=== PATIENT | female | born 1960 | race Caucasian/White ===

== ENCOUNTER 2016-06-24 11:19 | Emergency (ER) | payer OTHER ==
[~2016-06-24] VITALS: Ht 147.3 cm; Wt 60.2 kg
[~2016-06-24 11:19] MED LIST: ASPI-535 PO; ATOR10TA65 PO; CARV6.2579 PO; CHOL400T10 PO; CIPR500T4 PO; DOCU-144 PO; FOLI-49 PO; GABA100C14 PO; GLIM1TAB2 PO; HYDR-906 PO; LEVO137T3 PO; LOSA50TA6 PO; NEPH PO; OMEP20CA16 PO; ZOLP5TAB PO; [UNRECOGNIZED DRUG - CODE] PO
[2016-06-24 11:32] VITALS: Ht 147.3 cm; Wt 60.2 kg
[2016-06-24] MEDS ORDERED: ONDANSETRON 4 MG INJ IV STA (13:18)
[2016-06-24] MEDS ORDERED: morphine 2 MG INJ IV STA (13:18)
[2016-06-24] MEDS ORDERED: HYDROCODONE/APAP (5/325) TAB PO ONE ×2 (13:30→16:00)
--- NOTE | 2016-06-24 13:45 | RADRPT ---
PROCEDURE: CT Abdomen and Pelvis without contrast. CLINICAL INDICATION: Abdominal pain. TECHNIQUE: CT scan of the abdomen and pelvis without contrast was performed on a multidetector hig h-resolution CT scanner. The patient was scanned without intravenous contrast. Coronal and sagittal reformatted images were obtained from the axial source images. Images were reviewed on a high-resol Joy[employer] PACS workstation. One or more of the following dose reduction techniques were used: Automated exposure control, adjustment of the mA and/or kV according to patient size, use of iterative recon struction technique. The total exam CTDI equals 7.41 mGy and the total exam DLP equals 387.88 mGy-c m. COMPARISON: CT from FINDINGS: CT abdomen: The lung bases are remarkable for bibasilar atelectasis and minimal bronchial dilatation. There is i nterlobular septal thickening suggesting mild interstitial edema. The heart size is mildly enlarged without pericardial thickening or effusion. The liver is normal in size and density without focal ma ss or intrahepatic biliary dilatation. The spleen is normal in size and homogeneous in density. The stomach is partially collapsed, but is grossly unremarkable. The pancreas as visualized is normal. T he gallbladder is remarkable for a layering sludge. There is no evidence for biliary dilatation. The adrenal glands are symmetric and normal. There is atrophic right kidney with no hydronephrosis. The re is approximately 2 cm cyst in the interpolar region of the right kidney. Left kidney is surgicall y absent. The aorta is of normal caliber. Aortic vascular calcifications are present. There is no retroperiton eal lymphadenopathy. The ousmane hepatis region is clear. The bowel and mesentery, as visualized, are equally unremarkable. There is a fat-containing epigastric hernia. CT pelvis: The small bowel loops situated within the pelvis are unremarkable. There is a normal appendix. The p elvic organs are normal. The pelvic sidewalls and inguinal regions are clear. The sigmoid colon and rectum are unremarkable. No mass, lymphadenopathy, or free fluid is seen. No acute inflammation is s een. The surrounding osseous structures are remarkable for degenerative spondylosis of the spine. Mi dline posterior bridging osteophyte at T10-T11 has mass effect on the thecal sac narrowing the AP di ameter to 8 mm at this level. No osteolytic or osteoblastic lesion is detected. IMPRESSION: 1. No mass, lymphadenopathy, or focal acute inflammatory process is identified. 2. Atrophic right kidney with no hydronephrosis. Left kidney is surgically absent. 3. Extensive aortoiliac atherosclerosis. 4. Cardiomegaly with interstitial pulmonary edema. 5. Gallbladder sludge. RPTAT: JJ .Vicente Heath MD, Date Time Electronically viewed and signed by .Vicente Heath MD, on 06/24/2016 13:44 .A/
[2016-06-24 14:23] LABS: ADD SCAN DIFF NO
[2016-06-24 14:25] LABS: BASOPHILS % 0.4 % (0.0-2.0); EOSINOPHILS # 0.1 10^3/ul (0.0-0.5); EOSINOPHILS % 1.4 % (0.0-7.0); HEMATOCRIT 42.5 % (37.0-47.0); HEMOGLOBIN 13.4 g/dl (12.0-16.0); LYMPHOCYTES # 0.9 10^3/ul (0.8-2.9); LYMPHOCYTES % 17.3 % (15.0-51.0); MEAN CORPUSCULAR HEMOGLOBIN 30.5 pg (29.0-33.0); MEAN CORPUSCULAR HGB CONC 31.5 g/dl (32.0-37.0); MEAN CORPUSCULAR VOLUME 96.8 fl (82.0-101.0); MEAN PLATELET VOLUME 9.9 fl (7.4-10.4); MONOCYTE # 0.5 10^3/ul (0.3-0.9); MONOCYTES % 10.8 % (0.0-11.0); NEUTROPHIL # 3.4 10^3/ul (1.6-7.5); NEUTROPHILS % 69.9 % (39.0-77.0); PLATELET COUNT 194 10^3/UL (140-415); RED BLOOD COUNT 4.39 10^6/ul (4.20-5.40); WHITE BLOOD COUNT 4.9 10^3/ul (4.8-10.8)
[2016-06-24 14:35] LABS: INR 0.94; PARTIAL THROMBOPLASTIN TIME 30.9 Sec (25.0-35.0); PROTIME 12.6 Sec (12.2-14.2)
[2016-06-24 14:41] LABS: ALBUMIN 4.3 g/dl (3.3-4.9)
[2016-06-24 14:44] LABS: ALBUMIN/GLOBULIN RATIO 0.86; CALCIUM 9.6 mg/dl (8.4-10.2); CREATININE 5.52 mg/dl (0.44-1.00); TOTAL PROTEIN 9.3 g/dl (6.1-8.1)
--- NOTE | 2016-06-24 15:24 | RADRPT ---
PROCEDURE: US right upper extremity AV fistula/graft CLINICAL INDICATION: Renal failure TECHNIQUE: Multiple sonographic images of the right upper extremity arteries, veins and hemodialys is access was obtained utilizing grayscale, color-flow, compressive sonography and doppler imaging. The images were reviewed on a PACS workstation. COMPARISON: None. FINDINGS: There is a right upper extremity AV fistula which is widely patent. IMPRESSION: Patent right AV fistula. Velocity measurements were not obtained. RPTAT: AA .Elliot Hernández MD, MD Date Time Electronically viewed and signed by .Elliot Hernández MD, on 06/24/2016 15:23 .S/
--- NOTE | 2016-06-24 15:55 | RADRPT ---
PROCEDURE: Chest x-ray CLINICAL INDICATION: Abdominal pain TECHNIQUE: Chest single view COMPARISON: 12/18/2015 FINDINGS: There is left IJ dialysis catheter with tip at the junction of the SVC and azygos vein. There is sl ight kinking of the tip of the catheter which may suggest that it is entering the azygos vein. Stab le cardiomegaly and an sclerotic aortic calcification is seen. There is mild interstitial CHF which has improved from the previous examinations. Mild bibasilar atelectasis is seen. Trace bilateral pleural effusions are identified IMPRESSION: 1. Left IJ dialysis catheter with tip at the junction of the SVC and azygos vein. There is slight kinking of the tube which may suggest that the catheter is entering the azygos vein . 2. Stable cardiomegaly and an sclerotic aortic calcification. 3. Mild interstitial CHF. 4. Small bilateral pleural effusions with bibasilar atelectasis RPTAT: HH .Hiren Nunez MD, MD Date Time Electronically viewed and signed by .Hiren Nunez MD, on 06/24/2016 15:54 .W/
--- NOTE | 2016-06-24 16:45 | RADRPT ---
PROCEDURE: XR Ribs. CLINICAL INDICATION: Status post trauma to left chest. Status post fall.. TECHNIQUE: Two views of the left ribs were obtained. COMPARISON: The chest x-ray of 06/24/2016 FINDINGS: No rib fracture or other focal lesion is identified. The underlying lungs are unremarkable, without pleural effusion or pneumothorax seen. Sternotomy wires, mediastinal clips and a left-sided Perma-C ath are present slightly limiting the examination RPTAT:HJJR IMPRESSION: 1. Unremarkable left rib series. 2. It should be noted that acute, nondisplaced rib fractures may not be immediately radiographically visible and, should be patient's clinical symptoms persist despite conservative measures, a follow- up exam would be suggested. Physician Roseanne Date Time Electronically viewed and signed by Physician Roseanne on 06/24/2016 16:45 JR/
[2016-06-24] MEDS ORDERED: DOCU-144 PO (17:14)
[2016-06-24] MEDS ORDERED: HYDR-906 PO (17:14)
[2016-06-24 17:20] VITALS: BP 160/89; PULSE 78; RESP 20
--- NOTE | 2016-06-24 19:16 | ERD ---
ER Documentation Chief Complaint Date/Time DATE: 06/24/16 TIME: 19:07 Chief Complaint RT SHOULDER , LT RIB, RT FACE PAIN S/P FALL IN SHOWER THIS MORNING. NO KO. HPI This is a 56-year-old Malaysian-speaking female with a known history of end-stage renal disease on hemodialysis. The patient receives dialysis every Tuesday and Tuesday. The patient received her full run of dialysis today just prior to arrival. The patient states she presents to the emergency department today complaining of multiple areas of pain after she had a mechanical slip and fall and hit her bathtub a days prior to arrival. The patient denied any dizziness, syncope or near syncope prior to or after the fall. She stated she was standing in her bathtub on a wet tiled floor when she fell and hit the bathtub landing on her left rib cage. She stated she did not hit her head or lose consciousness. Since the fall she has been complaining of pain over the left side of her ribs that exacerbated when she laughs or takes in a deep breath. She is also complaining of pain in her left upper quadrant but denies any bruising. She also states to help break her fall she landed on an outstretched right hand. Contrary to the triage note the patient is not complaining of any tenderness of her right upper extremity, right hand or right shoulder. Her concern was that there could be damage to her maturing right AV fistula. The patient had a known left AV fistula that became clotted and therefore temporarily has a left-sided subclavian tunneled catheter. She denies any numbness tingling or pain of her right upper extremity. She did not take any analgesic medication prior to arrival. She denies a headache or neck pain. She has no chest pain pressure that radiates to the neck arm back or jaw. She has no shortness of breath at rest or exertion ROS All systems reviewed and are negative except as per history of present illness. Medications Home Meds Active Scripts Docusate Sodium* (Colace*) 100 Mg Capsule, 100 MG PO TID, #30 CAP Prov:RADHA HOLCOMB 06/24/16 Hydrocodone/Acetaminophen ([place] 5-325 Tablet) 1 Each Tablet, 1 TAB PO Q6H Y for PAIN, #20 TAB Prov:RADHA HOLCOMB 06/24/16 Zolpidem Tartrate* (Ambien*) 5 Mg Tablet, 5 MG PO HS Y for INSOMNIA, #3 TAB Prov:JANA INMAN DO 04/21/16 Hydrocodone/Acetaminophen ([place] 5-325 Tablet) 1 Each Tablet, 1 EACH PO Q4H, # 30 TAB Prov:HILARY LAW 04/01/16 Reported Medications Gabapentin* (Gabapentin*) 100 Mg Capsule, 100 MG PO DAILY, #30 CAP 04/21/16 Atorvastatin Calcium (Atorvastatin Calcium) 10 Mg Tablet, 10 MG PO DAILY, #30 TAB 04/21/16 Folic Acid* (Folic Acid*) 1 Mg Tablet, 1 MG PO DAILY, TAB 04/21/16 Carvedilol* (Carvedilol*) 6.25 Mg Tablet, 6.25 MG PO BID, #60 TAB 04/21/16 Cetirizine HCl (24Hour Allergy) 10 Mg Tablet, 10 MG PO BID, TAB 04/21/16 Omeprazole* (Omeprazole*) 20 Mg Capsule.dr, 20 MG PO DAILY, #30 CAP 03/19/16 Cholecalciferol* (Vitamin D*) 400 Unit Tablet, 400 UNIT PO DAILY, TAB 12/18/15 Levothyroxine Sodium* (Levothyroxine Sodium*) 137 Mcg Tablet, 137 MCG PO BEFORE BREAKFAST, #30 TAB 12/18/15 Glimepiride* (Glimepiride*) 1 Mg Tablet, 1 MG PO WITH BREAKFAST, TAB 12/18/15 Losartan Potassium* (Losartan Potassium*) 50 Mg Tablet, 50 MG PO BID, TAB 12/18/15 Docusate Sodium* (Colace*) 100 Mg Capsule, 100 MG PO BID 04/09/13 Aspirin Ec (Aspir 81) 81 Mg Tablet.dr, 81 MG PO DAILY 04/09/13 Multivit/Ca Carb/B Cmplx/Fa* (Lizette-Kris*) 1 Tab Tab, 1 TAB PO DAILY 04/09/13 Discontinued Scripts Ciprofloxacin Hcl* (Ciprofloxacin Hcl*) 500 Mg Tablet, 500 MG PO BID for 7 Days , TAB Prov:JANA INMAN DO 04/21/16 Allergies Allergies: Coded Allergies: No Known Drug Allergy (Verified Allergy, Unknown, 04/21/16) PMhx/Soc History of Surgery: Yes (OPEN HEART SX, DIALYSIS SHUNT VASCULAR SX) Hx Neurological Disorder: No (THYROID) Hx Respiratory Disorders: No Hx Cardiac Disorders: Yes (HTN, DM) Hx Psychiatric Problems: No Hx Miscellaneous Medical Probl: Yes ( KIDNEY FAILURE, T/TH/SAT, LEFT CHEST ACCESS) Hx Alcohol Use: No Hx Substance Use: No Hx Tobacco Use: No Smoking Status: Never smoker Physical Exam Vitals Vital Signs Date Time Temp Pulse Resp B/P Pulse Ox O2 Delivery O2 Flow Rate FiO2 06/24/16 17:20 78 20 160/89 99 Room Air 06/24/16 11:32 98.7 81 20 147/88 98 Physical Exam Constitutional:Well-developed. Well-nourished. HEENT:Normocephalic. Atraumatic.Pupils were equal round reactive to light. Moist mucous membranes.No tonsillar exudates. No nasoseptal hematoma. No hemotympanum. Neck: No nuchal rigidity. No lymphadenopathy. No posterior cervical spine tenderness or step-offs. Respiratory: Not using accessory muscles of respiration.Lungs were clear to auscultation bilaterally. No rhonchi. No rales. No wheezing. Cardiovascular: Regular rate regular rhythm.No murmurs. No rubs were appreciated.S1, S2 normal. Distal pulses are palpable 2+ bilaterally. GI: Abdomen was soft. Tenderness in the left upper quadrant with no ecchymosis. No flank ecchymosis and no periumbilical ecchymosis. Non Distended. No pulsatile abdominal masses or bruits. No rebound. No guarding. Bowel sounds were present and normal. Muscle skeletal: Full range of motion of both the upper and lower extremities bilaterally.Normal muscle tone.No assymetrical calf tenderness or swelling. Tenderness over the lateral left rib cage with no ecchymosis, no flail chest and no subcutaneous emphysema. Patient able to AB duct the left and right upper extremity past 90. Normal lie to the right humeral head and the left humeral head. No wrist drop bilaterally. No tenderness with flexion extension ulnar or radial deviation of the left of the right wrist. No metacarpal tenderness over the left of the right hand. Handgrip is equal and symmetrical bilaterally. Skin: No petechia, no purpura. No lesions on the palms or the soles of the feet. No maculopapular rash. Positive thrill and bruit of the right antecubital AV fistula. Compartments were soft of the bilateral upper extremities. Left chest tunneled catheter was clean dry and intact with no surrounding erythema warmth tenderness fluctuance or induration NEURO: Patient was alert, awake, orientated x3.No facial droop. Gait observed and normal with no ataxia.Speech had regular rate and rhythm. No focal neurological deficits. Result Diagram: 06/24/16 1405 06/24/16 1405 Results 24 hrs Laboratory Tests Test 06/24/16 14:05 Activated Partial Thromboplast Time 30.9Sec Alanine Aminotransferase (ALT/SGPT) 18IU/L Albumin 4.3g/dl Albumin/Globulin Ratio 0.86 Alkaline Phosphatase 178IU/L Anion Gap 24 Aspartate Amino Transf (AST/SGOT) 26IU/L Basophils # 0.010^3/ul Basophils % 0.4% Blood Urea Nitrogen 40mg/dl Calcium Level 9.6mg/dl Carbon Dioxide Level 22mmol/L Chloride Level 96mmol/L Creatinine 5.52mg/dl Direct Bilirubin 0.00mg/dl Eosinophils # 0.110^3/ul Eosinophils % 1.4% Globulin 5.00g/dl Glucose Level 171mg/dl Hematocrit 42.5% Hemoglobin 13.4g/dl INR International Normalized Ratio 0.94 Indirect Bilirubin 0.0mg/dl Lymphocytes # 0.910^3/ul Lymphocytes % 17.3% Mean Corpuscular Hemoglobin 30.5pg Mean Corpuscular Hemoglobin Concent 31.5g/dl Mean Corpuscular Volume 96.8fl Mean Platelet Volume 9.9fl Monocytes # 0.510^3/ul Monocytes % 10.8% Neutrophils # 3.410^3/ul Neutrophils % 69.9% Nucleated Red Blood Cells # 0.010^3/ul Nucleated Red Blood Cells % 0.0/100WBC Platelet Count 22000^3/UL Potassium Level 5.0mmol/L Prothrombin Time 12.6Sec Prothrombin Time Ratio 1.0 Red Blood Count 4.3910^6/ul Red Cell Distribution Width 16.0% Sodium Level 137mmol/L Total Bilirubin 0.0mg/dl Total Protein 9.3g/dl White Blood Count 4.910^3/ul Current Medications Medications (Trade) Dose Ordered Sig/Connor Route PRN Reason Start Time Stop Time Status Last Admin Dose Admin Acetaminophen/ Hydrocodone Bitart ([place] (5/325)) 1 tab ONCE ONCE PO 06/24/16 13:30 06/24/16 13:31 Cancel Morphine Sulfate (morphine) 2 mg ONCE STAT IV 06/24/16 13:18 06/24/16 13:19 Cancel Ondansetron HCl (Zofran Inj) 4 mg ONCE STAT IV 06/24/16 13:18 06/24/16 13:19 Cancel Acetaminophen/ Hydrocodone Bitart ([place] (5/325)) 1 tab ONCE ONCE PO 06/24/16 16:00 06/24/16 16:01 DC Procedures/MDM This patient presented to the emergency department 8 days after a mechanical slip and fall. Radiographic imaging was obtained of the lateral left rib cage and a chest radiograph was obtained which showed no acute fractures pneumothorax or pleural effusion. I also obtained a CT scan of the abdomen without contrast that showed no evidence of intra-abdominal hemorrhage as the patient did have tenderness over the spleen as a result of the blunt abdominal trauma. Electrolytes showed no abnormalities such as hyperkalemia or anemia. I obtained an ultrasound of the right upper extremity which showed a patent right AV fistula. Observation Note: Time: 4 hours Family Hx: No Hypertension Evaluation: Multiple exams showed improving symptoms and no evidence of intra- abdominal hemorrhage or pneumothorax. The patient felt comfortable being discharged home and her pain had improved after given [place] The patient was discharged home in fair condition. They were instructed to return to the emergency department at any time if there was any worsening of their condition. The patient stated they would follow up with their PCP in the next 24-48 hours to initiate a suitable medication regimen under the care of their PCP as well as to allow their PCP to monitor any drug reactions. The patient was discharged home with prescriptions after they gave informed consent to the new medication. They were also fully informed by myself on the adverse effects and adverse drug interactions in order to provide adequate safeguards to prevent possible adverse reactions to medications. Departure Diagnosis: Primary Impression: Rib injury Additional Impressions: Blunt trauma to abdomen Encounter type: initial encounter Qualified Code: S39.81XA - Blunt trauma to abdomen, initial encounter Muscle strain of right upper extremity Encounter type: initial encounter Qualified Code: S46.911A - Muscle strain of right upper extremity, initial encounter Condition: Fair Patient Instructions: Blunt Abdominal Trauma, Rib Contusion, Fall Prevention RADHA HOLCOMB Jun 24, 2016 19:15
== END 2016-06-24 17:14 | disposition home or self-care (01) ==
LOC: E/R 11:19
DX: S29.9XXA Unspecified injury of thorax, initial encounter (principal); S39.81XA Other specified injuries of abdomen, initial encounter; S46.911A Strain of unspecified muscle, fascia and tendon at shoulder and upper arm level, right arm, initial encounter; I12.0 Hypertensive chronic kidney disease with stage 5 chronic kidney disease or end stage renal disease; N18.6 End stage renal disease; E11.9 Type 2 diabetes mellitus without complications; W18.2XXA Fall in (into) shower or empty bathtub, initial encounter; Y92.9 Unspecified place or not applicable; Z99.2 Dependence on renal dialysis; Z79.84 Long term (current) use of oral hypoglycemic drugs; Z79.82 Long term (current) use of aspirin
CPT/HCPCS: 71010; 71100; 74176; 80053; 85025; 85610; 85730; 93971; Z7502

== ENCOUNTER 2016-08-10 13:04 | Emergency (ER) | payer OTHER ==
[~2016-08-10] VITALS: Ht 160 cm; Wt 70.0 kg
[~2016-08-10 13:04] MED LIST changes: -CIPR500T4 PO
[2016-08-10 13:32] VITALS: Ht 160 cm; Wt 70.0 kg
[2016-08-10] MEDS ORDERED: CEFTRIAXONE 1 GM INJ IM ONE (14:00)
[2016-08-10] MEDS ORDERED: IBUPROFEN 800 MG TAB PO ONE (14:00)
[2016-08-10] MEDS ORDERED: ALBU8.5H3 INH (14:00)
[2016-08-10] MEDS ORDERED: PRED20TA PO (14:00)
[2016-08-10] MEDS ORDERED: AZIT250T94 PO (14:00)
--- NOTE | 2016-08-10 14:03 | ERD ---
ER Documentation Chief Complaint Date/Time DATE: 08/10/16 TIME: 14:02 Chief Complaint PRODUCTIVE COUGH X 1 WEEK HPI This is a 56-year-old female complains of 1 week of cough with green productive sputum with onset of fever this morning. She has no shortness of breath or dyspnea on exertion or orthopnea. No nausea vomiting diarrhea she does have nasal congestion. No sore throat no body aches no abdominal pain no chest pain ROS All systems reviewed and are negative except as per history of present illness. Medications Home Meds Active Scripts Prednisone* (Prednisone*) 20 Mg Tab, 40 MG PO DAILY for 4 Days, TAB Prov:FRANCIS BARONES A. DO 08/10/16 Albuterol Sulfate* (Proair HFA*) 8.5 Gm Hfa.aer.ad, 2 PUFF INH Q4, #1 INHALER Prov:SHARADVIKA CARRASCOSTSHELLYS A. DO 08/10/16 Azithromycin* (Zithromax*) 250 Mg Tablet, 250 MG PO .ZPACK DIRECTED, #6 TAB TAKE 500 MG (2 TABS) THE FIRST DAY THEN 250 MG (1 TAB) DAYS 2-5 Prov:FRANCIS BARONES A. DO 08/10/16 Docusate Sodium* (Colace*) 100 Mg Capsule, 100 MG PO TID, #30 CAP Prov:RADHA HOLCOMB 06/24/16 Hydrocodone/Acetaminophen ([place] 5-325 Tablet) 1 Each Tablet, 1 TAB PO Q6H Y for PAIN, #20 TAB Prov:RADHA HOLCOMB 06/24/16 Zolpidem Tartrate* (Ambien*) 5 Mg Tablet, 5 MG PO HS Y for INSOMNIA, #3 TAB Prov:JANA INMAN DO 04/21/16 Hydrocodone/Acetaminophen ([place] 5-325 Tablet) 1 Each Tablet, 1 EACH PO Q4H, # 30 TAB Prov:HILARY LAW 04/01/16 Reported Medications Gabapentin* (Gabapentin*) 100 Mg Capsule, 100 MG PO DAILY, #30 CAP 04/21/16 Atorvastatin Calcium (Atorvastatin Calcium) 10 Mg Tablet, 10 MG PO DAILY, #30 TAB 04/21/16 Folic Acid* (Folic Acid*) 1 Mg Tablet, 1 MG PO DAILY, TAB 04/21/16 Carvedilol* (Carvedilol*) 6.25 Mg Tablet, 6.25 MG PO BID, #60 TAB 04/21/16 Cetirizine HCl (24Hour Allergy) 10 Mg Tablet, 10 MG PO BID, TAB 04/21/16 Omeprazole* (Omeprazole*) 20 Mg Capsule.dr, 20 MG PO DAILY, #30 CAP 03/19/16 Cholecalciferol* (Vitamin D*) 400 Unit Tablet, 400 UNIT PO DAILY, TAB 12/18/15 Levothyroxine Sodium* (Levothyroxine Sodium*) 137 Mcg Tablet, 137 MCG PO BEFORE BREAKFAST, #30 TAB 12/18/15 Glimepiride* (Glimepiride*) 1 Mg Tablet, 1 MG PO WITH BREAKFAST, TAB 12/18/15 Losartan Potassium* (Losartan Potassium*) 50 Mg Tablet, 50 MG PO BID, TAB 12/18/15 Docusate Sodium* (Colace*) 100 Mg Capsule, 100 MG PO BID 04/09/13 Aspirin Ec (Aspir 81) 81 Mg Tablet.dr, 81 MG PO DAILY 04/09/13 Multivit/Ca Carb/B Cmplx/Fa* (Lizette-Kris*) 1 Tab Tab, 1 TAB PO DAILY 04/09/13 Allergies Allergies: Coded Allergies: No Known Drug Allergy (Verified Allergy, Unknown, 04/21/16) PMhx/Soc History of Surgery: Yes (OPEN HEART SX, DIALYSIS SHUNT VASCULAR SX) Hx Neurological Disorder: No (THYROID) Hx Respiratory Disorders: No Hx Cardiac Disorders: Yes (HTN, DM) Hx Psychiatric Problems: No Hx Miscellaneous Medical Probl: Yes ( KIDNEY FAILURE, T/TH/SAT, LEFT CHEST ACCESS) Hx Alcohol Use: No Hx Substance Use: No Hx Tobacco Use: No FmHx Family History: No coronary disease Physical Exam Vitals Vital Signs Date Time Temp Pulse Resp B/P Pulse Ox O2 Delivery O2 Flow Rate FiO2 08/10/16 13:32 102.0 98 18 135/75 98 Physical Exam Const: Well-developed, well-nourished Head: Atraumatic, normocephalic Eyes: Normal Conjunctiva, PERRLA, EOMI, normal sclera, no nystagmus ENT: Normal External Ears, Nose and Mouth, moist mucus membranes. Neck: Full range of motion. No meningismus, no lymphadenopathy. Resp: No increased work of breathing, there is some mild rhonchi in the bases but good air movement Cardio: Regular rate and rhythm, no murmurs, S1 S2 present Abd: Soft, non tender x 4, non distended. Normal bowel sounds, no guarding or rebound, no pulsitile abdominal masses or bruits Skin: No petechiae or rashes, no ecchymosis , no maculopapular rash Back: No midline or flank tenderness Ext: No cyanosis, or edema, FROM x 4, normal inspection, neurovascularly intact x 4 Neur: Awake and alert, STR 5/5 x 4, sensation intact x 4, no focal findings, cerebellum intact Psych: Normal Mood and Affect Results 24 hrs Current Medications Medications (Trade) Dose Ordered Sig/Connor Route PRN Reason Start Time Stop Time Status Last Admin Dose Admin Ibuprofen (Motrin) 800 mg ONCE ONCE PO 08/10/16 14:00 08/10/16 14:01 DC Ceftriaxone Sodium (Rocephin) 1 gm ONCE ONCE IM 08/10/16 14:00 08/10/16 14:01 DC Procedures/MDM Likely has bronchitis we will treat with Motrin for fever and Rocephin 1 g IM and following and home with Zithromax albuterol and prednisone Departure Diagnosis: Primary Impression: Bronchitis Condition: Stable Patient Instructions: Bronchitis, Antiobiotic Treatment (Adult) VASYL BARONE DO Aug 10, 2016 14:03
== END 2016-08-10 14:35 | disposition home or self-care (01) ==
LOC: FTE 13:04
DX: J20.9 Acute bronchitis, unspecified (principal); I10 Essential (primary) hypertension; E11.9 Type 2 diabetes mellitus without complications; Z79.84 Long term (current) use of oral hypoglycemic drugs
CPT/HCPCS: 96372; J0696; Z7502; Z7610

== ENCOUNTER 2016-08-28 12:47 | Emergency (ER) | payer OTHER ==
[~2016-08-28] VITALS: Ht 154.9 cm; Wt 67.1 kg
[~2016-08-28 12:47] MED LIST changes: +ALBU8.5H3 INH; +AZIT250T94 PO; +PRED20TA PO
[2016-08-28 12:50] VITALS: Ht 154.9 cm; Wt 67.1 kg
[2016-08-28] MEDS ORDERED: HYDROCODONE/APAP (5/325) TAB PO ONE (14:00)
--- NOTE | 2016-08-28 14:19 | ERD ---
ER Documentation Chief Complaint Date/Time DATE: 08/28/16 TIME: 14:19 Chief Complaint RIGHT RECURRENT JAW PAIN HPI This 56-year-old female who presents to the emergency department today for right jaw pain for the past 3 weeks. Patient states she has pain with eating. States that it is causing her to have a headache. States that the right side of her jaw was swollen. Denies any dental pain, fevers or chills. States that she is on dialysis. States that she takes [place] for pain and she has 3 pills left. ROS All systems reviewed and are negative except as per history of present illness. Medications Home Meds Active Scripts Penicillin V Potassium* (Penicillin V K*) 500 Mg Tab, 500 MG PO QID for 10 Days , TAB Prov:YARIEL LANDIN PA-C 08/28/16 Hydrocodone/Acetaminophen ([place] 5-325 Tablet) 1 Each Tablet, 1 TAB PO Q6H Y for PAIN, #7 TAB Prov:YARIEL LANDIN PA-C 08/28/16 Prednisone* (Prednisone*) 20 Mg Tab, 40 MG PO DAILY for 4 Days, TAB Prov:VASYL BARONE DO 08/10/16 Albuterol Sulfate* (Proair HFA*) 8.5 Gm Hfa.aer.ad, 2 PUFF INH Q4, #1 INHALER Prov:VASYL BARONE DO 08/10/16 Azithromycin* (Zithromax*) 250 Mg Tablet, 250 MG PO .ZPACK DIRECTED, #6 TAB TAKE 500 MG (2 TABS) THE FIRST DAY THEN 250 MG (1 TAB) DAYS 2-5 Prov:VASYL BARONE DO 08/10/16 Docusate Sodium* (Colace*) 100 Mg Capsule, 100 MG PO TID, #30 CAP Prov:ARI HOLCOMBTHIA 06/24/16 Hydrocodone/Acetaminophen ([place] 5-325 Tablet) 1 Each Tablet, 1 TAB PO Q6H Y for PAIN, #20 TAB Prov:ZHANG,RADHA 06/24/16 Zolpidem Tartrate* (Ambien*) 5 Mg Tablet, 5 MG PO HS Y for INSOMNIA, #3 TAB Prov:JANA INMAN DO 12/28/16 Hydrocodone/Acetaminophen ([place] 5-325 Tablet) 1 Each Tablet, 1 EACH PO Q4H, # 30 TAB Prov:HILARY LAW 04/01/16 Reported Medications Gabapentin* (Gabapentin*) 100 Mg Capsule, 100 MG PO DAILY, #30 CAP 04/21/16 Atorvastatin Calcium (Atorvastatin Calcium) 10 Mg Tablet, 10 MG PO DAILY, #30 TAB 04/21/16 Folic Acid* (Folic Acid*) 1 Mg Tablet, 1 MG PO DAILY, TAB 04/21/16 Carvedilol* (Carvedilol*) 6.25 Mg Tablet, 6.25 MG PO BID, #60 TAB 04/21/16 Cetirizine HCl (24Hour Allergy) 10 Mg Tablet, 10 MG PO BID, TAB 04/21/16 Omeprazole* (Omeprazole*) 20 Mg Capsule.dr, 20 MG PO DAILY, #30 CAP 03/19/16 Cholecalciferol* (Vitamin D*) 400 Unit Tablet, 400 UNIT PO DAILY, TAB 12/18/15 Levothyroxine Sodium* (Levothyroxine Sodium*) 137 Mcg Tablet, 137 MCG PO BEFORE BREAKFAST, #30 TAB 12/18/15 Glimepiride* (Glimepiride*) 1 Mg Tablet, 1 MG PO WITH BREAKFAST, TAB 12/18/15 Losartan Potassium* (Losartan Potassium*) 50 Mg Tablet, 50 MG PO BID, TAB 12/18/15 Docusate Sodium* (Colace*) 100 Mg Capsule, 100 MG PO BID 04/09/13 Aspirin Ec (Aspir 81) 81 Mg Tablet.dr, 81 MG PO DAILY 04/09/13 Multivit/Ca Carb/B Cmplx/Fa* (Lizette-Kris*) 1 Tab Tab, 1 TAB PO DAILY 04/09/13 Allergies Allergies: Coded Allergies: No Known Drug Allergy (Verified Allergy, Unknown, 04/21/16) PMhx/Soc History of Surgery: Yes (OPEN HEART SX, DIALYSIS SHUNT VASCULAR SX) Hx Neurological Disorder: No (THYROID) Hx Respiratory Disorders: No Hx Cardiac Disorders: Yes (HTN, DM) Hx Psychiatric Problems: No Hx Miscellaneous Medical Probl: Yes ( KIDNEY FAILURE, T/TH/SAT, LEFT CHEST ACCESS) Hx Alcohol Use: No Hx Substance Use: No Hx Tobacco Use: No Physical Exam Vitals Vital Signs Date Time Temp Pulse Resp B/P Pulse Ox O2 Delivery O2 Flow Rate FiO2 08/28/16 12:50 98.1 57 18 127/57 99 Physical Exam Const: No acute distress Head: Atraumatic Eyes: Normal Conjunctiva ENT: Ears TMs normal. Nose no drainage. Throat no erythema no exudate. No evidence of abscess. No evidence of dental fracture. Tenderness to palpation right side of TMJ along mandible Neck: Full range of motion..~ No meningismus. Resp: Clear to auscultation bilaterally Cardio: Regular rate and rhythm, no murmurs Abd: Soft, non tender, non distended. Normal bowel sounds Skin: No petechiae or rashes Neur: Awake and alert Psych: Normal Mood and Affect Results 24 hrs Current Medications Medications (Trade) Dose Ordered Sig/Connor Route PRN Reason Start Time Stop Time Status Last Admin Dose Admin Acetaminophen/ Hydrocodone Bitart ([place] (5/325)) 1 tab ONCE ONCE PO 08/28/16 14:00 08/28/16 14:01 DC 08/28/16 14:20 Procedures/MDM This 56-year-old female who presents to the emergency department today complaining of right-sided jaw pain for the past 3 weeks. Patient was concerned that she had an infection because she had some swelling on the right side of her face. Patient is afebrile and otherwise well-appearing. She is a dialysis patient. On physical exam patient has some tenderness at her right TMJ joint and along the right side of her jaw. There was very small area of localized swelling on her cheek however have low suspicion for sepsis, deep space infection, tracking infection. Other differentials to consider are sialadenitis. I do not see evidence of a dental abscess or dental infection however given patient's multiple comorbidities I will give the patient a prescription for Pen VK. Patient was given one [place] here in the emergency department. I will give her a few tablets for home to get her through the weekend. She was instructed to follow-up with her primary care doctor for a refill of her usual pain medication. Patient does take [place] at home and indicated that she only has 3 pills left but she does typically get it from her primary care doctor Dr. Brunson who by cures report last gave her prescription for 30 pills on August 06, 2016. She does not appear to be abusing pain medication at this time. At this time the patient is stable for discharge and outpatient management. Patient should follow up with their PCP in the next 1-2 days. They may return to the emergency department sooner for any persistent or worsening of symptoms. Patient understood and agreed with the plan. Departure Diagnosis: Primary Impression: Jaw pain Condition: YARIEL Marie PA-C August 28, 2016 14:19
[2016-08-28] MEDS ORDERED: HYDR-906 PO (14:28)
[2016-08-28] MEDS ORDERED: PEN500 PO (14:29)
[2016-08-28 14:35] VITALS: BP 128/56; PULSE 59; RESP 18; TEMP 98.2
== END 2016-08-28 14:35 | disposition home or self-care (01) ==
LOC: FTE 12:47
DX: R68.84 Jaw pain (principal); I10 Essential (primary) hypertension; E11.9 Type 2 diabetes mellitus without complications; Z79.84 Long term (current) use of oral hypoglycemic drugs; Z79.82 Long term (current) use of aspirin
CPT/HCPCS: Z7502; Z7610; 99284

== ENCOUNTER 2016-11-24 12:59 | Emergency (ER) | payer OTHER ==
[~2016-11-24] VITALS: Ht 152.4 cm; Wt 55.5 kg
[~2016-11-24 12:59] MED LIST changes: +ACET-141 PO; -ALBU8.5H3 INH; +ASPI-664 PO; -AZIT250T94 PO; +CALC667C PO; +CARV12.579 PO; +CETI-240 PO; +CHOL400C11 PO; -CHOL400T10 PO; +CLON-379 PO; +DOCU-159 PO; +FLUT16SP17 NASAL; -HYDR-906 PO; +LACT1CAP57 PO; +LANT3I SC; +LEVO150T67 PO; +POLY17PO6 PO; -PRED20TA PO; +SEVE800T10 PO; -ZOLP5TAB PO; -[UNRECOGNIZED DRUG - CODE] PO
[2016-11-24 13:02] VITALS: Ht 152.4 cm; Wt 55.5 kg
[2016-11-24 15:47] LABS: BASOPHILS % 0.3 % (0.0-2.0); EOSINOPHILS # 0.1 10^3/ul (0.0-0.5); EOSINOPHILS % 0.9 % (0.0-7.0); LYMPHOCYTES # 0.9 10^3/ul (0.8-2.9); MONOCYTE # 1.1 10^3/ul (0.3-0.9); NEUTROPHIL # 6.7 10^3/ul (1.6-7.5); NEUTROPHILS % 76.1 % (39.0-77.0); RED CELL DISTRIBUTION WIDTH 14.8 % (11.5-14.5); WHITE BLOOD COUNT 8.8 10^3/ul (4.8-10.8)
[2016-11-24 15:50] LABS: HEMATOCRIT 32.9 % (37.0-47.0); HEMOGLOBIN 10.7 g/dl (12.0-16.0); MEAN CORPUSCULAR VOLUME 100.6 fl (82.0-101.0); RED BLOOD COUNT 3.27 10^6/ul (4.20-5.40)
[2016-11-24 15:51] LABS: MEAN CORPUSCULAR HEMOGLOBIN 32.7 pg (29.0-33.0); MEAN CORPUSCULAR HGB CONC 32.5 g/dl (32.0-37.0); MEAN PLATELET VOLUME 11.5 fl (7.4-10.4); PLATELET COUNT 127 10^3/UL (140-415); POSITIVE DIFF @See below
--- NOTE | 2016-11-24 15:51 | RADRPT ---
PROCEDURE: XR Chest. CLINICAL INDICATION: Chest Pain. TECHNIQUE: Single frontal chest x-ray. COMPARISON: 06/24/2016 FINDINGS: The lungs are clear of acute infiltrates, edema, effusions, or masses. There is elevated left hemidi aphragm with mild left basilar atelectasis.. Cardiomegaly with calcific atherosclerosis of the aort a is seen. Sternotomy wires are present. There is a left-sided tunneled dialysis catheter in place with tip overlying superior vena cava near the level of the azygos vein.. The osseous structures ar e intact. IMPRESSION: No acute cardiopulmonary disease. Cardiomegaly with calcified aorta. Mild left basilar atelectasis. Left sided tunneled dialysis catheter in place with tip near the junction of the azygos vein and sup erior vena cava. RPTAT: RR .Eliezer Jurado MD, MD Date Time Electronically viewed and signed by .Eliezer Jurado MD, MD on 11/24/2016 15:50 .L/
[2016-11-24 16:03] LABS: INR 1.14; PROTIME 14.6 Sec (12.2-14.2); PT RATIO 1.1
[2016-11-24] MEDS ORDERED: morphine 4 MG/ML VIAL IV STA ×2 (16:03→17:32)
[2016-11-24 16:04] LABS: PARTIAL THROMBOPLASTIN TIME 35.3 Sec (25.0-35.0)
[2016-11-24 16:22] LABS: TROPONIN-I < 0.012 ng/ml (0.00-0.12)
[2016-11-24 16:28] LABS: EOSINOPHILS % (M) 5 % (0-7); GIANT THROMBO% (M) 3 % (0-0); MONOCYTES % (M) 12 % (0-11); PLATELET ESTIMATE NORMAL
[2016-11-24 18:00] LABS: ANION GAP 20 (8-16); BLOOD UREA NITROGEN 36 mg/dl (7-20); CALCIUM 8.9 mg/dl (8.4-10.2); CARBON DIOXIDE 20 mmol/L (21-31); CHLORIDE 102 mmol/L (97-110); CREATININE 6.74 mg/dl (0.44-1.00); GLUCOSE 125 mg/dl (70-220); POTASSIUM 4.9 mmol/L (3.5-5.1); SODIUM 137 mmol/L (135-144)
--- NOTE | 2016-11-24 19:59 | RADRPT ---
PROCEDURE: CT Abdomen and Pelvis without contrast. CLINICAL INDICATION: Lower abdominal pain, back pain TECHNIQUE: CT scan of the abdomen and pelvis without contrast was performed on a multidetector hig h-resolution CT scanner. The patient was scanned without intravenous contrast. Coronal and sagittal reformatted images were obtained from the axial source images. Images were reviewed on a high-resol [employer] PACS workstation. The total exam CTDI equals 6.64 mGy and the total exam DLP equals 347.98 mGy -cm. One or more the following dose reduction techniques were utilized: Automated exposure control, adjus tment of the mA and / or kV according to patient's size, or use of iterative reconstruction techniqu e. COMPARISON: 06/24/2016 FINDINGS: Sternal wires and surgical clips. Cardiomegaly. Coronary artery calcification. Calcification in t horacoabdominal aorta. Linear atelectasis/fibrosis at lung bases. Small calcification in region of dome of liver could represent small diaphragmatic calcification again seen. Dependent atelectasis in posterior lower lungs. Small upper anterior abdominal wall hernia containing fat only again seen . Mild subcutaneous edema again seen. No abnormality is seen in the liver. Cholelithiasis again ap parent. No biliary dilatation is seen. Arterial calcification in splenic hilum. No abnormality is s een in the adrenals, pancreas. No abnormality of the bladder is seen. No abdominal aortic aneurysm is seen. Calcification in celiac, splenic, superior mesenteric, inferior mesenteric, bilateral josiane al and bilateral iliac and femoral arteries. The patient is status post left nephrectomy. Right re nal atrophy is again seen. There is appearance of 1.5 cm rounded fluid density structure likely a cyst in the mid right kidney anteriorly. Calcified injection granulomas in the subcutaneous fat regine ateral gluteal regions again seen. Postoperative changes are apparent in the periumbilical region a ppearing since the previous study. Opaque sutures in apparent jejunum in the left upper quadrant of the abdomen appearing since previous study. There is dilatation of loop of jejunum in region of op aque sutures to 4.7 cm diameter which is thought to likely be secondary to the surgery. No definite small bowel obstruction is seen. Vascular calcifications in uterus. No ascites is seen. The blad enrico is largely empty. There is the appearance of an unremarkable appendix partially delineated. No definite abnormality of the colon is seen. There is nonspecific dilated small bowel loop in the ri t anterior mid to lower pelvis with maximal diameter of 3.1 cm. There is appearance of mild wall thickening in loop of small bowel in the left upper pelvis lower abdomen region which could be secondary to inflammation. No enlarged lymph nodes are seen in the abdomen or pelvis. No pneumoperi toneum is seen. Degenerative changes at sacroiliac joints. Mild degenerative changes in thoracolum bar spine. IMPRESSION: Small bowel surgery appearing since the previous study. There is nonspecific wall thickening in sma ll bowel loop in the left upper to mid pelvis and dilatation of small bowel loop in the right anteri or mid to lower pelvis appearing since the previous study which could be secondary to inflammation. Atherosclerosis. Left nephrectomy. Right renal atrophy. Cardiomegaly. Small upper anterior abdom inal wall hernia containing fat only again seen. Cholelithiasis again apparent. Please see above. RPTAT: HJES .Eliezer Pate MD, Date Time Electronically viewed and signed by .Eliezer Pate MD, on 11/24/2016 19:59 .S/
--- NOTE | 2016-11-24 20:06 | ERD ---
ER Documentation Chief Complaint Date/Time DATE: 11/24/16 TIME: 20:02 Chief Complaint back pain radiating to neck, bilateral eye pain near syncope yesterday HPI This is a 56-year-old female with a history of hypertension, diabetes, end- stage renal disease on dialysis Tuesday, Tuesday, Tuesday who presents to the emergency room for evaluation of abdominal cramping in the mild back pain. The patient states that her abdominal cramping and discomfort started 3 days ago. She localizes it to the left upper quadrant and states that she has mild radiation to her back. The patient also states that she has no relieving factors for her symptoms and came to the emergency room today for evaluation. She denies any active chest pain or shortness of breath this time ROS All systems reviewed and are negative except as per history of present illness. Medications Home Meds Reported Medications Clonidine Hcl* (Clonidine Hcl*) 0.1 Mg Tab, 0.1 MG PO BID Y for ELEVATED BLOOD PRESSURE, TAB 11/16/16 Omeprazole* (Omeprazole*) 20 Mg Capsule.dr, 20 MG PO DAILY, #30 CAP 08/31/16 Carvedilol* (Carvedilol*) 6.25 Mg Tablet, 6.25 MG PO BID, #60 TAB 08/31/16 Folic Acid* (Folic Acid*) 1 Mg Tablet, 1 MG PO DAILY, TAB 04/21/16 Levothyroxine Sodium* (Levothyroxine Sodium*) 137 Mcg Tablet, 137 MCG PO BEFORE BREAKFAST, #30 TAB 12/18/15 Losartan Potassium* (Losartan Potassium*) 50 Mg Tablet, 50 MG PO BID, TAB 12/18/15 Docusate Sodium* (Colace*) 100 Mg Capsule, 100 MG PO BID 04/09/13 Discontinued Reported Medications Carvedilol* (Carvedilol*) 12.5 Mg Tablet, 12.5 MG PO BID, #60 TAB 11/16/16 Sevelamer Hcl* (Renagel*) 800 Mg Tablet, 4000 MG PO BID WITH MEALS, TAB 11/16/16 Cholecalciferol (Vitamin D3) 400 Unit Capsule, 400 UNIT PO DAILY, CAP 08/31/16 Docusate Sodium* (Docusate Sodium*) 100 Mg Capsule, 100 MG PO BID, #60 CAP 08/31/16 Folic Acid* (Folic Acid*) 1 Mg Tablet, 1 MG PO DAILY, TAB 08/31/16 Atorvastatin Calcium (Atorvastatin Calcium) 10 Mg Tablet, 10 MG PO QHS, #30 TAB 08/31/16 Gabapentin* (Gabapentin*) 100 Mg Capsule, 100 MG PO TID, #90 CAP 08/31/16 Acetaminophen* (Acetaminophen*) 500 MG Extra Strength Tablet, 1000 MG PO Q6H Y for PAIN AND OR ELEVATED TEMP, TAB 08/31/16 Losartan Potassium* (Losartan Potassium*) 50 Mg Tablet, 50 MG PO BID, TAB 08/31/16 Levothyroxine Sodium* (Levothyroxine Sodium*) 150 Mcg Tablet, 150 MCG PO BEFORE BREAKFAST, #30 TAB 08/31/16 Fluticasone Propionate* (Fluticasone Propionate* Nasal) 50 Mcg/[place] - 16 Gm [place].susp, 2 SPRAYS NASAL DAILY, #1 BOTTLE TO EACH NOSTRIL 08/31/16 Calcium Acetate* (Calcium Acetate*) 667 Mg Capsule, 3335 MG PO WITH MEALS, #90 CAP 08/31/16 Cetirizine Hcl* (Cetirizine Hcl*) 10 Mg Tablet, 10 MG PO DAILY, #30 TAB 08/31/16 Aspirin* (Aspirin* EC) 81 Mg Tablet.dr, 81 MG PO DAILY, TAB 08/31/16 Multivit/Ca Carb/B Cmplx/Fa* (Lizette-Kris*) 1 Tab Tab, 1 TAB PO DAILY, TAB 08/31/16 Gabapentin* (Gabapentin*) 100 Mg Capsule, 100 MG PO DAILY, #30 CAP 04/21/16 Atorvastatin Calcium (Atorvastatin Calcium) 10 Mg Tablet, 10 MG PO DAILY, #30 TAB 04/21/16 Glimepiride* (Glimepiride*) 1 Mg Tablet, 1 MG PO WITH BREAKFAST, TAB 12/18/15 Aspirin Ec (Aspir 81) 81 Mg Tablet.dr, 81 MG PO DAILY 04/09/13 Discontinued Scripts Lactobacillus Rhamnosus* (Culturelle*) 1 Each Cap.sprink, 1 CAP PO BID, #60 CAP Prov:ELSA DELANEY MD 09/23/16 Polyethylene Glycol* (Miralax*) 17 Gm Powd.pack, 8.5 GM PO DAILY Y for CONSTIPATION for 14 Days Prov:VOLODYMYR SANTIAGO 09/09/16 Insulin Glargine* (Lantus*) 100 Unit/Ml Soln, 12 UNIT SC DAILY@09 for 30 Days, 2 Refills Prov:VOLODYMYR SANTIAGO 09/09/16 Allergies Allergies: Coded Allergies: vancomycin (Verified Allergy, Intermediate, 11/24/16) RED RASH WITH ITCHING. PMhx/Soc History of Surgery: Yes (OPEN HEART SX, DIALYSIS SHUNT VASCULAR SX) Hx Neurological Disorder: No (THYROID) Hx Respiratory Disorders: No Hx Cardiac Disorders: Yes (HTN, DM) Hx Psychiatric Problems: No Hx Miscellaneous Medical Probl: Yes ( KIDNEY FAILURE, T/TH/SAT, LEFT CHEST ACCESS) Hx Alcohol Use: No Hx Substance Use: No Hx Tobacco Use: No Smoking Status: Never smoker Physical Exam Vitals Vital Signs Date Time Temp Pulse Resp B/P Pulse Ox O2 Delivery O2 Flow Rate FiO2 11/24/16 18:30 74 20 116/50 100 Room Air 11/24/16 17:11 68 19 110/47 97 Room Air 11/24/16 15:25 Nasal Cannula 2 11/24/16 13:02 99.6 72 18 102/49 99 Physical Exam INITIAL VITAL SIGNS: Reviewed by me GENERAL: The patient is well developed and appropriate for usual state of health in no apparent distress HEENT: Pupils equal, round, and reactive to light. EOMI. There is no scleral icterus. NECK: C-spine is soft and supple, there is no meningismus. There is no cervical lymphadenopathy. LUNGS: Clear to auscultation bilaterally. There are no rales, wheezes or rhonchi. HEART: Regular rate and rhythm, no murmurs, clicks, rubs or gallops. ABDOMEN: Left upper quadrant tenderness to palpation, negative Malave sign there are bowel sounds in all four quadrants. No rebound or guarding. EXTREMITIES: There is no peripheral cyanosis or edema. No focal swelling or erythema. NEUROLOGICAL: The patient moves all four extremities with 5/5 strength. Cranial nerves II - XII are intact. Normal gait. Alert and oriented SKIN: Dialysis catheter in anterior chest wall, there is no apparent rash or petechiae. HEME/LYMPHATIC: There is no evidence of excessive bruising or lymphedema. PSYCHIATRIC: The patient does not appear anxious or depressed. Result Diagram: 11/24/16 1520 11/24/16 1720 Results 24 hrs Laboratory Tests Test 11/24/16 15:20 11/24/16 17:20 White Blood Count 8.810^3/ul Red Blood Count 3.2710^6/ul Hemoglobin 10.7g/dl Hematocrit 32.9% Mean Corpuscular Volume 100.6fl Mean Corpuscular Hemoglobin 32.7pg Mean Corpuscular Hemoglobin Concent 32.5g/dl Red Cell Distribution Width 14.8% Platelet Count 50780^3/UL Mean Platelet Volume 11.5fl Neutrophils % 76.1% Segmented Neutrophils % (Manual) 67% Band Neutrophils % (Manual) 7% Lymphocytes % 10.0% Lymphocytes % (Manual) 9% Monocytes % 12.0% Monocytes % (Manual) 12% Eosinophils % 0.9% Eosinophils % (Manual) 5% Basophils % 0.3% Nucleated Red Blood Cells % 0.0/100WBC Neutrophils # 6.710^3/ul Neutrophils # (Manual) 5.910^3/ul Band Neutrophils # 0.610^3/ul Absolute Lymphocytes (Manual) 0.710^3/ul Lymphocytes # 0.910^3/ul Monocytes # 1.110^3/ul Absolute Monocytes (Manual) 1.010^3/ul Eosinophils # 0.110^3/ul Basophils # 0.010^3/ul Nucleated Red Blood Cells # 0.010^3/ul Smudge Cells % 9% Thrombocytosis 3% Platelet Estimate NORMAL Prothrombin Time 14.6Sec Prothrombin Time Ratio 1.1 INR International Normalized Ratio 1.14 Activated Partial Thromboplast Time 35.3Sec Sodium Level 137mmol/L Potassium Level 4.9mmol/L Chloride Level 102mmol/L Carbon Dioxide Level 20mmol/L Anion Gap 20 Blood Urea Nitrogen 36mg/dl Creatinine 6.74mg/dl Glucose Level 125mg/dl Calcium Level 8.9mg/dl Troponin I < 0.012ng/ml Current Medications Medications (Trade) Dose Ordered Sig/Connor Route PRN Reason Start Time Stop Time Status Last Admin Dose Admin Morphine Sulfate (morphine) 4 mg ONCE STAT IV 11/24/16 16:03 11/24/16 16:09 DC 11/24/16 16:12 Morphine Sulfate (morphine) 4 mg ONCE STAT IV 11/24/16 17:32 11/24/16 17:41 DC 11/24/16 17:41 Procedures/MDM CT abdomen pelvis without: Small bowel surgery appearing since the previous study. There is nonspecific wall thickening in small bowel loop in the left upper to mid pelvis and dilatation of small bowel loop in the right anterior mid to lower pelvis appearing since the previous study which could be secondary to inflammation. Atherosclerosis. Left nephrectomy. Right renal atrophy. Cardiomegaly. Small upper anterior abdominal wall hernia containing fat only again seen. Cholelithiasis again apparent. Chest X-ray 1V Interpreted by me: Soft Tissue: No acute abnormalities Bones: No acute abnormalities Mediastinum/Cardiac Silhouette/Lungs: [No acute abnormalities] EKG: Rate/Rhythm: [Normal Sinus Rhythm] QRS, ST, T-waves: [No changes consistent w/ acute ischemia] Impression: [No evidence of ischemia or arrhythmia] This 56-year-old female presents to the emergency room for evaluation of abdominal pain and discomfort. When I evaluated her she had moderate discomfort in the left upper quadrant. The patient did have cardiac workup in the emergency room which does not reveal an elevated troponin. Chest x-ray is clear. CT of the abdomen pelvis was obtained which does show nonspecific colitis. The patient was given Cipro Flagyl in the emergency room and will be discharged home with a prescription for ciprofloxacin and Flagyl for nonspecific colitis. The patient was instructed to follow-up with her primary care physician. She has no signs of hypoxia, respiratory distress, nausea or vomiting at this time. She is okay with her plan of care. Her pain is been controlled with morphine. Differential diagnoses entertained was broad with potential high acuity. Patient has been evaluated for appendicitis, cholecystitis, and other high risk medical and surgical causes of abdominal pain. Ultimately the patient's evaluation is nondiagnostic. Based on the patient's lack of risk factors, as well as the patient's clinical, laboratory, and imaging data, the patient appears to be low risk for these high risk causes of abdominal pain. Departure Diagnosis: Primary Impression: Colitis Additional Impressions: Normocytic anemia End stage renal disease Condition: Stable JANA INMAN DO Nov 24, 2016 20:06
[2016-11-24] MEDS ORDERED: METR500T PO (20:08)
[2016-11-24] MEDS ORDERED: CIPR500T4 PO (20:08)
[2016-11-24 20:21] VITALS: BP 108/65; PULSE 74; RESP 20; TEMP 99.6
[2016-11-24] MEDS ORDERED: metroNIDAZOLE 500 MG TAB PO ONE (20:30)
[2016-11-24] MEDS ORDERED: CIPROFLOXACIN 500 MG TAB PO ONE (20:30)
== END 2016-11-24 20:15 | disposition home or self-care (01) ==
LOC: E/R 12:59
DX: K52.9 Noninfective gastroenteritis and colitis, unspecified (principal); D64.9 Anemia, unspecified; I12.0 Hypertensive chronic kidney disease with stage 5 chronic kidney disease or end stage renal disease; N18.6 End stage renal disease; E11.9 Type 2 diabetes mellitus without complications; Z99.2 Dependence on renal dialysis; Z79.82 Long term (current) use of aspirin; Z79.84 Long term (current) use of oral hypoglycemic drugs
CPT/HCPCS: 36415; 71010; 74176; 80048; 84484; 85025; 85610; 85730; 93005; 96374; 96376; J2270; Z7502; Z7610

== ENCOUNTER 2016-12-09 22:07 | Inpatient (IN) | payer OTHER ==
[~2016-12-09] VITALS: Ht 157.5 cm; Wt 58.3 kg
[~2016-12-09 22:07] MED LIST changes: -ACET-141 PO; -ASPI-535 PO; -ASPI-664 PO; -ATOR10TA65 PO; -CALC667C PO; -CARV12.579 PO; -CETI-240 PO; -CHOL400C11 PO; +CIPR500T4 PO; -DOCU-159 PO; -FLUT16SP17 NASAL; -GABA100C14 PO; -GLIM1TAB2 PO; -LACT1CAP57 PO; -LANT3I SC; -LEVO150T67 PO; +METR500T PO; -NEPH PO; -POLY17PO6 PO; -SEVE800T10 PO
--- NOTE | 2016-12-09 23:01 | ERA ---
ER Documentation Chief Complaint Date/Time DATE: 12/09/16 TIME: 23:00 Chief Complaint weakness, abdominal pain HPI Patient is a 56-year-old female, presenting to the ER because of generalized weakness today, acute on chronic abdominal pain, diarrhea for 2 days. She had ischemic bowel surgery on September 08, 2016. She was discharged on December 05, 2016 from [facility] for septic shock and abdominal infection. She was discharged with Fidaxomicin; however she was unable to fill the medication. She had dialysis today, feeling weak. She denies fever, chills, neck pain, chest pain, dyspnea, complains of dysuria. She denies hematemesis or hematochezia. She does not smoke nor drink Past medical history: Chronic kidney disease, hypothyroidism, hypertension, CAD , diabetes mellitus, dyslipidemia Past surgical history: Left chest dialysis catheter, left nephrectomy, cholelithiasis ROS All systems reviewed and are negative except as per history of present illness. Medications Home Meds Active Scripts Metronidazole* (Flagyl*) 500 Mg Tablet, 500 MG PO TID for 7 Days, TAB Prov:JANA INMAN DO 11/24/16 Ciprofloxacin Hcl* (Ciprofloxacin Hcl*) 500 Mg Tablet, 500 MG PO BID, #14 TAB Prov:JANA INMAN DO 11/24/16 Reported Medications Cyanocobalamin* (Vitamin B12*) 500 Mcg Tab, 1000 MCG SL DAILY, TAB 12/10/16 Gabapentin* (Gabapentin*) 100 Mg Capsule, 100 MG PO QHS, #90 CAP 12/10/16 Atorvastatin Calcium (Atorvastatin Calcium) 10 Mg Tablet, 10 MG PO QHS, #30 TAB 12/10/16 Hydrocodone/Acetaminophen ([place] 5-325 Tablet) 1 Each Tablet, 1 EACH PO Q6 Y for BOWEL PREP, TAB 12/10/16 Aspirin* (Aspirin* EC) 81 Mg Tablet.dr, 81 MG PO DAILY, TAB 12/10/16 Clonidine Hcl* (Clonidine Hcl*) 0.1 Mg Tab, 0.1 MG PO BID Y for ELEVATED BLOOD PRESSURE, TAB 11/16/16 Omeprazole* (Omeprazole*) 20 Mg Capsule.dr, 20 MG PO DAILY, #30 CAP 08/31/16 Carvedilol* (Carvedilol*) 6.25 Mg Tablet, 6.25 MG PO BID, #60 TAB 5/9/17 Folic Acid* (Folic Acid*) 1 Mg Tablet, 1 MG PO DAILY, TAB 04/21/16 Levothyroxine Sodium* (Levothyroxine Sodium*) 137 Mcg Tablet, 137 MCG PO BEFORE BREAKFAST, #30 TAB 12/18/15 Losartan Potassium* (Losartan Potassium*) 50 Mg Tablet, 50 MG PO BID, TAB 12/18/15 Docusate Sodium* (Colace*) 100 Mg Capsule, 100 MG PO BID 04/09/13 Allergies Allergies: Coded Allergies: vancomycin (Unverified Allergy, Intermediate, 12/10/16) RED RASH WITH ITCHING. PMhx/Soc History of Surgery: Yes (OPEN HEART SX, DIALYSIS SHUNT VASCULAR SX) Hx Neurological Disorder: No (THYROID) Hx Respiratory Disorders: No Hx Cardiac Disorders: Yes (HTN, DM) Hx Psychiatric Problems: No Hx Miscellaneous Medical Probl: Yes ( KIDNEY FAILURE, T/TH/SAT, LEFT CHEST ACCESS) Hx Alcohol Use: No Hx Substance Use: No Hx Tobacco Use: No Physical Exam Vitals Vital Signs Date Time Temp Pulse Resp B/P Pulse Ox O2 Delivery O2 Flow Rate FiO2 12/10/16 02:00 98.3 61 20 128/45 97 Room Air 12/09/16 22:53 98.3 63 20 128/45 96 Room Air 12/09/16 22:12 98.3 65 20 100/48 98 Physical Exam Const: No acute distress. Head: Atraumatic. Eyes: Normal Conjunctiva. ENT: Normal External Ears, Nose and Mouth. Neck: Full range of motion. No meningismus. Resp: Clear to auscultation bilaterally. Cardio: Regular rate and rhythm. Abd: Soft, non distended, normal bowel sounds, moderate and diffuse abdominal tenderness, midline scar, no rigidity, rebound, CVA tenderness Skin: No petechiae or rashes. Back: No midline or flank tenderness. Ext: No cyanosis, or edema. Neur: Awake and alert. No focal deficit Psych: Normal Mood and Affect. Result Diagram: 12/09/166 12/09/166 Results 24 hrs Laboratory Tests Test 12/09/16 00:36 White Blood Count 5.210^3/ul Red Blood Count 2.6110^6/ul Hemoglobin 8.2g/dl Hematocrit 25.9% Mean Corpuscular Volume 99.2fl Mean Corpuscular Hemoglobin 31.4pg Mean Corpuscular Hemoglobin Concent 31.7g/dl Red Cell Distribution Width 18.4% Platelet Count 66401^3/UL Mean Platelet Volume 11.9fl Neutrophils % % Segmented Neutrophils % (Manual) 56% Band Neutrophils % (Manual) 11% Lymphocytes % % Lymphocytes % (Manual) 15% Monocytes % % Monocytes % (Manual) 18% Eosinophils % % Basophils % % Nucleated Red Blood Cells % 0.0/100WBC Neutrophils # 2.910^3/ul Neutrophils # (Manual) 310^3/ul Band Neutrophils # 0.510^3/ul Absolute Lymphocytes (Manual) 0.710^3/ul Lymphocytes # 0.810^3/ul Monocytes # 0.910^3/ul Absolute Monocytes (Manual) 0.910^3/ul Eosinophils # 10^3/ul Basophils # 10^3/ul Nucleated Red Blood Cells # 10^3/ul Platelet Estimate NORMAL Sodium Level 137mmol/L Potassium Level 3.6mmol/L Chloride Level 100mmol/L Carbon Dioxide Level 25mmol/L Anion Gap 16 Blood Urea Nitrogen 16mg/dl Creatinine 4.35mg/dl Glucose Level 106mg/dl Calcium Level 7.3mg/dl Total Bilirubin 0.1mg/dl Direct Bilirubin 0.00mg/dl Indirect Bilirubin 0.1mg/dl Aspartate Amino Transf (AST/SGOT) 43IU/L Alanine Aminotransferase (ALT/SGPT) < 6IU/L Alkaline Phosphatase 125IU/L Total Protein 5.6g/dl Albumin 2.1g/dl Globulin 3.50g/dl Albumin/Globulin Ratio 0.60 Lipase 14U/L Procedures/[place] [id number] Radiology Main Line: [phone] DIAGNOSTIC IMAGING REPORT Patient: JORY CHAIDEZ : 1960 Age: 56 Sex: F MR #: [id number] DOS: 12/09/16 2337 Ordering MD: NATASHA BECKER MD Location: E/R Room/Bed: PROCEDURE: XR Chest. CLINICAL INDICATION: Abdominal pain. TECHNIQUE: AP Portable chest. COMPARISON: 11/24/2016 FINDINGS: There is moderate cardiomegaly. Prior median sternotomy is noted. A left chest tunnel dialysis catheter is seen with tip in the superior vena cava. There is mild cardiomegaly. The osseous structures are unremarkable. No free air seen under the diaphragm, assuming this is an upright view. IMPRESSION: Mild pulmonary vascular congestion. RPTAT: HIKT .Amandeep Alford MD, Date Time Electronically viewed and signed by .Amandeep Alford MD, MD on 12/10/2016 00:26 .T/ CC: NATASHA BECKER MD [place] [id number] Radiology Main Line: [phone] DIAGNOSTIC IMAGING REPORT Patient: JORY CHAIDEZ : 1960 Age: 56 Sex: F MR #: [id number] DOS: 12/09/16 [facility] Ordering MD: NATASHA BECKER MD Location: E/R Room/Bed: PROCEDURE: CT Abdomen and Pelvis without contrast. CLINICAL INDICATION: Abdominal pain TECHNIQUE: CT scan of the abdomen and pelvis without contrast was performed on a multidetector high-resolution CT scanner. The patient was scanned without intravenous contrast. Coronal and sagittal reformatted images were obtained from the axial source images. Images were reviewed on a high-resolution PACS workstation. The total exam CTDI equals 7.15 mGy and the total exam DLP equals 392.14 mGy-cm. One or more the following dose reduction techniques were utilized: Automated exposure control, adjustment of the mA and / or kV according to patient's size, or use of iterative reconstruction technique. COMPARISON: 11/24/2016 FINDINGS: Sternal wires and surgical clips. Cardiomegaly. Coronary artery calcification. Calcification in thoracoabdominal aorta. Linear atelectasis/ fibrosis at lung bases. Small bilateral pleural effusions right larger than left appearing since previous study. Small calcification region of dome of liver could represent small diaphragmatic calcification again seen. Dependent atelectasis in posterior lower lungs. Small upper anterior abdominal wall hernia containing fat only again seen. Mild to moderate subcutaneous edema increased compared to previous study. No abnormality seen in the liver. Cholelithiasis again apparent. There is new diffuse gallbladder wall thickening / edema appearing since previous study. No biliary dilatation is seen. Arterial calcification in splenic hilum. No abnormality seen in the adrenals, pancreas. No abdominal aortic aneurysm is seen. Calcification in celiac, splenic, superior mesenteric, inferior mesenteric, bilateral renal and bilateral iliac and femoral arteries. The patient is status post left nephrectomy. Right renal atrophy is again seen. There is appearance of 1.5 cm rounded fluid density structure likely a cyst in the mid right kidney anteriorly. Calcified injection granulomas in the subcutaneous fat bilateral gluteal regions again seen. Postoperative changes are apparent in the periumbilical region. Opaque sutures in apparent jejunum in the left upper quadrant of the abdomen. Dilatation of loop of jejunum in region of opaque sutures to 4.6 cm diameter again seen which is thought to likely be secondary to the surgery. No definite small bowel obstruction is seen. There is wall thickening of several loops of small bowel in the pelvis which could be secondary to inflammation or possibly ischemia with interval decrease in wall thickening of small bowel in the left upper anterior pelvis since the previous study and interval appearance of wall thickening of loops in the right pelvis since the previous study. Vascular calcifications in uterus. No ascites is seen. The bladder is largely empty. There is appearance of an unremarkable appendix. There is appearance of wall thickening in the proximal transverse and ascending colon with soft tissue stranding in the adjacent fat which could be secondary to colitis appearing since previous study. No enlarged lymph nodes are seen in the abdomen or pelvis. No pneumoperitoneum is seen. Degenerative changes at sacroiliac joints. Mild degenerative changes in thoracolumbar spine. IMPRESSION: Small bilateral pleural effusions right larger than left appearing since previous study. Wall thickening in the proximal transverse and ascending colon with soft tissue stranding in the adjacent fat which could be secondary to colitis including infectious/inflammatory and ischemic colitis appearing since previous study. There is wall thickening of several loops of small bowel in the pelvis which could be secondary to inflammation or possibly ischemia with interval decrease in wall thickening of small bowel in the left upper anterior pelvis since the previous study and interval appearance of wall thickening of loops in the right pelvis since the previous study. Atherosclerosis. Left nephrectomy. Right renal atrophy. Cardiomegaly. Small upper anterior abdominal wall hernia containing fat only again seen. Cholelithiasis again apparent. New diffuse gallbladder wall thickening / edema appearing since previous study which could be secondary to acute cholecystitis. Please see above. RPTAT: HJES .Eliezer Pate MD, MD Date Time Electronically viewed and signed by .Eliezer Pate MD, MD on 12/10/2016 01:16 .S/ CC: NATASHA BECKER MD MEDICAL MAKING DECISION: The patient is a 56-year-old female, presenting with acute on chronic abdominal pain, concerning for acute biliary colic, possible early acute cholecystitis and recurrent ischemic bowel. She went treated with Zosyn IV with good response Consultation: I discussed the patient with her surgeon Dr. Dee at 1:40 AM, who was made aware of the lab, the treatment, the present condition. He accepted the consult The differential diagnoses considered include but are not limited to cholelithiasis, cholecystitis, cystitis, pancreatitis, hepatitis, gastritis, peptic ulcer disease, gastric ulcer, appendicitis, diverticulitis, cholangitis, choledocholithiasis, partial small bowel obstruction, C. difficile colitis, colitis. Departure Diagnosis: Primary Impression: Biliary colic Additional Impressions: Ischemic bowel disease Diarrhea Anemia Condition: Stable Comments I discussed the findings with the patient. I discussed the patient with the on- call hospitalist Dr. Sargent at 3 AM who was made aware of the lab, the treatment, the patient condition. The patient is admitted to medical surgery NATASHA BECKER MD Dec 09, 2016 23:01
--- NOTE | 2016-12-10 00:26 | RADRPT ---
PROCEDURE: XR Chest. CLINICAL INDICATION: Abdominal pain. TECHNIQUE: AP Portable chest. COMPARISON: 11/24/2016 FINDINGS: There is moderate cardiomegaly. Prior median sternotomy is noted. A left chest tunnel dialysis cat heter is seen with tip in the superior vena cava. There is mild cardiomegaly. The osseous structur es are unremarkable. No free air seen under the diaphragm, assuming this is an upright view. IMPRESSION: Mild pulmonary vascular congestion. RPTAT: HIKT .Amandeep Alford MD, MD Date Time Electronically viewed and signed by .Amandeep Alford MD, MD on 12/10/2016 00:26 .T/
[2016-12-10 01:11] LABS: HEMATOCRIT 25.9 % (37.0-47.0); HEMOGLOBIN 8.2 g/dl (12.0-16.0); MEAN CORPUSCULAR HEMOGLOBIN 31.4 pg (29.0-33.0); MEAN CORPUSCULAR HGB CONC 31.7 g/dl (32.0-37.0); MEAN CORPUSCULAR VOLUME 99.2 fl (82.0-101.0); MEAN PLATELET VOLUME 11.9 fl (7.4-10.4); PLATELET COUNT 152 10^3/UL (140-415); RED BLOOD COUNT 2.61 10^6/ul (4.20-5.40); RED CELL DISTRIBUTION WIDTH 18.4 % (11.5-14.5); WHITE BLOOD COUNT 5.2 10^3/ul (4.8-10.8)
--- NOTE | 2016-12-10 01:17 | RADRPT ---
PROCEDURE: CT Abdomen and Pelvis without contrast. CLINICAL INDICATION: Abdominal pain TECHNIQUE: CT scan of the abdomen and pelvis without contrast was performed on a multidetector hig h-resolution CT scanner. The patient was scanned without intravenous contrast. Coronal and sagittal reformatted images were obtained from the axial source images. Images were reviewed on a high-resol Indexing PACS workstation. The total exam CTDI equals 7.15 mGy and the total exam DLP equals 392.14 mGy -cm. One or more the following dose reduction techniques were utilized: Automated exposure control, adjus tment of the mA and / or kV according to patient's size, or use of iterative reconstruction techniqu e. COMPARISON: 11/24/2016 FINDINGS: Sternal wires and surgical clips. Cardiomegaly. Coronary artery calcification. Calcification in t horacoabdominal aorta. Linear atelectasis/fibrosis at lung bases. Small bilateral pleural effusions right larger than left appearing since previous study. Small calcification region of dome of liver could represent small diaphragmatic calcification again seen. Dependent atelectasis in posterior l ower lungs. Small upper anterior abdominal wall hernia containing fat only again seen. Mild to mod erate subcutaneous edema increased compared to previous study. No abnormality seen in the liver. C holelithiasis again apparent. There is new diffuse gallbladder wall thickening / edema appearing sin ce previous study. No biliary dilatation is seen. Arterial calcification in splenic hilum. No abno rmality seen in the adrenals, pancreas. No abdominal aortic aneurysm is seen. Calcification in huang iac, splenic, superior mesenteric, inferior mesenteric, bilateral renal and bilateral iliac and femoral arteries. The patient is status post left nephrectomy. Right renal atrophy is again seen. There is appearance of 1.5 cm rounded fluid density structure likely a cyst in the mid right kidney anteriorly. Calcified injection granulomas in the subcutaneous fat bilateral gluteal regions again seen. Postoperative changes are apparent in the periumbilical region. Opaque sutures in apparent jejunum in the left upper quadrant of the abdomen. Dilatation of loop of jejunum in region of opaqu e sutures to 4.6 cm diameter again seen which is thought to likely be secondary to the surgery. No definite small bowel obstruction is seen. There is wall thickening of several loops of small bowel in the pelvis which could be secondary to inflammation or possibly ischemia with interval decrease i n wall thickening of small bowel in the left upper anterior pelvis since the previous study and inte rval appearance of wall thickening of loops in the right pelvis since the previous study. Vascular calcifications in uterus. No ascites is seen. The bladder is largely empty. There is appearance o f an unremarkable appendix. There is appearance of wall thickening in the proximal transverse and as cending colon with soft tissue stranding in the adjacent fat which could be secondary to colitis elsa earing since previous study. No enlarged lymph nodes are seen in the abdomen or pelvis. No pneumo peritoneum is seen. Degenerative changes at sacroiliac joints. Mild degenerative changes in thorac olumbar spine. IMPRESSION: Small bilateral pleural effusions right larger than left appearing since previous study. Wall thicke elvi in the proximal transverse and ascending colon with soft tissue stranding in the adjacent fat w hich could be secondary to colitis including infectious/inflammatory and ischemic colitis appearing since previous study. There is wall thickening of several loops of small bowel in the pelvis which could be secondary to inflammation or possibly ischemia with interval decrease in wall thickening of small bowel in the left upper anterior pelvis since the previous study and interval appearance of w all thickening of loops in the right pelvis since the previous study. Atherosclerosis. Left nephre ctomy. Right renal atrophy. Cardiomegaly. Small upper anterior abdominal wall hernia containing f at only again seen. Cholelithiasis again apparent. New diffuse gallbladder wall thickening / edema appearing since previous study which could be secondary to acute cholecystitis. Please see above. RPTAT: HJES .Eliezer Pate MD, MD Date Time Electronically viewed and signed by .Eliezer Pate MD, on 12/10/2016 01:16 .S/
[2016-12-10 01:29] LABS: POSITIVE DIFF @See below
[2016-12-10 02:16] LABS: ALANINE AMINOTRANSFERASE < 6 IU/L (13-69); ALBUMIN 2.1 g/dl (3.3-4.9); ALKALINE PHOSPHATASE 125 IU/L (42-121); ANION GAP 16 (8-16); ASPARTATE AMINO TRANSFERASE 43 IU/L (15-46); BILIRUBIN,INDIRECT 0.1 mg/dl (0-1.1); BILIRUBIN,TOTAL 0.1 mg/dl (0.2-1.3); BLOOD UREA NITROGEN 16 mg/dl (7-20); CALCIUM 7.3 mg/dl (8.4-10.2); CARBON DIOXIDE 25 mmol/L (21-31); CHLORIDE 100 mmol/L (97-110); CREATININE 4.35 mg/dl (0.44-1.00); GLUCOSE 106 mg/dl (70-220); POTASSIUM 3.6 mmol/L (3.5-5.1); SODIUM 137 mmol/L (135-144); TOTAL PROTEIN 5.6 g/dl (6.1-8.1)
[2016-12-10] MEDS ORDERED: GABA100C14 PO (02:47)
[2016-12-10] MEDS ORDERED: ATOR10TA65 PO (02:47)
[2016-12-10] MEDS ORDERED: ASPI-664 PO (02:47)
[2016-12-10] MEDS ORDERED: HYDR-906 PO (02:47)
[2016-12-10] MEDS ORDERED: CYAN500T46 SL (02:47)
[2016-12-10 03:02] LABS: LYMPHOCYTES # 0.8 10^3/ul (0.8-2.9); MONOCYTE # 0.9 10^3/ul (0.3-0.9); MONOCYTES % (M) 18 % (0-11); NEUTROPHIL # 2.9 10^3/ul (1.6-7.5)
[2016-12-10] MEDS ORDERED: PIPER-TAZO 2.25 GM (PMX) 50 ML IVPB ONE (03:30)
[2016-12-10 03:55] LABS: PLATELET ESTIMATE NORMAL
[2016-12-10 04:43] VITALS: TEMP 98.3
[2016-12-10 05:23] VITALS: Ht 157.5 cm; Wt 58.3 kg
[2016-12-10] MEDS ORDERED: NACL 0.9% 3 ML SYG IV SCH (06:00)
[2016-12-10] MEDS ORDERED: HEPARIN 1000 UNITS/ML 10 ML INJ IV SCH (06:00)
[2016-12-10] MEDS ORDERED: morphine 4 MG/ML VIAL IV PRN (06:00)
[2016-12-10] MEDS ORDERED: ACETAMINOPHEN 650 MG SUPP PR PRN (06:00)
[2016-12-10 07:25] VITALS: BP 145/63; RESP 16
[2016-12-10] MEDS ORDERED: HEPARIN 25000 UNITS/D5W 250 ML (VPH) IV SCH (08:00)
[2016-12-10] MEDS: DEXTROSE 5%-0.45% NACL 1,000 ML IV SCH ×3 (08:46→18:25)
[2016-12-10] MEDS: FAMOTIDINE 20 MG INJ IV SCH (08:47)
--- NOTE | 2016-12-10 09:19 | HP ---
Date/Time of Note Date/Time of Note DATE: 12/10/16 TIME: 09:00 Assessment/Plan Lines/Catheters Urinary Cath still in place: No Assessment/Plan Assessment/Plan 1. Inflammatory vs ischemic small bowel and infectious versus ischemic colitis -Keep n.p.o. with IV fluid -Antibiotic -Pain management -Send stool studies -Even though was not definitively diagnosed with ischemic bowel, I will start patient on heparin drip until seen by our surgical team 2. Abdominal pain and diarrhea -See above 3. End-stage renal disease on dialysis: Patient with a history of nephrectomy -Nephrology consult 4. Diabetes -Insulin while in-house 5. Anemia, likely secondary to chronic disease -Monitor H&H and transfuse as needed 6. Hypertension -Continue antihypertensives with adjustment as needed HPI/ROS Admit Date/Time Admit Date/Time Dec 10, 2016 at 03:16 Hx of Present Illness This is a 56-year-old female with a past medical history of essential hypertension, diabetes mellitus type 2, end-stage renal disease, on hemodialysis , hypothyroidism, dyslipidemia, mesenteric ischemia, status post exploratory laparotomy with bowel resection. Patient presented to [facility] complaining of abdominal pain, diarrhea and generalized weakness. She does have chronic abdominal pain better for the past day or 2 she noticed worsening of her symptoms. She was admitted at [place] recently for septic shock , abdominal pain/infection and was just discharged about 5 days ago. She was not able to feel the antibiotic that she was discharged with. Patient has a history of mesenteric ischemia and in August of this year she actually underwent exploratory laparotomy with bowel resection. 2 weeks after the surgery, she was taken back to the OR for wound dehiscence. When patient presented to the ER today, vitals were stable. Labs shows a hemoglobin of 8.2, creatinine of 4.35 otherwise the rest of the CBC and CMP are within acceptable range. CT abdomen/pelvis is concerning for inflammatory or ischemic small bowel as well as infectious/inflammatory versus ischemic colitis. CT scan finding also with likely cholecystitis. . PMH/Family/Social Past Medical History Medical History: diabetes, high cholesterol, hypertension, renal disease, other (Mesenteric ischemia) Past Surgical History Past Surgical Hx: other Social History Smoking Status: Never smoker Exam/Review of Systems Vital Signs Vitals Vital Signs Date Time Temp Pulse Resp B/P Pulse Ox O2 Delivery O2 Flow Rate FiO2 12/10/16 07:25 98.1 16 145/63 99 12/10/16 04:43 58 Room Air Exam Constitutional: other (No acute distress) Head: atraumatic, normocephalic Respiratory: clear to auscultation, normal air movement Cardiovascular: nl pulses, regular rate and rhythm Gastrointestinal: soft, tender Extremities: normal pulses Labs Result Diagram: 12/09/16 0036 12/09/16 0036 Medications Medications Current Medications Dextrose/Sodium Chloride (D5-1/2ns) 1,000 ml @ 125 mls/hr Q8H IV Last administered on 12/10/16 08:46; Admin Dose 125 MLS/HR; Start 12/10/16 at 05:44 Ondansetron HCl (Zofran Inj) 4 mg Q6H PRN IV NAUSEA AND/OR VOMITING; Start at 06:00 Acetaminophen (Tylenol Supp) 650 mg Q6H PRN SD PAIN LEVEL 1-3 OR FEVER; Start 12/10/16 at 06:00 Morphine Sulfate 4 mg 4 mg Q4H PRN IV SEVERE PAIN LEVEL 7-10; Start 12/10/16 at 06:00 Piperacillin Sod/ Tazobactam Sod (Zosyn 2.25gm/ 50ml (Pmx)) 50 ml @ 200 mls/hr Q12 IVPB ; Start 12/10/16 at 13:00 Famotidine 10 mg 10 mg Q24H IV Last administered on 12/10/16 08:47; Admin Dose 10 MG; Start 12/10/16 at 09:00 Heparin Sodium (Porcine) (Heparin 19740 Units/250 ml) 250 ml @ 10 mls/hr Q24H IV ; Start 12/10/16 at 08:00 ROSALIA BAGLEY MD Dec 10, 2016 09:11
[2016-12-10 09:55] LABS: HEMATOCRIT 27.7 % (37.0-47.0); HEMOGLOBIN 8.6 g/dl (12.0-16.0); MEAN CORPUSCULAR HEMOGLOBIN 30.4 pg (29.0-33.0); MEAN CORPUSCULAR VOLUME 97.9 fl (82.0-101.0); MEAN PLATELET VOLUME 12.1 fl (7.4-10.4); PLATELET COUNT 149 10^3/UL (140-415); RED BLOOD COUNT 2.83 10^6/ul (4.20-5.40); RED CELL DISTRIBUTION WIDTH 18.8 % (11.5-14.5); WHITE BLOOD COUNT 4.7 10^3/ul (4.8-10.8)
[2016-12-10 10:00] LABS: POSITIVE DIFF @See below
[2016-12-10 10:15] LABS: IRON 34 ug/dl (35-150)
[2016-12-10 10:18] LABS: ALBUMIN 2.1 g/dl (3.3-4.9); ALBUMIN/GLOBULIN RATIO 0.6; BILIRUBIN,INDIRECT 0.1 mg/dl (0-1.1); BILIRUBIN,TOTAL 0.1 mg/dl (0.2-1.3); CALCIUM 7.4 mg/dl (8.4-10.2); CREATININE 4.75 mg/dl (0.44-1.00); TOTAL PROTEIN 5.6 g/dl (6.1-8.1)
[2016-12-10] MEDS ORDERED: MEROPENEM 500MG/50 ML (PMX) 50 ML IVPB SCH (10:30)
[2016-12-10 10:43] LABS: ANISOCYTOSIS 3+ (0-0); BASOPHILS % (M) 1 % (0-2); EOSINOPHILS % (M) 1 % (0-7); ERYTHROBLAST% (NRBC) (M) 1 % (0-0); GIANT THROMBO% (M) 4 % (0-0); HYPOCHROMASIA 1+ (0-0); MONOCYTES % (M) 16 % (0-11); POIKILOCYTOSIS 1+ (0-0); POLYCHROMASIA 2+ (0-0)
[2016-12-10 11:03] LABS: TOTAL IRON BINDING CAPACITY 94 ug/dl (241-421)
[2016-12-10] MEDS ORDERED: PIPER-TAZO 2.25 GM (PMX) 50 ML IVPB SCH (13:00)
[2016-12-10 14:05] VITALS: BP 137/63; RESP 16
--- NOTE | 2016-12-10 14:42 | PN ---
Date/Time of Note Date/Time of Note DATE: 12/10/16 TIME: 14:40 Assessment/Plan VTE Prophylaxis VTE Prophylaxis Intervention: heparin Lines/Catheters IV C[facility] Type ([facility] Saline Lock Urinary Cath still in place: No Assessment/Plan Chief Complaint/Hosp Course Assessment/Plan: 56-year-old female prior history of bowel resection and possible mesenteric ischemia, coming in with abdominal pain rule out infectious versus ischemic colitis. 1. Inflammatory vs ischemic small bowel and infectious versus ischemic colitis -Continue to keep n.p.o. with IV fluid -Continue antibiotic -Pain management -Send stool studies -Continue heparin drip until seen by our surgical team 2. Abdominal pain and diarrhea -See above 3. End-stage renal disease on dialysis: Patient with a history of nephrectomy -Nephrology consult is pending 4. Diabetes -Insulin while in-house 5. Anemia, likely secondary to chronic disease -Monitor H&H and transfuse as needed 6. Hypertension -Continue antihypertensives with adjustment as needed Problems: Subjective 24 Hr Interval Summary Free Text/Dictation Patient denies any present abdominal pain. Asking when she can go home. Still on heparin drip. Exam/Review of Systems Vital Signs Vitals Vital Signs Date Time Temp Pulse Resp B/P Pulse Ox O2 Delivery O2 Flow Rate FiO2 12/10/16 07:25 98.1 16 145/63 99 12/10/16 04:43 58 Room Air Exam Constitutional: other (No acute distress) Head: atraumatic, normocephalic Respiratory: clear to auscultation, normal air movement Cardiovascular: nl pulses, regular rate and rhythm Gastrointestinal: soft, tender Extremities: normal pulses Results Result Diagram: 12/10/16 0855 12/10/16 0855 Results 24 hrs Laboratory Tests Test 12/10/16 08:55 12/10/16 09:51 White Blood Count 4.7 L Red Blood Count 2.83 L Hemoglobin 8.6 L Hematocrit 27.7 L Mean Corpuscular Volume 97.9 Mean Corpuscular Hemoglobin 30.4 Mean Corpuscular Hemoglobin Concent 31.0 L Red Cell Distribution Width 18.8 H Platelet Count 149 Mean Platelet Volume 12.1 H Neutrophils % Segmented Neutrophils % (Manual) 63 Band Neutrophils % (Manual) 9 H Lymphocytes % Lymphocytes % (Manual) 10 L Monocytes % Monocytes % (Manual) 16 H Eosinophils % Eosinophils % (Manual) 1 Basophils % Basophils % (Manual) 1 Nucleated Red Blood Cells % 1 H Neutrophils # (Manual) 3 Band Neutrophils # 0.4 Absolute Lymphocytes (Manual) 0.4 L Lymphocytes # Monocytes # Absolute Monocytes (Manual) 0.7 Eosinophils # Basophils # Basophils # (Manual) 0.0 Nucleated Red Blood Cells # Thrombocytosis 4 H Polychromasia 2+ Hypochromasia 1+ Poikilocytosis 1+ Anisocytosis 3+ Macrocytosis 3+ Sodium Level 137 Potassium Level 4.0 Chloride Level 101 Carbon Dioxide Level 24 Anion Gap 16 Blood Urea Nitrogen 18 Creatinine 4.75 H Glucose Level 73 Calcium Level 7.4 L Iron Level 34 L Total Iron Binding Capacity 94 L Percent Iron Saturation 36 Ferritin 1040.0 H Total Bilirubin 0.1 L Direct Bilirubin 0.00 Indirect Bilirubin 0.1 Aspartate Amino Transf (AST/SGOT) 15 Alanine Aminotransferase (ALT/SGPT) 24 Alkaline Phosphatase 98 Total Protein 5.6 L Albumin 2.1 L Globulin 3.50 H Albumin/Globulin Ratio 0.60 Lactic Acid Level 0.9 Medications Medications Current Medications Dextrose/Sodium Chloride (D5-1/2ns) 1,000 ml @ 125 mls/hr Q8H IV Last administered on 12/10/16 08:46; Admin Dose 125 MLS/HR; Start 12/10/16 at 05:44 Ondansetron HCl (Zofran Inj) 4 mg Q6H PRN IV NAUSEA AND/OR VOMITING; Start at 06:00 Acetaminophen (Tylenol Supp) 650 mg Q6H PRN [place] PAIN LEVEL 1-3 OR FEVER; Start 12/10/16 at 06:00 Morphine Sulfate (morphine) 4 mg Q4H PRN IV SEVERE PAIN LEVEL 7-10; Start 12/10 at 06:00 Famotidine 10 mg 10 mg Q24H IV Last administered on 12/10/16 08:47; Admin Dose 10 MG; Start 12/10/16 at 09:00 Heparin Sodium (Porcine) (Heparin 47365 Units/250 ml) 250 ml @ 10 mls/hr Q24H IV Last administered on 12/10/16 09:34; Admin Dose 10 MLS/HR; Start 12/10/16 at 08:00 BELINDA SORIANO Dec 10, 2016 14:42
--- NOTE | 2016-12-10 16:04 | CONS ---
Date/Time of Note Date/Time of Note DATE: 12/10/16 TIME: 16:01 Assessment/Plan Assessment/Plan Chief Complaint/Hosp Course Colitis, possibly ischemic versus inflammatory versus infectious #1 no acute surgical process at this point #2 recommend GI consultation #3 IV antibiotics #4 advance diet when abdominal pain resolved #5 I am concerned that she gets to hypotensive during dialysis and that is what is occurring these repeated episodes of ischemia Problems: Consultation Date/Type/Reason Admit Date/Time Dec 10, 2016 at 03:16 Date of Consultation: Dec 10, 2016 Hx of Present Illness The patient is a 56-year-old female well-known to me from her prior hospitalization and surgery for mesenteric ischemia. Patient has been recently hospitalized at [facility] for what is believed to be septic shock. She was discharged over the weekend on oral antibiotics but was unable to obtain them. She presented with significant abdominal pain and diarrhea. Her workup in the ER was consistent with ischemic colitis and possibly mesenteric ischemia I was called for consultation. Past Medical History Medical History: diabetes, high cholesterol, hypertension, renal disease, other (Mesenteric ischemia) Past Surgical History Past Surgical Hx: other Social History Smoking Status: Never smoker Exam/Review of Systems Vital Signs Vitals Vital Signs Date Time Temp Pulse Resp B/P Pulse Ox O2 Delivery O2 Flow Rate FiO2 12/10/16 14:05 98.2 68 16 137/63 100 12/10/16 04:43 Room Air Exam Constitutional: alert, oriented Psych: no complaints Head: normocephalic Eyes: EOMI Neck: supple Respiratory: clear to auscultation Cardiovascular: regular rate and rhythm Gastrointestinal: other (Nondistended, right upper quadrant tenderness), soft Skin: nl turgor Results Result Diagram: 12/10/16 0855 12/10/16 0855 Results 24 hrs Laboratory Tests Test 12/10/16 08:55 12/10/16 09:51 White Blood Count 4.7 L Red Blood Count 2.83 L Hemoglobin 8.6 L Hematocrit 27.7 L Mean Corpuscular Volume 97.9 Mean Corpuscular Hemoglobin 30.4 Mean Corpuscular Hemoglobin Concent 31.0 L Red Cell Distribution Width 18.8 H Platelet Count 149 Mean Platelet Volume 12.1 H Neutrophils % Segmented Neutrophils % (Manual) 63 Band Neutrophils % (Manual) 9 H Lymphocytes % Lymphocytes % (Manual) 10 L Monocytes % Monocytes % (Manual) 16 H Eosinophils % Eosinophils % (Manual) 1 Basophils % Basophils % (Manual) 1 Nucleated Red Blood Cells % 1 H Neutrophils # (Manual) 3 Band Neutrophils # 0.4 Absolute Lymphocytes (Manual) 0.4 L Lymphocytes # Monocytes # Absolute Monocytes (Manual) 0.7 Eosinophils # Basophils # Basophils # (Manual) 0.0 Nucleated Red Blood Cells # Thrombocytosis 4 H Polychromasia 2+ Hypochromasia 1+ Poikilocytosis 1+ Anisocytosis 3+ Macrocytosis 3+ Sodium Level 137 Potassium Level 4.0 Chloride Level 101 Carbon Dioxide Level 24 Anion Gap 16 Blood Urea Nitrogen 18 Creatinine 4.75 H Glucose Level 73 Calcium Level 7.4 L Iron Level 34 L Total Iron Binding Capacity 94 L Percent Iron Saturation 36 Ferritin 1040.0 H Total Bilirubin 0.1 L Direct Bilirubin 0.00 Indirect Bilirubin 0.1 Aspartate Amino Transf (AST/SGOT) 15 Alanine Aminotransferase (ALT/SGPT) 24 Alkaline Phosphatase 98 Total Protein 5.6 L Albumin 2.1 L Globulin 3.50 H Albumin/Globulin Ratio 0.60 Lactic Acid Level 0.9 Medications Medications Current Medications Dextrose/Sodium Chloride (D5-1/2ns) 1,000 ml @ 125 mls/hr Q8H IV Last administered on 12/10/16 15:26; Admin Dose 125 MLS/HR; Start 12/10/16 at 05:44 Ondansetron HCl (Zofran Inj) 4 mg Q6H PRN IV NAUSEA AND/OR VOMITING; Start at 06:00 Acetaminophen (Tylenol Supp) 650 mg Q6H PRN [place] PAIN LEVEL 1-3 OR FEVER; Start 12/10/16 at 06:00 Morphine Sulfate (morphine) 4 mg Q4H PRN IV SEVERE PAIN LEVEL 7-10; Start 12/10 at 06:00 Famotidine (Pepcid Iv) 10 mg Q24H IV Last administered on 12/10/16 08:47; Admin Dose 10 MG; Start 12/10/16 at 09:00 Procedures Procedures PROCEDURE: CT Abdomen and Pelvis without contrast. IMPRESSION: Small bilateral pleural effusions right larger than left appearing since previous study. Wall thickening in the proximal transverse and ascending colon with soft tissue stranding in the adjacent fat which could be secondary to colitis including infectious/inflammatory and ischemic colitis appearing since previous study. There is wall thickening of several loops of small bowel in the pelvis which could be secondary to inflammation or possibly ischemia with interval decrease in wall thickening of small bowel in the left upper anterior pelvis since the previous study and interval appearance of wall thickening of loops in the right pelvis since the previous study. Atherosclerosis. Left nephrectomy. Right renal atrophy. Cardiomegaly. Small upper anterior abdominal wall hernia containing fat only again seen. Cholelithiasis again apparent. New diffuse gallbladder wall thickening / edema appearing since previous study which could be secondary to acute cholecystitis. Please see above. MARIO DIETZ MD Dec 10, 2016 16:04
--- NOTE | 2016-12-10 17:12 | CONS ---
Date/Time of Note Date/Time of Note DATE: 12/10/16 TIME: 17:10 Assessment/Plan Assessment/Plan Chief Complaint/Hosp Course ESRD HTN DM ABD PAIN DIARRHEA ESRD A/P ABD SURGERY PLAN HD AM Problems: Consultation Date/Type/Reason Admit Date/Time Dec 10, 2016 at 03:16 Initial Consult Date 12/10/16 Type of Consultation: renal [id number] 24 HR Interval Summary Constitutional: other (abd pain) Exam/Review of Systems Vital Signs Vitals Vital Signs Date Time Temp Pulse Resp B/P Pulse Ox O2 Delivery O2 Flow Rate FiO2 12/10/16 14:05 98.2 68 16 137/63 100 12/10/16 04:43 Room Air Exam Neck: supple Respiratory: clear to auscultation Cardiovascular: regular rate and rhythm Gastrointestinal: soft Genitourinary - Female: nl adnexae Musculoskeletal: nl extremities to inspection Extremities: normal pulses Results Result Diagram: 12/10/16 0855 12/10/16 0855 Results 24 hrs Laboratory Tests Test 12/10/16 08:55 12/10/16 09:51 White Blood Count 4.7 L Red Blood Count 2.83 L Hemoglobin 8.6 L Hematocrit 27.7 L Mean Corpuscular Volume 97.9 Mean Corpuscular Hemoglobin 30.4 Mean Corpuscular Hemoglobin Concent 31.0 L Red Cell Distribution Width 18.8 H Platelet Count 149 Mean Platelet Volume 12.1 H Neutrophils % Segmented Neutrophils % (Manual) 63 Band Neutrophils % (Manual) 9 H Lymphocytes % Lymphocytes % (Manual) 10 L Monocytes % Monocytes % (Manual) 16 H Eosinophils % Eosinophils % (Manual) 1 Basophils % Basophils % (Manual) 1 Nucleated Red Blood Cells % 1 H Neutrophils # (Manual) 3 Band Neutrophils # 0.4 Absolute Lymphocytes (Manual) 0.4 L Lymphocytes # Monocytes # Absolute Monocytes (Manual) 0.7 Eosinophils # Basophils # Basophils # (Manual) 0.0 Nucleated Red Blood Cells # Thrombocytosis 4 H Polychromasia 2+ Hypochromasia 1+ Poikilocytosis 1+ Anisocytosis 3+ Macrocytosis 3+ Sodium Level 137 Potassium Level 4.0 Chloride Level 101 Carbon Dioxide Level 24 Anion Gap 16 Blood Urea Nitrogen 18 Creatinine 4.75 H Glucose Level 73 Calcium Level 7.4 L Iron Level 34 L Total Iron Binding Capacity 94 L Percent Iron Saturation 36 Ferritin 1040.0 H Total Bilirubin 0.1 L Direct Bilirubin 0.00 Indirect Bilirubin 0.1 Aspartate Amino Transf (AST/SGOT) 15 Alanine Aminotransferase (ALT/SGPT) 24 Alkaline Phosphatase 98 Total Protein 5.6 L Albumin 2.1 L Globulin 3.50 H Albumin/Globulin Ratio 0.60 Lactic Acid Level 0.9 Medications Medications Current Medications Dextrose/Sodium Chloride (D5-1/2ns) 1,000 ml @ 40 mls/hr Q24H IV Last administered on 12/10/16 15:26; Admin Dose 125 MLS/HR; Start 12/10/16 at 05:44 Ondansetron HCl (Zofran Inj) 4 mg Q6H PRN IV NAUSEA AND/OR VOMITING; Start at 06:00 Acetaminophen (Tylenol Supp) 650 mg Q6H PRN [place] PAIN LEVEL 1-3 OR FEVER; Start 12/10/16 at 06:00 Morphine Sulfate (morphine) 4 mg Q4H PRN IV SEVERE PAIN LEVEL 7-10; Start 12/10 at 06:00 Famotidine (Pepcid Iv) 10 mg Q24H IV Last administered on 12/10/16 08:47; Admin Dose 10 MG; Start 12/10/16 at 09:00 YOSSI WRIGHT MD Dec 10, 2016 17:12
[2016-12-10 20:00] VITALS: BP 144/64; RESP 18
[2016-12-11] VITALS (13 sets, daily range): BP systolic 130–156; BP diastolic 58–81; PULSE 77–88; RESP 18
[2016-12-11 06:02] LABS: HEMATOCRIT 27.7 % (37.0-47.0); HEMOGLOBIN 8.9 g/dl (12.0-16.0); MEAN CORPUSCULAR HEMOGLOBIN 31.3 pg (29.0-33.0); MEAN CORPUSCULAR HGB CONC 32.1 g/dl (32.0-37.0); MEAN CORPUSCULAR VOLUME 97.5 fl (82.0-101.0); MEAN PLATELET VOLUME 11.7 fl (7.4-10.4); PLATELET COUNT 189 10^3/UL (140-415); RED BLOOD COUNT 2.84 10^6/ul (4.20-5.40); RED CELL DISTRIBUTION WIDTH 18.6 % (11.5-14.5); WHITE BLOOD COUNT 4.6 10^3/ul (4.8-10.8)
[2016-12-11 06:24] LABS: POSITIVE DIFF @See below
[2016-12-11 06:29] LABS: CALCIUM 7.1 mg/dl (8.4-10.2); CREATININE 5.65 mg/dl (0.44-1.00); MAGNESIUM 1.7 mg/dl (1.7-2.5); PHOSPHORUS 4.8 mg/dl (2.5-4.9); POTASSIUM 3.9 mmol/L (3.5-5.1)
--- NOTE | 2016-12-11 08:57 | PN ---
Date/Time of Note Date/Time of Note DATE: 12/11/16 TIME: 08:55 Assessment/Plan Lines/Catheters IV Catheter Type (from [facility]): Saline Lock Loza in Place (from [facility]): No Assessment/Plan Chief Complaint/Hosp Course Colitis, possibly ischemic versus inflammatory versus infectious #1 resolving ischemic colitis #2 advanced to clear #3 likely able for discharge tomorrow on antibiotics p.o. Problems: Subjective 24 Hr Interval Summary Patient feeling better. Exam/Review of Systems Vital Signs Vitals Vital Signs Date Time Temp Pulse Resp B/P Pulse Ox O2 Delivery O2 Flow Rate FiO2 12/11/16 02:00 98.5 60 18 140/60 98 12/10/16 04:43 Room Air Intake and Output 12/10/16 12/10/16 12/11/16 15:00 23:00 07:00 Intake Total 50 ml 1050 ml 440 ml Balance 50 ml 1050 ml 440 ml Exam Constitutional: alert, oriented, well developed Psych: no complaints Neck: supple Respiratory: clear to auscultation Cardiovascular: regular rate and rhythm Gastrointestinal: other (Soft lap, less right upper quadrant tenderness) Results Result Diagram: 12/11/16 0530 12/11/16 0530 MARIO DIETZ MD Dec 11, 2016 08:57
[2016-12-11] MEDS: FAMOTIDINE 20 MG INJ IV SCH (09:49)
[2016-12-11] MEDS: DEXTROSE 5%-0.45% NACL 1,000 ML IV SCH (09:53)
[2016-12-11 11:17] LABS: ANISOCYTOSIS 3+ (0-0); HYPOCHROMASIA 3+ (0-0); METAMYELOCYTES %M 1 % (0-0); MONOCYTES % (M) 22 % (0-11); PLATELET ESTIMATE NORMAL; POIKILOCYTOSIS 1+ (0-0); POLYCHROMASIA 3+ (0-0)
--- NOTE | 2016-12-11 13:03 | CONS ---
Date/Time of Note Date/Time of Note DATE: 12/11/16 TIME: 12:59 Assessment/Plan Assessment/Plan Chief Complaint/Hosp Course 1. ESRD. 2. Colitis 3. Abdominal pain Problems: Additional Assessment/Plan 1. Continue HD, start one today 2. Pt is on schedule T, TH, Sat for HD Consultation Date/Type/Reason Admit Date/Time Dec 10, 2016 at 03:16 Initial Consult Date 12/10/16 Type of Consultation: nephrology Reason for Consultation Dr Nuñez Exam/Review of Systems Vital Signs Vitals Vital Signs Date Time Temp Pulse Resp B/P Pulse Ox O2 Delivery O2 Flow Rate FiO2 12/11/16 11:55 78 12/11/16 10:07 98.3 18 155/70 99 12/10/16 04:43 Room Air Intake and Output 12/10/16 12/10/16 12/11/16 15:00 23:00 07:00 Intake Total 50 ml 1050 ml 440 ml Balance 50 ml 1050 ml 440 ml Exam Constitutional: alert, oriented Neck: supple Respiratory: clear to auscultation Cardiovascular: regular rate and rhythm Gastrointestinal: rebound or guarding (slight), soft Genitourinary - Female: other (Porthocath left chest) Results Result Diagram: 12/11/16 0530 12/11/16 0530 Results 24 hrs Laboratory Tests Test 12/10/16 14:10 12/11/16 05:30 12/11/16 08:17 Stool Occult Blood NEGATIVE White Blood Count 4.6 L Red Blood Count 2.84 L Hemoglobin 8.9 L Hematocrit 27.7 L Mean Corpuscular Volume 97.5 Mean Corpuscular Hemoglobin 31.3 Mean Corpuscular Hemoglobin Concent 32.1 Red Cell Distribution Width 18.6 H Platelet Count 189 # Mean Platelet Volume 11.7 H Neutrophils % Segmented Neutrophils % (Manual) 45 Band Neutrophils % (Manual) 13 H Lymphocytes % Lymphocytes % (Manual) 19 Monocytes % Monocytes % (Manual) 22 H Eosinophils % Basophils % Metamyelocytes % (manual) 1 H Nucleated Red Blood Cells % 0.0 Neutrophils # (Manual) 2 Band Neutrophils # 0.5 Absolute Lymphocytes (Manual) 0.8 Lymphocytes # Monocytes # Absolute Monocytes (Manual) 1.0 H Eosinophils # Basophils # Metamyelocytes # 0.0 Nucleated Red Blood Cells # Platelet Estimate NORMAL Polychromasia 3+ Hypochromasia 3+ Poikilocytosis 1+ Anisocytosis 3+ Macrocytosis 3+ Sodium Level 132 L Potassium Level 3.9 Chloride Level 103 Carbon Dioxide Level 22 Anion Gap 11 Blood Urea Nitrogen 21 H Creatinine 5.65 H Glucose Level 89 Calcium Level 7.1 L Phosphorus Level 4.8 Magnesium Level 1.7 Bedside Glucose 84 Medications Medications Current Medications Ondansetron HCl (Zofran Inj) 4 mg Q6H PRN IV NAUSEA AND/OR VOMITING; Start at 06:00 Acetaminophen (Tylenol Supp) 650 mg Q6H PRN [place] PAIN LEVEL 1-3 OR FEVER; Start 12/10/16 at 06:00 Morphine Sulfate (morphine) 4 mg Q4H PRN IV SEVERE PAIN LEVEL 7-10; Start 12/10 at 06:00 Famotidine 10 mg 10 mg Q24H IV Last administered on 12/11/16 09:49; Admin Dose 10 MG; Start 12/10/16 at 09:00 Dextrose/Sodium Chloride (D5-1/2ns) 1,000 ml @ 40 mls/hr Q24H IV Last administered on 12/11/16 09:53; Admin Dose 40 MLS/HR; Start 12/10/16 at 18:00 ASIM LANGSTON Dec 11, 2016 13:03
--- NOTE | 2016-12-11 13:32 | PN ---
Date/Time of Note Date/Time of Note DATE: 12/11/16 TIME: 13:29 Assessment/Plan VTE Prophylaxis VTE Prophylaxis Intervention: SCD's Lines/Catheters IV Catheter Type (from [facility]): Peripheral IV Urinary Cath still in place: No Assessment/Plan Chief Complaint/Hosp Course Assessment/Plan: 56-year-old female prior history of bowel resection and possible mesenteric ischemia, coming in with abdominal pain rule out infectious versus ischemic colitis. 1. Inflammatory vs ischemic small bowel and infectious versus ischemic colitis- slowly improving -Continue liquid diet per surgery recommended -Continue antibiotic' -Pain management -Follow-up any stool studies 2. Abdominal pain and diarrhea-improved, [place] secondary to #1 Monitor for now 3. End-stage renal disease on dialysis: Patient with a history of nephrectomy -For dialysis today, monitor blood pressure very carefully, and renal recommended 4. Diabetes-last A1c was 4.8 back in August 2016. Monitor sugars for now, will recheck A1c 5. Anemia, likely secondary to chronic disease -Monitor H&H and transfuse as needed 6. Hypertension -Continue antihypertensives with adjustment as needed Problems: Subjective 24 Hr Interval Summary Free Text/Dictation Patient presently getting dialysis. Tolerating clear liquid diet now. Seen by renal and surgery teams. Exam/Review of Systems Vital Signs Vitals Vital Signs Date Time Temp Pulse Resp B/P Pulse Ox O2 Delivery O2 Flow Rate FiO2 12/11/16 13:13 78 12/11/16 11:55 14 12/11/16 10:07 98.3 155/70 99 12/10/16 04:43 Room Air Intake and Output 12/10/16 12/10/16 12/11/16 15:00 23:00 07:00 Intake Total 50 ml 1050 ml 440 ml Balance 50 ml 1050 ml 440 ml Exam Constitutional: other (No acute distress) Head: atraumatic, normocephalic Respiratory: clear to auscultation, normal air movement Cardiovascular: nl pulses, regular rate and rhythm Gastrointestinal: soft, tender Extremities: normal pulses Results Result Diagram: 12/11/16 0530 12/11/16 0530 Results 24 hrs Laboratory Tests Test 12/10/16 14:10 12/11/16 05:30 12/11/16 08:17 Stool Occult Blood NEGATIVE White Blood Count 4.6 L Red Blood Count 2.84 L Hemoglobin 8.9 L Hematocrit 27.7 L Mean Corpuscular Volume 97.5 Mean Corpuscular Hemoglobin 31.3 Mean Corpuscular Hemoglobin Concent 32.1 Red Cell Distribution Width 18.6 H Platelet Count 189 # Mean Platelet Volume 11.7 H Neutrophils % Segmented Neutrophils % (Manual) 45 Band Neutrophils % (Manual) 13 H Lymphocytes % Lymphocytes % (Manual) 19 Monocytes % Monocytes % (Manual) 22 H Eosinophils % Basophils % Metamyelocytes % (manual) 1 H Nucleated Red Blood Cells % 0.0 Neutrophils # (Manual) 2 Band Neutrophils # 0.5 Absolute Lymphocytes (Manual) 0.8 Lymphocytes # Monocytes # Absolute Monocytes (Manual) 1.0 H Eosinophils # Basophils # Metamyelocytes # 0.0 Nucleated Red Blood Cells # Platelet Estimate NORMAL Polychromasia 3+ Hypochromasia 3+ Poikilocytosis 1+ Anisocytosis 3+ Macrocytosis 3+ Sodium Level 132 L Potassium Level 3.9 Chloride Level 103 Carbon Dioxide Level 22 Anion Gap 11 Blood Urea Nitrogen 21 H Creatinine 5.65 H Glucose Level 89 Calcium Level 7.1 L Phosphorus Level 4.8 Magnesium Level 1.7 Bedside Glucose 84 Medications Medications Current Medications Ondansetron HCl (Zofran Inj) 4 mg Q6H PRN IV NAUSEA AND/OR VOMITING; Start at 06:00 Acetaminophen (Tylenol Supp) 650 mg Q6H PRN [place] PAIN LEVEL 1-3 OR FEVER; Start 12/10/16 at 06:00 Morphine Sulfate (morphine) 4 mg Q4H PRN IV SEVERE PAIN LEVEL 7-10; Start 12/10 at 06:00 Famotidine (Pepcid Iv) 10 mg Q24H IV Last administered on 12/11/16 09:49; Admin Dose 10 MG; Start 12/10/16 at 09:00 BELINDA SORIANO Dec 11, 2016 13:32
[2016-12-11] MEDS ORDERED: MEROPENEM 500MG/50 ML (PMX) 50 ML IVPB SCH (17:00)
[2016-12-12 02:03] VITALS: BP 161/71; RESP 16
[2016-12-12 03:00] VITALS: BP 156/65; RESP 18
[2016-12-12] MEDS: hydrALAzine 20 MG INJ IV PRN (03:14)
[2016-12-12 04:00] VITALS: BP 142/72; PULSE 82; RESP 18
[2016-12-12 06:09] LABS: BASOPHILS % 0.6 % (0.0-2.0); EOSINOPHILS % 0.4 % (0.0-7.0); HEMOGLOBIN 9.1 g/dl (12.0-16.0); LYMPHOCYTES # 0.9 10^3/ul (0.8-2.9); LYMPHOCYTES % 17.4 % (15.0-51.0); MEAN CORPUSCULAR HEMOGLOBIN 29.9 pg (29.0-33.0); MEAN CORPUSCULAR HGB CONC 31.4 g/dl (32.0-37.0); MEAN CORPUSCULAR VOLUME 95.4 fl (82.0-101.0); MEAN PLATELET VOLUME 11.6 fl (7.4-10.4); MONOCYTES % 20.2 % (0.0-11.0); NEUTROPHILS % 60.4 % (39.0-77.0); RED BLOOD COUNT 3.04 10^6/ul (4.20-5.40); RED CELL DISTRIBUTION WIDTH 19.2 % (11.5-14.5)
[2016-12-12 06:32] LABS: CALCIUM 7.1 mg/dl (8.4-10.2); CREATININE 4.15 mg/dl (0.44-1.00); POTASSIUM 3.8 mmol/L (3.5-5.1)
[2016-12-12 06:48] LABS: PLATELET COUNT 118 10^3/UL (140-415); POSITIVE DIFF @See below
[2016-12-12 07:58] VITALS: BP 129/59; RESP 16
[2016-12-12] MEDS: FAMOTIDINE 20 MG INJ IV SCH (09:46)
[2016-12-12] MEDS ORDERED: GLUCOSE GEL 15 GRAM TUBE PO SCH ×2 (12:00)
[2016-12-12] MEDS ORDERED: GLUCOSE GEL 24 GRAMS PO ONE (12:00)
[2016-12-12] MEDS ORDERED: GLUCOSE GEL 24 GRAMS PO SCH (12:00)
--- NOTE | 2016-12-12 13:47 | PN ---
Date/Time of Note Date/Time of Note DATE: 12/12/16 TIME: 13:42 Assessment/Plan VTE Prophylaxis VTE Prophylaxis Intervention: SCD's Lines/Catheters IV Catheter Type (from [facility] [place]): Peripheral IV Urinary Cath still in place: No Assessment/Plan Chief Complaint/Hosp Course Assessment/Plan: 56-year-old female prior history of bowel resection and possible mesenteric ischemia, coming in with abdominal pain rule out inflammatory, infectious versus ischemic colitis. 1. Inflammatory vs ischemic small bowel and infectious versus ischemic colitis- slowly improving -Continue liquid diet per surgery recommended -Continue antibiotics -will likely need p.o. antibiotics when discharged for another 7-10 days -Continue current pain management -Follow-up stool studies 2. Abdominal pain and diarrhea-improved, secondary to #1 Monitor for now 3. End-stage renal disease on dialysis: Patient with a history of nephrectomy -For dialysis today, monitor blood pressure very carefully, and renal recommended 4. Diabetes-last A1c was 4.8 back in August 2016. A1c this admission equals 5.1 patient is actually had low blood sugars since this morning Monitor sugars for now consider D5 half-normal saline for 12 hours, monitor 5. Anemia, likely secondary to chronic disease -Monitor H&H and transfuse as needed 6. Hypertension -Continue antihypertensives with adjustment as needed Problems: Subjective 24 Hr Interval Summary Free Text/Dictation Patient had dialysis yesterday. Appears more lethargic this morning, sugars have been in the lower side as well responding to sugar gel administration. Exam/Review of Systems Vital Signs Vitals Vital Signs Date Time Temp Pulse Resp B/P Pulse Ox O2 Delivery O2 Flow Rate FiO2 12/12/16 07:58 98.9 73 16 129/59 97 12/10/16 04:43 Room Air Intake and Output 12/11/16 12/11/16 12/12/16 15:00 23:00 07:00 Intake Total 680 ml 530 ml 220 ml Output Total 1900 ml Balance -1220 ml 530 ml 220 ml Exam Constitutional: In mild distress, answers questions Head: atraumatic, normocephalic Respiratory: clear to auscultation, normal air movement Cardiovascular: nl pulses, regular rate and rhythm Gastrointestinal: soft, tender Extremities: normal pulses Results Result Diagram: 12/12/16 0550 12/12/16 0550 Results 24 hrs Laboratory Tests Test 12/12/16 05:50 12/12/16 10:05 12/12/16 10:23 12/12/16 10:53 White Blood Count 5.0 Red Blood Count 3.04 L Hemoglobin 9.1 L Hematocrit 29.0 L Mean Corpuscular Volume 95.4 Mean Corpuscular Hemoglobin 29.9 Mean Corpuscular Hemoglobin Concent 31.4 L Red Cell Distribution Width 19.2 H Platelet Count 118 #L Mean Platelet Volume 11.6 H Neutrophils % 60.4 Lymphocytes % 17.4 Monocytes % 20.2 H Eosinophils % 0.4 Basophils % 0.6 Nucleated Red Blood Cells % 0.0 Neutrophils # (Manual) 3 Lymphocytes # 0.9 Monocytes # 1.0 H Eosinophils # 0.0 Basophils # 0.0 Nucleated Red Blood Cells # 0.0 Sodium Level 133 L Potassium Level 3.8 Chloride Level 96 L Carbon Dioxide Level 26 Anion Gap 15 Blood Urea Nitrogen 15 Creatinine 4.15 #H Glucose Level 66 #L Calcium Level 7.1 L Bedside Glucose 62 L 66 L 67 L Test 12/12/16 11:26 12/12/16 12:09 12/12/16 12:41 12/12/16 13:00 Bedside Glucose 68 L 70 75 74 Test 12/12/16 13:21 Bedside Glucose 75 Medications Medications Current Medications Ondansetron HCl (Zofran Inj) 4 mg Q6H PRN IV NAUSEA AND/OR VOMITING; Start at 06:00 Acetaminophen (Tylenol Supp) 650 mg Q6H PRN [place] PAIN LEVEL 1-3 OR FEVER; Start 12/10/16 at 06:00 Famotidine (Pepcid Iv) 10 mg Q24H IV Last administered on 12/12/16 09:46; Admin Dose 10 MG; Start 12/10/16 at 09:00 Hydralazine HCl (Apresoline) 10 mg Q4H PRN IV hypertension Last administered on 12/12/16 03:14; Admin Dose 10 MG; Start 12/12/16 at 03:00 Morphine Sulfate (morphine) 1 mg Q4H PRN IV SEVERE PAIN LEVEL 7-10; Start 12/12 at 14:00; Status BELINDA PACHECO Dec 12, 2016 13:47
[2016-12-12 14:45] VITALS: BP 148/78; RESP 16
--- NOTE | 2016-12-12 18:44 | CONS ---
Date/Time of Note Date/Time of Note DATE: 12/12/16 TIME: 18:42 Assessment/Plan Assessment/Plan Chief Complaint/Hosp Course 1. ESRD. 2. Colitis 3. Abdominal pain Problems: Additional Assessment/Plan 1. Continue HD, 2. Pt is on schedule T, TH, Sat for HD Problems: Consultation Date/Type/Reason Admit Date/Time Dec 10, 2016 at 03:16 Initial Consult Date 12/10/16 Type of Consultation: nephrology 24 HR Interval Summary Free Text/Dictation On clears hypoglycemic Exam/Review of Systems Vital Signs Vitals Vital Signs Date Time Temp Pulse Resp B/P Pulse Ox O2 Delivery O2 Flow Rate FiO2 12/12/16 14:45 98.5 75 16 148/78 98 12/10/16 04:43 Room Air Intake and Output 12/11/16 12/11/16 12/12/16 15:00 23:00 07:00 Intake Total 680 ml 530 ml 220 ml Output Total 1900 ml Balance -1220 ml 530 ml 220 ml Exam Constitutional: alert Head: normocephalic Neck: supple Respiratory: clear to auscultation Cardiovascular: regular rate and rhythm Gastrointestinal: soft Results Result Diagram: 12/12/16 0550 12/12/16 0550 Results 24 hrs Laboratory Tests Test 12/12/16 05:50 12/12/16 10:05 12/12/16 10:23 12/12/16 10:53 White Blood Count 5.0 Red Blood Count 3.04 L Hemoglobin 9.1 L Hematocrit 29.0 L Mean Corpuscular Volume 95.4 Mean Corpuscular Hemoglobin 29.9 Mean Corpuscular Hemoglobin Concent 31.4 L Red Cell Distribution Width 19.2 H Platelet Count 118 #L Mean Platelet Volume 11.6 H Neutrophils % 60.4 Lymphocytes % 17.4 Monocytes % 20.2 H Eosinophils % 0.4 Basophils % 0.6 Nucleated Red Blood Cells % 0.0 Neutrophils # (Manual) 3 Lymphocytes # 0.9 Monocytes # 1.0 H Eosinophils # 0.0 Basophils # 0.0 Nucleated Red Blood Cells # 0.0 Sodium Level 133 L Potassium Level 3.8 Chloride Level 96 L Carbon Dioxide Level 26 Anion Gap 15 Blood Urea Nitrogen 15 Creatinine 4.15 #H Glucose Level 66 #L Calcium Level 7.1 L Bedside Glucose 62 L 66 L 67 L Test 12/12/16 11:26 12/12/16 12:09 12/12/16 12:41 12/12/16 13:00 Bedside Glucose 68 L 70 75 74 Test 12/12/16 13:21 12/12/16 13:48 Bedside Glucose 75 Troponin I < 0.012 Medications Medications Current Medications Ondansetron HCl (Zofran Inj) 4 mg Q6H PRN IV NAUSEA AND/OR VOMITING; Start at 06:00 Acetaminophen (Tylenol Supp) 650 mg Q6H PRN [place] PAIN LEVEL 1-3 OR FEVER; Start 12/10/16 at 06:00 Famotidine (Pepcid Iv) 10 mg Q24H IV Last administered on 12/12/16 09:46; Admin Dose 10 MG; Start 12/10/16 at 09:00 Hydralazine HCl (Apresoline) 10 mg Q4H PRN IV hypertension Last administered on 12/12/16 03:14; Admin Dose 10 MG; Start 12/12/16 at 03:00 Morphine Sulfate (morphine) 1 mg Q4H PRN IV SEVERE PAIN LEVEL 7-10; Start 12/12 at 14:00 YI FRIEDMAN MD Dec 12, 2016 18:44
[2016-12-12 19:30] VITALS: BP_SYST 122; BP_SYST 179; BP_DIAS 61; BP_DIAS 74; RESP 16; RESP 20
[2016-12-13 02:00] VITALS: BP 159/68; RESP 18
[2016-12-13] MEDS ORDERED: GLUCOSE GEL 15 GRAM TUBE ONE (03:08)
[2016-12-13] MEDS ORDERED: DEXTROSE 50% 50 ML SYRINGE IV ONE (05:30)
[2016-12-13] MEDS: ACCU-CHEK XX SCH ×3 (06:00→17:34)
--- NOTE | 2016-12-13 06:58 | CONS ---
DATE OF ADMISSION: 12/10/2016 DATE OF CONSULTATION: 11/23/2016 HISTORY OF PRESENT ILLNESS: Patient is an elderly female with history of CAD, history of CABG. Patient has history of hypertension, diabetes mellitus, status post bowel resection, history of exploratory laparotomy, history of hypoxic respiratory failure, history of septic shock, anemia, who now presents with abdominal pain. Has history of C difficile colitis per the patient and noted to have electrolyte imbalance with a potassium 3.8, BUN 25, creatinine 4.24. PAST MEDICAL HISTORY: Diabetes, hypertension, CAD, CABG, status post exploratory laparotomy, C difficile colitis, history of dyslipidemia, history of chronic abdominal wound, history of multiple and thrombectomy in the past. ALLERGIES: VANCOMYCIN. SOCIAL HISTORY: Negative. FAMILY HISTORY: Negative. MEDICATION: Patient is currently on aspirin, Lipitor, Coreg, Cipro, clonidine, cyanocobalamin, docusate sodium, folic acid, gabapentin, hydrocodone, levothyroxine, losartan, Flagyl. REVIEW OF SYSTEMS: HEENT: Unremarkable. RESPIRATORY: Unremarkable. CVS: Unremarkable. GASTROINTESTINAL: As mentioned above, abdominal pain. No diarrhea. Patient has had it earlier. EXTREMITIES: Unremarkable. DYE RANGE OPERATOR CLOTH: Unremarkable. PHYSICAL EXAMINATION: GENERAL: Patient is awake, alert. VITAL SIGNS: Pulsating blood pressure 116/73. HEENT: Head is atraumatic, normocephalic. Pupils equal, reactive to light. Pale conjunctivae. NECK: Supple. LUNGS: Clear. CVS: S1, S2 normal. Systolic murmur noted. ABDOMEN: Soft. Bowel sounds positive. No hepatosplenomegaly noted. EXTREMITIES: No cyanosis, clubbing or edema. DYE RANGE OPERATOR CLOTH: The patient is awake, alert. No focal deficits. LABORATORY: Sodium 145, potassium 3.8, BUN and creatinine 25/4.24. Patient had 4.4. Patient had a chest x-ray: Low lung volume with basilar atelectasis, as well as cardiovascular disease. IMPRESSION: 1. The patient has abdominal pain. 2. Rule out Clostridium difficile colitis. 3. End-stage renal disease. 4. hx bpwl surgery. 5. Diabetes mellitus. 6. Anemia. 7. Atherosclerotic heart disease. 8. History of coronary artery bypass graft. 9. History of respiratory failure. PLAN: Continue renal diet, sliding scale. The patient will have hemodialysis on Tuesday, , Tuesday. Thank you, Dr. Tony, for kindly asking me to assist the patient in nephrological consultation. REQUESTING PHYSICIAN: Dr. Tony. Dictated By: Rm Nuñez MD /alin/aron /Document#: [id number] [email or web address]
[2016-12-13 07:17] LABS: BASOPHILS % 0.5 % (0.0-2.0); EOSINOPHILS % 0.3 % (0.0-7.0); HEMATOCRIT 30.6 % (37.0-47.0); HEMOGLOBIN 9.7 g/dl (12.0-16.0); LYMPHOCYTES # 0.7 10^3/ul (0.8-2.9); LYMPHOCYTES % 11.5 % (15.0-51.0); MEAN CORPUSCULAR HGB CONC 31.7 g/dl (32.0-37.0); MEAN CORPUSCULAR VOLUME 97.8 fl (82.0-101.0); MEAN PLATELET VOLUME 11.3 fl (7.4-10.4); MONOCYTE # 0.9 10^3/ul (0.3-0.9); NEUTROPHILS % 71.9 % (39.0-77.0); PLATELET COUNT 186 10^3/UL (140-415); RED BLOOD COUNT 3.13 10^6/ul (4.20-5.40); RED CELL DISTRIBUTION WIDTH 19.1 % (11.5-14.5); WHITE BLOOD COUNT 6.2 10^3/ul (4.8-10.8)
--- NOTE | 2016-12-13 07:29 | RADRPT ---
Vent Rate: 76 bpm RR Interval: 0 msec [place] Interval: 162 msec QRS Duration: 84 msec QT Interval: 360 msec QTC Interval: 405 msec P-R-T [place]: 58 - 2 - 77 degrees Sinus rhythm Anteroseptal infarct , age undetermined Abnormal ECG Electronically Signed By: Moe Guevara [id number]
[2016-12-13 07:33] LABS: CALCIUM 7.1 mg/dl (8.4-10.2); CREATININE 5.47 mg/dl (0.44-1.00); POTASSIUM 3.8 mmol/L (3.5-5.1)
[2016-12-13 08:00] VITALS: BP 144/65; RESP 16
[2016-12-13] MEDS: FAMOTIDINE 20 MG INJ IV SCH (08:12)
[2016-12-13] MEDS: ONDANSETRON 4 MG INJ IV PRN (09:39)
[2016-12-13] MEDS: metroNIDAZOLE 500 MG TAB PO SCH ×2 (14:00→21:09)
[2016-12-13 14:21] VITALS: BP 151/70; RESP 18
--- NOTE | 2016-12-13 15:37 | CONS ---
Date/Time of Note Date/Time of Note DATE: 12/13/16 TIME: 15:35 Assessment/Plan Assessment/Plan Chief Complaint/Hosp Course PhysicConstitutional: In mild distress, answers questions Head: atraumatic, normocephalic Respiratory: clear to auscultation, normal air movement Cardiovascular: nl pulses, regular rate and rhythm Gastrointestinal: soft, tender Extremities: normal pulses left permacath 56 y/wo 1. ESRD T/T/S with left permacath 2. Colitis 3. Abdominal pain Problems: Additional Assessment/Plan 1. Continue HD tmw 2. Pt is on schedule , , Sat for HD Problems: Consultation Date/Type/Reason Admit Date/Time Dec 10, 2016 at 03:16 Initial Consult Date 12/10/16 Type of Consultation: nephrology 24 HR Interval Summary Free Text/Dictation Abdominal pain still there Exam/Review of Systems Vital Signs Vitals Vital Signs Date Time Temp Pulse Resp B/P Pulse Ox O2 Delivery O2 Flow Rate FiO2 12/13/16 14:21 98.0 79 18 151/70 100 12/10/16 04:43 Room Air Intake and Output 12/12/16 12/12/16 12/13/16 15:00 23:00 07:00 Intake Total 440 ml 450 ml Balance 440 ml 450 ml Results Result Diagram: 12/13/16 0556 12/13/16 0556 Results 24 hrs Laboratory Tests Test 12/13/16 02:10 12/13/16 02:40 12/13/16 03:05 12/13/16 03:41 Bedside Glucose 65 L 67 L 68 L 75 Test 12/13/16 03:55 12/13/16 05:48 12/13/16 05:56 12/13/16 06:08 Bedside Glucose 69 L 182 137 White Blood Count 6.2 # Red Blood Count 3.13 L Hemoglobin 9.7 L Hematocrit 30.6 L Mean Corpuscular Volume 97.8 Mean Corpuscular Hemoglobin 31.0 Mean Corpuscular Hemoglobin Concent 31.7 L Red Cell Distribution Width 19.1 H Platelet Count 186 # Mean Platelet Volume 11.3 H Neutrophils % 71.9 Lymphocytes % 11.5 L Monocytes % 15.0 H Eosinophils % 0.3 Basophils % 0.5 Nucleated Red Blood Cells % 0.0 Neutrophils # (Manual) 4 Lymphocytes # 0.7 L Monocytes # 0.9 Eosinophils # 0.0 Basophils # 0.0 Nucleated Red Blood Cells # 0.0 Sodium Level 136 Potassium Level 3.8 Chloride Level 99 Carbon Dioxide Level 25 Anion Gap 16 Blood Urea Nitrogen 19 Creatinine 5.47 H Glucose Level 146 # Calcium Level 7.1 L Test 12/13/16 11:34 Bedside Glucose 72 Medications Medications Current Medications Ondansetron HCl (Zofran Inj) 4 mg Q6H PRN IV NAUSEA AND/OR VOMITING Last administered on 12/13/16 09:39; Admin Dose 4 MG; Start 12/10/16 at 06:00 Acetaminophen (Tylenol Supp) 650 mg Q6H PRN [place] PAIN LEVEL 1-3 OR FEVER; Start 12/10/16 at 06:00 Hydralazine HCl (Apresoline) 10 mg Q4H PRN IV hypertension Last administered on 12/12/16 03:14; Admin Dose 10 MG; Start 12/12/16 at 03:00 Morphine Sulfate (morphine) 1 mg Q4H PRN IV SEVERE PAIN LEVEL 7-10; Start 12/12 at 14:00 Diagnostic Test (Pha) (Accu-Chek) 1 ea Q6 XX ; Start 12/13/16 at 06:00 Metronidazole (Flagyl) 500 mg Q8 PO Last administered on 12/13/16 14:00; Admin Dose 500 MG; Start 12/13/16 at 14:00 Ciprofloxacin (Cipro) 500 mg Q24H GTB ; Start 12/13/16 at 18:00 YI FRIEDMAN MD Dec 13, 2016 15:37
[2016-12-13] MEDS: hydrALAzine 20 MG INJ IV PRN (17:03)
[2016-12-13 17:06] VITALS: BP 176/74; PULSE 73
[2016-12-13] MEDS: CIPROFLOXACIN 500 MG TAB GTB SCH (17:32)
[2016-12-13 17:37] VITALS: BP 123/58; PULSE 80
[2016-12-13] MEDS ORDERED: CIPROFLOXACIN 250 MG TAB GTB SCH (18:00)
--- NOTE | 2016-12-13 18:28 | PN ---
Date/Time of Note Date/Time of Note DATE: 12/13/16 TIME: 18:28 Assessment/Plan VTE Prophylaxis VTE Prophylaxis Intervention: SCD's Lines/Catheters IV Catheter Type (from Nrsg): Peripheral IV Urinary Cath still in place: No Assessment/Plan Assessment/Plan 56-year-old female prior history of bowel resection and possible mesenteric ischemia admitted for abd pain, likely 2/2 ischemic colitis 1. Inflammatory vs ischemic small bowel and infectious versus ischemic colitis- slowly improving gen surg on cs abx changed to PO, likely dc in AM 2. End-stage renal disease on dialysis: renal on cs Subjective 24 Hr Interval Summary Free Text/Dictation no complaints this AM Exam/Review of Systems Vital Signs Vitals Vital Signs Date Time Temp Pulse Resp B/P Pulse Ox O2 Delivery O2 Flow Rate FiO2 12/13/16 17:37 80 123/58 12/13/16 14:21 98.0 18 100 12/10/16 04:43 Room Air Intake and Output 12/12/16 12/12/16 12/13/16 15:00 23:00 07:00 Intake Total 440 ml 450 ml Balance 440 ml 450 ml Exam nad no mrg lungs clear abd soft no rashes Results Result Diagram: 12/13/16 0556 12/13/16 0556 Results 24 hrs Laboratory Tests Test 12/13/16 02:10 12/13/16 02:40 12/13/16 03:05 12/13/16 03:41 Bedside Glucose 65 L 67 L 68 L 75 Test 12/13/16 03:55 12/13/16 05:48 12/13/16 05:56 12/13/16 06:08 Bedside Glucose 69 L 182 137 White Blood Count 6.2 # Red Blood Count 3.13 L Hemoglobin 9.7 L Hematocrit 30.6 L Mean Corpuscular Volume 97.8 Mean Corpuscular Hemoglobin 31.0 Mean Corpuscular Hemoglobin Concent 31.7 L Red Cell Distribution Width 19.1 H Platelet Count 186 # Mean Platelet Volume 11.3 H Neutrophils % 71.9 Lymphocytes % 11.5 L Monocytes % 15.0 H Eosinophils % 0.3 Basophils % 0.5 Nucleated Red Blood Cells % 0.0 Neutrophils # (Manual) 4 Lymphocytes # 0.7 L Monocytes # 0.9 Eosinophils # 0.0 Basophils # 0.0 Nucleated Red Blood Cells # 0.0 Sodium Level 136 Potassium Level 3.8 Chloride Level 99 Carbon Dioxide Level 25 Anion Gap 16 Blood Urea Nitrogen 19 Creatinine 5.47 H Glucose Level 146 # Calcium Level 7.1 L Test 12/13/16 11:34 12/13/16 17:33 Bedside Glucose 72 85 Medications Medications Current Medications Ondansetron HCl (Zofran Inj) 4 mg Q6H PRN IV NAUSEA AND/OR VOMITING Last administered on 12/13/16 09:39; Admin Dose 4 MG; Start 12/10/16 at 06:00 Acetaminophen (Tylenol Supp) 650 mg Q6H PRN [place] PAIN LEVEL 1-3 OR FEVER; Start 12/10/16 at 06:00 Hydralazine HCl (Apresoline) 10 mg Q4H PRN IV hypertension Last administered on 12/13/16 17:03; Admin Dose 10 MG; Start 12/12/16 at 03:00 Morphine Sulfate (morphine) 1 mg Q4H PRN IV SEVERE PAIN LEVEL 7-10; Start 12/12 at 14:00 Diagnostic Test (Pha) (Accu-Chek) 1 ea Q6 XX Last administered on 12/13/16 17: 34; Admin Dose 1 EA; Start 12/13/16 at 06:00 Metronidazole (Flagyl) 500 mg Q8 PO Last administered on 12/13/16 14:00; Admin Dose 500 MG; Start 12/13/16 at 14:00 Ciprofloxacin (Cipro) 500 mg Q24H GTB Last administered on 12/13/16 17:32; Admin Dose 500 MG; Start 12/13/16 at 18:00 Lactobacillus Acidophilus/ Rhamnosus (Culturelle) 1 cap BID PO ; Start 12/13/16 at 21:00 CRISTINA BEE MD Dec 13, 2016 18:28 12/10/16 at 06:00 Hydralazine HCl (Apresoline) 10 mg Q4H PRN IV hypertension Last administered on 12/13/16 17:03; Admin Dose 10 MG; Start 12/12/16 at 03:00 Morphine Sulfate (morphine) 1 mg Q4H PRN IV SEVERE PAIN LEVEL 7-10; Start 12/12 at 14:00 Diagnostic Test (Pha) (Accu-Chek) 1 ea Q6 XX Last administered on 8/21/17at 17: 34; Admin Dose 1 EA; Start 12/13/16 at 06:00 Metronidazole (Flagyl) 500 mg Q8 PO Last administered on 12/13/16 14:00; Admin Dose 500 MG; Start 12/13/16 at 14:00 Ciprofloxacin (Cipro) 500 mg Q24H GTB Last administered on 12/13/16 17:32; Admin Dose 500 MG; Start 12/13/16 at 18:00 Lactobacillus Acidophilus/ Rhamnosus (Culturelle) 1 cap BID PO ; Start 12/13/16 at 21:00 CRISTINA BEE MD Dec 13, 2016 18:28
[2016-12-13 20:33] VITALS: BP 137/62; RESP 16
[2016-12-13] MEDS: LACTOBACILLUS RHAMNOSUS CAP PO SCH (21:09)
[2016-12-14] VITALS (10 sets, daily range): BP systolic 124–177; BP diastolic 58–77; PULSE 71–84; RESP 18–20
[2016-12-14 05:30] LABS: BASOPHILS % 0.4 % (0.0-2.0); EOSINOPHILS % 0.4 % (0.0-7.0); HEMATOCRIT 29.5 % (37.0-47.0); HEMOGLOBIN 9.2 g/dl (12.0-16.0); LYMPHOCYTES # 0.8 10^3/ul (0.8-2.9); LYMPHOCYTES % 15.2 % (15.0-51.0); MEAN CORPUSCULAR HEMOGLOBIN 30.1 pg (29.0-33.0); MEAN CORPUSCULAR HGB CONC 31.2 g/dl (32.0-37.0); MEAN CORPUSCULAR VOLUME 96.4 fl (82.0-101.0); MONOCYTE # 0.8 10^3/ul (0.3-0.9); PLATELET COUNT 170 10^3/UL (140-415); RED BLOOD COUNT 3.06 10^6/ul (4.20-5.40); RED CELL DISTRIBUTION WIDTH 19.3 % (11.5-14.5); WHITE BLOOD COUNT 5.1 10^3/ul (4.8-10.8)
[2016-12-14] MEDS: metroNIDAZOLE 500 MG TAB PO SCH ×3 (05:40→21:15)
[2016-12-14] MEDS: ACCU-CHEK XX SCH ×4 (05:47→18:00)
[2016-12-14 05:51] LABS: CALCIUM 7.2 mg/dl (8.4-10.2); CREATININE 6.93 mg/dl (0.44-1.00); POTASSIUM 3.3 mmol/L (3.5-5.1)
[2016-12-14] MEDS: LACTOBACILLUS RHAMNOSUS CAP PO SCH ×2 (08:41→21:15)
[2016-12-14] MEDS: ONDANSETRON 4 MG INJ IV PRN ×2 (10:48→18:03)
--- NOTE | 2016-12-14 14:37 | CONS ---
Date/Time of Note Date/Time of Note DATE: 12/14/16 TIME: 14:35 Assessment/Plan Assessment/Plan Chief Complaint/Hosp Course Physical exam Constitutional: In mild distress, answers questions Head: atraumatic, normocephalic Respiratory: clear to auscultation, normal air movement Cardiovascular: nl pulses, regular rate and rhythm Gastrointestinal: soft, tender Extremities: normal pulses left permacath 56 y/wo 1. ESRD T/T/S with left permacath 2. Colitis 3. Abdominal pain with nausea/epigastric pain Problems: Additional Assessment/Plan 1. Continue HD today with minimal fluid removal 2. Pt is on schedule T, TH, Sat for HD 3 Zofran iv/ recommend liquid diet Problems: Consultation Date/Type/Reason Admit Date/Time Dec 10, 2016 at 03:16 Initial Consult Date 12/10/16 Type of Consultation: nephrology 24 HR Interval Summary Free Text/Dictation +nausea, feel like throwing up Pain in epigastrium Exam/Review of Systems Vital Signs Vitals Vital Signs Date Time Temp Pulse Resp B/P Pulse Ox O2 Delivery O2 Flow Rate FiO2 12/14/16 08:00 98.0 78 19 149/68 99 Intake and Output 12/13/16 12/13/16 12/14/16 15:00 23:00 07:00 Intake Total 480 ml 480 ml Balance 480 ml 480 ml Results Result Diagram: 12/14/16 0459 12/14/16 0459 Results 24 hrs Laboratory Tests Test 12/13/16 17:33 12/14/16 00:15 12/14/16 04:59 12/14/16 05:45 Bedside Glucose 85 75 71 White Blood Count 5.1 Red Blood Count 3.06 L Hemoglobin 9.2 L Hematocrit 29.5 L Mean Corpuscular Volume 96.4 Mean Corpuscular Hemoglobin 30.1 Mean Corpuscular Hemoglobin Concent 31.2 L Red Cell Distribution Width 19.3 H Platelet Count 170 Mean Platelet Volume 11.0 H Neutrophils % 67.0 Lymphocytes % 15.2 Monocytes % 16.0 H Eosinophils % 0.4 Basophils % 0.4 Nucleated Red Blood Cells % 0.0 Neutrophils # (Manual) 3 Lymphocytes # 0.8 Monocytes # 0.8 Eosinophils # 0.0 Basophils # 0.0 Nucleated Red Blood Cells # 0.0 Sodium Level 135 Potassium Level 3.3 L Chloride Level 103 Carbon Dioxide Level 23 Anion Gap 12 Blood Urea Nitrogen 23 H Creatinine 6.93 H Glucose Level 74 # Calcium Level 7.2 L Test 12/14/16 11:45 Bedside Glucose 85 Medications Medications Current Medications Ondansetron HCl (Zofran Inj) 4 mg Q6H PRN IV NAUSEA AND/OR VOMITING Last administered on 12/14/16 10:48; Admin Dose 4 MG; Start 12/10/16 at 06:00 Acetaminophen (Tylenol Supp) 650 mg Q6H PRN [place] PAIN LEVEL 1-3 OR FEVER; Start 12/10/16 at 06:00 Morphine Sulfate (morphine) 1 mg Q4H PRN IV SEVERE PAIN LEVEL 7-10; Start 12/12 at 14:00 Diagnostic Test (Pha) (Accu-Chek) 1 ea Q6 XX Last administered on 12/13/16 17: 34; Admin Dose 1 EA; Start 12/13/16 at 06:00 Metronidazole (Flagyl) 500 mg Q8 PO Last administered on 12/14/16 13:31; Admin Dose 500 MG; Start 12/13/16 at 14:00 Ciprofloxacin (Cipro) 500 mg Q24H GTB Last administered on 12/13/16 17:32; Admin Dose 500 MG; Start 12/13/16 at 18:00 Lactobacillus Acidophilus/ Rhamnosus (Culturelle) 1 cap BID PO Last administered on 12/14/16 08:41; Admin Dose 1 CAP; Start 12/13/16 at 21:00 YI FRIEDMAN MD Dec 14, 2016 14:36
--- NOTE | 2016-12-14 16:28 | PN ---
Date/Time of Note Date/Time of Note DATE: 12/14/16 TIME: 16:26 Assessment/Plan VTE Prophylaxis VTE Prophylaxis Intervention: SCD's Lines/Catheters IV Catheter Type (from Nrsg): Peripheral IV Urinary Cath still in place: No Assessment/Plan Assessment/Plan 56-year-old female prior history of bowel resection and possible mesenteric ischemia admitted for abd pain, likely 2/2 ischemic colitis v other colitis 1. Inflammatory vs ischemic small bowel and infectious versus ischemic colitis- slowly improving gen surg on cs-->spoke with gen surg today and per gen surg no need for gen surg f/u cont PO abx GI cs for further eval 2. End-stage renal disease on dialysis: renal on cs PT eval per pt request Subjective 24 Hr Interval Summary Free Text/Dictation Pt does not yet feel ready to go. Still with abd pain. Exam/Review of Systems Vital Signs Vitals Vital Signs Date Time Temp Pulse Resp B/P Pulse Ox O2 Delivery O2 Flow Rate FiO2 12/14/16 15:30 73 12/14/16 14:00 98.1 20 177/77 98 Intake and Output 12/13/16 12/13/16 12/14/16 14:59 22:59 06:59 Intake Total 480 ml 480 ml Balance 480 ml 480 ml Exam laying in bed, nad no mrg lungs clear abd soft no rashes Results Result Diagram: 12/14/16 0459 12/14/16 0459 Results 24 hrs Laboratory Tests Test 12/13/16 17:33 12/14/16 00:15 12/14/16 04:59 12/14/16 05:45 Bedside Glucose 85 75 71 White Blood Count 5.1 Red Blood Count 3.06 L Hemoglobin 9.2 L Hematocrit 29.5 L Mean Corpuscular Volume 96.4 Mean Corpuscular Hemoglobin 30.1 Mean Corpuscular Hemoglobin Concent 31.2 L Red Cell Distribution Width 19.3 H Platelet Count 170 Mean Platelet Volume 11.0 H Neutrophils % 67.0 Lymphocytes % 15.2 Monocytes % 16.0 H Eosinophils % 0.4 Basophils % 0.4 Nucleated Red Blood Cells % 0.0 Neutrophils # (Manual) 3 Lymphocytes # 0.8 Monocytes # 0.8 Eosinophils # 0.0 Basophils # 0.0 Nucleated Red Blood Cells # 0.0 Sodium Level 135 Potassium Level 3.3 L Chloride Level 103 Carbon Dioxide Level 23 Anion Gap 12 Blood Urea Nitrogen 23 H Creatinine 6.93 H Glucose Level 74 # Calcium Level 7.2 L Test 12/14/16 11:45 Bedside Glucose 85 Medications Medications Current Medications Ondansetron HCl (Zofran Inj) 4 mg Q6H PRN IV NAUSEA AND/OR VOMITING Last administered on 12/14/16 10:48; Admin Dose 4 MG; Start 12/10/16 at 06:00 Acetaminophen (Tylenol Supp) 650 mg Q6H PRN [place] PAIN LEVEL 1-3 OR FEVER; Start 12/10/16 at 06:00 Morphine Sulfate (morphine) 1 mg Q4H PRN IV SEVERE PAIN LEVEL 7-10; Start 12/12 at 14:00 Diagnostic Test (Pha) (Accu-Chek) 1 ea Q6 XX Last administered on 12/13/16 17: 34; Admin Dose 1 EA; Start 12/13/16 at 06:00 Metronidazole (Flagyl) 500 mg Q8 PO Last administered on 12/14/16 13:31; Admin Dose 500 MG; Start 12/13/16 at 14:00 Ciprofloxacin (Cipro) 500 mg Q24H GTB Last administered on 12/13/16 17:32; Admin Dose 500 MG; Start 12/13/16 at 18:00 Lactobacillus Acidophilus/ Rhamnosus (Culturelle) 1 cap BID PO Last administered on 12/14/16 08:41; Admin Dose 1 CAP; Start 12/13/16 at 21:00 CRISTINA BEE MD Dec 14, 2016 16:28
[2016-12-14] MEDS ORDERED: HEPARIN 1000 UNITS/ML 10 ML INJ CATHETER SCH (16:30)
[2016-12-14] MEDS: CIPROFLOXACIN 500 MG TAB GTB SCH (18:05)
[2016-12-15 02:50] VITALS: BP 144/67; RESP 18
[2016-12-15] MEDS: metroNIDAZOLE 500 MG TAB PO SCH ×3 (05:44→21:08)
[2016-12-15] MEDS: ACCU-CHEK XX SCH ×4 (06:00→17:45)
[2016-12-15 07:00] LABS: BASOPHILS % 0.4 % (0.0-2.0); EOSINOPHILS % 0.4 % (0.0-7.0); HEMATOCRIT 28.2 % (37.0-47.0); HEMOGLOBIN 9.1 g/dl (12.0-16.0); LYMPHOCYTES # 0.7 10^3/ul (0.8-2.9); LYMPHOCYTES % 16.1 % (15.0-51.0); MEAN CORPUSCULAR HEMOGLOBIN 31.6 pg (29.0-33.0); MEAN CORPUSCULAR HGB CONC 32.3 g/dl (32.0-37.0); MEAN CORPUSCULAR VOLUME 97.9 fl (82.0-101.0); MEAN PLATELET VOLUME 11.1 fl (7.4-10.4); MONOCYTE # 0.8 10^3/ul (0.3-0.9); MONOCYTES % 18.4 % (0.0-11.0); NEUTROPHILS % 63.8 % (39.0-77.0); PLATELET COUNT 151 10^3/UL (140-415); RED BLOOD COUNT 2.88 10^6/ul (4.20-5.40); RED CELL DISTRIBUTION WIDTH 19.2 % (11.5-14.5); WHITE BLOOD COUNT 4.5 10^3/ul (4.8-10.8)
[2016-12-15 07:23] LABS: CALCIUM 7.2 mg/dl (8.4-10.2); CREATININE 4.3 mg/dl (0.44-1.00)
[2016-12-15 08:13] VITALS: BP 155/67; RESP 16
[2016-12-15] MEDS: LACTOBACILLUS RHAMNOSUS CAP PO SCH ×2 (09:14→20:38)
[2016-12-15 14:31] VITALS: BP 169/74; RESP 17
--- NOTE | 2016-12-15 15:25 | CONS ---
Date/Time of Note Date/Time of Note DATE: 12/15/16 TIME: 15:23 Assessment/Plan Assessment/Plan Chief Complaint/Hosp Course Physical exam Constitutional: In mild distress, answers questions Head: atraumatic, normocephalic Respiratory: clear to auscultation, normal air movement Cardiovascular: nl pulses, regular rate and rhythm Gastrointestinal: soft, tender Extremities: normal pulses left permacath 56 y/wo 1. ESRD T/T/S with left permacath 2. Colitis 3. Abdominal pain with nausea/epigastric pain Problems: Additional Assessment/Plan 1. Recommend rechecking CT studies vs GI consult,.Pt unable to tolerate diet 2. Pt is on schedule T, TH, Sat for HD, next HD tmw 3 Zofran iv Problems: Consultation Date/Type/Reason Admit Date/Time Dec 10, 2016 at 03:16 Initial Consult Date 12/10/16 Type of Consultation: nephrology 24 HR Interval Summary Free Text/Dictation episode of vomiting +Nausea Exam/Review of Systems Vital Signs Vitals Vital Signs Date Time Temp Pulse Resp B/P Pulse Ox O2 Delivery O2 Flow Rate FiO2 12/15/16 14:31 98.0 80 17 169/74 98 Intake and Output 12/14/16 12/14/16 12/15/16 15:00 23:00 07:00 Intake Total 0 ml 1460 ml 560 ml Output Total 0 ml 1500 ml Balance 0 ml -40 ml 560 ml Results Result Diagram: 12/15/16 0544 12/15/16 0544 Results 24 hrs Laboratory Tests Test 12/14/16 18:01 12/15/16 00:26 12/15/16 00:56 12/15/16 01:17 Bedside Glucose 99 67 L 71 90 Test 12/15/16 01:31 12/15/16 05:42 12/15/16 05:44 12/15/16 12:31 Bedside Glucose 83 80 96 White Blood Count 4.5 L Red Blood Count 2.88 L Hemoglobin 9.1 L Hematocrit 28.2 L Mean Corpuscular Volume 97.9 Mean Corpuscular Hemoglobin 31.6 Mean Corpuscular Hemoglobin Concent 32.3 Red Cell Distribution Width 19.2 H Platelet Count 151 Mean Platelet Volume 11.1 H Neutrophils % 63.8 Lymphocytes % 16.1 Monocytes % 18.4 H Eosinophils % 0.4 Basophils % 0.4 Nucleated Red Blood Cells % 0.0 Neutrophils # (Manual) 3 Lymphocytes # 0.7 L Monocytes # 0.8 Eosinophils # 0.0 Basophils # 0.0 Nucleated Red Blood Cells # 0.0 Sodium Level 140 Potassium Level 4.0 Chloride Level 100 Carbon Dioxide Level 29 Anion Gap 15 Blood Urea Nitrogen 13 # Creatinine 4.30 #H Glucose Level 77 Calcium Level 7.2 L Medications Medications Current Medications Ondansetron HCl (Zofran Inj) 4 mg Q6H PRN IV NAUSEA AND/OR VOMITING Last administered on 12/14/16 18:03; Admin Dose 4 MG; Start 12/10/16 at 06:00 Acetaminophen (Tylenol Supp) 650 mg Q6H PRN [place] PAIN LEVEL 1-3 OR FEVER; Start 12/10/16 at 06:00 Morphine Sulfate (morphine) 1 mg Q4H PRN IV SEVERE PAIN LEVEL 7-10; Start 12/12 at 14:00 Diagnostic Test (Pha) (Accu-Chek) 1 ea Q6 XX Last administered on 12/15/16 12: 32; Admin Dose 1 EA; Start 12/13/16 at 06:00 Metronidazole (Flagyl) 500 mg Q8 PO Last administered on 12/15/16 14:26; Admin Dose 500 MG; Start 12/13/16 at 14:00 Ciprofloxacin (Cipro) 500 mg Q24H GTB Last administered on 12/14/16 18:05; Admin Dose 500 MG; Start 12/13/16 at 18:00 Lactobacillus Acidophilus/ Rhamnosus (Culturelle) 1 cap BID PO Last administered on 12/15/16 09:14; Admin Dose 1 CAP; Start 12/13/16 at 21:00 YI FRIEDMAN MD Dec 15, 2016 15:24
--- NOTE | 2016-12-15 17:27 | PN ---
Date/Time of Note Date/Time of Note DATE: 12/15/16 TIME: 17:26 Assessment/Plan VTE Prophylaxis VTE Prophylaxis Intervention: SCD's Lines/Catheters IV Catheter Type (from Nrs): Saline Lock Urinary Cath still in place: No Assessment/Plan Assessment/Plan 56-year-old female prior history of bowel resection and possible mesenteric ischemia admitted for abd pain, likely 2/2 ischemic colitis v other colitis 1. Inflammatory vs ischemic small bowel and infectious versus ischemic colitis- slowly improving sp gen surg eval cont PO abx GI cs for further eval CTA abdomen to eval for vascular disease 2. End-stage renal disease on dialysis: renal on cs Subjective 24 Hr Interval Summary Free Text/Dictation abd pain not much better Exam/Review of Systems Vital Signs Vitals Vital Signs Date Time Temp Pulse Resp B/P Pulse Ox O2 Delivery O2 Flow Rate FiO2 12/15/16 14:31 98.0 80 17 169/74 98 Intake and Output 12/14/16 12/14/16 12/15/16 15:00 23:00 07:00 Intake Total 0 ml 1460 ml 560 ml Output Total 0 ml 1500 ml Balance 0 ml -40 ml 560 ml Exam no mrg lungs clear abd soft no rashes no edema Results Result Diagram: 12/15/16 0544 12/15/16 0544 Results 24 hrs Laboratory Tests Test 12/14/16 18:01 12/15/16 00:26 12/15/16 00:56 12/15/16 01:17 Bedside Glucose 99 67 L 71 90 Test 12/15/16 01:31 12/15/16 05:42 12/15/16 05:44 12/15/16 12:31 Bedside Glucose 83 80 96 White Blood Count 4.5 L Red Blood Count 2.88 L Hemoglobin 9.1 L Hematocrit 28.2 L Mean Corpuscular Volume 97.9 Mean Corpuscular Hemoglobin 31.6 Mean Corpuscular Hemoglobin Concent 32.3 Red Cell Distribution Width 19.2 H Platelet Count 151 Mean Platelet Volume 11.1 H Neutrophils % 63.8 Lymphocytes % 16.1 Monocytes % 18.4 H Eosinophils % 0.4 Basophils % 0.4 Nucleated Red Blood Cells % 0.0 Neutrophils # (Manual) 3 Lymphocytes # 0.7 L Monocytes # 0.8 Eosinophils # 0.0 Basophils # 0.0 Nucleated Red Blood Cells # 0.0 Sodium Level 140 Potassium Level 4.0 Chloride Level 100 Carbon Dioxide Level 29 Anion Gap 15 Blood Urea Nitrogen 13 # Creatinine 4.30 #H Glucose Level 77 Calcium Level 7.2 L Medications Medications Current Medications Ondansetron HCl (Zofran Inj) 4 mg Q6H PRN IV NAUSEA AND/OR VOMITING Last administered on 12/14/16 18:03; Admin Dose 4 MG; Start 12/10/16 at 06:00 Acetaminophen (Tylenol Supp) 650 mg Q6H PRN [place] PAIN LEVEL 1-3 OR FEVER; Start 12/10/16 at 06:00 Morphine Sulfate (morphine) 1 mg Q4H PRN IV SEVERE PAIN LEVEL 7-10; Start 12/12 at 14:00 Diagnostic Test (Pha) (Accu-Chek) 1 ea Q6 XX Last administered on 12/15/16 12: 32; Admin Dose 1 EA; Start 12/13/16 at 06:00 Metronidazole (Flagyl) 500 mg Q8 PO Last administered on 12/15/16 14:26; Admin Dose 500 MG; Start 12/13/16 at 14:00 Ciprofloxacin (Cipro) 500 mg Q24H GTB Last administered on 12/14/16 18:05; Admin Dose 500 MG; Start 12/13/16 at 18:00 Lactobacillus Acidophilus/ Rhamnosus (Culturelle) 1 cap BID PO Last administered on 12/15/16 09:14; Admin Dose 1 CAP; Start 12/13/16 at 21:00 Aspirin (Halfprin) 81 mg DAILY PO ; Start 12/16/16 at 09:00 Atorvastatin Calcium (Lipitor) 10 mg QHS PO ; Start 12/15/16 at 21:00 Carvedilol (Coreg) 6.25 mg BID PO ; Start 12/15/16 at 21:00 Cyanocobalamin (Vitamin B12) 1,000 mcg DAILY PO ; Start 12/16/16 at 09:00 Docusate Sodium (Colace) 100 mg BID PO ; Start 12/15/16 at 21:00 Folic Acid (Folic Acid) 1 mg DAILY PO ; Start 12/16/16 at 09:00 Gabapentin (Neurontin) 100 mg QHS PO ; Start 12/15/16 at 21:00 Levothyroxine Sodium (Synthroid) 137 mcg DAILY@06 PO ; Start 12/16/16 at 06:00 Losartan Potassium (Cozaar) 50 mg BID PO ; Start 12/15/16 at 21:00 Pantoprazole (Protonix Tab) 40 mg DAILY@06 PO ; Start 12/16/16 at 06:00 CRISTINA BEE MD Dec 15, 2016 17:27
[2016-12-15] MEDS: CIPROFLOXACIN 500 MG TAB GTB SCH (17:41)
--- NOTE | 2016-12-15 18:52 | CONS ---
Date/Time of Note Date/Time of Note DATE: 12/15/16 TIME: 18:37 Assessment/Plan Assessment/Plan Additional Assessment/Plan Assessment: * Persistent diarrhea post significant small bowel resection. * short-bowel syndrome * Persistent abdominal pain/thickened ascending and transverse colon * Rule out ischemic bowel * Persistent nausea and vomiting * Gastroparesis versus others * Wound dehiscence * End-stage renal disease on chronic hemodialysis * Diabetes mellitus type 2 * Hypertension Plan: * CT angiogram to assess vascular integrity * Pending results of CTA consider EGD and colonoscopy on Tuesday * The patient has been informed of both CTA as well as the need for EGD and colonoscopy Consultation Date/Type/Reason Admit Date/Time Dec 10, 2016 at 03:16 Date of Consultation: Dec 15, 2016 Type of Consultation: GI Reason for Consultation Persistent diarrhea Hx of Present Illness 56-year-old female with history of diabetes mellitus, hypertension, end-stage renal disease. The patient underwent significant rather extensive small bowel resection August 2016 with resection according to operative note from the ligament of Treitz to the distal jejunum therefore leaving mostly ileum as the remaining small bowel. The patient has had persistent diarrhea since her surgery. She has now been hospitalized with abdominal pain and diarrhea. The patient has had significant weight loss as well. There is no overt gastrointestinal bleeding. A CT of the abdomen showed thickening of the right side of the colon ascending colon and proximal transverse colon and the possibility of ischemic bowel has been entertained given her previous history. The patient is scheduled to have CT angiogram tomorrow. The patient has not followed a specific diet although she probably would benefit from a short bowel syndrome diet. She also complains of persistent nausea and vomiting which precludes her from intaking adequate oral nutrition. At the present time the patient is comfortable she will be undergoing CT angiogram tomorrow further recommendation will depend on the findings. The patient probably will benefit from endoscopic evaluation and given her nausea and vomiting which is quite prominent EGD and colonoscopy should be considered. The patient has been informed and once again we will review CT angiogram and make decisions as to the further course of action. Constitutional: other (abd pain), poor po Eyes: no complaints ENT: no complaints Respiratory: no complaints Cardiovascular: no complaints Gastrointestinal: diarrhea, pain Genitourinary: no complaints Musculoskeletal: no complaints Skin: no complaints Neurologic: no complaints Endocrine: no complaints Lymphatic: no complaints Psychological: no complaints Immunologic: no complaints Past Medical History Medical History: diabetes, high cholesterol, hypertension, renal disease, other (Mesenteric ischemia) Past Surgical History Past Surgical Hx: other (small bowel resection) Social History Alcohol Use: none Smoking Status: Never smoker Drug Use: none Exam/Review of Systems Vital Signs Vitals Vital Signs Date Time Temp Pulse Resp B/P Pulse Ox O2 Delivery O2 Flow Rate FiO2 12/15/16 14:31 98.0 80 17 169/74 98 Intake and Output 12/14/16 12/14/16 12/15/16 15:00 23:00 07:00 Intake Total 0 ml 1460 ml 560 ml Output Total 0 ml 1500 ml Balance 0 ml -40 ml 560 ml Exam Constitutional: alert, obese, oriented, well developed Psych: nl mood/affect, no complaints Head: atraumatic, normocephalic Eyes: EOMI, PERRL, nl conjunctiva, nl lids, nl sclera ENMT: nl external ears & nose, nl lips & teeth, nl nasal mucosa & septum Neck: non-tender, supple Respiratory: clear to auscultation, normal air movement Cardiovascular: nl pulses, regular rate and rhythm Gastrointestinal: bowel sounds, distended, nl liver, spleen, non-tender, soft, tender (diffusely tender), No ascites, No mass, No rebound or guarding Musculoskeletal: nl extremities to inspection Extremities: normal pulses Skin: nl turgor, No rash or lesions Lymph: nl lymph nodes Results Result Diagram: 12/15/16 0544 12/15/16 0544 Results 24 hrs Laboratory Tests Test 12/15/16 00:26 12/15/16 00:56 12/15/16 01:17 12/15/16 01:31 Bedside Glucose 67 L 71 90 83 Test 12/15/16 05:42 12/15/16 05:44 12/15/16 12:31 12/15/16 17:45 Bedside Glucose 80 96 86 White Blood Count 4.5 L Red Blood Count 2.88 L Hemoglobin 9.1 L Hematocrit 28.2 L Mean Corpuscular Volume 97.9 Mean Corpuscular Hemoglobin 31.6 Mean Corpuscular Hemoglobin Concent 32.3 Red Cell Distribution Width 19.2 H Platelet Count 151 Mean Platelet Volume 11.1 H Neutrophils % 63.8 Lymphocytes % 16.1 Monocytes % 18.4 H Eosinophils % 0.4 Basophils % 0.4 Nucleated Red Blood Cells % 0.0 Neutrophils # (Manual) 3 Lymphocytes # 0.7 L Monocytes # 0.8 Eosinophils # 0.0 Basophils # 0.0 Nucleated Red Blood Cells # 0.0 Sodium Level 140 Potassium Level 4.0 Chloride Level 100 Carbon Dioxide Level 29 Anion Gap 15 Blood Urea Nitrogen 13 # Creatinine 4.30 #H Glucose Level 77 Calcium Level 7.2 L Medications Medications Current Medications Ondansetron HCl (Zofran Inj) 4 mg Q6H PRN IV NAUSEA AND/OR VOMITING Last administered on 12/14/16 18:03; Admin Dose 4 MG; Start 12/10/16 at 06:00 Acetaminophen (Tylenol Supp) 650 mg Q6H PRN [place] PAIN LEVEL 1-3 OR FEVER; Start 12/10/16 at 06:00 Morphine Sulfate (morphine) 1 mg Q4H PRN IV SEVERE PAIN LEVEL 7-10; Start 12/12 at 14:00 Diagnostic Test (Pha) (Accu-Chek) 1 ea Q6 XX Last administered on 12/15/16 17: 45; Admin Dose 1 EA; Start 12/13/16 at 06:00 Metronidazole (Flagyl) 500 mg Q8 PO Last administered on 12/15/16 14:26; Admin Dose 500 MG; Start 12/13/16 at 14:00 Ciprofloxacin (Cipro) 500 mg Q24H GTB Last administered on 12/15/16 17:41; Admin Dose 500 MG; Start 12/13/16 at 18:00 Lactobacillus Acidophilus/ Rhamnosus (Culturelle) 1 cap BID PO Last administered on 12/15/16 09:14; Admin Dose 1 CAP; Start 12/13/16 at 21:00 Aspirin (Halfprin) 81 mg DAILY PO ; Start 12/16/16 at 09:00 Atorvastatin Calcium (Lipitor) 10 mg QHS PO ; Start 12/15/16 at 21:00 Carvedilol (Coreg) 6.25 mg BID PO ; Start 12/15/16 at 21:00 Cyanocobalamin (Vitamin B12) 1,000 mcg DAILY PO ; Start 12/16/16 at 09:00 Docusate Sodium (Colace) 100 mg BID PO ; Start 12/15/16 at 21:00 Folic Acid (Folic Acid) 1 mg DAILY PO ; Start 12/16/16 at 09:00 Gabapentin (Neurontin) 100 mg QHS PO ; Start 12/15/16 at 21:00 Levothyroxine Sodium (Synthroid) 137 mcg DAILY@06 PO ; Start 12/16/16 at 06:00 Losartan Potassium (Cozaar) 50 mg BID PO ; Start 12/15/16 at 21:00 Pantoprazole (Protonix Tab) 40 mg DAILY@06 PO ; Start 12/16/16 at 06:00 SAMIRA RENDON MD Dec 15, 2016 18:48
[2016-12-15 19:40] VITALS: BP 165/73; RESP 18
[2016-12-15] MEDS: ATORVASTATIN 10 MG TAB PO SCH (20:38)
[2016-12-15] MEDS: GABAPENTIN 100 MG CAP PO SCH (20:38)
[2016-12-15] MEDS: DOCUSATE SODIUM 100 MG CAP PO SCH (20:38)
[2016-12-15] MEDS: LOSARTAN 50 MG TAB PO SCH (20:40)
[2016-12-15 23:00] VITALS: BP 170/73; RESP 18
[2016-12-16] VITALS (14 sets, daily range): BP systolic 122–153; BP diastolic 57–77; PULSE 67–82; RESP 17–20
[2016-12-16] MEDS ORDERED: hydrALAzine 20 MG INJ IV PRN (00:30)
[2016-12-16] MEDS: ACCU-CHEK XX SCH ×4 (06:00→18:03)
[2016-12-16] MEDS: LEVOTHYROXINE 137 MCG TAB PO SCH (06:00)
[2016-12-16] MEDS: PANTOPRAZOLE (EC) 40 MG TAB PO SCH (06:00)
[2016-12-16] MEDS: metroNIDAZOLE 500 MG TAB PO SCH ×3 (06:00→22:01)
[2016-12-16] MEDS: morphine 2 MG INJ IV PRN (06:24)
[2016-12-16 06:51] LABS: BASOPHILS % 0.2 % (0.0-2.0); EOSINOPHILS % 0.6 % (0.0-7.0); HEMOGLOBIN 8.8 g/dl (12.0-16.0); LYMPHOCYTES # 0.9 10^3/ul (0.8-2.9); MEAN CORPUSCULAR HEMOGLOBIN 31.4 pg (29.0-33.0); MEAN CORPUSCULAR HGB CONC 32.6 g/dl (32.0-37.0); MEAN CORPUSCULAR VOLUME 96.4 fl (82.0-101.0); MEAN PLATELET VOLUME 11.3 fl (7.4-10.4); MONOCYTE # 0.7 10^3/ul (0.3-0.9); MONOCYTES % 13.4 % (0.0-11.0); PLATELET COUNT 127 10^3/UL (140-415); WHITE BLOOD COUNT 4.9 10^3/ul (4.8-10.8)
[2016-12-16 07:02] LABS: CALCIUM 7.2 mg/dl (8.4-10.2); CREATININE 5.59 mg/dl (0.44-1.00); POTASSIUM 4.2 mmol/L (3.5-5.1)
[2016-12-16] MEDS: LACTOBACILLUS RHAMNOSUS CAP PO SCH ×2 (09:00→22:01)
[2016-12-16] MEDS: ASPIRIN (EC) 81 MG TAB PO SCH (09:00)
[2016-12-16] MEDS: CYANOCOBALAMIN 500 MCG TAB PO SCH (09:00)
[2016-12-16] MEDS: DOCUSATE SODIUM 100 MG CAP PO SCH ×2 (09:00→22:02)
[2016-12-16] MEDS: LOSARTAN 50 MG TAB PO SCH ×2 (09:00→22:02)
[2016-12-16] MEDS ORDERED: DEXTROSE 50% 50 ML SYRINGE IV ONE (09:00)
[2016-12-16] MEDS: FOLIC ACID 1 MG TAB PO SCH (09:00)
[2016-12-16] MEDS ORDERED: CIPROFLOXACIN 500 MG TAB PO SCH (15:02)
[2016-12-16] MEDS ORDERED: IODIXANOL LOCM 100 ML BTL ONE (16:37)
[2016-12-16] MEDS ORDERED: SOD CHLORIDE 0.9% 100 ML ONE (16:37)
[2016-12-16] MEDS ORDERED: MAGNESIUM CITRATE 300 ML BTL PO ONE (17:30)
[2016-12-16] MEDS: CIPROFLOXACIN 500 MG TAB PO SCH (18:04)
--- NOTE | 2016-12-16 18:14 | CONS ---
Date/Time of Note Date/Time of Note DATE: 12/16/16 TIME: 18:12 Assessment/Plan Assessment/Plan Chief Complaint/Hosp Course Physical exam Constitutional: In mild distress, answers questions Head: atraumatic, normocephalic Respiratory: clear to auscultation, normal air movement Cardiovascular: nl pulses, regular rate and rhythm Gastrointestinal: soft, tender Extremities: normal pulses left permacath 56 y/wo 1. ESRD T/T/S with left permacath 2. Colitis 3. Abdominal pain with nausea/epigastric pain r/o ischemic colitis Problems: Additional Assessment/Plan 1 CT angio today HD after 2. Pt is on schedule T, TH, Sat for HD 3 Zofran iv 4 Gentle iv fluids with D5 due to hypoglycemia Problems: Consultation Date/Type/Reason Admit Date/Time Dec 10, 2016 at 03:16 Initial Consult Date 12/10/16 Type of Consultation: Nephrology 24 HR Interval Summary Free Text/Dictation Hypoglycemic this am Pending CT angio Exam/Review of Systems Vital Signs Vitals Vital Signs Date Time Temp Pulse Resp B/P Pulse Ox O2 Delivery O2 Flow Rate FiO2 12/16/16 17:43 70 12/16/16 16:30 14 12/16/16 14:07 97.7 122/58 97 12/16/16 11:07 Intake and Output 12/15/16 12/15/16 12/16/16 15:00 23:00 07:00 Intake Total 680 ml 390 ml Balance 680 ml 390 ml Results Result Diagram: 12/16/16 0509 12/16/16 0509 Results 24 hrs Laboratory Tests Test 12/16/16 00:36 12/16/16 05:09 12/16/16 07:38 12/16/16 09:34 Bedside Glucose 80 64 L 138 White Blood Count 4.9 Red Blood Count 2.80 L Hemoglobin 8.8 L Hematocrit 27.0 L Mean Corpuscular Volume 96.4 Mean Corpuscular Hemoglobin 31.4 Mean Corpuscular Hemoglobin Concent 32.6 Red Cell Distribution Width 19.0 H Platelet Count 127 L Mean Platelet Volume 11.3 H Neutrophils % 67.0 Lymphocytes % 18.0 Monocytes % 13.4 H Eosinophils % 0.6 Basophils % 0.2 Nucleated Red Blood Cells % 0.0 Neutrophils # (Manual) 3 Lymphocytes # 0.9 Monocytes # 0.7 Eosinophils # 0.0 Basophils # 0.0 Nucleated Red Blood Cells # 0.0 Sodium Level 137 Potassium Level 4.2 Chloride Level 103 Carbon Dioxide Level 26 Anion Gap 12 Blood Urea Nitrogen 18 Creatinine 5.59 H Glucose Level 61 #L Calcium Level 7.2 L Test 12/16/16 09:50 12/16/16 12:13 12/16/16 18:02 Bedside Glucose 120 80 105 Medications Medications Current Medications Ondansetron HCl (Zofran Inj) 4 mg Q6H PRN IV NAUSEA AND/OR VOMITING Last administered on 12/14/16 18:03; Admin Dose 4 MG; Start 12/10/16 at 06:00 Acetaminophen (Tylenol Supp) 650 mg Q6H PRN [place] PAIN LEVEL 1-3 OR FEVER; Start 12/10/16 at 06:00 Morphine Sulfate (morphine) 1 mg Q4H PRN IV SEVERE PAIN LEVEL 7-10 Last administered on 12/16/16 06:24; Admin Dose 1 MG; Start 12/12/16 at 14:00 Diagnostic Test (Pha) (Accu-Chek) 1 ea Q6 XX Last administered on 12/16/16 18: 03; Admin Dose 1 EA; Start 12/13/16 at 06:00 Metronidazole (Flagyl) 500 mg Q8 PO Last administered on 12/16/16 17:14; Admin Dose 500 MG; Start 12/13/16 at 14:00 Lactobacillus Acidophilus/ Rhamnosus (Culturelle) 1 cap BID PO Last administered on 12/15/16 20:38; Admin Dose 1 CAP; Start 12/13/16 at 21:00 Aspirin (Halfprin) 81 mg DAILY PO ; Start 12/16/16 at 09:00 Atorvastatin Calcium (Lipitor) 10 mg QHS PO Last administered on 12/15/16 20: 38; Admin Dose 10 MG; Start 12/15/16 at 21:00 Carvedilol (Coreg) 6.25 mg BID PO Last administered on 12/16/16 09:20; Admin Dose 6.25 MG; Start 12/15/16 at 21:00 Cyanocobalamin (Vitamin B12) 1,000 mcg DAILY PO ; Start 12/16/16 at 09:00 Docusate Sodium (Colace) 100 mg BID PO Last administered on 12/15/16 20:38; Admin Dose 100 MG; Start 12/15/16 at 21:00 Folic Acid (Folic Acid) 1 mg DAILY PO ; Start 12/16/16 at 09:00 Gabapentin (Neurontin) 100 mg QHS PO Last administered on 12/15/16 20:38; Admin Dose 100 MG; Start 12/15/16 at 21:00 Levothyroxine Sodium (Synthroid) 137 mcg DAILY@06 PO ; Start 12/16/16 at 06:00 Losartan Potassium (Cozaar) 50 mg BID PO Last administered on 12/15/16 20:40; Admin Dose 50 MG; Start 12/15/16 at 21:00 Pantoprazole (Protonix Tab) 40 mg DAILY@06 PO ; Start 12/16/16 at 06:00 Hydralazine HCl (Apresoline) 10 mg Q6H PRN IV ELEVATED SYSTOLIC BP; Start 12/16 at 00:30 Ciprofloxacin (Cipro) 500 mg Q24H PO Last administered on 12/16/16 18:04; Admin Dose 500 MG; Start 12/16/16 at 18:00 YI FRIEDMAN MD Dec 16, 2016 18:14
[2016-12-16] MEDS ORDERED: POLYETHYLENE GLYCOL 3350 119 GM POWDER PO ONE (18:30)
[2016-12-16] MEDS ORDERED: DEXTROSE 5%-0.45% NACL 1,000 ML IV SCH (18:30)
--- NOTE | 2016-12-16 18:36 | PN ---
Date/Time of Note Date/Time of Note DATE: 12/16/16 TIME: 18:35 Assessment/Plan VTE Prophylaxis VTE Prophylaxis Intervention: SCD's Lines/Catheters IV Catheter Type (from Nrs): Saline Lock Urinary Cath still in place: No Assessment/Plan Assessment/Plan 56-year-old female prior history of bowel resection and possible mesenteric ischemia admitted for abd pain, likely 2/2 ischemic colitis v other colitis 1. Inflammatory vs ischemic small bowel and infectious versus ischemic colitis- slowly improving sp gen surg eval cont PO abx GI on cs for further eval CTA abdomen to eval for vascular disease 2. End-stage renal disease on dialysis: renal on cs Subjective 24 Hr Interval Summary Free Text/Dictation CTA done earlier today, results pending. still not taking much PO Exam/Review of Systems Vital Signs Vitals Vital Signs Date Time Temp Pulse Resp B/P Pulse Ox O2 Delivery O2 Flow Rate FiO2 12/16/16 18:10 67 12/16/16 16:30 14 12/16/16 14:07 97.7 122/58 97 12/16/16 11:07 Intake and Output 12/15/16 12/15/16 12/16/16 15:00 23:00 07:00 Intake Total 680 ml 390 ml Balance 680 ml 390 ml Exam nad no mrg lungs clear abd soft no rashes Results Result Diagram: 12/16/16 0509 12/16/16 0509 Results 24 hrs Laboratory Tests Test 12/16/16 00:36 12/16/16 05:09 12/16/16 07:38 12/16/16 09:34 Bedside Glucose 80 64 L 138 White Blood Count 4.9 Red Blood Count 2.80 L Hemoglobin 8.8 L Hematocrit 27.0 L Mean Corpuscular Volume 96.4 Mean Corpuscular Hemoglobin 31.4 Mean Corpuscular Hemoglobin Concent 32.6 Red Cell Distribution Width 19.0 H Platelet Count 127 L Mean Platelet Volume 11.3 H Neutrophils % 67.0 Lymphocytes % 18.0 Monocytes % 13.4 H Eosinophils % 0.6 Basophils % 0.2 Nucleated Red Blood Cells % 0.0 Neutrophils # (Manual) 3 Lymphocytes # 0.9 Monocytes # 0.7 Eosinophils # 0.0 Basophils # 0.0 Nucleated Red Blood Cells # 0.0 Sodium Level 137 Potassium Level 4.2 Chloride Level 103 Carbon Dioxide Level 26 Anion Gap 12 Blood Urea Nitrogen 18 Creatinine 5.59 H Glucose Level 61 #L Calcium Level 7.2 L Test 12/16/16 09:50 12/16/16 12:13 12/16/16 18:02 Bedside Glucose 120 80 105 Medications Medications Current Medications Ondansetron HCl (Zofran Inj) 4 mg Q6H PRN IV NAUSEA AND/OR VOMITING Last administered on 12/14/16 18:03; Admin Dose 4 MG; Start 12/10/16 at 06:00 Acetaminophen (Tylenol Supp) 650 mg Q6H PRN [place] PAIN LEVEL 1-3 OR FEVER; Start 12/10/16 at 06:00 Morphine Sulfate (morphine) 1 mg Q4H PRN IV SEVERE PAIN LEVEL 7-10 Last administered on 12/16/16 06:24; Admin Dose 1 MG; Start 12/12/16 at 14:00 Diagnostic Test (Pha) (Accu-Chek) 1 ea Q6 XX Last administered on 12/16/16 18: 03; Admin Dose 1 EA; Start 12/13/16 at 06:00 Metronidazole (Flagyl) 500 mg Q8 PO Last administered on 12/16/16 17:14; Admin Dose 500 MG; Start 12/13/16 at 14:00 Lactobacillus Acidophilus/ Rhamnosus (Culturelle) 1 cap BID PO Last administered on 12/15/16 20:38; Admin Dose 1 CAP; Start 12/13/16 at 21:00 Aspirin (Halfprin) 81 mg DAILY PO ; Start 12/16/16 at 09:00 Atorvastatin Calcium (Lipitor) 10 mg QHS PO Last administered on 12/15/16 20: 38; Admin Dose 10 MG; Start 12/15/16 at 21:00 Carvedilol (Coreg) 6.25 mg BID PO Last administered on 12/16/16 09:20; Admin Dose 6.25 MG; Start 12/15/16 at 21:00 Cyanocobalamin (Vitamin B12) 1,000 mcg DAILY PO ; Start 12/16/16 at 09:00 Docusate Sodium (Colace) 100 mg BID PO Last administered on 12/15/16 20:38; Admin Dose 100 MG; Start 12/15/16 at 21:00 Folic Acid (Folic Acid) 1 mg DAILY PO ; Start 12/16/16 at 09:00 Gabapentin (Neurontin) 100 mg QHS PO Last administered on 12/15/16 20:38; Admin Dose 100 MG; Start 12/15/16 at 21:00 Levothyroxine Sodium (Synthroid) 137 mcg DAILY@06 PO ; Start 12/16/16 at 06:00 Losartan Potassium (Cozaar) 50 mg BID PO Last administered on 12/15/16 20:40; Admin Dose 50 MG; Start 12/15/16 at 21:00 Pantoprazole (Protonix Tab) 40 mg DAILY@06 PO ; Start 12/16/16 at 06:00 Hydralazine HCl (Apresoline) 10 mg Q6H PRN IV ELEVATED SYSTOLIC BP; Start 12/16 at 00:30 Ciprofloxacin 500 mg 500 mg Q24H PO Last administered on 12/16/16 18:04; Admin Dose 500 MG; Start 12/16/16 at 18:00 Dextrose/Sodium Chloride (D5-1/2ns) 1,000 ml @ 40 mls/hr Q24H IV ; Start at 18:30; Stop 12/17/16 at 19:29 CRISTINA BEE MD Dec 16, 2016 18:35
--- NOTE | 2016-12-16 20:21 | PN ---
Date/Time of Note Date/Time of Note DATE: 12/16/16 TIME: 20:17 Assessment/Plan VTE Prophylaxis VTE Prophylaxis Intervention: SCD's Lines/Catheters IV [facility]ter [facility]from [facility] Saline Lock Urinary Cath still in place: No Assessment/Plan Assessment/Plan Assessment: * Persistent diarrhea post significant small bowel resection. * short-bowel syndrome * Persistent abdominal pain/thickened ascending and transverse colon * Rule out ischemic bowel * Persistent nausea and vomiting * Gastroparesis versus others * Wound dehiscence * End-stage renal disease on chronic hemodialysis * Diabetes mellitus type 2 * Hypertension Plan: * CT angiogram completed but not resulted * We will plan colonoscopy and endoscopy tomorrow * The patient has been informed including risks, benefits and alternatives. Agreeable to proceed Subjective: Course reviewed with nursing staff Patient interviewed and examined All labs, imaging and other results reviewed The patient reports no change in her symptomatology CTA of completed but not resulted yet We will initiate preparation for endoscopy and colonoscopy tomorrow Patient informed and agreeable Exam: General: well developed, well nourished, alert and oriented x3 , in no acute distress Skin: No lesions, no stigmata chronic liver disease, no evidence of bleeding diathesis Lymphatic: No palpable lymphadenopathy HEENT: No lesions Cardiovascular: Heart: Regular rate and rhhthm, no murmurs, gallops or rubs. Peripheral pulses present within normal limits, no cyanosis, clubbing or edemas. No pulsatile abdominal mass Respiratory: Lungs clear to auscultation and percussion, no wheezing, no rubs Gastrointestinal and Liver: Abdomen: Soft, mildly diffusely tender, moderately distended, no hernias, no masses, no organomegaly, no ascites, no guarding, no rebound tenderness, normoactive bowel sounds. Extremities: No cyanosis, clubbing, or edema. Diagnostic Studies: Available data and images were reviewed personally. See reports. Significant results and findings are addressed here or in the assessment and plan. Exam/Review of Systems Vital Signs Vitals Vital Signs Date Time Temp Pulse Resp B/P Pulse Ox O2 Delivery O2 Flow Rate FiO2 12/16/16 19:56 76 14 12/16/16 14:07 97.7 122/58 97 12/16/16 11:07 Intake and Output 12/15/16 12/15/16 12/16/16 15:00 23:00 07:00 Intake Total 680 ml 390 ml Balance 680 ml 390 ml Results Result Diagram: 12/16/16 0509 12/16/16 0509 Results 24 hrs Laboratory Tests Test 12/16/16 00:36 12/16/16 05:09 12/16/16 07:38 12/16/16 09:34 Bedside Glucose 80 64 L 138 White Blood Count 4.9 Red Blood Count 2.80 L Hemoglobin 8.8 L Hematocrit 27.0 L Mean Corpuscular Volume 96.4 Mean Corpuscular Hemoglobin 31.4 Mean Corpuscular Hemoglobin Concent 32.6 Red Cell Distribution Width 19.0 H Platelet Count 127 L Mean Platelet Volume 11.3 H Neutrophils % 67.0 Lymphocytes % 18.0 Monocytes % 13.4 H Eosinophils % 0.6 Basophils % 0.2 Nucleated Red Blood Cells % 0.0 Neutrophils # (Manual) 3 Lymphocytes # 0.9 Monocytes # 0.7 Eosinophils # 0.0 Basophils # 0.0 Nucleated Red Blood Cells # 0.0 Sodium Level 137 Potassium Level 4.2 Chloride Level 103 Carbon Dioxide Level 26 Anion Gap 12 Blood Urea Nitrogen 18 Creatinine 5.59 H Glucose Level 61 #L Calcium Level 7.2 L Test 12/16/16 09:50 12/16/16 12:13 12/16/16 18:02 Bedside Glucose 120 80 105 Medications Medications Current Medications Ondansetron HCl (Zofran Inj) 4 mg Q6H PRN IV NAUSEA AND/OR VOMITING Last administered on 12/14/16 18:03; Admin Dose 4 MG; Start 12/10/16 at 06:00 Acetaminophen (Tylenol Supp) 650 mg Q6H PRN [place] PAIN LEVEL 1-3 OR FEVER; Start 12/10/16 at 06:00 Morphine Sulfate (morphine) 1 mg Q4H PRN IV SEVERE PAIN LEVEL 7-10 Last administered on 12/16/16 06:24; Admin Dose 1 MG; Start 12/12/16 at 14:00 Diagnostic Test (Pha) (Accu-Chek) 1 ea Q6 XX Last administered on 12/16/16 18: 03; Admin Dose 1 EA; Start 12/13/16 at 06:00 Metronidazole (Flagyl) 500 mg Q8 PO Last administered on 12/16/16 17:14; Admin Dose 500 MG; Start 12/13/16 at 14:00 Lactobacillus Acidophilus/ Rhamnosus (Culturelle) 1 cap BID PO Last administered on 12/15/16 20:38; Admin Dose 1 CAP; Start 12/13/16 at 21:00 Aspirin (Halfprin) 81 mg DAILY PO ; Start 12/16/16 at 09:00 Atorvastatin Calcium (Lipitor) 10 mg QHS PO Last administered on 12/15/16 20: 38; Admin Dose 10 MG; Start 12/15/16 at 21:00 Carvedilol (Coreg) 6.25 mg BID PO Last administered on 12/16/16 09:20; Admin Dose 6.25 MG; Start 12/15/16 at 21:00 Cyanocobalamin (Vitamin B12) 1,000 mcg DAILY PO ; Start 12/16/16 at 09:00 Docusate Sodium (Colace) 100 mg BID PO Last administered on 12/15/16 20:38; Admin Dose 100 MG; Start 12/15/16 at 21:00 Folic Acid (Folic Acid) 1 mg DAILY PO ; Start 12/16/16 at 09:00 Gabapentin (Neurontin) 100 mg QHS PO Last administered on 12/15/16 20:38; Admin Dose 100 MG; Start 12/15/16 at 21:00 Levothyroxine Sodium (Synthroid) 137 mcg DAILY@06 PO ; Start 12/16/16 at 06:00 Losartan Potassium (Cozaar) 50 mg BID PO Last administered on 12/15/16 20:40; Admin Dose 50 MG; Start 12/15/16 at 21:00 Pantoprazole (Protonix Tab) 40 mg DAILY@06 PO ; Start 12/16/16 at 06:00 Hydralazine HCl (Apresoline) 10 mg Q6H PRN IV ELEVATED SYSTOLIC BP; Start 12/16 at 00:30 Ciprofloxacin 500 mg 500 mg Q24H PO Last administered on 12/16/16 18:04; Admin Dose 500 MG; Start 12/16/16 at 18:00 Dextrose/Sodium Chloride (D5-1/2ns) 1,000 ml @ 40 mls/hr Q24H IV ; Start at 18:30; Stop 12/17/16 at 19:29 SAMIRA RENDON MD Dec 16, 2016 20:21
[2016-12-16] MEDS ORDERED: BISACODYL (EC) 5 MG TAB PO ONE (20:30)
[2016-12-16] MEDS: GABAPENTIN 100 MG CAP PO SCH (22:01)
[2016-12-16] MEDS: ATORVASTATIN 10 MG TAB PO SCH (22:01)
[2016-12-17] VITALS (9 sets, daily range): BP systolic 98–153; BP diastolic 50–76; PULSE 57–66; RESP 12–18
[2016-12-17] MEDS: ACCU-CHEK XX SCH ×4 (00:30→18:48)
[2016-12-17] MEDS: metroNIDAZOLE 500 MG TAB PO SCH ×2 (05:21→13:57)
[2016-12-17] MEDS: PANTOPRAZOLE (EC) 40 MG TAB PO SCH ×2 (05:22→20:33)
[2016-12-17] MEDS: LEVOTHYROXINE 137 MCG TAB PO SCH (05:22)
[2016-12-17] MEDS ORDERED: POLYETHYLENE GLYCOL 3350 119 GM POWDER PO ONE (06:00)
[2016-12-17] MEDS ORDERED: BISACODYL (EC) 5 MG TAB PO ONE (08:00)
--- NOTE | 2016-12-17 08:09 | RADRPT ---
PROCEDURE: CT Angiography of the Abdomen and Pelvis. CLINICAL INDICATION: Mesenteric ischemia. . TECHNIQUE: CT scan of the abdomen and pelvis with contrast was performed on a multi-slice slice CT scanner. The patient was scanned following the uncomplicated intravenous administration of 100 cc of Omnipaque 350. Coronal and sagittal reformatted images were obtained from the axial source image s. One or more of the following does reduction techniques were used: Automated exposure control; ad justment of the mA and/or kV according to patient size; use of the aorta of reconstruction technique . Three-dimensional reformatting was performed as part of interpretation. Images were reviewed on a high-resolution PACS workstation. The total exam CTDI equals 52 mGy and the total exam DLP equals 6 15.9 mGy-cm. COMPARISON: CT abdomen pelvis 12/10/2016 FINDINGS: ANGIOGRAM: Scattered soft and calcified plaque is seen throughout the distal thoracic and abdominal aorta. The re is no definite aneurysm, dissection, or intramural hematoma. No definitive flow-limiting lesions are identified, though there are large areas of calcified plaque projecting into the aorta with some areas of approximately 30% stenosis. The bilateral common and external iliac arteries are widely pa tent. 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 Dense calcification limits evaluation of the origin of the superior mesenter ic artery which also appears severely stenotic, though there is good opacification of the distal bra nches. Incidental note is made of a replaced right hepatic artery arising from the superior mesenter ic artery. The inferior mesenteric artery appears widely patent. The left renal artery is occluded at its origin which as likely related to prior left nephrectomy. There is moderate to severe steno sis of the origin of the right renal artery. CT ABDOMEN AND PELVIS: Bilateral pleural effusions are again seen with adjacent atelectasis, slightly worsened when compare d to prior study. The heart is mildly enlarged. There is severe calcifications of the [place] coron [place] arteries.. No definite pericardial effusion is identified.. The liver, spleen, and pancreas are normal for this phase of contrast. Gallstones are identified wi thin the gallbladder. There is mild gallbladder wall thickening. The adrenal glands are symmetric and normal. The left kidney is surgically absent. The right kidney is atrophic. There is no evide nce of right renal calcification or hydronephrosis. There are no enlarged retroperitoneal lymph node s. There is no evidence of large or small bowel obstruction. Again seen is evidence of prior small bow el surgery in the left mid abdomen. There as well as segments of small bowel which appears similar compared to prior study. In the areas of small bowel wall thickening appear to be hyperemic, partic ular in the anterior pelvis were there are multiple engorged vessels and hyperenhancement of the muc john. No fluid collections are identified. The ventral hernia is unchanged and contains only fat. The uterus is present. There is no evidence of pelvic sidewall lymph node enlargement. No pelvic f ree fluid is seen. The bladder is decompressed and collapsed. There is suggested diffuse bladder w all thickening. The inguinal regions are unremarkable. The bones are unremarkable. IMPRESSION: 1. 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 There is good opacification of the distal branches. Widely patent inferior mesenteric artery. No CT evidence of acute mesenteric ischemia, though chronic mesenteric ischemia could have this appeara nce. 2. Persistent moderate wall thickening of the right colon. 3. Persistent small bowel wall thickening, however the small bowel wall thickening in the anterior pelvis appears to be hyperemic with multiple engorged feeding arteries and hyperenhancement of the m ucosa. This finding is unlikely to be related to ischemia. 4. Severe stenosis of the right renal artery. 5. Bilateral pleural effusions with adjacent atelectasis, grossly stable. 6. Cholelithiasis and mild gallbladder wall thickening. 7. Status post left nephrectomy. Atrophic right kidney. 8. Questionable diffuse bladder wall thickening. The urinary bladder is collapsed which may contri bute to this appearance. RPTAT: KK .Davide Ricci MD, Date Time Electronically viewed and signed by .Davide Ricci MD, MD on 12/17/2016 08:09 .B/
[2016-12-17] MEDS: CYANOCOBALAMIN 500 MCG TAB PO SCH (08:56)
[2016-12-17] MEDS: LACTOBACILLUS RHAMNOSUS CAP PO SCH ×2 (08:56→20:33)
[2016-12-17] MEDS: FOLIC ACID 1 MG TAB PO SCH (08:56)
[2016-12-17] MEDS: DOCUSATE SODIUM 100 MG CAP PO SCH ×2 (08:56→20:35)
[2016-12-17] MEDS: ASPIRIN (EC) 81 MG TAB PO SCH (08:57)
[2016-12-17] MEDS: LOSARTAN 50 MG TAB PO SCH ×2 (08:57→20:46)
--- NOTE | 2016-12-17 10:50 | PN ---
Date/Time of Note Date/Time of Note DATE: 12/17/16 TIME: 10:45 Assessment/Plan VTE Prophylaxis VTE Prophylaxis Intervention: SCD's Lines/Catheters IV Catheter Type (from Nrs): Peripheral IV Urinary Cath still in place: No Assessment/Plan Chief Complaint/Hosp Course 1. ESRD. 2. Colitis 3. Persistent diarrhea 4. S/p small bowel resection. 5. 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 pending Colonoscopy 2. Continue wound care 3. continue IV fluids 4. continue HD Subjective 24 Hr Interval Summary Gastrointestinal: constipation Neurologic: no complaints Exam/Review of Systems Vital Signs Vitals Vital Signs Date Time Temp Pulse Resp B/P Pulse Ox O2 Delivery O2 Flow Rate FiO2 12/17/16 07:05 98.4 70 18 118/56 99 12/16/16 11:07 Intake and Output 12/16/16 12/16/16 12/17/16 15:00 23:00 07:00 Intake Total 500 ml 1260 ml Output Total 1900 ml 1500 ml Balance -1400 ml -240 ml Exam Constitutional: alert, oriented Respiratory: clear to auscultation Cardiovascular: regular rate and rhythm Musculoskeletal: nl extremities to inspection Results Result Diagram: 12/16/16 0509 12/16/16 0509 Results 24 hrs Laboratory Tests Test 12/16/16 12:13 12/16/16 18:02 12/17/16 00:29 12/17/16 05:26 Bedside Glucose 80 105 112 104 Medications Medications Current Medications Ondansetron HCl (Zofran Inj) 4 mg Q6H PRN IV NAUSEA AND/OR VOMITING Last administered on 12/14/16 18:03; Admin Dose 4 MG; Start 12/10/16 at 06:00 Acetaminophen (Tylenol Supp) 650 mg Q6H PRN [place] PAIN LEVEL 1-3 OR FEVER; Start 12/10/16 at 06:00 Morphine Sulfate (morphine) 1 mg Q4H PRN IV SEVERE PAIN LEVEL 7-10 Last administered on 12/16/16 06:24; Admin Dose 1 MG; Start 12/12/16 at 14:00 Diagnostic Test (Pha) (Accu-Chek) 1 ea Q6 XX Last administered on 12/17/16 05: 27; Admin Dose 1 EA; Start 12/13/16 at 06:00 Metronidazole (Flagyl) 500 mg Q8 PO Last administered on 12/17/16 05:21; Admin Dose 500 MG; Start 12/13/16 at 14:00 Lactobacillus Acidophilus/ Rhamnosus (Culturelle) 1 cap BID PO Last administered on 12/17/16 08:56; Admin Dose 1 CAP; Start 12/13/16 at 21:00 Aspirin (Halfprin) 81 mg DAILY PO ; Start 12/16/16 at 09:00 Atorvastatin Calcium (Lipitor) 10 mg QHS PO Last administered on 12/16/16 22: 01; Admin Dose 10 MG; Start 12/15/16 at 21:00 Carvedilol (Coreg) 6.25 mg BID PO Last administered on 12/17/16 08:57; Admin Dose 6.25 MG; Start 12/15/16 at 21:00 Cyanocobalamin (Vitamin B12) 1,000 mcg DAILY PO Last administered on 12/17/16 08:56; Admin Dose 1,000 MCG; Start 12/16/16 at 09:00 Docusate Sodium (Colace) 100 mg BID PO Last administered on 12/17/16 08:56; Admin Dose 100 MG; Start 12/15/16 at 21:00 Folic Acid (Folic Acid) 1 mg DAILY PO Last administered on 12/17/16 08:56; Admin Dose 1 MG; Start 12/16/16 at 09:00 Gabapentin (Neurontin) 100 mg QHS PO Last administered on 12/16/16 22:01; Admin Dose 100 MG; Start 12/15/16 at 21:00 Levothyroxine Sodium (Synthroid) 137 mcg DAILY@06 PO Last administered on 05:22; Admin Dose 137 MCG; Start 12/16/16 at 06:00 Losartan Potassium (Cozaar) 50 mg BID PO Last administered on 12/17/16 08:57; Admin Dose 50 MG; Start 12/15/16 at 21:00 Pantoprazole (Protonix Tab) 40 mg DAILY@06 PO Last administered on 12/17/16 05 :22; Admin Dose 40 MG; Start 12/16/16 at 06:00 Hydralazine HCl (Apresoline) 10 mg Q6H PRN IV ELEVATED SYSTOLIC BP; Start 12/16 at 00:30 Ciprofloxacin 500 mg 500 mg Q24H PO Last administered on 12/16/16 18:04; Admin Dose 500 MG; Start 12/16/16 at 18:00 Dextrose/Sodium Chloride (D5-1/2ns) 1,000 ml @ 40 mls/hr Q24H IV Last administered on 12/16/16 22:00; Admin Dose 40 MLS/HR; Start 12/16/16 at 18:30; Stop 12/17/16 at 19:29 ASIM LANGSTON Dec 17, 2016 10:49
--- NOTE | 2016-12-17 17:17 | PN ---
Date/Time of Note Date/Time of Note DATE: 12/17/16 TIME: 17:15 Assessment/Plan VTE Prophylaxis VTE Prophylaxis Intervention: SCD's Lines/Catheters IV Catheter Type (from Nrs): Peripheral IV Urinary Cath still in place: No Assessment/Plan Assessment/Plan 56-year-old female prior history of bowel resection and possible mesenteric ischemia admitted for abd pain, likely 2/2 ischemic colitis v other colitis 1. Inflammatory vs ischemic small bowel and infectious versus ischemic colitis- slowly improving sp gen surg eval cont PO abx GI on cs for further eval-->endoscopies today? vascular surgery consult for possible mesenteric ischemia given imaging findings. Pt already on asa 2. End-stage renal disease on dialysis: renal on cs Subjective 24 Hr Interval Summary Free Text/Dictation Pt and daughter sleeping this AM Exam/Review of Systems Vital Signs Vitals Vital Signs Date Time Temp Pulse Resp B/P Pulse Ox O2 Delivery O2 Flow Rate FiO2 12/17/16 16:46 97.7 59 12 153/60 99 Room Air 12/17/16 15:52 5 12/16/16 11:07 Intake and Output 12/16/16 12/16/16 12/17/16 14:59 22:59 06:59 Intake Total 500 ml 1260 ml Output Total 1900 ml 1500 ml Balance -1400 ml -240 ml Exam nad resp nonlabored no abd distension no rashes no edema CTA results reviewed Results Result Diagram: 12/16/16 0509 12/17/16 1610 Results 24 hrs Laboratory Tests Test 12/16/16 18:02 12/17/16 00:29 12/17/16 05:26 12/17/16 11:33 Bedside Glucose 105 112 104 96 Test 12/17/16 16:10 Potassium Level 3.6 Medications Medications Current Medications Ondansetron HCl (Zofran Inj) 4 mg Q6H PRN IV NAUSEA AND/OR VOMITING Last administered on 12/14/16 18:03; Admin Dose 4 MG; Start 12/10/16 at 06:00 Acetaminophen (Tylenol Supp) 650 mg Q6H PRN [place] PAIN LEVEL 1-3 OR FEVER; Start 12/10/16 at 06:00 Morphine Sulfate (morphine) 1 mg Q4H PRN IV SEVERE PAIN LEVEL 7-10 Last administered on 12/16/16 06:24; Admin Dose 1 MG; Start 12/12/16 at 14:00 Diagnostic Test (Pha) (Accu-Chek) 1 ea Q6 XX Last administered on 12/17/16 11: 40; Admin Dose 1 EA; Start 12/13/16 at 06:00 Metronidazole (Flagyl) 500 mg Q8 PO Last administered on 12/17/16 05:21; Admin Dose 500 MG; Start 12/13/16 at 14:00 Lactobacillus Acidophilus/ Rhamnosus (Culturelle) 1 cap BID PO Last administered on 12/17/16 08:56; Admin Dose 1 CAP; Start 12/13/16 at 21:00 Aspirin (Halfprin) 81 mg DAILY PO ; Start 12/16/16 at 09:00 Atorvastatin Calcium (Lipitor) 10 mg QHS PO Last administered on 12/16/16 22: 01; Admin Dose 10 MG; Start 12/15/16 at 21:00 Carvedilol (Coreg) 6.25 mg BID PO Last administered on 12/17/16 08:57; Admin Dose 6.25 MG; Start 12/15/16 at 21:00 Cyanocobalamin (Vitamin B12) 1,000 mcg DAILY PO Last administered on 12/17/16 08:56; Admin Dose 1,000 MCG; Start 12/16/16 at 09:00 Docusate Sodium (Colace) 100 mg BID PO Last administered on 12/17/16 08:56; Admin Dose 100 MG; Start 12/15/16 at 21:00 Folic Acid (Folic Acid) 1 mg DAILY PO Last administered on 12/17/16 08:56; Admin Dose 1 MG; Start 12/16/16 at 09:00 Gabapentin (Neurontin) 100 mg QHS PO Last administered on 12/16/16 22:01; Admin Dose 100 MG; Start 12/15/16 at 21:00 Levothyroxine Sodium (Synthroid) 137 mcg DAILY@06 PO Last administered on 05:22; Admin Dose 137 MCG; Start 12/16/16 at 06:00 Losartan Potassium (Cozaar) 50 mg BID PO Last administered on 12/17/16 08:57; Admin Dose 50 MG; Start 12/15/16 at 21:00 Pantoprazole (Protonix Tab) 40 mg DAILY@06 PO Last administered on 12/17/16 05 :22; Admin Dose 40 MG; Start 12/16/16 at 06:00 Hydralazine HCl (Apresoline) 10 mg Q6H PRN IV ELEVATED SYSTOLIC BP; Start 12/16 at 00:30 Ciprofloxacin 500 mg 500 mg Q24H PO Last administered on 12/16/16 18:04; Admin Dose 500 MG; Start 12/16/16 at 18:00 Dextrose/Sodium Chloride (D5-1/2ns) 1,000 ml @ 40 mls/hr Q24H IV Last administered on 12/16/16 22:00; Admin Dose 40 MLS/HR; Start 12/16/16 at 18:30; Stop 12/17/16 at 19:29 CRISTINA BEE MD Dec 17, 2016 17:17
[2016-12-17] MEDS ORDERED: LIDOCAINE 1% (MPF) 5 ML VIAL ONE (17:19)
[2016-12-17] MEDS ORDERED: PROPOFOL 40 ML ONE (17:19)
--- NOTE | 2016-12-17 17:54 | OPPN ---
Date/Time of Note Date/Time of Note DATE: 12/17/16 TIME: 17:50 Proc Note GI Free Text/Dictation Preoperative Diagnosis: Persistent nausea and vomiting Postoperative Diagnosis: * Distal esophagitis, moderate * 2 linear ulcerations in the antrum of the stomach. Biopsies obtained. Rule out H. pylori infection. * Otherwise normal EGD Plan: * Protonix 40 mg daily * Review pathology Procedure Performed: EGD with biopsies Surgeon: Samira Ley MD Senior Analytical Chemist: None Second Cardiovascular Specialist: None Anesthesia/Sedation: Monitored anesthesia care minus etiology Tourniquet Time: NA Estimated Blood Loss: 0 Transfusion Required: No Specimens: Gastric antrum and body Grafts/Implants: None Tubes/Drains: NA Complications: None Pt. Condition Post Procedure: Stable Disposition: PACU After informed consent, with the patient/relatives understanding the procedure, its indications, potential risks and complications, including but not limited to : allergic reaction, bleeding, perforation or infection, and after all pertinent questions were answered to the patients satisfaction, the patient/ relatives signed witnessed informed consent. Following this, premedication was administered slowly IV push under careful cardiovascular and respiratory monitoring with pulse oximetry, automatic blood pressure, and bus driver/monitor. Once the sedative effect was achieved the patient was place in the left lateral decubitus, the panendoscope was introduced and advanced under visual control. Careful examination of the upper gastrointestinal tract, both on insertion as well as withdrawal of the instrument disclosing the following findings: ESOPHAGUS: the mucosa of the entire esophagus was carefully examined and showed the following findings: There is moderate erythema of the mucosa at the esophagogastric junction. Otherwise the mucosa appears within normal limits. There is no evidence of varices, neoplasm, or stricture. No Hiatal Hernia identified. STOMACH: Upon entrance to the stomach air was insufflated, the gastric neely distended normally. The mucosa of the fundus, body and antrum of the stomach was carefully examined both head-on and on retroflexion, and showed the following findings: There is significant erythema and edema of the mucosa of the body and antrum, 2 linear ulcerations are noted in the distal antrum prepyloric area. No stigmata recent bleeding. Benign endoscopic appearance. Biopsies were obtained to rule out H. pylori infection. The mucosa appears within normal limits with no abnormalities. There is no evidence of neoplasm. PYLORUS: The pylorus was carefully examined and showed the following findings: []the pylorus appears patent and within normal limits, with no evidence of gastric outlet obstruction. DUODENUM: The duodenal mucosa was carefully examined in the duodenal bulb as well as the second portion of the duodenum and showed the following findings: []the mucosa appears unremarkable with no evidence of duodenitis, ulcer or neoplasm. Procedure date: Dec 17, 2016 SAMIRA LEY MD Dec 17, 2016 17:54
--- NOTE | 2016-12-17 17:58 | OPPN ---
Date/Time of Note Date/Time of Note DATE: 12/17/16 TIME: 17:54 Proc Note GI Free Text/Dictation Procedure Date: 12/17/2016 Preoperative Diagnosis: * Abnormal imaging, thickened ascending colon * Persistent diarrhea Postoperative Diagnosis: * Probable ischemic colitis right colon. Biopsies obtained * Moderate-sized internal hemorrhoids * Otherwise normal colonoscopy to cecum Plan: * Empiric treatment with Trental plus mesalamine * Review pathology as soon as available * Vascular consultation to address therapeutic options which appeared to be limited Procedure Performed: Colonoscopy with biopsies Surgeon: Samira Ley MD Threader: None Second Flexographic Press Operator: None Anesthesia/Sedation monitored anesthesia care by anesthesiology Tourniquet Time: NA Estimated Blood Loss: 0 Transfusion Required: No Specimens: Right colon Grafts/Implants: None Tubes/Drains: NA Complications: None Pt. Condition Post Procedure: Stable Disposition: PACU After informed consent, with the patient/relatives understanding the procedure, its indications and potential risks and complications, including but not limited to: Allergic reaction, bleeding, perforation, infection, and after all pertinent questions were answered to the patient's satisfaction, the patient/ relatives signed the witnessed informed consent. Following this, premedication was administered slowly IV push under careful cardiovascular and respiratory monitoring with pulse OXIMETRY, automatic blood pressure, and cell lead. Once the sedative effect was achieved, the patient was placed in the left lateral decubitus position, digital rectal examination was performed. The colonoscope was then introduced and advanced under visual control throughout all segments of the colon including: the rectum, sigmoid, descending colon, splenic flexure, transverse colon, hepatic flexure, ascending colon and finally reaching the cecum which was clearly identified by transillumination, finger indentation and the ileocecal valve. Careful examination of the mucosa of the lower gastrointestinal tract both on insertion as well as withdrawal of the instrument disclosed the following findings: PREPARATION QUALITY: [Adequate], RECTAL EXAM: The anorectal area was visualized examined and digital rectal examination performed with the following findings: No evidence of perirectal disease, no masses. COLONIC MUCOSA: The mucosa of all segments of the colon was carefully examined and showed the following findings: There is significant mucosal abnormality in the right side of the colon with areas of atrophy, blanching and superficial ulceration. These findings are highly suspect for ischemic bowel of a subacute nature. Multiple biopsies were obtained. Otherwise the examined mucosa appears within normal limits. There is no evidence of diverticular formation, polyps or other neoplasms, vascular malformation, or any other abnormality. The instrument was then withdrawn, the patient tolerated the procedure well and was transferred out of the Endoscopy Suite awake and in good condition to continue recovery under observation. Procedure date: Dec 17, 2016 SAMIRA LEY MD Dec 17, 2016 17:58
[2016-12-17] MEDS: CIPROFLOXACIN 500 MG TAB PO SCH (18:42)
[2016-12-17] MEDS: LOPERAMIDE 2 MG CAP PO SCH (18:42)
[2016-12-17] MEDS: GABAPENTIN 100 MG CAP PO SCH (20:35)
[2016-12-17] MEDS: ATORVASTATIN 10 MG TAB PO SCH (20:36)
[2016-12-17] MEDS: PENTOXIFYLLINE (SR) 400 MG TAB PO SCH (20:46)
[2016-12-17] MEDS: MESALAMINE (EC) 400 MG CAP PO SCH (20:46)
[2016-12-18] VITALS (12 sets, daily range): BP systolic 95–147; BP diastolic 42–78; PULSE 64–85; RESP 18–20
[2016-12-18] MEDS: LEVOTHYROXINE 137 MCG TAB PO SCH (06:26)
[2016-12-18] MEDS: ACCU-CHEK XX SCH ×4 (06:26→17:50)
[2016-12-18] MEDS: LOSARTAN 50 MG TAB PO SCH ×2 (09:00→21:00)
[2016-12-18] MEDS: ASPIRIN (EC) 81 MG TAB PO SCH (09:00)
[2016-12-18] MEDS: LOPERAMIDE 2 MG CAP PO SCH (09:00)
[2016-12-18] MEDS ORDERED: HEPARIN 1000 UNITS/ML 10 ML INJ CATHETER SCH (09:30)
[2016-12-18] MEDS: ONDANSETRON 4 MG INJ IV PRN ×2 (09:32→19:35)
[2016-12-18] MEDS: DOCUSATE SODIUM 100 MG CAP PO SCH ×2 (09:39→21:25)
[2016-12-18] MEDS: LACTOBACILLUS RHAMNOSUS CAP PO SCH ×2 (09:39→21:29)
[2016-12-18] MEDS: FOLIC ACID 1 MG TAB PO SCH (09:40)
[2016-12-18] MEDS: CYANOCOBALAMIN 500 MCG TAB PO SCH (09:41)
[2016-12-18] MEDS: PENTOXIFYLLINE (SR) 400 MG TAB PO SCH ×3 (09:41→21:26)
[2016-12-18] MEDS: MESALAMINE (EC) 400 MG CAP PO SCH ×3 (09:44→21:26)
--- NOTE | 2016-12-18 11:35 | CONS ---
Date/Time of Note Date/Time of Note DATE: 12/18/16 TIME: 11:34 Assessment/Plan Assessment/Plan Chief Complaint/Hosp Course 1. ESRD. 2. Colitis 3. Persistent diarrhea 4. S/p small bowel resection. 5. Persistent abdominal pain 6.Abdomen wound dehiscence 7. 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 Problems: Additional Assessment/Plan 1.continue HD Consultation Date/Type/Reason Admit Date/Time Dec 10, 2016 at 03:16 Initial Consult Date 12/10/16 Type of Consultation: Nephrology Reason for Consultation dr Nuñez Exam/Review of Systems Vital Signs Vitals Vital Signs Date Time Temp Pulse Resp B/P Pulse Ox O2 Delivery O2 Flow Rate FiO2 12/18/16 08:00 97.7 67 18 147/67 100 12/18/16 02:00 Room Air 12/17/16 15:52 5 12/16/16 11:07 Intake and Output 12/17/16 12/17/16 12/18/16 15:00 23:00 07:00 Intake Total 380 ml 600 ml 340 ml Balance 380 ml 600 ml 340 ml Exam Constitutional: alert Head: normocephalic Respiratory: clear to auscultation Cardiovascular: regular rate and rhythm Results Result Diagram: 12/16/16 0509 12/17/16 1610 Results 24 hrs Laboratory Tests Test 12/17/16 16:10 12/17/16 18:46 Potassium Level 3.6 Bedside Glucose 76 Medications Medications Current Medications Ondansetron HCl (Zofran Inj) 4 mg Q6H PRN IV NAUSEA AND/OR VOMITING Last administered on 12/18/16 09:32; Admin Dose 4 MG; Start 12/10/16 at 06:00 Acetaminophen (Tylenol Supp) 650 mg Q6H PRN [place] PAIN LEVEL 1-3 OR FEVER; Start 12/10/16 at 06:00 Morphine Sulfate (morphine) 1 mg Q4H PRN IV SEVERE PAIN LEVEL 7-10 Last administered on 12/16/16 06:24; Admin Dose 1 MG; Start 12/12/16 at 14:00 Diagnostic Test (Pha) (Accu-Chek) 1 ea Q6 XX Last administered on 12/18/16 06: 26; Admin Dose 1 EA; Start 12/13/16 at 06:00 Lactobacillus Acidophilus/ Rhamnosus (Culturelle) 1 cap BID PO Last administered on 12/18/16 09:39; Admin Dose 1 CAP; Start 12/13/16 at 21:00 Aspirin (Halfprin) 81 mg DAILY PO ; Start 12/16/16 at 09:00 Atorvastatin Calcium (Lipitor) 10 mg QHS PO Last administered on 12/17/16 20: 36; Admin Dose 10 MG; Start 12/15/16 at 21:00 Carvedilol (Coreg) 6.25 mg BID PO Last administered on 12/17/16 20:36; Admin Dose 6.25 MG; Start 12/15/16 at 21:00 Cyanocobalamin (Vitamin B12) 1,000 mcg DAILY PO Last administered on 12/18/16 09:41; Admin Dose 1,000 MCG; Start 12/16/16 at 09:00 Docusate Sodium (Colace) 100 mg BID PO Last administered on 12/18/16 09:39; Admin Dose 100 MG; Start 12/15/16 at 21:00 Folic Acid (Folic Acid) 1 mg DAILY PO Last administered on 12/18/16 09:40; Admin Dose 1 MG; Start 12/16/16 at 09:00 Gabapentin (Neurontin) 100 mg QHS PO Last administered on 12/17/16 20:35; Admin Dose 100 MG; Start 12/15/16 at 21:00 Levothyroxine Sodium (Synthroid) 137 mcg DAILY@06 PO Last administered on 06:26; Admin Dose 137 MCG; Start 12/16/16 at 06:00 Losartan Potassium (Cozaar) 50 mg BID PO Last administered on 12/17/16 20:46; Admin Dose 50 MG; Start 12/15/16 at 21:00 Pantoprazole (Protonix Tab) 40 mg DAILY@06 PO Last administered on 12/17/16 20 :33; Admin Dose 40 MG; Start 12/16/16 at 06:00 Pentoxifylline (Trental) 400 mg TID PO Last administered on 12/18/16 09:41; Admin Dose 400 MG; Start 12/17/16 at 21:00 Mesalamine (Delzicol Dr) 800 mg TID PO Last administered on 12/18/16 09:44; Admin Dose 800 MG; Start 12/17/16 at 21:00 Loperamide HCl (Imodium Cap) 2 mg DAILY PO Last administered on 12/17/16t 18:42 ; Admin Dose 2 MG; Start 12/17/16 at 18:00 ASIM LANGSTON Dec 18, 2016 11:35
--- NOTE | 2016-12-18 16:42 | PN ---
Date/Time of Note Date/Time of Note DATE: 12/18/16 TIME: 16:37 Assessment/Plan VTE Prophylaxis VTE Prophylaxis Intervention: SCD's Lines/Catheters IV [facility] Type (from [facility] Saline Lock Urinary Cath still in place: No Assessment/Plan Assessment/Plan Assessment: * Persistent diarrhea post significant small bowel resection. * short-bowel syndrome * Persistent abdominal pain/thickened ascending and transverse colon * Rule out ischemic bowel * Colonoscopy Probable ischemic colitis right colon. Biopsies obtained Moderate-sized internal hemorrhoids Otherwise normal colonoscopy to cecums Persistent nausea and vomiting * Gastroparesis versus others * Wound dehiscence * End-stage renal disease on chronic hemodialysis * Diabetes mellitus type 2 * Hypertension Plan * continue present management * await biopsy result * case discussed with Dr Ley * Further orders will depend on clinical course Subjective 24 Hr Interval Summary Free Text/Dictation * Course reviewed * Patient seen and examined * No untoward events overnight Exam/Review of Systems Vital Signs Vitals Vital Signs Date Time Temp Pulse Resp B/P Pulse Ox O2 Delivery O2 Flow Rate FiO2 12/18/16 14:00 98.4 62 20 121/53 95 12/18/16 02:00 Room Air 12/17/16 15:52 5 12/16/16 11:07 Intake and Output 12/17/16 12/17/16 12/18/16 15:00 23:00 07:00 Intake Total 380 ml 600 ml 340 ml Balance 380 ml 600 ml 340 ml Exam Constitutional: alert, frail Neck: non-tender, supple Respiratory: clear to auscultation, normal air movement Cardiovascular: nl pulses, regular rate and rhythm Gastrointestinal: non-tender, soft, No rebound or guarding Musculoskeletal: nl extremities to inspection, nl gait and stance Results Result Diagram: 12/16/16 0509 12/17/16 1610 Results 24 hrs Laboratory Tests Test 12/17/16 18:46 12/18/16 01:00 12/18/16 05:14 12/18/16 12:07 Bedside Glucose 76 135 93 90 Medications Medications Current Medications Ondansetron HCl (Zofran Inj) 4 mg Q6H PRN IV NAUSEA AND/OR VOMITING Last administered on 12/18/16t 09:32; Admin Dose 4 MG; Start 12/10/16 at 06:00 Acetaminophen (Tylenol Supp) 650 mg Q6H PRN [place] PAIN LEVEL 1-3 OR FEVER; Start 12/10/16 at 06:00 Morphine Sulfate (morphine) 1 mg Q4H PRN IV SEVERE PAIN LEVEL 7-10 Last administered on 12/16/16 06:24; Admin Dose 1 MG; Start 12/12/16 at 14:00 Diagnostic Test (Pha) (Accu-Chek) 1 ea Q6 XX Last administered on 12/18/16 12: 07; Admin Dose 1 EA; Start 12/13/16 at 06:00 Lactobacillus Acidophilus/ Rhamnosus (Culturelle) 1 cap BID PO Last administered on 12/18/16 09:39; Admin Dose 1 CAP; Start 12/13/16 at 21:00 Aspirin (Halfprin) 81 mg DAILY PO ; Start 12/16/16 at 09:00 Atorvastatin Calcium (Lipitor) 10 mg QHS PO Last administered on 12/17/16 20: 36; Admin Dose 10 MG; Start 12/15/16 at 21:00 Carvedilol (Coreg) 6.25 mg BID PO Last administered on 12/17/16 20:36; Admin Dose 6.25 MG; Start 12/15/16 at 21:00 Cyanocobalamin (Vitamin B12) 1,000 mcg DAILY PO Last administered on 12/18/16 09:41; Admin Dose 1,000 MCG; Start 12/16/16 at 09:00 Docusate Sodium (Colace) 100 mg BID PO Last administered on 12/18/16 09:39; Admin Dose 100 MG; Start 12/15/16 at 21:00 Folic Acid (Folic Acid) 1 mg DAILY PO Last administered on 12/18/16 09:40; Admin Dose 1 MG; Start 12/16/16 at 09:00 Gabapentin (Neurontin) 100 mg QHS PO Last administered on 12/17/16 20:35; Admin Dose 100 MG; Start 12/15/16 at 21:00 Levothyroxine Sodium (Synthroid) 137 mcg DAILY@06 PO Last administered on 06:26; Admin Dose 137 MCG; Start 12/16/16 at 06:00 Losartan Potassium (Cozaar) 50 mg BID PO Last administered on 12/17/16 20:46; Admin Dose 50 MG; Start 12/15/16 at 21:00 Pantoprazole (Protonix Tab) 40 mg DAILY@06 PO Last administered on 12/17/16 20 :33; Admin Dose 40 MG; Start 12/16/16 at 06:00 Pentoxifylline (Trental) 400 mg TID PO Last administered on 12/18/16 09:41; Admin Dose 400 MG; Start 12/17/16 at 21:00 Mesalamine (Delzicol Dr) 800 mg TID PO Last administered on 12/18/16 09:44; Admin Dose 800 MG; Start 12/17/16 at 21:00 Loperamide HCl (Imodium Cap) 2 mg DAILY PO Last administered on 12/17/16 18:42 ; Admin Dose 2 MG; Start 12/17/16 at 18:00 Oxymetazoline HCl (Afrin [place]) 1 spray DAILY NASAL ; Start 12/18/16 at 17:00 SAYRA IRBY NP Dec 18, 2016 16:42
[2016-12-18] MEDS: OXYMETAZOLINE 0.05% 15 ML NAS SPRAY NASAL SCH (17:00)
[2016-12-18] MEDS: ATORVASTATIN 10 MG TAB PO SCH (21:25)
[2016-12-18] MEDS: GABAPENTIN 100 MG CAP PO SCH (21:25)
[2016-12-19 02:00] VITALS: BP 163/68; RESP 18
[2016-12-19] MEDS: PANTOPRAZOLE (EC) 40 MG TAB PO SCH (05:29)
[2016-12-19] MEDS: LEVOTHYROXINE 137 MCG TAB PO SCH (05:29)
[2016-12-19] MEDS: ACCU-CHEK XX SCH ×4 (05:33→17:16)
[2016-12-19 05:53] VITALS: BP 154/62; PULSE 78
[2016-12-19 08:00] VITALS: BP 151/65; RESP 19
[2016-12-19] MEDS: OXYMETAZOLINE 0.05% 15 ML NAS SPRAY NASAL SCH (08:28)
[2016-12-19] MEDS: FOLIC ACID 1 MG TAB PO SCH (08:28)
[2016-12-19] MEDS: PENTOXIFYLLINE (SR) 400 MG TAB PO SCH ×3 (08:28→21:43)
[2016-12-19] MEDS: CYANOCOBALAMIN 500 MCG TAB PO SCH (08:28)
[2016-12-19] MEDS: MESALAMINE (EC) 400 MG CAP PO SCH ×3 (08:29→21:43)
[2016-12-19] MEDS: LACTOBACILLUS RHAMNOSUS CAP PO SCH ×2 (08:29→21:43)
[2016-12-19] MEDS: ASPIRIN (EC) 81 MG TAB PO SCH (08:29)
[2016-12-19] MEDS: LOPERAMIDE 2 MG CAP PO SCH (08:29)
[2016-12-19] MEDS: LOSARTAN 50 MG TAB PO SCH ×2 (08:33→21:44)
[2016-12-19] MEDS: DOCUSATE SODIUM 100 MG CAP PO SCH ×2 (08:34→21:43)
[2016-12-19] MEDS: ONDANSETRON 4 MG INJ IV PRN (09:42)
--- NOTE | 2016-12-19 10:20 | PN ---
Date/Time of Note Date/Time of Note DATE: 12/19/16 TIME: 10:16 Assessment/Plan VTE Prophylaxis VTE Prophylaxis Intervention: SCD's Lines/Catheters [facility] Saline Lock Urinary Cath still in place: No Assessment/Plan Assessment/Plan Assessment: * Persistent diarrhea post significant small bowel resection. * short-bowel syndrome * Persistent abdominal pain/thickened ascending and transverse colon * Colonoscopy Probable ischemic colitis right colon. Biopsies obtained Moderate-sized internal hemorrhoids Otherwise normal colonoscopy to cecums * Persistent nausea and vomiting EGD Distal esophagitis, moderate 2 linear ulcerations in the antrum of the stomach. Biopsies obtained. Rule out H. pylori infection. Otherwise normal EGD * Wound dehiscence * End-stage renal disease on chronic hemodialysis * Diabetes mellitus type 2 * Hypertension Plan * continue present management * await biopsy result * case discussed with Dr Ley * Further orders will depend on clinical course Subjective 24 Hr Interval Summary Free Text/Dictation * Course reviewed with RN * Patient seen and examined * No untoward events overnight Exam/Review of Systems Vital Signs Vitals Vital Signs Date Time Temp Pulse Resp B/P Pulse Ox O2 Delivery O2 Flow Rate FiO2 12/19/16 05:53 78 154/62 12/19/16 02:00 98.0 18 99 12/18/16 02:00 Room Air 12/17/16 15:52 5 12/16/16 11:07 Intake and Output 12/18/16 12/18/16 12/19/16 15:00 23:00 07:00 Intake Total 500 ml 680 ml 300 ml Output Total 1500 ml Balance -1000 ml 680 ml 300 ml Exam Constitutional: alert, well developed Neck: non-tender, supple Respiratory: clear to auscultation, normal air movement Cardiovascular: nl pulses, regular rate and rhythm Gastrointestinal: non-tender, soft Musculoskeletal: nl extremities to inspection Neurological: nl speech Results Result Diagram: 12/16/16 0509 12/17/16 1610 Results 24 hrs Laboratory Tests Test 12/18/16 12:07 12/18/16 17:49 12/19/16 01:06 12/19/16 05:28 Bedside Glucose 90 82 93 79 Medications Medications Current Medications Ondansetron HCl (Zofran Inj) 4 mg Q6H PRN IV NAUSEA AND/OR VOMITING Last administered on 12/19/16t 09:42; Admin Dose 4 MG; Start 8/18/17 at 06:00 Acetaminophen (Tylenol Supp) 650 mg Q6H PRN [place] PAIN LEVEL 1-3 OR FEVER; Start 12/10/16 at 06:00 Morphine Sulfate (morphine) 1 mg Q4H PRN IV SEVERE PAIN LEVEL 7-10 Last administered on 12/16/16 06:24; Admin Dose 1 MG; Start 12/12/16 at 14:00 Diagnostic Test (Pha) (Accu-Chek) 1 ea Q6 XX Last administered on 12/18/16 17: 50; Admin Dose 1 EA; Start 12/13/16 at 06:00 Lactobacillus Acidophilus/ Rhamnosus (Culturelle) 1 cap BID PO Last administered on 12/19/16 08:29; Admin Dose 1 CAP; Start 12/13/16 at 21:00 Aspirin (Halfprin) 81 mg DAILY PO Last administered on 12/19/16 08:29; Admin Dose 81 MG; Start 12/16/16 at 09:00 Atorvastatin Calcium (Lipitor) 10 mg QHS PO Last administered on 12/18/16 21: 25; Admin Dose 10 MG; Start 12/15/16 at 21:00 Carvedilol (Coreg) 6.25 mg BID PO Last administered on 12/19/16 08:33; Admin Dose 6.25 MG; Start 12/15/16 at 21:00 Cyanocobalamin (Vitamin B12) 1,000 mcg DAILY PO Last administered on 12/19/16 08:28; Admin Dose 1,000 MCG; Start 12/16/16 at 09:00 Docusate Sodium (Colace) 100 mg BID PO Last administered on 12/18/16 21:25; Admin Dose 100 MG; Start 12/15/16 at 21:00 Folic Acid (Folic Acid) 1 mg DAILY PO Last administered on 12/19/16 08:28; Admin Dose 1 MG; Start 12/16/16 at 09:00 Gabapentin (Neurontin) 100 mg QHS PO Last administered on 12/18/16 21:25; Admin Dose 100 MG; Start 12/15/16 at 21:00 Levothyroxine Sodium (Synthroid) 137 mcg DAILY@06 PO Last administered on 05:29; Admin Dose 137 MCG; Start 12/16/16 at 06:00 Losartan Potassium (Cozaar) 50 mg BID PO Last administered on 12/19/16 08:33; Admin Dose 50 MG; Start 12/15/16 at 21:00 Pantoprazole (Protonix Tab) 40 mg DAILY@06 PO Last administered on 12/19/16 05 :29; Admin Dose 40 MG; Start 12/16/16 at 06:00 Pentoxifylline (Trental) 400 mg TID PO Last administered on 12/19/16 08:28; Admin Dose 400 MG; Start 12/17/16 at 21:00 Mesalamine (Delzicol Dr) 800 mg TID PO Last administered on 12/19/16 08:29; Admin Dose 800 MG; Start 12/17/16 at 21:00 Loperamide HCl (Imodium Cap) 2 mg DAILY PO Last administered on 12/19/16 08:29 ; Admin Dose 2 MG; Start 12/17/16 at 18:00 Oxymetazoline HCl (Afrin [place]) 1 spray DAILY NASAL Last administered on 08:28; Admin Dose 1 SPRAY; Start 12/18/16 at 17:00 SAYRA IRBY NP Dec 19, 2016 10:20
--- NOTE | 2016-12-19 13:05 | PN ---
Date/Time of Note Date/Time of Note DATE: 12/19/16 TIME: 13:04 Assessment/Plan VTE Prophylaxis VTE Prophylaxis Intervention: SCD's Lines/Catheters IV Catheter Type (from [facility]): Saline Lock Urinary Cath still in place: No Assessment/Plan Assessment/Plan 56-year-old female prior history of bowel resection and possible mesenteric ischemia admitted for abd pain, likely 2/2 ischemic colitis v other colitis 1. Inflammatory vs ischemic small bowel and infectious versus ischemic colitis- slowly improving sp gen surg eval cont PO abx-->talk to GI about length of therapy GI on cs for further eval-->sp CScope, looks like ischemia, path pending vascular surgery consult for possible mesenteric ischemia given imaging and GI findings. Pt already on asa, trental added by GI 2. End-stage renal disease on dialysis: renal on cs 3. PND: trial of flonase and mucinex Subjective 24 Hr Interval Summary Free Text/Dictation eating a little better but now states she's got nasal congestion and the resultant PND is making her nauseated Exam/Review of Systems Vital Signs Vitals Vital Signs Date Time Temp Pulse Resp B/P Pulse Ox O2 Delivery O2 Flow Rate FiO2 12/19/16 08:00 98.1 73 19 151/65 99 12/18/16 02:00 Room Air 12/17/16 15:52 5 12/16/16 11:07 Intake and Output 12/18/16 12/18/16 12/19/16 15:00 23:00 07:00 Intake Total 500 ml 680 ml 300 ml Output Total 1500 ml Balance -1000 ml 680 ml 300 ml Exam nad no mrg lungs clear abd soft no rashes Results Result Diagram: 12/16/16 0509 12/17/16 1610 Results 24 hrs Laboratory Tests Test 12/18/16 17:49 12/19/16 01:06 12/19/16 05:28 12/19/16 11:55 Bedside Glucose 82 93 79 76 Medications Medications Current Medications Ondansetron HCl (Zofran Inj) 4 mg Q6H PRN IV NAUSEA AND/OR VOMITING Last administered on 12/19/16t 09:42; Admin Dose 4 MG; Start 12/10/16 at 06:00 Acetaminophen (Tylenol Supp) 650 mg Q6H PRN [place] PAIN LEVEL 1-3 OR FEVER; Start 12/10/16 at 06:00 Morphine Sulfate (morphine) 1 mg Q4H PRN IV SEVERE PAIN LEVEL 7-10 Last administered on 12/16/16 06:24; Admin Dose 1 MG; Start 12/12/16 at 14:00 Diagnostic Test (Pha) (Accu-Chek) 1 ea Q6 XX Last administered on 12/19/16 12: 03; Admin Dose 1 EA; Start 12/13/16 at 06:00 Lactobacillus Acidophilus/ Rhamnosus (Culturelle) 1 cap BID PO Last administered on 12/19/16 08:29; Admin Dose 1 CAP; Start 12/13/16 at 21:00 Aspirin (Halfprin) 81 mg DAILY PO Last administered on 12/19/16 08:29; Admin Dose 81 MG; Start 12/16/16 at 09:00 Atorvastatin Calcium (Lipitor) 10 mg QHS PO Last administered on 12/18/16 21: 25; Admin Dose 10 MG; Start 12/15/16 at 21:00 Carvedilol (Coreg) 6.25 mg BID PO Last administered on 12/19/16 08:33; Admin Dose 6.25 MG; Start 12/15/16 at 21:00 Cyanocobalamin (Vitamin B12) 1,000 mcg DAILY PO Last administered on 12/19/16 08:28; Admin Dose 1,000 MCG; Start 12/16/16 at 09:00 Docusate Sodium (Colace) 100 mg BID PO Last administered on 12/18/16 21:25; Admin Dose 100 MG; Start 12/15/16 at 21:00 Folic Acid (Folic Acid) 1 mg DAILY PO Last administered on 12/19/16 08:28; Admin Dose 1 MG; Start 12/16/16 at 09:00 Gabapentin (Neurontin) 100 mg QHS PO Last administered on 12/18/16 21:25; Admin Dose 100 MG; Start 12/15/16 at 21:00 Levothyroxine Sodium (Synthroid) 137 mcg DAILY@06 PO Last administered on 05:29; Admin Dose 137 MCG; Start 12/16/16 at 06:00 Losartan Potassium (Cozaar) 50 mg BID PO Last administered on 12/19/16 08:33; Admin Dose 50 MG; Start 12/15/16 at 21:00 Pantoprazole (Protonix Tab) 40 mg DAILY@06 PO Last administered on 12/19/16 05 :29; Admin Dose 40 MG; Start 12/16/16 at 06:00 Pentoxifylline (Trental) 400 mg TID PO Last administered on 12/19/16 12:24; Admin Dose 400 MG; Start 12/17/16 at 21:00 Mesalamine (Delzicol Dr) 800 mg TID PO Last administered on 12/19/16 12:23; Admin Dose 800 MG; Start 12/17/16 at 21:00 Loperamide HCl (Imodium Cap) 2 mg DAILY PO Last administered on 12/19/16 08:29 ; Admin Dose 2 MG; Start 12/17/16 at 18:00 Oxymetazoline HCl (Afrin [place]) 1 spray DAILY NASAL Last administered on 08:28; Admin Dose 1 SPRAY; Start 12/18/16 at 17:00 Guaifenesin (Mucinex) 600 mg BID PO ; Start 12/19/16 at 14:00 Fluticasone Propionate (Flonase 0.05% Nasal) 1 spray BID NASAL ; Start 12/19/16 at 14:00 CRISTINA BEE MD Dec 19, 2016 13:05
[2016-12-19 14:00] VITALS: BP 142/65; RESP 20
[2016-12-19] MEDS: FLUTICASONE 0.05% 16 GM NAS SPRAY NASAL SCH ×2 (15:08→21:42)
[2016-12-19] MEDS: GUAIFENESIN LA 600 MG TABSR PO SCH ×2 (15:08→21:44)
--- NOTE | 2016-12-19 16:01 | CONS ---
Date/Time of Note Date/Time of Note DATE: 12/19/16 TIME: 16:00 Assessment/Plan Assessment/Plan Chief Complaint/Hosp Course 1. ESRD. 2. Colitis 3. Persistent diarrhea 4. S/p small bowel resection. 5. Persistent abdominal pain 6.Abdomen wound dehiscence 7. 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 PLAN HD TTS Problems: Consultation Date/Type/Reason Admit Date/Time Dec 10, 2016 at 03:16 Initial Consult Date 12/10/16 Type of Consultation: Nephrology 24 HR Interval Summary Subjective hx not possible: other (NO ABD PAIN) Constitutional: other Exam/Review of Systems Vital Signs Vitals Vital Signs Date Time Temp Pulse Resp B/P Pulse Ox O2 Delivery O2 Flow Rate FiO2 12/19/16 14:00 98.2 70 20 142/65 100 12/18/16 02:00 Room Air 12/17/16 15:52 5 12/16/16 11:07 Intake and Output 12/18/16 12/18/16 12/19/16 15:00 23:00 07:00 Intake Total 500 ml 680 ml 300 ml Output Total 1500 ml Balance -1000 ml 680 ml 300 ml Exam Neck: supple Respiratory: clear to auscultation Cardiovascular: regular rate and rhythm Gastrointestinal: soft Genitourinary - Female: nl adnexae Musculoskeletal: nl extremities to inspection Results Result Diagram: 12/16/16 0509 12/17/16 1610 Results 24 hrs Laboratory Tests Test 12/18/16 17:49 12/19/16 01:06 12/19/16 05:28 12/19/16 11:55 Bedside Glucose 82 93 79 76 Medications Medications Current Medications Ondansetron HCl (Zofran Inj) 4 mg Q6H PRN IV NAUSEA AND/OR VOMITING Last administered on 12/19/16 09:42; Admin Dose 4 MG; Start 12/10/16 at 06:00 Acetaminophen (Tylenol Supp) 650 mg Q6H PRN [place] PAIN LEVEL 1-3 OR FEVER; Start 12/10/16 at 06:00 Morphine Sulfate (morphine) 1 mg Q4H PRN IV SEVERE PAIN LEVEL 7-10 Last administered on 12/16/16 06:24; Admin Dose 1 MG; Start 12/12/16 at 14:00 Diagnostic Test (Pha) (Accu-Chek) 1 ea Q6 XX Last administered on 12/19/16 12: 03; Admin Dose 1 EA; Start 12/13/16 at 06:00 Lactobacillus Acidophilus/ Rhamnosus (Culturelle) 1 cap BID PO Last administered on 12/19/16 08:29; Admin Dose 1 CAP; Start 12/13/16 at 21:00 Aspirin (Halfprin) 81 mg DAILY PO Last administered on 12/19/16 08:29; Admin Dose 81 MG; Start 12/16/16 at 09:00 Atorvastatin Calcium (Lipitor) 10 mg QHS PO Last administered on 12/18/16 21: 25; Admin Dose 10 MG; Start 12/15/16 at 21:00 Carvedilol (Coreg) 6.25 mg BID PO Last administered on 12/19/16 08:33; Admin Dose 6.25 MG; Start 12/15/16 at 21:00 Cyanocobalamin (Vitamin B12) 1,000 mcg DAILY PO Last administered on 12/19/16 08:28; Admin Dose 1,000 MCG; Start 12/16/16 at 09:00 Docusate Sodium (Colace) 100 mg BID PO Last administered on 12/18/16 21:25; Admin Dose 100 MG; Start 12/15/16 at 21:00 Folic Acid (Folic Acid) 1 mg DAILY PO Last administered on 12/19/16 08:28; Admin Dose 1 MG; Start 12/16/16 at 09:00 Gabapentin (Neurontin) 100 mg QHS PO Last administered on 12/18/16 21:25; Admin Dose 100 MG; Start 12/15/16 at 21:00 Levothyroxine Sodium (Synthroid) 137 mcg DAILY@06 PO Last administered on 05:29; Admin Dose 137 MCG; Start 12/16/16 at 06:00 Losartan Potassium (Cozaar) 50 mg BID PO Last administered on 12/19/16 08:33; Admin Dose 50 MG; Start 12/15/16 at 21:00 Pantoprazole (Protonix Tab) 40 mg DAILY@06 PO Last administered on 12/19/16 05 :29; Admin Dose 40 MG; Start 12/16/16 at 06:00 Pentoxifylline (Trental) 400 mg TID PO Last administered on 12/19/16 12:24; Admin Dose 400 MG; Start 12/17/16 at 21:00 Mesalamine (Delzicol Dr) 800 mg TID PO Last administered on 12/19/16 12:23; Admin Dose 800 MG; Start 12/17/16 at 21:00 Loperamide HCl (Imodium Cap) 2 mg DAILY PO Last administered on 12/19/16 08:29 ; Admin Dose 2 MG; Start 12/17/16 at 18:00 Oxymetazoline HCl (Afrin [place]) 1 spray DAILY NASAL Last administered on 08:28; Admin Dose 1 SPRAY; Start 12/18/16 at 17:00 Guaifenesin (Mucinex) 600 mg BID PO Last administered on 12/19/16 15:08; Admin Dose 600 MG; Start 12/19/16 at 14:00 Fluticasone Propionate (Flonase 0.05% Nasal) 1 spray BID NASAL Last administered on 12/19/16 15:08; Admin Dose 1 SPRAY; Start 12/19/16 at 14:00 YOSSI WRIGHT MD Dec 19, 2016 16:01
[2016-12-19 20:16] VITALS: BP 155/66; RESP 21
[2016-12-19] MEDS: ATORVASTATIN 10 MG TAB PO SCH (21:42)
[2016-12-19] MEDS: GABAPENTIN 100 MG CAP PO SCH (21:43)
[2016-12-20] MEDS: ACCU-CHEK XX SCH ×4 (00:32→18:01)
[2016-12-20 02:29] VITALS: BP 133/59; RESP 20
[2016-12-20] MEDS: LEVOTHYROXINE 137 MCG TAB PO SCH (05:41)
[2016-12-20] MEDS: PANTOPRAZOLE (EC) 40 MG TAB PO SCH (05:42)
[2016-12-20 06:22] LABS: ALBUMIN 1.8 g/dl (3.3-4.9); ALBUMIN/GLOBULIN RATIO 0.48; CALCIUM 7.1 mg/dl (8.4-10.2); CREATININE 5.43 mg/dl (0.44-1.00); POTASSIUM 3.7 mmol/L (3.5-5.1); TOTAL PROTEIN 5.5 g/dl (6.1-8.1)
[2016-12-20 08:04] VITALS: BP 137/63; RESP 16
[2016-12-20] MEDS: DOCUSATE SODIUM 100 MG CAP PO SCH ×2 (09:00→21:00)
[2016-12-20] MEDS: OXYMETAZOLINE 0.05% 15 ML NAS SPRAY NASAL SCH (09:05)
[2016-12-20] MEDS: FLUTICASONE 0.05% 16 GM NAS SPRAY NASAL SCH ×2 (09:05→21:03)
[2016-12-20] MEDS: MESALAMINE (EC) 400 MG CAP PO SCH ×2 (09:05→13:19)
[2016-12-20] MEDS: PENTOXIFYLLINE (SR) 400 MG TAB PO SCH ×3 (09:07→21:04)
[2016-12-20] MEDS: ASPIRIN (EC) 81 MG TAB PO SCH (09:07)
[2016-12-20] MEDS: CYANOCOBALAMIN 500 MCG TAB PO SCH (09:07)
[2016-12-20] MEDS: LOPERAMIDE 2 MG CAP PO SCH (09:07)
[2016-12-20] MEDS: GUAIFENESIN LA 600 MG TABSR PO SCH ×2 (09:07→21:04)
[2016-12-20] MEDS: LACTOBACILLUS RHAMNOSUS CAP PO SCH ×2 (09:07→21:04)
[2016-12-20] MEDS: FOLIC ACID 1 MG TAB PO SCH (09:07)
[2016-12-20] MEDS: LOSARTAN 50 MG TAB PO SCH ×2 (09:08→21:04)
--- NOTE | 2016-12-20 12:31 | CONS ---
Date/Time of Note Date/Time of Note DATE: 12/20/16 TIME: 12:30 Assessment/Plan Assessment/Plan Chief Complaint/Hosp Course Physical exam Constitutional: In mild distress, answers questions Head: atraumatic, normocephalic Respiratory: clear to auscultation, normal air movement Cardiovascular: nl pulses, regular rate and rhythm Gastrointestinal: soft, tender Extremities: normal pulses left permacath 56 y/wo 1. ESRD T/T/S with left permacath 2. Colitis 3.Persistent abdominal pain/thickened ascending and transverse colon s/p colonoscopy with probable ischemic colitis on rt colon 4 Persistent nausea and vommiting s/p EGD with distal esophagitis> biopsies pending 5 dm 6 htn Problems: Additional Assessment/Plan 1. Pt is on schedule , , Sat for HD; next HD tmw 3 Zofran iv 4 GI/Surg/Vascular consult Problems: Consultation Date/Type/Reason Admit Date/Time Dec 10, 2016 at 03:16 Initial Consult Date 12/10/16 Type of Consultation: Nephrology 24 HR Interval Summary Free Text/Dictation Little cough Abdominal pain has improved Exam/Review of Systems Vital Signs Vitals Vital Signs Date Time Temp Pulse Resp B/P Pulse Ox O2 Delivery O2 Flow Rate FiO2 12/20/16 08:04 98.0 62 16 137/63 98 12/18/16 02:00 Room Air 12/17/16 15:52 5 12/16/16 11:07 Intake and Output 12/19/16 12/19/16 12/20/16 15:00 23:00 07:00 Intake Total 770 ml 240 ml Balance 770 ml 240 ml Results Result Diagram: 12/16/16 0509 12/20/16 0500 Results 24 hrs Laboratory Tests Test 12/19/16 16:54 12/20/16 00:30 12/20/16 05:00 12/20/16 06:12 Bedside Glucose 94 84 73 Sodium Level 136 Potassium Level 3.7 Chloride Level 103 Carbon Dioxide Level 26 Anion Gap 11 Blood Urea Nitrogen 21 H Creatinine 5.43 H Glucose Level 62 L Calcium Level 7.1 L Total Bilirubin 0.0 L Direct Bilirubin 0.00 Indirect Bilirubin 0.0 Aspartate Amino Transf (AST/SGOT) 24 Alanine Aminotransferase (ALT/SGPT) 24 Alkaline Phosphatase 202 H Total Protein 5.5 L Albumin 1.8 L Globulin 3.70 H Albumin/Globulin Ratio 0.48 Test 12/20/16 12:18 Bedside Glucose 113 Medications Medications Current Medications Ondansetron HCl (Zofran Inj) 4 mg Q6H PRN IV NAUSEA AND/OR VOMITING Last administered on 12/19/16 09:42; Admin Dose 4 MG; Start 12/10/16 at 06:00 Acetaminophen (Tylenol Supp) 650 mg Q6H PRN [place] PAIN LEVEL 1-3 OR FEVER; Start 12/10/16 at 06:00 Morphine Sulfate (morphine) 1 mg Q4H PRN IV SEVERE PAIN LEVEL 7-10 Last administered on 12/16/16 06:24; Admin Dose 1 MG; Start 12/12/16 at 14:00 Diagnostic Test (Pha) (Accu-Chek) 1 ea Q6 XX Last administered on 12/20/16 06: 23; Admin Dose 1 EA; Start 12/13/16 at 06:00 Lactobacillus Acidophilus/ Rhamnosus (Culturelle) 1 cap BID PO Last administered on 12/20/16 09:07; Admin Dose 1 CAP; Start 12/13/16 at 21:00 Aspirin (Halfprin) 81 mg DAILY PO Last administered on 12/20/16 09:07; Admin Dose 81 MG; Start 12/16/16 at 09:00 Atorvastatin Calcium (Lipitor) 10 mg QHS PO Last administered on 12/19/16 21: 42; Admin Dose 10 MG; Start 12/15/16 at 21:00 Carvedilol (Coreg) 6.25 mg BID PO Last administered on 12/20/16 09:08; Admin Dose 6.25 MG; Start 12/15/16 at 21:00 Cyanocobalamin (Vitamin B12) 1,000 mcg DAILY PO Last administered on 12/20/16 09:07; Admin Dose 1,000 MCG; Start 12/16/16 at 09:00 Docusate Sodium (Colace) 100 mg BID PO Last administered on 12/19/16 21:43; Admin Dose 100 MG; Start 12/15/16 at 21:00 Folic Acid (Folic Acid) 1 mg DAILY PO Last administered on 12/20/16 09:07; Admin Dose 1 MG; Start 12/16/16 at 09:00 Gabapentin (Neurontin) 100 mg QHS PO Last administered on 12/19/16 21:43; Admin Dose 100 MG; Start 12/15/16 at 21:00 Levothyroxine Sodium (Synthroid) 137 mcg DAILY@06 PO Last administered on 05:41; Admin Dose 137 MCG; Start 12/16/16 at 06:00 Losartan Potassium (Cozaar) 50 mg BID PO Last administered on 12/20/16 09:08; Admin Dose 50 MG; Start 12/15/16 at 21:00 Pantoprazole (Protonix Tab) 40 mg DAILY@06 PO Last administered on 12/20/16 05 :42; Admin Dose 40 MG; Start 12/16/16 at 06:00 Pentoxifylline (Trental) 400 mg TID PO Last administered on 12/20/16 09:07; Admin Dose 400 MG; Start 12/17/16 at 21:00 Mesalamine (Delzicol Dr) 800 mg TID PO Last administered on 12/20/16 09:05; Admin Dose 800 MG; Start 12/17/16 at 21:00 Loperamide HCl (Imodium Cap) 2 mg DAILY PO Last administered on 12/20/16 09:07 ; Admin Dose 2 MG; Start 12/17/16 at 18:00 Oxymetazoline HCl (Afrin [place]) 1 spray DAILY NASAL Last administered on 09:05; Admin Dose 1 SPRAY; Start 12/18/16 at 17:00 Guaifenesin (Mucinex) 600 mg BID PO Last administered on 12/20/16 09:07; Admin Dose 600 MG; Start 12/19/16 at 14:00 Fluticasone Propionate (Flonase 0.05% Nasal) 1 spray BID NASAL Last administered on 12/20/16 09:05; Admin Dose 1 SPRAY; Start 12/19/16 at 14:00 YI FRIEDMAN MD Dec 20, 2016 12:30
[2016-12-20 14:28] VITALS: BP 140/56; RESP 18
--- NOTE | 2016-12-20 15:40 | PN ---
Date/Time of Note Date/Time of Note DATE: 12/20/16 TIME: 15:35 Assessment/Plan VTE Prophylaxis VTE Prophylaxis Intervention: heparin Lines/Catheters IV C[facility] Type (from [facility] Saline Lock Urinary Cath still in place: No Assessment/Plan Chief Complaint/Hosp Course Assessment/Plan: 56-year-old female prior history of bowel resection and possible mesenteric ischemia, coming in with abdominal pain rule out inflammatory, infectious versus ischemic colitis. 1. Inflammatory vs ischemic small bowel and infectious versus ischemic colitis- slowly improving. 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 -Continue aspirin, Trental, as well as Culturelle and Multivite -We will consult vascular surgery team, want to discuss with them the findings on the abdominal angiogram -Continue current pain management 2. Abdominal pain and diarrhea-patient with soft stools now Monitor for now, on Imodium 3. End-stage renal disease on dialysis: Patient with a history of nephrectomy -For dialysis Tuesday, , Tuesday monitor blood pressure very carefully , and renal recommendation 4. Diabetes-last A1c was 4.8 back in August 2016. A1c this admission equals 5.1 , fingersticks stable Monitor sugars for now 5. Anemia, likely secondary to chronic disease -Monitor H&H and transfuse as needed 6. Hypertension-stable presently -Continue antihypertensives with adjustment as needed 7. PND: trial of flonase and mucinex Problems: Subjective 24 Hr Interval Summary Free Text/Dictation No acute events overnight. Exam/Review of Systems Vital Signs Vitals Vital Signs Date Time Temp Pulse Resp B/P Pulse Ox O2 Delivery O2 Flow Rate FiO2 12/20/16 08:04 98.0 62 16 137/63 98 12/18/16 02:00 Room Air 12/17/16 15:52 5 12/16/16 11:07 Intake and Output 12/19/16 12/19/16 12/20/16 15:00 23:00 07:00 Intake Total 770 ml 240 ml Balance 770 ml 240 ml Exam nad, lying in bed no mrg lungs clear abd soft no rashes Results Result Diagram: 12/16/16 0509 12/20/16 0500 Results 24 hrs Laboratory Tests Test 12/19/16 16:54 12/20/16 00:30 12/20/16 05:00 12/20/16 06:12 Bedside Glucose 94 84 73 Sodium Level 136 Potassium Level 3.7 Chloride Level 103 Carbon Dioxide Level 26 Anion Gap 11 Blood Urea Nitrogen 21 H Creatinine 5.43 H Glucose Level 62 L Calcium Level 7.1 L Total Bilirubin 0.0 L Direct Bilirubin 0.00 Indirect Bilirubin 0.0 Aspartate Amino Transf (AST/SGOT) 24 Alanine Aminotransferase (ALT/SGPT) 24 Alkaline Phosphatase 202 H Total Protein 5.5 L Albumin 1.8 L Globulin 3.70 H Albumin/Globulin Ratio 0.48 Test 12/20/16 12:18 Bedside Glucose 113 Medications Medications Current Medications Ondansetron HCl (Zofran Inj) 4 mg Q6H PRN IV NAUSEA AND/OR VOMITING Last administered on 12/19/16 09:42; Admin Dose 4 MG; Start 12/10/16 at 06:00 Acetaminophen (Tylenol Supp) 650 mg Q6H PRN [place] PAIN LEVEL 1-3 OR FEVER; Start 12/10/16 at 06:00 Morphine Sulfate (morphine) 1 mg Q4H PRN IV SEVERE PAIN LEVEL 7-10 Last administered on 12/16/16 06:24; Admin Dose 1 MG; Start 12/12/16 at 14:00 Diagnostic Test (Pha) (Accu-Chek) 1 ea Q6 XX Last administered on 12/20/16 06: 23; Admin Dose 1 EA; Start 12/13/16 at 06:00 Lactobacillus Acidophilus/ Rhamnosus (Culturelle) 1 cap BID PO Last administered on 12/20/16 09:07; Admin Dose 1 CAP; Start 12/13/16 at 21:00 Aspirin (Halfprin) 81 mg DAILY PO Last administered on 12/20/16 09:07; Admin Dose 81 MG; Start 12/16/16 at 09:00 Atorvastatin Calcium (Lipitor) 10 mg QHS PO Last administered on 12/19/16 21: 42; Admin Dose 10 MG; Start 12/15/16 at 21:00 Carvedilol (Coreg) 6.25 mg BID PO Last administered on 12/20/16 09:08; Admin Dose 6.25 MG; Start 12/15/16 at 21:00 Cyanocobalamin (Vitamin B12) 1,000 mcg DAILY PO Last administered on 12/20/16 09:07; Admin Dose 1,000 MCG; Start 12/16/16 at 09:00 Docusate Sodium (Colace) 100 mg BID PO Last administered on 12/19/16 21:43; Admin Dose 100 MG; Start 12/15/16 at 21:00 Folic Acid (Folic Acid) 1 mg DAILY PO Last administered on 12/20/16 09:07; Admin Dose 1 MG; Start 12/16/16 at 09:00 Gabapentin (Neurontin) 100 mg QHS PO Last administered on 12/19/16 21:43; Admin Dose 100 MG; Start 12/15/16 at 21:00 Levothyroxine Sodium (Synthroid) 137 mcg DAILY@06 PO Last administered on 05:41; Admin Dose 137 MCG; Start 12/16/16 at 06:00 Losartan Potassium (Cozaar) 50 mg BID PO Last administered on 12/20/16 09:08; Admin Dose 50 MG; Start 12/15/16 at 21:00 Pantoprazole (Protonix Tab) 40 mg DAILY@06 PO Last administered on 12/20/16 05 :42; Admin Dose 40 MG; Start 12/16/16 at 06:00 Pentoxifylline (Trental) 400 mg TID PO Last administered on 12/20/16 13:19; Admin Dose 400 MG; Start 12/17/16 at 21:00 Mesalamine (Delzicol Dr) 800 mg TID PO Last administered on 12/20/16 13:19; Admin Dose 800 MG; Start 12/17/16 at 21:00 Loperamide HCl (Imodium Cap) 2 mg DAILY PO Last administered on 12/20/16 09:07 ; Admin Dose 2 MG; Start 12/17/16 at 18:00 Oxymetazoline HCl (Afrin [place]) 1 spray DAILY NASAL Last administered on 09:05; Admin Dose 1 SPRAY; Start 12/18/16 at 17:00 Guaifenesin (Mucinex) 600 mg BID PO Last administered on 12/20/16 09:07; Admin Dose 600 MG; Start 12/19/16 at 14:00 Fluticasone Propionate (Flonase 0.05% Nasal) 1 spray BID NASAL Last administered on 12/20/16 09:05; Admin Dose 1 SPRAY; Start 12/19/16 at 14:00 Multivitamins Therapeutic (Theragran) 1 tab BID PO ; Start 12/20/16 at 21:00; Status UNV BELINDA SORIANO Dec 20, 2016 15:39
--- NOTE | 2016-12-20 17:47 | CONS ---
DATE OF ADMISSION: 12/10/2016 DATE OF CONSULTATION: 12/19/2016 HISTORY OF PRESENT ILLNESS: Dear Doctors, the patient is a 56- year-old female known to our vascular surgery service group, who presented with abdominal pain, diarrhea, and generalized weakness. It seems the patient had noticed her having abdominal pain that had been getting worse over the past few days and was admitted to [facility] for septic shock, at which time she was discharged with antibiotics without definitive improvement. As of recent, the patient has a previous history of small bowel ischemia, in which she underwent exploratory laparotomy with bowel resection and this course was complicated with wound dehiscence that is being currently managed with some local wound care for a small area that is still open. Otherwise, the patient right now denies shortness of breath, chest pain, nausea, vomiting, fever, or chills. Patient is able to tolerate some diet and her stools have not shown any hematochezia or melena. 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 She denies any history of postprandial pain or any issues of recent weight loss, other than her recent surgeries. REVIEW OF SYSTEMS: Fourteen point review performed and negative except as was mentioned in HPI. PAST MEDICAL HISTORY: Diabetes, coronary artery disease, hypertension, hypercholesterolemia, end-stage renal disease on dialysis on Tuesday, , and Tuesday, anemia of chronic disease. PAST SURGICAL HISTORY: Past Surgical History Small bowel resection, abdominal wound closure secondary to wound dehiscence, left upper extremity AV fistula, status post ligation of fistula and control of bleeding, chest wall catheter placement, nephrectomy. FAMILY HISTORY: Positive for diabetes and hypertension in the family. SOCIAL HISTORY: Denies tobacco, alcohol, or illicit drug use. PHYSICAL EXAMINATION: GENERAL: Alert and oriented times 3, in no apparent distress. HEENT: Normocephalic, atraumatic. EOMI. Mucosa moist. NECK: Supple. No carotid bruit. LUNGS: Clear to auscultation bilaterally. No crackles. HEART: S1, S2 present. No murmurs. ABDOMEN: Soft, nontender, nondistended. Bowel sounds positive. Surgical scar well healed. The umbilical area with a superficial wound with iodoform packing. EXTREMITIES: Lower extremities, palpable femoral pulse, nonpalpable pedal pulse. Motor and sensory intact. Capillary refill 3 to 4 seconds. Left upper extremity, palpable brachial pulse. Motor and sensory intact. Capillary refill 2 to 3 seconds. Surgical scar is well healed. ASSESSMENT AND PLAN: End-stage renal disease: The patient has been tolerating her dialysis sessions via her chest wall catheter at the moment. The patient had been scheduled for a fistula creation, unfortunately has had a complicated course of abdominal surgeries that has prolonged her intervention for eventual fistula creation. Mesenteric ischemia: The patient has findings of bowel ischemia upon her CT angiography. 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 At the moment, she does not seem to express findings of chronic mesenteric ischemia secondary to not having any weight loss as a result of postprandial pain or food fear. The patient has always tolerated her diet without any restrictions with solids and liquids. The patient also has never had a history of weight loss and has been involuntary. My concern is that the patient may have had findings of possible viral gastroenteritis that may have led her to become severely dehydrated versus hypovolemia that may have led to the findings of her CT scan of the abdomen and pelvis. At the moment, I would not recommend for any further intervention from vascular surgery standpoint as the patient is improving. I would recommend for the patient to be adequately hydrated and not to be hypotensive during her dialysis sessions. Currently her MARIO ALBERTO is patent. No findings of artery identified. Will plan to schedule the patient for mesenteric angiogram prior to discharge or as an outpatient, but will wait for her recovery from her current issue. Will plan to perform this study to further investigate the degree of stenosis and if any collateral vessels are identified. Optimize vascular status (nutrition, exercise, sugar control, antiplatelets). Discussed findings and plan of management with a certified iron plastic bullet maker and she understands. Thank you for allowing us to partake in the care of your patient. Please call with any questions. Dictated By: Ishmael Rizzo MD /alin/isabella /Document#: [id number]
--- NOTE | 2016-12-20 18:29 | PN ---
Date/Time of Note Date/Time of Note DATE: 12/20/16 TIME: 18:27 Assessment/Plan VTE Prophylaxis VTE Prophylaxis Intervention: SCD's Lines/Catheters [facility] Saline Lock Urinary Cath still in place: No Assessment/Plan Assessment/Plan Assessment: * Persistent diarrhea post significant small bowel resection. * short-bowel syndrome * Persistent abdominal pain/thickened ascending and transverse colon * Colonoscopy Probable ischemic colitis right colon. Path not specific for ischemia Moderate-sized internal hemorrhoids Otherwise normal colonoscopy to cecum * Persistent nausea and vomiting EGD Distal esophagitis, moderate 2 linear ulcerations in the antrum of the stomach. Biopsies obtained. Rule out H. pylori infection. Otherwise normal EGD * Wound dehiscence * End-stage renal disease on chronic hemodialysis * Diabetes mellitus type 2 * Hypertension Plan * continue present management * Sodium 10 mg as needed for more than 3 bowel movements an 8 hour shift * Further orders will depend on clinical course Subjective Subjective 24 Hr Interval Summary Free Text/Dictation * Course reviewed with RN * Patient seen and examined * Reports improvement in nausea and also less diarrhea Exam Constitutional: alert, well developed Neck: non-tender, supple Respiratory: clear to auscultation, normal air movement Cardiovascular: nl pulses, regular rate and rhythm Gastrointestinal: non-tender, soft Musculoskeletal: nl extremities to inspection Neurological: nl speech Exam/Review of Systems Vital Signs Vitals Vital Signs Date Time Temp Pulse Resp B/P Pulse Ox O2 Delivery O2 Flow Rate FiO2 12/20/16 08:04 98.0 62 16 137/63 98 12/18/16 02:00 Room Air 12/17/16 15:52 5 12/16/16 11:07 Intake and Output 12/19/16 12/19/16 12/20/16 15:00 23:00 07:00 Intake Total 770 ml 240 ml Balance 770 ml 240 ml Results Result Diagram: 12/16/16 0509 12/20/16 0500 Results 24 hrs Laboratory Tests Test 12/20/16 00:30 12/20/16 05:00 12/20/16 06:12 12/20/16 12:18 Bedside Glucose 84 73 113 Sodium Level 136 Potassium Level 3.7 Chloride Level 103 Carbon Dioxide Level 26 Anion Gap 11 Blood Urea Nitrogen 21 H Creatinine 5.43 H Glucose Level 62 L Calcium Level 7.1 L Total Bilirubin 0.0 L Direct Bilirubin 0.00 Indirect Bilirubin 0.0 Aspartate Amino Transf (AST/SGOT) 24 Alanine Aminotransferase (ALT/SGPT) 24 Alkaline Phosphatase 202 H Total Protein 5.5 L Albumin 1.8 L Globulin 3.70 H Albumin/Globulin Ratio 0.48 Test 12/20/16 18:00 Bedside Glucose 101 Medications Medications Current Medications Ondansetron HCl (Zofran Inj) 4 mg Q6H PRN IV NAUSEA AND/OR VOMITING Last administered on 12/19/16 09:42; Admin Dose 4 MG; Start 12/10/16 at 06:00 Acetaminophen (Tylenol Supp) 650 mg Q6H PRN [place] PAIN LEVEL 1-3 OR FEVER; Start 12/10/16 at 06:00 Morphine Sulfate (morphine) 1 mg Q4H PRN IV SEVERE PAIN LEVEL 7-10 Last administered on 12/16/16 06:24; Admin Dose 1 MG; Start 12/12/16 at 14:00 Diagnostic Test (Pha) (Accu-Chek) 1 ea Q6 XX Last administered on 12/20/16 18: 01; Admin Dose 1 EA; Start 12/13/16 at 06:00 Lactobacillus Acidophilus/ Rhamnosus (Culturelle) 1 cap BID PO Last administered on 12/20/16 09:07; Admin Dose 1 CAP; Start 12/13/16 at 21:00 Aspirin (Halfprin) 81 mg DAILY PO Last administered on 12/20/16 09:07; Admin Dose 81 MG; Start 12/16/16 at 09:00 Atorvastatin Calcium (Lipitor) 10 mg QHS PO Last administered on 12/19/16 21: 42; Admin Dose 10 MG; Start 12/15/16 at 21:00 Carvedilol (Coreg) 6.25 mg BID PO Last administered on 12/20/16 09:08; Admin Dose 6.25 MG; Start 12/15/16 at 21:00 Cyanocobalamin (Vitamin B12) 1,000 mcg DAILY PO Last administered on 12/20/16 09:07; Admin Dose 1,000 MCG; Start 12/16/16 at 09:00 Docusate Sodium (Colace) 100 mg BID PO Last administered on 12/19/16 21:43; Admin Dose 100 MG; Start 12/15/16 at 21:00 Folic Acid (Folic Acid) 1 mg DAILY PO Last administered on 12/20/16 09:07; Admin Dose 1 MG; Start 12/16/16 at 09:00 Gabapentin (Neurontin) 100 mg QHS PO Last administered on 12/19/16 21:43; Admin Dose 100 MG; Start 12/15/16 at 21:00 Levothyroxine Sodium (Synthroid) 137 mcg DAILY@06 PO Last administered on 05:41; Admin Dose 137 MCG; Start 12/16/16 at 06:00 Losartan Potassium (Cozaar) 50 mg BID PO Last administered on 12/20/16 09:08; Admin Dose 50 MG; Start 12/15/16 at 21:00 Pantoprazole (Protonix Tab) 40 mg DAILY@06 PO Last administered on 12/20/16 05 :42; Admin Dose 40 MG; Start 12/16/16 at 06:00 Pentoxifylline (Trental) 400 mg TID PO Last administered on 12/20/16 13:19; Admin Dose 400 MG; Start 12/17/16 at 21:00 Mesalamine (Delzicol Dr) 800 mg TID PO Last administered on 12/20/16 13:19; Admin Dose 800 MG; Start 12/17/16 at 21:00 Loperamide HCl (Imodium Cap) 2 mg DAILY PO Last administered on 12/20/16 09:07 ; Admin Dose 2 MG; Start 12/17/16 at 18:00 Oxymetazoline HCl (Afrin [place]) 1 spray DAILY NASAL Last administered on 09:05; Admin Dose 1 SPRAY; Start 12/18/16 at 17:00 Guaifenesin (Mucinex) 600 mg BID PO Last administered on 12/20/16 09:07; Admin Dose 600 MG; Start 12/19/16 at 14:00 Fluticasone Propionate (Flonase 0.05% Nasal) 1 spray BID NASAL Last administered on 12/20/16 09:05; Admin Dose 1 SPRAY; Start 12/19/16 at 14:00 Multivitamins Therapeutic (Theragran) 1 tab BID PO ; Start 12/20/16 at 21:00 SAMIRA RENDON MD Dec 20, 2016 18:29
[2016-12-20 19:35] VITALS: BP 181/77; RESP 20
[2016-12-20] MEDS: GABAPENTIN 100 MG CAP PO SCH (21:04)
[2016-12-20] MEDS: MULTIVITAMINS THERAPEUTIC TAB PO SCH (21:04)
[2016-12-20] MEDS: ATORVASTATIN 10 MG TAB PO SCH (21:05)
[2016-12-20 21:35] VITALS: BP 155/72
[2016-12-21] VITALS (14 sets, daily range): BP systolic 108–165; BP diastolic 62–78; PULSE 75–95; RESP 16–20
[2016-12-21] MEDS: MESALAMINE (EC) 400 MG CAP PO SCH ×4 (00:05→21:01)
[2016-12-21 05:30] LABS: BASOPHILS % 0.3 % (0.0-2.0); EOSINOPHILS # 0.1 10^3/ul (0.0-0.5); EOSINOPHILS % 1.5 % (0.0-7.0); HEMATOCRIT 27.2 % (37.0-47.0); HEMOGLOBIN 8.3 g/dl (12.0-16.0); LYMPHOCYTES # 0.9 10^3/ul (0.8-2.9); LYMPHOCYTES % 15.1 % (15.0-51.0); MEAN CORPUSCULAR HGB CONC 30.5 g/dl (32.0-37.0); MEAN CORPUSCULAR VOLUME 98.2 fl (82.0-101.0); MEAN PLATELET VOLUME 11.2 fl (7.4-10.4); MONOCYTE # 0.8 10^3/ul (0.3-0.9); MONOCYTES % 13.8 % (0.0-11.0); PLATELET COUNT 132 10^3/UL (140-415); RED BLOOD COUNT 2.77 10^6/ul (4.20-5.40); RED CELL DISTRIBUTION WIDTH 19.7 % (11.5-14.5)
[2016-12-21] MEDS: LEVOTHYROXINE 137 MCG TAB PO SCH (05:46)
[2016-12-21] MEDS: PANTOPRAZOLE (EC) 40 MG TAB PO SCH (05:46)
[2016-12-21] MEDS: ACCU-CHEK XX SCH ×4 (05:47→17:41)
[2016-12-21 05:51] LABS: CREATININE 6.76 mg/dl (0.44-1.00); POTASSIUM 3.8 mmol/L (3.5-5.1)
[2016-12-21] MEDS: CYANOCOBALAMIN 500 MCG TAB PO SCH (09:00)
[2016-12-21] MEDS: LACTOBACILLUS RHAMNOSUS CAP PO SCH ×2 (09:00→21:01)
[2016-12-21] MEDS: ASPIRIN (EC) 81 MG TAB PO SCH (09:00)
[2016-12-21] MEDS: FLUTICASONE 0.05% 16 GM NAS SPRAY NASAL SCH ×2 (09:00→21:01)
[2016-12-21] MEDS: FOLIC ACID 1 MG TAB PO SCH (09:00)
[2016-12-21] MEDS: LOSARTAN 50 MG TAB PO SCH ×2 (09:00→21:02)
[2016-12-21] MEDS: PENTOXIFYLLINE (SR) 400 MG TAB PO SCH ×3 (09:00→21:02)
[2016-12-21] MEDS: GUAIFENESIN LA 600 MG TABSR PO SCH ×2 (09:00→21:01)
[2016-12-21] MEDS: MULTIVITAMINS THERAPEUTIC TAB PO SCH ×2 (09:00→21:02)
[2016-12-21] MEDS: OXYMETAZOLINE 0.05% 15 ML NAS SPRAY NASAL SCH (09:00)
[2016-12-21] MEDS: LOPERAMIDE 2 MG CAP PO SCH ×2 (09:00→16:09)
[2016-12-21] MEDS: DOCUSATE SODIUM 100 MG CAP PO SCH ×2 (09:00→21:00)
--- NOTE | 2016-12-21 14:11 | CONS ---
Date/Time of Note Date/Time of Note DATE: 12/21/16 TIME: 14:10 Assessment/Plan Assessment/Plan Chief Complaint/Hosp Course Physical exam Constitutional: In mild distress, answers questions Head: atraumatic, normocephalic Respiratory: clear to auscultation, normal air movement Cardiovascular: nl pulses, regular rate and rhythm Gastrointestinal: soft, tender Extremities: normal pulses left permacath 56 y/wo 1. ESRD T/T/S with left permacath 2. Colitis 3.Persistent abdominal pain/thickened ascending and transverse colon s/p colonoscopy with probable ischemic colitis on rt colon 4 Persistent nausea and vommiting s/p EGD with distal esophagitis> biopsies pending 5 dm 6 htn Problems: Additional Assessment/Plan 1. Pt is on schedule , , Sat for HD; next HD today 3 Zofran iv 4 GI/Surg/Vascular consult following Problems: Consultation Date/Type/Reason Admit Date/Time Dec 10, 2016 at 03:16 Initial Consult Date 12/10/16 Type of Consultation: Nephrology 24 HR Interval Summary Free Text/Dictation Abdominal pain improved Hd today Exam/Review of Systems Vital Signs Vitals Vital Signs Date Time Temp Pulse Resp B/P Pulse Ox O2 Delivery O2 Flow Rate FiO2 12/21/16 11:00 86 12/21/16 08:00 14 12/21/16 07:57 97.5 128/62 99 12/18/16 02:00 Room Air 12/17/16 15:52 5 Intake and Output 12/20/16 12/20/16 12/21/16 15:00 23:00 07:00 Intake Total 1660 ml 580 ml Balance 1660 ml 580 ml Results Result Diagram: 12/21/16 0450 12/21/16 0450 Results 24 hrs Laboratory Tests Test 12/20/16 18:00 12/21/16 00:04 12/21/16 04:50 12/21/16 05:43 Bedside Glucose 101 108 74 White Blood Count 6.0 # Red Blood Count 2.77 L Hemoglobin 8.3 L Hematocrit 27.2 L Mean Corpuscular Volume 98.2 Mean Corpuscular Hemoglobin 30.0 Mean Corpuscular Hemoglobin Concent 30.5 L Red Cell Distribution Width 19.7 H Platelet Count 132 L Mean Platelet Volume 11.2 H Neutrophils % 69.0 Lymphocytes % 15.1 Monocytes % 13.8 H Eosinophils % 1.5 Basophils % 0.3 Nucleated Red Blood Cells % 0.0 Neutrophils # (Manual) 4.2 Lymphocytes # 0.9 Monocytes # 0.8 Eosinophils # 0.1 Basophils # 0.0 Nucleated Red Blood Cells # 0.0 Sodium Level 141 Potassium Level 3.8 Chloride Level 106 Carbon Dioxide Level 24 Anion Gap 15 Blood Urea Nitrogen 28 H Creatinine 6.76 H Glucose Level 65 L Calcium Level 7.0 L Test 12/21/16 12:38 Bedside Glucose 72 Medications Medications Current Medications Ondansetron HCl (Zofran Inj) 4 mg Q6H PRN IV NAUSEA AND/OR VOMITING Last administered on 12/19/16 09:42; Admin Dose 4 MG; Start 12/10/16 at 06:00 Acetaminophen (Tylenol Supp) 650 mg Q6H PRN [place] PAIN LEVEL 1-3 OR FEVER; Start 12/10/16 at 06:00 Morphine Sulfate (morphine) 1 mg Q4H PRN IV SEVERE PAIN LEVEL 7-10 Last administered on 12/16/16 06:24; Admin Dose 1 MG; Start 12/12/16 at 14:00 Diagnostic Test (Pha) (Accu-Chek) 1 ea Q6 XX Last administered on 12/20/16 18: 01; Admin Dose 1 EA; Start 12/13/16 at 06:00 Lactobacillus Acidophilus/ Rhamnosus (Culturelle) 1 cap BID PO Last administered on 12/20/16 21:04; Admin Dose 1 CAP; Start 12/13/16 at 21:00 Aspirin (Halfprin) 81 mg DAILY PO Last administered on 12/20/16 09:07; Admin Dose 81 MG; Start 12/16/16 at 09:00 Atorvastatin Calcium (Lipitor) 10 mg QHS PO Last administered on 12/20/16 21: 05; Admin Dose 10 MG; Start 12/15/16 at 21:00 Carvedilol (Coreg) 6.25 mg BID PO Last administered on 12/20/16 21:05; Admin Dose 6.25 MG; Start 12/15/16 at 21:00 Cyanocobalamin (Vitamin B12) 1,000 mcg DAILY PO Last administered on 12/20/16 09:07; Admin Dose 1,000 MCG; Start 12/16/16 at 09:00 Docusate Sodium (Colace) 100 mg BID PO Last administered on 12/19/16 21:43; Admin Dose 100 MG; Start 12/15/16 at 21:00 Folic Acid (Folic Acid) 1 mg DAILY PO Last administered on 12/20/16 09:07; Admin Dose 1 MG; Start 12/16/16 at 09:00 Gabapentin (Neurontin) 100 mg QHS PO Last administered on 12/20/16 21:04; Admin Dose 100 MG; Start 12/15/16 at 21:00 Levothyroxine Sodium (Synthroid) 137 mcg DAILY@06 PO Last administered on 05:46; Admin Dose 137 MCG; Start 12/16/16 at 06:00 Losartan Potassium (Cozaar) 50 mg BID PO Last administered on 12/20/16 21:04; Admin Dose 50 MG; Start 12/15/16 at 21:00 Pantoprazole (Protonix Tab) 40 mg DAILY@06 PO Last administered on 12/21/16 05 :46; Admin Dose 40 MG; Start 12/16/16 at 06:00 Pentoxifylline (Trental) 400 mg TID PO Last administered on 12/21/16 12:48; Admin Dose 400 MG; Start 12/17/16 at 21:00 Mesalamine (Delzicol Dr) 800 mg TID PO Last administered on 12/21/16 12:48; Admin Dose 800 MG; Start 12/17/16 at 21:00 Loperamide HCl (Imodium Cap) 2 mg DAILY PO Last administered on 12/20/16 09:07 ; Admin Dose 2 MG; Start 12/17/16 at 18:00 Oxymetazoline HCl (Afrin [place]) 1 spray DAILY NASAL Last administered on 09:05; Admin Dose 1 SPRAY; Start 12/18/16 at 17:00 Guaifenesin (Mucinex) 600 mg BID PO Last administered on 12/20/16 21:04; Admin Dose 600 MG; Start 12/19/16 at 14:00 Fluticasone Propionate (Flonase 0.05% Nasal) 1 spray BID NASAL Last administered on 12/20/16 21:03; Admin Dose 1 SPRAY; Start 12/19/16 at 14:00 Multivitamins Therapeutic (Theragran) 1 tab BID PO Last administered on t 21:04; Admin Dose 1 TAB; Start 12/20/16 at 21:00 YI FRIEDMAN MD Dec 21, 2016 14:11
[2016-12-21] MEDS ORDERED: hydrALAzine 20 MG INJ IV PRN (16:00)
[2016-12-21] MEDS: GUAIFENESIN 20 MG/ML 5ML CUP PO PRN (16:09)
--- NOTE | 2016-12-21 16:16 | PN ---
Date/Time of Note Date/Time of Note DATE: 12/21/16 TIME: 16:16 Assessment/Plan VTE Prophylaxis VTE Prophylaxis Intervention: heparin Lines/Catheters IV C[facility]ter Type (from [facility] Urinary Cath still in place: No Assessment/Plan Chief Complaint/Hosp Course Assessment/Plan: 56-year-old female prior history of bowel resection and possible mesenteric ischemia, coming in with abdominal pain rule out inflammatory, infectious versus ischemic colitis. 1. 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 Appreciate vascular surgery consult and recommendation -Continue aspirin, Trental, as well as Culturelle and Multivite Per vascular surgery recommendations, plan for mesenteric angiogram likely as outpatient. -Continue current pain management 2. Abdominal pain and diarrhea-patient with soft stools now Monitor for now, on Imodium 3. End-stage renal disease on dialysis: Patient with a history of nephrectomy -For dialysis Tuesday, , Tuesday monitor blood pressure very carefully , and renal recommendation 4. Diabetes-last A1c was 4.8 back in August 2016. A1c this admission equals 5.1 , fingersticks stable Monitor sugars for now 5. Anemia, likely secondary to chronic disease -Monitor H&H and transfuse as needed 6. Hypertension-stable presently -Continue antihypertensives with adjustment as needed 7. Cough: More productive today. Patient on p.o. guaifenesin -We will add liquid guaifenesin, Cepastat as needed, and check chest x-ray today. -We will do duo nebs every 4 hours around the clock 2 doses as well Problems: Subjective 24 Hr Interval Summary Free Text/Dictation Patient had dialysis earlier today. Having some coughing symptoms as well. Exam/Review of Systems Vital Signs Vitals Vital Signs Date Time Temp Pulse Resp B/P Pulse Ox O2 Delivery O2 Flow Rate FiO2 12/21/16 15:51 21 12/21/16 14:43 97.5 75 20 157/67 97 12/18/16 02:00 Room Air 12/17/16 15:52 5 Intake and Output 12/20/16 12/20/16 12/21/16 15:00 23:00 07:00 Intake Total 1660 ml 580 ml Balance 1660 ml 580 ml Exam nad, lying in bed, slightly ashen looking, but alert no mrg lungs clear abd soft no rashes Results Result Diagram: 12/21/16 0450 12/21/16 0450 Results 24 hrs Laboratory Tests Test 12/20/16 18:00 12/21/16 00:04 12/21/16 04:50 12/21/16 05:43 Bedside Glucose 101 108 74 White Blood Count 6.0 # Red Blood Count 2.77 L Hemoglobin 8.3 L Hematocrit 27.2 L Mean Corpuscular Volume 98.2 Mean Corpuscular Hemoglobin 30.0 Mean Corpuscular Hemoglobin Concent 30.5 L Red Cell Distribution Width 19.7 H Platelet Count 132 L Mean Platelet Volume 11.2 H Neutrophils % 69.0 Lymphocytes % 15.1 Monocytes % 13.8 H Eosinophils % 1.5 Basophils % 0.3 Nucleated Red Blood Cells % 0.0 Neutrophils # (Manual) 4.2 Lymphocytes # 0.9 Monocytes # 0.8 Eosinophils # 0.1 Basophils # 0.0 Nucleated Red Blood Cells # 0.0 Sodium Level 141 Potassium Level 3.8 Chloride Level 106 Carbon Dioxide Level 24 Anion Gap 15 Blood Urea Nitrogen 28 H Creatinine 6.76 H Glucose Level 65 L Calcium Level 7.0 L Test 12/21/16 12:38 Bedside Glucose 72 Medications Medications Current Medications Ondansetron HCl (Zofran Inj) 4 mg Q6H PRN IV NAUSEA AND/OR VOMITING Last administered on 12/19/16 09:42; Admin Dose 4 MG; Start 12/10/16 at 06:00 Acetaminophen (Tylenol Supp) 650 mg Q6H PRN [place] PAIN LEVEL 1-3 OR FEVER; Start 12/10/16 at 06:00 Morphine Sulfate (morphine) 1 mg Q4H PRN IV SEVERE PAIN LEVEL 7-10 Last administered on 12/16/16 06:24; Admin Dose 1 MG; Start 12/12/16 at 14:00 Diagnostic Test (Pha) (Accu-Chek) 1 ea Q6 XX Last administered on 12/20/16 18: 01; Admin Dose 1 EA; Start 12/13/16 at 06:00 Lactobacillus Acidophilus/ Rhamnosus (Culturelle) 1 cap BID PO Last administered on 12/20/16 21:04; Admin Dose 1 CAP; Start 12/13/16 at 21:00 Aspirin (Halfprin) 81 mg DAILY PO Last administered on 12/20/16 09:07; Admin Dose 81 MG; Start 12/16/16 at 09:00 Atorvastatin Calcium (Lipitor) 10 mg QHS PO Last administered on 12/20/16 21: 05; Admin Dose 10 MG; Start 12/15/16 at 21:00 Carvedilol (Coreg) 6.25 mg BID PO Last administered on 12/20/16 21:05; Admin Dose 6.25 MG; Start 12/15/16 at 21:00 Cyanocobalamin (Vitamin B12) 1,000 mcg DAILY PO Last administered on 12/20/16 09:07; Admin Dose 1,000 MCG; Start 12/16/16 at 09:00 Docusate Sodium (Colace) 100 mg BID PO Last administered on 12/19/16 21:43; Admin Dose 100 MG; Start 12/15/16 at 21:00 Folic Acid (Folic Acid) 1 mg DAILY PO Last administered on 12/20/16 09:07; Admin Dose 1 MG; Start 12/16/16 at 09:00 Gabapentin (Neurontin) 100 mg QHS PO Last administered on 12/20/16 21:04; Admin Dose 100 MG; Start 12/15/16 at 21:00 Levothyroxine Sodium (Synthroid) 137 mcg DAILY@06 PO Last administered on 05:46; Admin Dose 137 MCG; Start 12/16/16 at 06:00 Losartan Potassium (Cozaar) 50 mg BID PO Last administered on 12/20/16 21:04; Admin Dose 50 MG; Start 12/15/16 at 21:00 Pantoprazole (Protonix Tab) 40 mg DAILY@06 PO Last administered on 12/21/16 05 :46; Admin Dose 40 MG; Start 12/16/16 at 06:00 Pentoxifylline (Trental) 400 mg TID PO Last administered on 12/21/16 12:48; Admin Dose 400 MG; Start 12/17/16 at 21:00 Mesalamine (Delzicol Dr) 800 mg TID PO Last administered on 12/21/16 12:48; Admin Dose 800 MG; Start 12/17/16 at 21:00 Loperamide HCl (Imodium Cap) 2 mg DAILY PO Last administered on 12/21/16 16:09 ; Admin Dose 2 MG; Start 12/17/16 at 18:00 Oxymetazoline HCl (Afrin [place]) 1 spray DAILY NASAL Last administered on 09:05; Admin Dose 1 SPRAY; Start 12/18/16 at 17:00 Guaifenesin (Mucinex) 600 mg BID PO Last administered on 12/20/16 21:04; Admin Dose 600 MG; Start 12/19/16 at 14:00 Fluticasone Propionate (Flonase 0.05% Nasal) 1 spray BID NASAL Last administered on 12/20/16 21:03; Admin Dose 1 SPRAY; Start 12/19/16 at 14:00 Multivitamins Therapeutic (Theragran) 1 tab BID PO Last administered on 21:04; Admin Dose 1 TAB; Start 12/20/16 at 21:00 Hydralazine HCl (Apresoline) 10 mg Q6H PRN IV ELEVATED BLOOD PRESSURE; Start at 16:00 Guaifenesin (Robitussin Liquid Cup) 200 mg Q4H PRN PO COUGH Last administered on 12/21/16 16:09; Admin Dose 200 MG; Start 12/21/16 at 16:00 BELINDA SORIANO Dec 21, 2016 16:16
[2016-12-21] MEDS ORDERED: CEPASTAT LOZENGE MT PRN (16:30)
[2016-12-21] MEDS: ALBUTEROL/IPRATROPIUM (NEB) 3 ML AMP HHN SCH ×3 (17:00→20:07)
--- NOTE | 2016-12-21 19:16 | RADRPT ---
PROCEDURE: XR Chest. CLINICAL INDICATION: Productive cough. TECHNIQUE: Single frontal view. COMPARISON: 12/09/2016. FINDINGS: A tunneled left internal jugular vein dialysis catheter is present with the tip in the upper superio r vena cava. There is mild atelectasis at the lung bases. Mild pulmonary edema is improved. The l ungs are otherwise clear. The heart is enlarged. There is calcification in the aorta consistent with atherosclerosis. There are sternal wires and mediastinal clips. There is no pleural effusion. There is no pneumothorax. IMPRESSION: 1. Tunneled dialysis catheter tip in the upper superior vena cava. 2. Mild atelectasis at the lung bases. 3. Mild pulmonary edema, improved. 4. Cardiomegaly and atherosclerosis. 5. Previous median sternotomy. RPTAT: QQ .Jerome Martinez MD, MD Date Time Electronically viewed and signed by .Jerome Martinez MD, MD on 12/21/2016 19:16 .R/
[2016-12-21] MEDS: GABAPENTIN 100 MG CAP PO SCH (21:01)
[2016-12-21] MEDS: ATORVASTATIN 10 MG TAB PO SCH (21:02)
[2016-12-22] MEDS: ALBUTEROL/IPRATROPIUM (NEB) 3 ML AMP HHN SCH ×3 (00:20→20:25)
[2016-12-22] MEDS: GUAIFENESIN 20 MG/ML 5ML CUP PO PRN ×2 (00:43→16:59)
[2016-12-22] MEDS: morphine 2 MG INJ IV PRN (01:58)
[2016-12-22 02:37] VITALS: BP 106/53; RESP 18
[2016-12-22] MEDS: ALBUTEROL/IPRATROPIUM (NEB) 3 ML AMP HHN PRN ×3 (05:08→15:33)
[2016-12-22] MEDS: LEVOTHYROXINE 137 MCG TAB PO SCH (05:20)
[2016-12-22] MEDS: PANTOPRAZOLE (EC) 40 MG TAB PO SCH (05:20)
[2016-12-22 05:45] LABS: BASOPHILS % 0.4 % (0.0-2.0); EOSINOPHILS % 0.8 % (0.0-7.0); HEMATOCRIT 25.5 % (37.0-47.0); HEMOGLOBIN 7.8 g/dl (12.0-16.0); LYMPHOCYTES % 20.1 % (15.0-51.0); MEAN CORPUSCULAR HEMOGLOBIN 30.6 pg (29.0-33.0); MEAN CORPUSCULAR HGB CONC 30.6 g/dl (32.0-37.0); MEAN PLATELET VOLUME 10.5 fl (7.4-10.4); MONOCYTE # 0.8 10^3/ul (0.3-0.9); MONOCYTES % 14.8 % (0.0-11.0); NEUTROPHILS % 63.5 % (39.0-77.0); PLATELET COUNT 122 10^3/UL (140-415); RED BLOOD COUNT 2.55 10^6/ul (4.20-5.40); RED CELL DISTRIBUTION WIDTH 19.2 % (11.5-14.5); WHITE BLOOD COUNT 5.1 10^3/ul (4.8-10.8)
[2016-12-22] MEDS: ACCU-CHEK XX SCH ×4 (06:00→18:00)
[2016-12-22 06:32] LABS: CALCIUM 6.9 mg/dl (8.4-10.2); CREATININE 4.19 mg/dl (0.44-1.00)
[2016-12-22 08:00] VITALS: BP 134/62; RESP 19
[2016-12-22] MEDS: LACTOBACILLUS RHAMNOSUS CAP PO SCH ×2 (08:39→20:54)
[2016-12-22] MEDS: MULTIVITAMINS THERAPEUTIC TAB PO SCH ×2 (08:39→20:53)
[2016-12-22] MEDS: PENTOXIFYLLINE (SR) 400 MG TAB PO SCH ×3 (08:39→20:54)
[2016-12-22] MEDS: MESALAMINE (EC) 400 MG CAP PO SCH ×3 (08:39→20:53)
[2016-12-22] MEDS: ASPIRIN (EC) 81 MG TAB PO SCH (08:39)
[2016-12-22] MEDS: LOPERAMIDE 2 MG CAP PO SCH (08:39)
[2016-12-22] MEDS: OXYMETAZOLINE 0.05% 15 ML NAS SPRAY NASAL SCH (08:40)
[2016-12-22] MEDS: FOLIC ACID 1 MG TAB PO SCH (08:40)
[2016-12-22] MEDS: FLUTICASONE 0.05% 16 GM NAS SPRAY NASAL SCH ×2 (08:40→20:51)
[2016-12-22] MEDS: CYANOCOBALAMIN 500 MCG TAB PO SCH (08:40)
[2016-12-22] MEDS: GUAIFENESIN LA 600 MG TABSR PO SCH ×2 (08:40→20:54)
[2016-12-22] MEDS: LOSARTAN 50 MG TAB PO SCH ×2 (08:43→20:54)
[2016-12-22] MEDS: DOCUSATE SODIUM 100 MG CAP PO SCH ×2 (08:44→21:00)
--- NOTE | 2016-12-22 12:08 | CONS ---
Date/Time of Note Date/Time of Note DATE: 12/22/16 TIME: 12:06 Assessment/Plan Assessment/Plan Chief Complaint/Hosp Course Physical exam Constitutional: In mild distress, answers questions Head: atraumatic, normocephalic Respiratory: clear to auscultation, normal air movement Cardiovascular: nl pulses, regular rate and rhythm Gastrointestinal: soft, tender Extremities: normal pulses left permacath 56 y/wo 1. ESRD T/T/S with left permacath 2. Colitis 3.Persistent abdominal pain/thickened ascending and transverse colon s/p colonoscopy with probable ischemic colitis on rt colon, Mesentric angiogram to be be done as outpatient 4 Persistent nausea and vommiting s/p EGD with distal esophagitis> 5 dm 6 htn Problems: Additional Assessment/Plan 1. Pt is on schedule , , Sat for HD; next HD [facility], if pt discharged can f/u HD center [facility] for session at 4 a m 2 GI/Surg/Vascular consult following Problems: Consultation Date/Type/Reason Admit Date/Time Dec 10, 2016 at 03:16 Initial Consult Date 12/10/16 Type of Consultation: Nephrology 24 HR Interval Summary Free Text/Dictation Pt feels a lot better today Denies any abdominal pain s/p HD yesterday Exam/Review of Systems Vital Signs Vitals Vital Signs Date Time Temp Pulse Resp B/P Pulse Ox O2 Delivery O2 Flow Rate FiO2 12/22/16 09:03 80 20 96 2.0 12/22/16 08:00 98.6 134/62 12/22/16 05:08 Nasal Cannula 12/21/16 17:05 21 Intake and Output 12/21/16 12/21/16 12/22/16 15:00 23:00 07:00 Intake Total 400 ml 360 ml 380 ml Output Total 1900 ml Balance -1500 ml 360 ml 380 ml Results Result Diagram: 12/22/16 0518 12/22/16 0518 Results 24 hrs Laboratory Tests Test 12/21/16 12:38 12/21/16 17:41 12/22/16 00:10 12/22/16 05:18 Bedside Glucose 72 89 91 White Blood Count 5.1 Red Blood Count 2.55 L Hemoglobin 7.8 L Hematocrit 25.5 L Mean Corpuscular Volume 100.0 Mean Corpuscular Hemoglobin 30.6 Mean Corpuscular Hemoglobin Concent 30.6 L Red Cell Distribution Width 19.2 H Platelet Count 122 L Mean Platelet Volume 10.5 H Neutrophils % 63.5 Lymphocytes % 20.1 Monocytes % 14.8 H Eosinophils % 0.8 Basophils % 0.4 Nucleated Red Blood Cells % 0.0 Neutrophils # (Manual) 3.2 Lymphocytes # 1.0 Monocytes # 0.8 Eosinophils # 0.0 Basophils # 0.0 Nucleated Red Blood Cells # 0.0 Sodium Level 137 Potassium Level 4.0 Chloride Level 99 Carbon Dioxide Level 30 Anion Gap 12 Blood Urea Nitrogen 16 # Creatinine 4.19 #H Glucose Level 71 Calcium Level 6.9 L Test 12/22/16 06:25 Bedside Glucose 80 Medications Medications Current Medications Ondansetron HCl (Zofran Inj) 4 mg Q6H PRN IV NAUSEA AND/OR VOMITING Last administered on 12/19/16 09:42; Admin Dose 4 MG; Start 12/10/16 at 06:00 Acetaminophen (Tylenol Supp) 650 mg Q6H PRN [place] PAIN LEVEL 1-3 OR FEVER; Start 12/10/16 at 06:00 Morphine Sulfate (morphine) 1 mg Q4H PRN IV SEVERE PAIN LEVEL 7-10 Last administered on 12/22/16 01:58; Admin Dose 1 MG; Start 12/12/16 at 14:00 Diagnostic Test (Pha) (Accu-Chek) 1 ea Q6 XX Last administered on 12/20/16 18: 01; Admin Dose 1 EA; Start 12/13/16 at 06:00 Lactobacillus Acidophilus/ Rhamnosus (Culturelle) 1 cap BID PO Last administered on 12/22/16 08:39; Admin Dose 1 CAP; Start 12/13/16 at 21:00 Aspirin (Halfprin) 81 mg DAILY PO Last administered on 12/22/16 08:39; Admin Dose 81 MG; Start 12/16/16 at 09:00 Atorvastatin Calcium (Lipitor) 10 mg QHS PO Last administered on 12/21/16 21: 02; Admin Dose 10 MG; Start 12/15/16 at 21:00 Carvedilol (Coreg) 6.25 mg BID PO Last administered on 12/22/16 08:43; Admin Dose 6.25 MG; Start 12/15/16 at 21:00 Cyanocobalamin (Vitamin B12) 1,000 mcg DAILY PO Last administered on 12/22/16 08:40; Admin Dose 1,000 MCG; Start 12/16/16 at 09:00 Docusate Sodium (Colace) 100 mg BID PO Last administered on 12/19/16 21:43; Admin Dose 100 MG; Start 12/15/16 at 21:00 Folic Acid (Folic Acid) 1 mg DAILY PO Last administered on 12/22/16 08:40; Admin Dose 1 MG; Start 12/16/16 at 09:00 Gabapentin (Neurontin) 100 mg QHS PO Last administered on 12/21/16 21:01; Admin Dose 100 MG; Start 12/15/16 at 21:00 Levothyroxine Sodium (Synthroid) 137 mcg DAILY@06 PO Last administered on 05:20; Admin Dose 137 MCG; Start 12/16/16 at 06:00 Losartan Potassium (Cozaar) 50 mg BID PO Last administered on 12/22/16 08:43; Admin Dose 50 MG; Start 12/15/16 at 21:00 Pantoprazole (Protonix Tab) 40 mg DAILY@06 PO Last administered on 12/22/16 05 :20; Admin Dose 40 MG; Start 12/16/16 at 06:00 Pentoxifylline (Trental) 400 mg TID PO Last administered on 12/22/16 08:39; Admin Dose 400 MG; Start 12/17/16 at 21:00 Mesalamine (Delzicol Dr) 800 mg TID PO Last administered on 12/22/16 08:39; Admin Dose 800 MG; Start 12/17/16 at 21:00 Loperamide HCl (Imodium Cap) 2 mg DAILY PO Last administered on 12/22/16 08:39 ; Admin Dose 2 MG; Start 12/17/16 at 18:00 Oxymetazoline HCl (Afrin [place]) 1 spray DAILY NASAL Last administered on 08:40; Admin Dose 1 SPRAY; Start 12/18/16 at 17:00 Guaifenesin (Mucinex) 600 mg BID PO Last administered on 12/22/16 08:40; Admin Dose 600 MG; Start 12/19/16 at 14:00 Fluticasone Propionate (Flonase 0.05% Nasal) 1 spray BID NASAL Last administered on 12/22/16 08:40; Admin Dose 1 SPRAY; Start 12/19/16 at 14:00 Multivitamins Therapeutic (Theragran) 1 tab BID PO Last administered on 08:39; Admin Dose 1 TAB; Start 12/20/16 at 21:00 Hydralazine HCl (Apresoline) 10 mg Q6H PRN IV ELEVATED BLOOD PRESSURE; Start at 16:00 Guaifenesin (Robitussin Liquid Cup) 200 mg Q4H PRN PO COUGH Last administered on 12/22/16 00:43; Admin Dose 200 MG; Start 12/21/16 at 16:00 Phenol (Cepastat Lozenge) 1 lozenge Q1H PRN [place] COUGH; Start 12/21/16 at 16:30 YI FRIEDMAN MD Dec 22, 2016 12:08
[2016-12-22 14:00] VITALS: BP 139/61; RESP 18
--- NOTE | 2016-12-22 17:14 | PN ---
Date/Time of Note Date/Time of Note DATE: 12/22/16 TIME: 17:10 Assessment/Plan VTE Prophylaxis VTE Prophylaxis Intervention: heparin Lines/Catheters IV [facility]ter Type (from [facility]): Saline Lock Urinary Cath still in place: No Assessment/Plan Chief Complaint/Hosp Course Assessment/Plan: 56-year-old female prior history of bowel resection and possible mesenteric ischemia, coming in with abdominal pain rule out inflammatory, infectious versus ischemic colitis. 1. 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 Appreciate vascular surgery consult and recommendation -Continue aspirin, Trental, as well as Culturelle and Multivite Per vascular surgery recommendations, plan for mesenteric angiogram likely as outpatient. -Continue current pain management 2. Abdominal pain and diarrhea-patient with soft stools now Monitor for now, on Imodium 3. End-stage renal disease on dialysis: Patient with a history of nephrectomy -For dialysis Tuesday, , Tuesday monitor blood pressure very carefully , and renal recommendation 4. Diabetes-last A1c was 4.8 back in August 2016. A1c this admission equals 5.1 , fingersticks stable Monitor sugars for now 5. Anemia, likely secondary to chronic disease -Monitor H&H and transfuse as needed 6. Hypertension-stable presently -Continue antihypertensives with adjustment as needed 7. Cough: still somewhat present. Patient on p.o. guaifenesin -continue guaifenesin, Cepastat as needed -continue duo nebs every 4 hours around the clock x 24 hrs Problems: Subjective 24 Hr Interval Summary Free Text/Dictation Pt worked with PT today. Had HD yesterday. Still with some cough, but CXR yesterday nondiagnostic. Exam/Review of Systems Vital Signs Vitals Vital Signs Date Time Temp Pulse Resp B/P Pulse Ox O2 Delivery O2 Flow Rate FiO2 12/22/16 15:34 88 20 100 21 12/22/16 09:03 2.0 12/22/16 08:00 98.6 134/62 12/22/16 05:08 Nasal Cannula Intake and Output 12/21/16 12/21/16 12/22/16 14:59 22:59 06:59 Intake Total 400 ml 360 ml 380 ml Output Total 1900 ml Balance -1500 ml 360 ml 380 ml Exam nad, lying in bed, slightly ashen looking, but alert no mrg lungs clear abd soft no rashes Results Result Diagram: 12/22/1651712/22/1618 Results 24 hrs Laboratory Tests Test 12/21/16 17:41 12/22/16 00:10 12/22/16 05:18 12/22/16 06:25 Bedside Glucose 89 91 80 White Blood Count 5.1 Red Blood Count 2.55 L Hemoglobin 7.8 L Hematocrit 25.5 L Mean Corpuscular Volume 100.0 Mean Corpuscular Hemoglobin 30.6 Mean Corpuscular Hemoglobin Concent 30.6 L Red Cell Distribution Width 19.2 H Platelet Count 122 L Mean Platelet Volume 10.5 H Neutrophils % 63.5 Lymphocytes % 20.1 Monocytes % 14.8 H Eosinophils % 0.8 Basophils % 0.4 Nucleated Red Blood Cells % 0.0 Neutrophils # (Manual) 3.2 Lymphocytes # 1.0 Monocytes # 0.8 Eosinophils # 0.0 Basophils # 0.0 Nucleated Red Blood Cells # 0.0 Sodium Level 137 Potassium Level 4.0 Chloride Level 99 Carbon Dioxide Level 30 Anion Gap 12 Blood Urea Nitrogen 16 # Creatinine 4.19 #H Glucose Level 71 Calcium Level 6.9 L Test 12/22/16 11:53 Bedside Glucose 90 Medications Medications Current Medications Ondansetron HCl (Zofran Inj) 4 mg Q6H PRN IV NAUSEA AND/OR VOMITING Last administered on 12/19/16 09:42; Admin Dose 4 MG; Start 12/10/16 at 06:00 Acetaminophen (Tylenol Supp) 650 mg Q6H PRN [place] PAIN LEVEL 1-3 OR FEVER; Start 12/10/16 at 06:00 Morphine Sulfate (morphine) 1 mg Q4H PRN IV SEVERE PAIN LEVEL 7-10 Last administered on 12/22/16 01:58; Admin Dose 1 MG; Start 12/12/16 at 14:00 Diagnostic Test (Pha) (Accu-Chek) 1 ea Q6 XX Last administered on 12/22/16 12: 00; Admin Dose 1 EA; Start 12/13/16 at 06:00 Lactobacillus Acidophilus/ Rhamnosus (Culturelle) 1 cap BID PO Last administered on 12/22/16 08:39; Admin Dose 1 CAP; Start 12/13/16 at 21:00 Aspirin (Halfprin) 81 mg DAILY PO Last administered on 12/22/16 08:39; Admin Dose 81 MG; Start 12/16/16 at 09:00 Atorvastatin Calcium (Lipitor) 10 mg QHS PO Last administered on 12/21/16 21: 02; Admin Dose 10 MG; Start 12/15/16 at 21:00 Carvedilol (Coreg) 6.25 mg BID PO Last administered on 12/22/16 08:43; Admin Dose 6.25 MG; Start 12/15/16 at 21:00 Cyanocobalamin (Vitamin B12) 1,000 mcg DAILY PO Last administered on 12/22/16 08:40; Admin Dose 1,000 MCG; Start 12/16/16 at 09:00 Docusate Sodium (Colace) 100 mg BID PO Last administered on 12/19/16 21:43; Admin Dose 100 MG; Start 12/15/16 at 21:00 Folic Acid (Folic Acid) 1 mg DAILY PO Last administered on 12/22/16 08:40; Admin Dose 1 MG; Start 12/16/16 at 09:00 Gabapentin (Neurontin) 100 mg QHS PO Last administered on 12/21/16 21:01; Admin Dose 100 MG; Start 12/15/16 at 21:00 Levothyroxine Sodium (Synthroid) 137 mcg DAILY@06 PO Last administered on 05:20; Admin Dose 137 MCG; Start 12/16/16 at 06:00 Losartan Potassium (Cozaar) 50 mg BID PO Last administered on 12/22/16 08:43; Admin Dose 50 MG; Start 12/15/16 at 21:00 Pantoprazole (Protonix Tab) 40 mg DAILY@06 PO Last administered on 12/22/16 05 :20; Admin Dose 40 MG; Start 12/16/16 at 06:00 Pentoxifylline (Trental) 400 mg TID PO Last administered on 12/22/16 15:11; Admin Dose 400 MG; Start 12/17/16 at 21:00 Mesalamine (Delzicol Dr) 800 mg TID PO Last administered on 12/22/16 15:11; Admin Dose 800 MG; Start 12/17/16 at 21:00 Loperamide HCl (Imodium Cap) 2 mg DAILY PO Last administered on 12/22/16 08:39 ; Admin Dose 2 MG; Start 12/17/16 at 18:00 Oxymetazoline HCl (Afrin [place]) 1 spray DAILY NASAL Last administered on 08:40; Admin Dose 1 SPRAY; Start 12/18/16 at 17:00 Guaifenesin (Mucinex) 600 mg BID PO Last administered on 12/22/16 08:40; Admin Dose 600 MG; Start 12/19/16 at 14:00 Fluticasone Propionate (Flonase 0.05% Nasal) 1 spray BID NASAL Last administered on 12/22/16 08:40; Admin Dose 1 SPRAY; Start 12/19/16 at 14:00 Multivitamins Therapeutic (Theragran) 1 tab BID PO Last administered on 08:39; Admin Dose 1 TAB; Start 12/20/16 at 21:00 Hydralazine HCl (Apresoline) 10 mg Q6H PRN IV ELEVATED BLOOD PRESSURE; Start at 16:00 Guaifenesin (Robitussin Liquid Cup) 200 mg Q4H PRN PO COUGH Last administered on 12/22/16 16:59; Admin Dose 200 MG; Start 12/21/16 at 16:00 Phenol (Cepastat Lozenge) 1 lozenge Q1H PRN [place] COUGH; Start 12/21/16 at 16:30 BELINDA SORIANO Dec 22, 2016 17:13
[2016-12-22 20:49] VITALS: BP 137/85; RESP 22
[2016-12-22] MEDS: GABAPENTIN 100 MG CAP PO SCH (20:53)
[2016-12-22] MEDS: ATORVASTATIN 10 MG TAB PO SCH (20:53)
[2016-12-23] VITALS (12 sets, daily range): BP systolic 74–139; BP diastolic 37–67; PULSE 68–76; RESP 18–20
[2016-12-23] MEDS: ACCU-CHEK XX SCH ×5 (00:17→23:51)
[2016-12-23] MEDS: ALBUTEROL/IPRATROPIUM (NEB) 3 ML AMP HHN SCH ×5 (00:52→19:54)
[2016-12-23] MEDS: PANTOPRAZOLE (EC) 40 MG TAB PO SCH (05:57)
[2016-12-23] MEDS: LEVOTHYROXINE 137 MCG TAB PO SCH (05:57)
[2016-12-23 06:39] LABS: BASOPHILS % 0.3 % (0.0-2.0); EOSINOPHILS % 0.3 % (0.0-7.0); HEMATOCRIT 27.3 % (37.0-47.0); HEMOGLOBIN 8.2 g/dl (12.0-16.0); LYMPHOCYTES # 0.8 10^3/ul (0.8-2.9); LYMPHOCYTES % 13.4 % (15.0-51.0); MEAN CORPUSCULAR HEMOGLOBIN 29.7 pg (29.0-33.0); MEAN CORPUSCULAR VOLUME 98.9 fl (82.0-101.0); MEAN PLATELET VOLUME 11.1 fl (7.4-10.4); MONOCYTE # 0.9 10^3/ul (0.3-0.9); MONOCYTES % 14.6 % (0.0-11.0); NEUTROPHILS % 71.1 % (39.0-77.0); PLATELET COUNT 108 10^3/UL (140-415); RED BLOOD COUNT 2.76 10^6/ul (4.20-5.40); RED CELL DISTRIBUTION WIDTH 19.4 % (11.5-14.5); WHITE BLOOD COUNT 5.9 10^3/ul (4.8-10.8)
[2016-12-23 06:49] LABS: CREATININE 5.42 mg/dl (0.44-1.00); POTASSIUM 4.7 mmol/L (3.5-5.1)
[2016-12-23] MEDS: ASPIRIN (EC) 81 MG TAB PO SCH (09:00)
[2016-12-23] MEDS: CYANOCOBALAMIN 500 MCG TAB PO SCH (09:00)
[2016-12-23] MEDS: LACTOBACILLUS RHAMNOSUS CAP PO SCH ×2 (09:00→20:59)
[2016-12-23] MEDS: MESALAMINE (EC) 400 MG CAP PO SCH ×3 (09:00→20:59)
[2016-12-23] MEDS: LOPERAMIDE 2 MG CAP PO SCH (09:00)
[2016-12-23] MEDS: MULTIVITAMINS THERAPEUTIC TAB PO SCH ×2 (09:00→21:00)
[2016-12-23] MEDS: LOSARTAN 50 MG TAB PO SCH ×2 (09:00→21:00)
[2016-12-23] MEDS: PENTOXIFYLLINE (SR) 400 MG TAB PO SCH ×3 (09:00→21:00)
[2016-12-23] MEDS: FOLIC ACID 1 MG TAB PO SCH (09:00)
[2016-12-23] MEDS: GUAIFENESIN LA 600 MG TABSR PO SCH ×2 (09:00→20:59)
[2016-12-23] MEDS: DOCUSATE SODIUM 100 MG CAP PO SCH ×2 (09:00→21:03)
--- NOTE | 2016-12-23 10:28 | CONS ---
Date/Time of Note Date/Time of Note DATE: 12/23/16 TIME: 10:28 Assessment/Plan Assessment/Plan Chief Complaint/Hosp Course Physical exam Constitutional: In mild distress, answers questions Head: atraumatic, normocephalic Respiratory: crackles at bases b/l Cardiovascular: nl pulses, regular rate and rhythm Gastrointestinal: soft, tender Extremities: normal pulses left permacath 56 y/wo 1. ESRD T/T/S with left permacath 2. Colitis 3.Persistent abdominal pain/thickened ascending and transverse colon s/p colonoscopy with probable ischemic colitis on rt colon, Mesentric angiogram to be be done as outpatient 4 Persistent nausea and vommiting s/p EGD with distal esophagitis> 5 dm 6 htn Problems: Additional Assessment/Plan 1. Pt is on schedule , , Sat for HD; next HD today if pt discharged can f/u HD center at 4 am for session 2 GI/Surg/Vascular consult following Problems: Consultation Date/Type/Reason Admit Date/Time Dec 10, 2016 at 03:16 Initial Consult Date 12/10/16 Type of Consultation: Nephrology 24 HR Interval Summary Free Text/Dictation Denies any complains currently Exam/Review of Systems Vital Signs Vitals Vital Signs Date Time Temp Pulse Resp B/P Pulse Ox O2 Delivery O2 Flow Rate FiO2 12/23/16 09:31 98.6 80 20 113/56 98 12/23/16 09:10 Nasal Cannula 2.0 12/22/16 20:25 21 Intake and Output 12/22/16 12/22/16 12/23/16 15:00 23:00 07:00 Intake Total 500 ml 340 ml Balance 500 ml 340 ml Results Result Diagram: 12/23/16 0525 12/23/16 0525 Results 24 hrs Laboratory Tests Test 12/22/16 11:53 12/22/16 17:26 12/23/16 00:17 12/23/16 05:25 Bedside Glucose 90 96 90 White Blood Count 5.9 Red Blood Count 2.76 L Hemoglobin 8.2 L Hematocrit 27.3 L Mean Corpuscular Volume 98.9 Mean Corpuscular Hemoglobin 29.7 Mean Corpuscular Hemoglobin Concent 30.0 L Red Cell Distribution Width 19.4 H Platelet Count 108 L Mean Platelet Volume 11.1 H Neutrophils % 71.1 Lymphocytes % 13.4 L Monocytes % 14.6 H Eosinophils % 0.3 Basophils % 0.3 Nucleated Red Blood Cells % 0.0 Neutrophils # (Manual) 4.2 Lymphocytes # 0.8 Monocytes # 0.9 Eosinophils # 0.0 Basophils # 0.0 Nucleated Red Blood Cells # 0.0 Sodium Level 135 Potassium Level 4.7 Chloride Level 99 Carbon Dioxide Level 26 Anion Gap 15 Blood Urea Nitrogen 26 H Creatinine 5.42 H Glucose Level 69 L Calcium Level 7.0 L Test 12/23/16 06:01 Bedside Glucose 71 Medications Medications Current Medications Ondansetron HCl (Zofran Inj) 4 mg Q6H PRN IV NAUSEA AND/OR VOMITING Last administered on 12/19/16 09:42; Admin Dose 4 MG; Start 12/10/16 at 06:00 Acetaminophen (Tylenol Supp) 650 mg Q6H PRN [place] PAIN LEVEL 1-3 OR FEVER; Start 12/10/16 at 06:00 Morphine Sulfate (morphine) 1 mg Q4H PRN IV SEVERE PAIN LEVEL 7-10 Last administered on 12/22/16 01:58; Admin Dose 1 MG; Start 12/12/16 at 14:00 Diagnostic Test (Pha) (Accu-Chek) 1 ea Q6 XX Last administered on 12/23/16 06: 05; Admin Dose 1 EA; Start 12/13/16 at 06:00 Lactobacillus Acidophilus/ Rhamnosus (Culturelle) 1 cap BID PO Last administered on 12/22/16 20:54; Admin Dose 1 CAP; Start 12/13/16 at 21:00 Aspirin (Halfprin) 81 mg DAILY PO Last administered on 12/22/16 08:39; Admin Dose 81 MG; Start 12/16/16 at 09:00 Atorvastatin Calcium (Lipitor) 10 mg QHS PO Last administered on 12/22/16 20: 53; Admin Dose 10 MG; Start 12/15/16 at 21:00 Carvedilol (Coreg) 6.25 mg BID PO Last administered on 12/22/16 20:55; Admin Dose 6.25 MG; Start 12/15/16 at 21:00 Cyanocobalamin (Vitamin B12) 1,000 mcg DAILY PO Last administered on 12/22/16 08:40; Admin Dose 1,000 MCG; Start 12/16/16 at 09:00 Docusate Sodium (Colace) 100 mg BID PO Last administered on 12/19/16 21:43; Admin Dose 100 MG; Start 12/15/16 at 21:00 Folic Acid (Folic Acid) 1 mg DAILY PO Last administered on 12/22/16 08:40; Admin Dose 1 MG; Start 12/16/16 at 09:00 Gabapentin (Neurontin) 100 mg QHS PO Last administered on 12/22/16 20:53; Admin Dose 100 MG; Start 12/15/16 at 21:00 Levothyroxine Sodium (Synthroid) 137 mcg DAILY@06 PO Last administered on 05:57; Admin Dose 137 MCG; Start 12/16/16 at 06:00 Losartan Potassium (Cozaar) 50 mg BID PO Last administered on 12/22/16 20:54; Admin Dose 50 MG; Start 12/15/16 at 21:00 Pantoprazole (Protonix Tab) 40 mg DAILY@06 PO Last administered on 12/23/16 05 :57; Admin Dose 40 MG; Start 12/16/16 at 06:00 Pentoxifylline (Trental) 400 mg TID PO Last administered on 12/22/16 20:54; Admin Dose 400 MG; Start 12/17/16 at 21:00 Mesalamine (Delzicol Dr) 800 mg TID PO Last administered on 12/22/16 20:53; Admin Dose 800 MG; Start 12/17/16 at 21:00 Loperamide HCl (Imodium Cap) 2 mg DAILY PO Last administered on 12/22/16 08:39 ; Admin Dose 2 MG; Start 12/17/16 at 18:00 Oxymetazoline HCl (Afrin [place]) 1 spray DAILY NASAL Last administered on 08:40; Admin Dose 1 SPRAY; Start 12/18/16 at 17:00 Guaifenesin (Mucinex) 600 mg BID PO Last administered on 12/22/16 20:54; Admin Dose 600 MG; Start 12/19/16 at 14:00 Fluticasone Propionate (Flonase 0.05% Nasal) 1 spray BID NASAL Last administered on 12/22/16 20:51; Admin Dose 1 SPRAY; Start 12/19/16 at 14:00 Multivitamins Therapeutic (Theragran) 1 tab BID PO Last administered on 20:53; Admin Dose 1 TAB; Start 12/20/16 at 21:00 Hydralazine HCl (Apresoline) 10 mg Q6H PRN IV ELEVATED BLOOD PRESSURE; Start at 16:00 Guaifenesin (Robitussin Liquid Cup) 200 mg Q4H PRN PO COUGH Last administered on 12/22/16 16:59; Admin Dose 200 MG; Start 12/21/16 at 16:00 Phenol (Cepastat Lozenge) 1 lozenge Q1H PRN MT COUGH; Start 12/21/16 at 16:30 YI FRIEDMAN MD Dec 23, 2016 10:28
[2016-12-23] MEDS ORDERED: HEPARIN 1000 UNITS/ML 10 ML INJ CATHETER ONE (11:00)
[2016-12-23] MEDS: FLUTICASONE 0.05% 16 GM NAS SPRAY NASAL SCH ×2 (11:58→21:07)
[2016-12-23] MEDS: OXYMETAZOLINE 0.05% 15 ML NAS SPRAY NASAL SCH (11:58)
[2016-12-23] MEDS ORDERED: ALBUMIN HUMAN 25% 100 ML IV SCH (12:30)
[2016-12-23] MEDS: morphine 2 MG INJ IV PRN (13:58)
[2016-12-23] MEDS ORDERED: HYDROmorphONE 1 MG/ML SYG IM STA ×2 (14:31→15:28)
[2016-12-23] MEDS ORDERED: HYDROmorphONE 1 MG/ML SYG IV PRN (15:00)
--- NOTE | 2016-12-23 15:02 | PN ---
Date/Time of Note Date/Time of Note DATE: 12/23/16 TIME: 14:58 Assessment/Plan VTE Prophylaxis VTE Prophylaxis Intervention: heparin Lines/Catheters IV Catheter Type (from [facility]): Saline Lock Urinary Cath still in place: No Assessment/Plan Chief Complaint/Hosp Course Assessment/Plan: 56-year-old female prior history of bowel resection and possible mesenteric ischemia, coming in with abdominal pain rule out inflammatory, infectious versus ischemic colitis. 1. Inflammatory vs ischemic small bowel and infectious versus ischemic colitis- slowly improving, but patient with occasional nausea symptoms. Increase abdominal pain today dialysis. 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 Appreciate vascular surgery consult and recommendation -Continue aspirin, Trental, as well as Culturelle and Multivite Per vascular surgery recommendations, plan for mesenteric angiogram likely as outpatient. -Continue current pain management, will add increased pain control medications today as well 2. Diarrhea-patient with soft stools now Monitor for now, on Imodium 3. End-stage renal disease on dialysis: Patient with a history of nephrectomy -For dialysis Tuesday, , Tuesday monitor blood pressure very carefully , and renal recommendation 4. Diabetes-last A1c was 4.8 back in August 2016. A1c this admission equals 5.1 , fingersticks stable Monitor sugars for now 5. Anemia, likely secondary to chronic disease -Monitor H&H and transfuse as needed 6. Hypertension-stable presently -Continue antihypertensives with adjustment as needed 7. Cough: Lightly improved patient on p.o. guaifenesin -continue guaifenesin, Cepastat as needed -continue duo nebs every 4 hours as needed Problems: Subjective 24 Hr Interval Summary Free Text/Dictation Patient had dialysis earlier today, and subsequent increased abdominal pain symptoms. Exam/Review of Systems Vital Signs Vitals Vital Signs Date Time Temp Pulse Resp B/P Pulse Ox O2 Delivery O2 Flow Rate FiO2 12/23/16 11:30 72 18 12/23/16 09:31 98.6 113/56 98 12/23/16 09:10 Nasal Cannula 2.0 12/22/16 20:25 21 Intake and Output 12/22/16 12/22/16 12/23/16 15:00 23:00 07:00 Intake Total 500 ml 340 ml Balance 500 ml 340 ml Exam nad, lying in bed, answering questions, but in moderate distress secondary to pain no mrg lungs clear abd soft no rashes Results Result Diagram: 12/23/1625 12/23/16 05 Results 24 hrs Laboratory Tests Test 12/22/16 17:26 12/23/16 00:17 12/23/16 05:25 12/23/16 06:01 Bedside Glucose 96 90 71 White Blood Count 5.9 Red Blood Count 2.76 L Hemoglobin 8.2 L Hematocrit 27.3 L Mean Corpuscular Volume 98.9 Mean Corpuscular Hemoglobin 29.7 Mean Corpuscular Hemoglobin Concent 30.0 L Red Cell Distribution Width 19.4 H Platelet Count 108 L Mean Platelet Volume 11.1 H Neutrophils % 71.1 Lymphocytes % 13.4 L Monocytes % 14.6 H Eosinophils % 0.3 Basophils % 0.3 Nucleated Red Blood Cells % 0.0 Neutrophils # (Manual) 4.2 Lymphocytes # 0.8 Monocytes # 0.9 Eosinophils # 0.0 Basophils # 0.0 Nucleated Red Blood Cells # 0.0 Sodium Level 135 Potassium Level 4.7 Chloride Level 99 Carbon Dioxide Level 26 Anion Gap 15 Blood Urea Nitrogen 26 H Creatinine 5.42 H Glucose Level 69 L Calcium Level 7.0 L Test 12/23/16 13:03 Bedside Glucose 127 Medications Medications Current Medications Ondansetron HCl (Zofran Inj) 4 mg Q6H PRN IV NAUSEA AND/OR VOMITING Last administered on 12/19/16 09:42; Admin Dose 4 MG; Start 12/10/16 at 06:00 Acetaminophen (Tylenol Supp) 650 mg Q6H PRN [place] PAIN LEVEL 1-3 OR FEVER; Start 12/10/16 at 06:00 Morphine Sulfate (morphine) 1 mg Q4H PRN IV SEVERE PAIN LEVEL 7-10 Last administered on 12/23/16 13:58; Admin Dose 1 MG; Start 12/12/16 at 14:00 Diagnostic Test (Pha) (Accu-Chek) 1 ea Q6 XX Last administered on 12/23/16 06: 05; Admin Dose 1 EA; Start 12/13/16 at 06:00 Lactobacillus Acidophilus/ Rhamnosus (Culturelle) 1 cap BID PO Last administered on 12/22/16 20:54; Admin Dose 1 CAP; Start 12/13/16 at 21:00 Aspirin (Halfprin) 81 mg DAILY PO Last administered on 12/22/16 08:39; Admin Dose 81 MG; Start 12/16/16 at 09:00 Atorvastatin Calcium (Lipitor) 10 mg QHS PO Last administered on 12/22/16 20: 53; Admin Dose 10 MG; Start 12/15/16 at 21:00 Carvedilol (Coreg) 6.25 mg BID PO Last administered on 12/22/16 20:55; Admin Dose 6.25 MG; Start 12/15/16 at 21:00 Cyanocobalamin (Vitamin B12) 1,000 mcg DAILY PO Last administered on 12/22/16 08:40; Admin Dose 1,000 MCG; Start 12/16/16 at 09:00 Docusate Sodium (Colace) 100 mg BID PO Last administered on 12/19/16 21:43; Admin Dose 100 MG; Start 12/15/16 at 21:00 Folic Acid (Folic Acid) 1 mg DAILY PO Last administered on 12/22/16 08:40; Admin Dose 1 MG; Start 12/16/16 at 09:00 Gabapentin (Neurontin) 100 mg QHS PO Last administered on 12/22/16 20:53; Admin Dose 100 MG; Start 12/15/16 at 21:00 Levothyroxine Sodium (Synthroid) 137 mcg DAILY@06 PO Last administered on 05:57; Admin Dose 137 MCG; Start 12/16/16 at 06:00 Losartan Potassium (Cozaar) 50 mg BID PO Last administered on 12/22/16 20:54; Admin Dose 50 MG; Start 12/15/16 at 21:00 Pantoprazole (Protonix Tab) 40 mg DAILY@06 PO Last administered on 12/23/16 05 :57; Admin Dose 40 MG; Start 12/16/16 at 06:00 Pentoxifylline (Trental) 400 mg TID PO Last administered on 12/22/16 20:54; Admin Dose 400 MG; Start 12/17/16 at 21:00 Mesalamine (Delzicol Dr) 800 mg TID PO Last administered on 12/22/16 20:53; Admin Dose 800 MG; Start 12/17/16 at 21:00 Loperamide HCl (Imodium Cap) 2 mg DAILY PO Last administered on 12/22/16 08:39 ; Admin Dose 2 MG; Start 12/17/16 at 18:00 Oxymetazoline HCl (Afrin [place]) 1 spray DAILY NASAL Last administered on 11:58; Admin Dose 1 SPRAY; Start 12/18/16 at 17:00 Guaifenesin (Mucinex) 600 mg BID PO Last administered on 12/22/16 20:54; Admin Dose 600 MG; Start 12/19/16 at 14:00 Fluticasone Propionate (Flonase 0.05% Nasal) 1 spray BID NASAL Last administered on 12/23/16 11:58; Admin Dose 1 SPRAY; Start 12/19/16 at 14:00 Multivitamins Therapeutic (Theragran) 1 tab BID PO Last administered on 20:53; Admin Dose 1 TAB; Start 12/20/16 at 21:00 Hydralazine HCl (Apresoline) 10 mg Q6H PRN IV ELEVATED BLOOD PRESSURE; Start at 16:00 Guaifenesin (Robitussin Liquid Cup) 200 mg Q4H PRN PO COUGH Last administered on 12/22/16 16:59; Admin Dose 200 MG; Start 12/21/16 at 16:00 Phenol (Cepastat Lozenge) 1 lozenge Q1H PRN [place] COUGH; Start 12/21/16 at 16:30 Hydromorphone HCl (Dilaudid) 1 mg Q3H PRN IV PAIN; Start 12/23/16 at 15:00 BELINDA SORIANO Dec 23, 2016 15:02
--- NOTE | 2016-12-23 15:57 | PN ---
Date/Time of Note Date/Time of Note DATE: 12/23/16 TIME: 15:48 Assessment/Plan Lines/Catheters IV Catheter Type (from [facility]): Saline Lock Loza in Place (from [facility]): No Assessment/Plan Chief Complaint/Hosp Course -End-stage renal disease: The patient has been tolerating her dialysis sessions via her chest wall catheter well at the moment. The patient has been scheduled for a fistula creation, unfortunately has had a complicated course of abdominal surgeries that has prolonged her intervention for eventual fistula creation. -Chronic Mesenteric ischemia: The patient has findings of bowel ischemia upon her CT angiography. 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 However, At the moment, she does not seem to express findings of acute/chronic mesenteric ischemia. Denies any weight loss as a result of postprandial pain or food fear. The patient has always tolerated her diet without any restrictions of solids and liquids. Denies involuntary weight loss. All three mesenteric vessels have flow on CTA -My concern is that the patient may have had findings of possible gastroenteritis that may have led her to become severely dehydrated versus hypovolemia. Another possibility is hypotension during dialysis -At the moment, do not recommend for any further vascular intervention as the patient is improving. Recommend adequate hydration and avoid hypotension during her dialysis sessions. -Will plan to schedule the patient for mesenteric angiogram prior to discharge or as an outpatient, but will wait for her recovery from her current issue. -Optimize vascular status (nutrition, exercise, sugar control, antiplatelets). -Discussed findings and plan of management with a certified server systems administrator and she understands. -Thank you for allowing us to partake in the care of your patient. Please call with any questions. Problems: Subjective 24 Hr Interval Summary no new vascular events overnight, BM normal quality, no melena , no hematochezia , pt feels better Exam/Review of Systems Vital Signs Vitals Vital Signs Date Time Temp Pulse Resp B/P Pulse Ox O2 Delivery O2 Flow Rate FiO2 12/23/16 15:40 98.6 62 18 132/60 94 12/23/16 09:10 Nasal Cannula 2.0 12/22/16 20:25 21 Intake and Output 12/22/16 12/22/16 12/23/16 15:00 23:00 07:00 Intake Total 500 ml 340 ml Balance 500 ml 340 ml Exam Free Text/Dictation GENERAL: Alert and oriented times 3, LUNGS: Clear to auscultation bilaterally HEART: S1, S2 present ABDOMEN: Soft, nontender, nondistended. Bowel sounds positive. Surgical scar well healed. The umbilical area with a superficial wound with iodoform packing. EXTREMITIES: -Lower extremities, palpable femoral pulse, nonpalpable pedal pulse. Motor and sensory intact. Capillary refill 3 to 4 seconds. -Left upper extremity, palpable brachial pulse. Motor and sensory intact. Capillary refill 2 to 3 seconds. Surgical scar is well healed. Results Result Diagram: 12/23/16 0525 12/23/16 0525 TALISHA TITUS MD Dec 23, 2016 15:57
[2016-12-23] MEDS: ATORVASTATIN 10 MG TAB PO SCH (20:59)
[2016-12-23] MEDS: GABAPENTIN 100 MG CAP PO SCH (21:00)
[2016-12-24] VITALS (57 sets, daily range): BP systolic 60–111; BP diastolic 24–77; PULSE 63–85; RESP 10–32
[2016-12-24] MEDS: ALBUTEROL/IPRATROPIUM (NEB) 3 ML AMP HHN SCH ×4 (01:29→19:57)
[2016-12-24] MEDS ORDERED: SOD CHLORIDE 0.9% 250 ML IV ONE ×3 (03:00→05:30)
[2016-12-24] MEDS: ONDANSETRON 4 MG INJ IV PRN (04:54)
[2016-12-24] MEDS ORDERED: ALBUMIN HUMAN 25% 100 ML IV ONE ×2 (05:30→08:30)
[2016-12-24] MEDS ORDERED: ALBUMIN HUMAN 25% 100 ML ONE (05:35)
[2016-12-24] MEDS: PANTOPRAZOLE (EC) 40 MG TAB PO SCH (05:58)
[2016-12-24] MEDS: ACCU-CHEK XX SCH ×5 (05:58→21:00)
[2016-12-24] MEDS: LEVOTHYROXINE 137 MCG TAB PO SCH (05:58)
[2016-12-24 06:55] LABS: ABNORMAL IP MESSAGE 1; BASOPHILS % 0.3 % (0.0-2.0); HEMATOCRIT 25.8 % (37.0-47.0); HEMOGLOBIN 7.8 g/dl (12.0-16.0); LYMPHOCYTES # 0.9 10^3/ul (0.8-2.9); LYMPHOCYTES % 7.1 % (15.0-51.0); MEAN CORPUSCULAR HEMOGLOBIN 30.5 pg (29.0-33.0); MEAN CORPUSCULAR HGB CONC 30.2 g/dl (32.0-37.0); MEAN CORPUSCULAR VOLUME 100.8 fl (82.0-101.0); MEAN PLATELET VOLUME 11.5 fl (7.4-10.4); MONOCYTE # 1.4 10^3/ul (0.3-0.9); MONOCYTES % 10.7 % (0.0-11.0); NEUTROPHILS % 81.1 % (39.0-77.0); PLATELET COUNT 124 10^3/UL (140-415); RED BLOOD COUNT 2.56 10^6/ul (4.20-5.40); RED CELL DISTRIBUTION WIDTH 18.8 % (11.5-14.5); WHITE BLOOD COUNT 12.8 10^3/ul (4.8-10.8)
[2016-12-24 06:57] LABS: POSITIVE DIFF @See below
[2016-12-24 07:35] LABS: CALCIUM 7.1 mg/dl (8.4-10.2); CREATININE 4.62 mg/dl (0.44-1.00); POTASSIUM 4.3 mmol/L (3.5-5.1)
[2016-12-24] MEDS ORDERED: DEXTROSE 50% 50 ML SYRINGE ONE (07:41)
[2016-12-24] MEDS ORDERED: DEXTROSE 50% 50 ML SYRINGE IV ONE (08:00)
[2016-12-24] MEDS: MIDODRINE 5 MG TAB PO SCH ×3 (08:04→17:00)
[2016-12-24] MEDS: DEXTROSE 5%-0.9% NACL 1,000 ML IV SCH (08:50)
[2016-12-24] MEDS: PENTOXIFYLLINE (SR) 400 MG TAB PO SCH ×3 (09:00→21:00)
[2016-12-24] MEDS: FOLIC ACID 1 MG TAB PO SCH (09:00)
[2016-12-24] MEDS: LOPERAMIDE 2 MG CAP PO SCH (09:00)
[2016-12-24] MEDS: FLUTICASONE 0.05% 16 GM NAS SPRAY NASAL SCH ×2 (09:00→21:00)
[2016-12-24] MEDS: CYANOCOBALAMIN 500 MCG TAB PO SCH (09:00)
[2016-12-24] MEDS: DOCUSATE SODIUM 100 MG CAP PO SCH ×2 (09:00→21:00)
[2016-12-24] MEDS: MULTIVITAMINS THERAPEUTIC TAB PO SCH ×2 (09:00→21:00)
[2016-12-24] MEDS: ASPIRIN (EC) 81 MG TAB PO SCH (09:00)
[2016-12-24] MEDS: MESALAMINE (EC) 400 MG CAP PO SCH (09:00)
[2016-12-24] MEDS: LACTOBACILLUS RHAMNOSUS CAP PO SCH ×2 (09:00→21:00)
[2016-12-24] MEDS: GUAIFENESIN LA 600 MG TABSR PO SCH ×2 (09:00→21:00)
[2016-12-24] MEDS: OXYMETAZOLINE 0.05% 15 ML NAS SPRAY NASAL SCH (09:00)
[2016-12-24] MEDS: LOSARTAN 50 MG TAB PO SCH (10:08)
[2016-12-24] MEDS: PANTOPRAZOLE 40 MG INJ IV SCH ×2 (10:15→17:17)
--- NOTE | 2016-12-24 11:17 | CONS ---
Date/Time of Note Date/Time of Note DATE: 12/24/16 TIME: 11:11 Assessment/Plan Assessment/Plan Chief Complaint/Hosp Course Assessment: 1. Persistent diarrhea post significant small bowel resection. 2. Persistent abdominal pain/thickened ascending and transverse colon 3. Colonoscopy 12-17-16: Probable ischemic colitis right colon. 4. Persistent nausea and vomiting 5. EGD 12-17-16: Distal esophagitis, moderate, 2 linear ulcerations in the antrum of the stomach. Biopsies obtained. Rule out H. pylori infection. 6. Wound dehiscence 7. End-stage renal disease on chronic hemodialysis 8. Diabetes mellitus type 2 Plan 1. surgical eval 2. NG suctioning and NPO 3. continue protonix 40 iv bid 4. repeat CT or MR angiogram to evaluate for her pain out of proportion to clinical exam (r/o ischemic colitis) Problems: Consultation Date/Type/Reason Admit Date/Time Dec 10, 2016 at 03:16 Initial Consult Date 12/15/16 Type of Consultation: GI 24 HR Interval Summary Free Text/Dictation abdominal tenderness, nauseous Exam/Review of Systems Vital Signs Vitals Vital Signs Date Time Temp Pulse Resp B/P Pulse Ox O2 Delivery O2 Flow Rate FiO2 12/24/16 09:17 65 14 91/38 98 12/24/16 08:55 Nasal Cannula 2.0 12/24/16 08:04 97.9 12/22/16 20:25 21 Intake and Output 12/23/16 12/23/16 12/24/16 15:00 23:00 07:00 Intake Total 700 ml 460 ml 1520 ml Output Total 2700 ml Balance -2000 ml 460 ml 1520 ml Exam Constitutional: alert, obese Head: atraumatic, normocephalic Eyes: EOMI, nl conjunctiva, nl lids, nl sclera ENMT: mucosa pink and moist, nl external ears & nose, nl lips & teeth, nl nasal mucosa & septum Neck: non-tender, supple Respiratory: clear to auscultation, normal air movement Cardiovascular: regular rate and rhythm Gastrointestinal: bowel sounds (reduced), rebound or guarding, soft, tender ( generalized) Results Result Diagram: 12/24/16 0557 12/24/16 0557 Results 24 hrs Laboratory Tests Test 12/23/16 13:03 12/23/16 17:31 12/23/16 23:50 12/24/16 05:57 Bedside Glucose 127 105 115 White Blood Count 12.8 #H Red Blood Count 2.56 L Hemoglobin 7.8 L Hematocrit 25.8 L Mean Corpuscular Volume 100.8 Mean Corpuscular Hemoglobin 30.5 Mean Corpuscular Hemoglobin Concent 30.2 L Red Cell Distribution Width 18.8 H Platelet Count 124 L Mean Platelet Volume 11.5 H Neutrophils % 81.1 H Lymphocytes % 7.1 L Monocytes % 10.7 Eosinophils % 0.0 Basophils % 0.3 Nucleated Red Blood Cells % 0.0 Neutrophils # (Manual) 10.4 H Lymphocytes # 0.9 Monocytes # 1.4 H Eosinophils # 0.0 Basophils # 0.0 Nucleated Red Blood Cells # 0.0 Sodium Level 138 Potassium Level 4.3 Chloride Level 104 Carbon Dioxide Level 28 Anion Gap 10 # Blood Urea Nitrogen 21 H Creatinine 4.62 H Glucose Level 31 #*L Calcium Level 7.1 L Test 12/24/16 07:45 12/24/16 07:56 12/24/16 08:07 12/24/16 08:52 Bedside Glucose 36 *L 197 168 136 Test 12/24/16 09:56 Bedside Glucose 124 Medications Medications Current Medications Ondansetron HCl (Zofran Inj) 4 mg Q6H PRN IV NAUSEA AND/OR VOMITING Last administered on 12/24/16 04:54; Admin Dose 4 MG; Start 12/10/16 at 06:00 Acetaminophen (Tylenol Supp) 650 mg Q6H PRN [place] PAIN LEVEL 1-3 OR FEVER; Start 12/10/16 at 06:00 Morphine Sulfate (morphine) 1 mg Q4H PRN IV SEVERE PAIN LEVEL 7-10 Last administered on 12/23/16 13:58; Admin Dose 1 MG; Start 12/12/16 at 14:00 Lactobacillus Acidophilus/ Rhamnosus (Culturelle) 1 cap BID PO Last administered on 12/23/16 20:59; Admin Dose 1 CAP; Start 12/13/16 at 21:00 Aspirin (Halfprin) 81 mg DAILY PO Last administered on 12/22/16 08:39; Admin Dose 81 MG; Start 12/16/16 at 09:00 Atorvastatin Calcium (Lipitor) 10 mg QHS PO Last administered on 12/23/16 20: 59; Admin Dose 10 MG; Start 12/15/16 at 21:00 Carvedilol (Coreg) 6.25 mg BID PO Last administered on 12/23/16 21:00; Admin Dose 6.25 MG; Start 12/15/16 at 21:00 Cyanocobalamin (Vitamin B12) 1,000 mcg DAILY PO Last administered on 12/22/16 08:40; Admin Dose 1,000 MCG; Start 12/16/16 at 09:00 Docusate Sodium (Colace) 100 mg BID PO Last administered on 12/23/16 21:03; Admin Dose 100 MG; Start 12/15/16 at 21:00 Folic Acid (Folic Acid) 1 mg DAILY PO Last administered on 12/22/16 08:40; Admin Dose 1 MG; Start 12/16/16 at 09:00 Gabapentin (Neurontin) 100 mg QHS PO Last administered on 12/23/16 21:00; Admin Dose 100 MG; Start 12/15/16 at 21:00 Levothyroxine Sodium (Synthroid) 137 mcg DAILY@06 PO Last administered on 05:57; Admin Dose 137 MCG; Start 12/16/16 at 06:00 Losartan Potassium (Cozaar) 50 mg BID PO Last administered on 12/23/16 21:00; Admin Dose 50 MG; Start 12/15/16 at 21:00; Status Future Hold Pentoxifylline (Trental) 400 mg TID PO Last administered on 12/23/16 21:00; Admin Dose 400 MG; Start 12/17/16 at 21:00 Mesalamine (Delzicol Dr) 800 mg TID PO Last administered on 12/23/16 20:59; Admin Dose 800 MG; Start 12/17/16 at 21:00 Loperamide HCl (Imodium Cap) 2 mg DAILY PO Last administered on 12/22/16 08:39 ; Admin Dose 2 MG; Start 12/17/16 at 18:00 Oxymetazoline HCl (Afrin [place]) 1 spray DAILY NASAL Last administered on 11:58; Admin Dose 1 SPRAY; Start 12/18/16 at 17:00 Guaifenesin (Mucinex) 600 mg BID PO Last administered on 12/23/16 20:59; Admin Dose 600 MG; Start 12/19/16 at 14:00 Fluticasone Propionate (Flonase 0.05% Nasal) 1 spray BID NASAL Last administered on 12/23/16 21:07; Admin Dose 1 SPRAY; Start 12/19/16 at 14:00 Multivitamins Therapeutic (Theragran) 1 tab BID PO Last administered on 21:00; Admin Dose 1 TAB; Start 12/20/16 at 21:00 Hydralazine HCl (Apresoline) 10 mg Q6H PRN IV ELEVATED BLOOD PRESSURE; Start at 16:00 Guaifenesin (Robitussin Liquid Cup) 200 mg Q4H PRN PO COUGH Last administered on 12/22/16 16:59; Admin Dose 200 MG; Start 12/21/16 at 16:00 Phenol (Cepastat Lozenge) 1 lozenge Q1H PRN MT COUGH; Start 12/21/16 at 16:30 Midodrine 10 mg 10 mg TID@,,17 PO Last administered on 12/24/16 08:04; Admin Dose 10 MG; Start 12/24/16 at 09:00 Dextrose/Sodium Chloride (D5-NS) 1,000 ml @ 30 mls/hr Q24H IV Last administered on 12/24/16 08:50; Admin Dose 30 MLS/HR; Start 12/24/16 at 08:30 Pantoprazole (Protonix Iv) 40 mg BID@06,18 IV Last administered on 12/24/16 10: 15; Admin Dose 40 MG; Start 12/24/16 at 09:00 Diagnostic Test (Pha) (Accu-Chek) 1 ea Q4 XX ; Start 12/24/16 at 09:00 Hydromorphone HCl (Dilaudid) 1 mg Q6H PRN IV PAIN; Start 12/24/16 at 11:00 BETZAIDA CHANG MD Dec 24, 2016 11:17
[2016-12-24] MEDS ORDERED: SOD CHLORIDE 0.9% 250 ML IV* ONE (11:19)
--- NOTE | 2016-12-24 11:24 | PN ---
Date/Time of Note Date/Time of Note DATE: 12/24/16 TIME: 11:15 Assessment/Plan VTE Prophylaxis VTE Prophylaxis Intervention: SCD's Lines/Catheters IV [facility]from [facility] Urinary Cath still in place: No Assessment/Plan Chief Complaint/Hosp Course Assessment/Plan: 56-year-old female prior history of bowel resection and possible mesenteric ischemia, coming in with abdominal pain rule out inflammatory, infectious versus ischemic colitis. 1. Inflammatory vs ischemic small bowel and infectious versus ischemic colitis- was slowly improving, but now very tender to more palpation. Has increase abdominal pain today. 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 Appreciate vascular surgery consult and recommendation -Continue aspirin, Trental, as well as Culturelle and Multivite Per discussion with GI and surgery teams today, will get stat CT scan with IV contrast to rule out emboli versus ischemic bowel versus other. -Pressor support if systolic less than 80, low-dose IV fluids for now. -Continue current pain management, also get pain and palliative care consult 2. Diarrhea-patient with soft stools now Monitor for now, on Imodium 3. End-stage renal disease on dialysis: Patient with a history of nephrectomy -For dialysis Tuesday, , Tuesday monitor blood pressure very carefully , and renal recommendation 4. Diabetes-last A1c was 4.8 back in August 2016. A1c this admission equals 5.1 Monitor sugars for now 5. Anemia, likely secondary to chronic disease -Monitor H&H and transfuse as needed 6. Hypertension-stable presently -Continue antihypertensives with adjustment as needed 7. Cough: Lightly improved patient on p.o. guaifenesin -continue guaifenesin, Cepastat as needed -continue duo nebs every 4 hours as needed Critical care time spent on patient care today equals 45 minutes. Problems: Subjective 24 Hr Interval Summary Free Text/Dictation Patient transferred to intensive care unit early this morning because of abdominal pain, hypotension, and low blood sugars. Presently is complaining of abdominal pain. Exam/Review of Systems Vital Signs Vitals Vital Signs Date Time Temp Pulse Resp B/P Pulse Ox O2 Delivery O2 Flow Rate FiO2 12/24/16 10:37 65 20 81/34 100 Nasal Cannula 12/24/16 08:55 2.0 12/24/16 08:04 97.9 12/22/16 20:25 21 Intake and Output 12/23/16 12/23/16 12/24/16 14:59 22:59 06:59 Intake Total 700 ml 460 ml 1520 ml Output Total 2700 ml Balance -2000 ml 460 ml 1520 ml Exam nad, lying in bed, answering questions, but in moderate distress secondary to pain no mrg lungs clear abd quite tender to minimal palpation, decreased bowel sounds no rashes Results Result Diagram: 12/24/16 0557 12/24/16 0557 Results 24 hrs Laboratory Tests Test 12/23/16 13:03 12/23/16 17:31 12/23/16 23:50 12/24/16 05:57 Bedside Glucose 127 105 115 White Blood Count 12.8 #H Red Blood Count 2.56 L Hemoglobin 7.8 L Hematocrit 25.8 L Mean Corpuscular Volume 100.8 Mean Corpuscular Hemoglobin 30.5 Mean Corpuscular Hemoglobin Concent 30.2 L Red Cell Distribution Width 18.8 H Platelet Count 124 L Mean Platelet Volume 11.5 H Neutrophils % 81.1 H Lymphocytes % 7.1 L Monocytes % 10.7 Eosinophils % 0.0 Basophils % 0.3 Nucleated Red Blood Cells % 0.0 Neutrophils # (Manual) 10.4 H Lymphocytes # 0.9 Monocytes # 1.4 H Eosinophils # 0.0 Basophils # 0.0 Nucleated Red Blood Cells # 0.0 Sodium Level 138 Potassium Level 4.3 Chloride Level 104 Carbon Dioxide Level 28 Anion Gap 10 # Blood Urea Nitrogen 21 H Creatinine 4.62 H Glucose Level 31 #*L Calcium Level 7.1 L Test 12/24/16 07:45 12/24/16 07:56 12/24/16 08:07 12/24/16 08:52 Bedside Glucose 36 *L 197 168 136 Test 12/24/16 09:56 Bedside Glucose 124 Medications Medications Current Medications Ondansetron HCl (Zofran Inj) 4 mg Q6H PRN IV NAUSEA AND/OR VOMITING Last administered on 12/24/16t 04:54; Admin Dose 4 MG; Start 12/10/16 at 06:00 Acetaminophen (Tylenol Supp) 650 mg Q6H PRN [place] PAIN LEVEL 1-3 OR FEVER; Start 12/10/16 at 06:00 Morphine Sulfate (morphine) 1 mg Q4H PRN IV SEVERE PAIN LEVEL 7-10 Last administered on 12/23/16 13:58; Admin Dose 1 MG; Start 12/12/16 at 14:00 Lactobacillus Acidophilus/ Rhamnosus (Culturelle) 1 cap BID PO Last administered on 12/23/16 20:59; Admin Dose 1 CAP; Start 12/13/16 at 21:00 Aspirin (Halfprin) 81 mg DAILY PO Last administered on 12/22/16 08:39; Admin Dose 81 MG; Start 12/16/16 at 09:00 Atorvastatin Calcium (Lipitor) 10 mg QHS PO Last administered on 12/23/16 20: 59; Admin Dose 10 MG; Start 12/15/16 at 21:00 Carvedilol (Coreg) 6.25 mg BID PO Last administered on 12/23/16 21:00; Admin Dose 6.25 MG; Start 12/15/16 at 21:00 Cyanocobalamin (Vitamin B12) 1,000 mcg DAILY PO Last administered on 12/22/16 08:40; Admin Dose 1,000 MCG; Start 12/16/16 at 09:00 Docusate Sodium (Colace) 100 mg BID PO Last administered on 12/23/16 21:03; Admin Dose 100 MG; Start 12/15/16 at 21:00 Folic Acid (Folic Acid) 1 mg DAILY PO Last administered on 12/22/16 08:40; Admin Dose 1 MG; Start 12/16/16 at 09:00 Gabapentin (Neurontin) 100 mg QHS PO Last administered on 12/23/16 21:00; Admin Dose 100 MG; Start 12/15/16 at 21:00 Levothyroxine Sodium (Synthroid) 137 mcg DAILY@06 PO Last administered on 05:57; Admin Dose 137 MCG; Start 12/16/16 at 06:00 Losartan Potassium (Cozaar) 50 mg BID PO Last administered on 12/23/16 21:00; Admin Dose 50 MG; Start 12/15/16 at 21:00; Status Future Hold Pentoxifylline (Trental) 400 mg TID PO Last administered on 12/23/16 21:00; Admin Dose 400 MG; Start 12/17/16 at 21:00 Mesalamine (Delzicol Dr) 800 mg TID PO Last administered on 12/23/16 20:59; Admin Dose 800 MG; Start 12/17/16 at 21:00; Status Future Hold Loperamide HCl (Imodium Cap) 2 mg DAILY PO Last administered on 12/22/16 08:39 ; Admin Dose 2 MG; Start 12/17/16 at 18:00 Oxymetazoline HCl (Afrin [place]) 1 spray DAILY NASAL Last administered on 11:58; Admin Dose 1 SPRAY; Start 12/18/16 at 17:00 Guaifenesin (Mucinex) 600 mg BID PO Last administered on 12/23/16 20:59; Admin Dose 600 MG; Start 12/19/16 at 14:00 Fluticasone Propionate (Flonase 0.05% Nasal) 1 spray BID NASAL Last administered on 12/23/16 21:07; Admin Dose 1 SPRAY; Start 12/19/16 at 14:00 Multivitamins Therapeutic (Theragran) 1 tab BID PO Last administered on 21:00; Admin Dose 1 TAB; Start 12/20/16 at 21:00 Hydralazine HCl (Apresoline) 10 mg Q6H PRN IV ELEVATED BLOOD PRESSURE; Start at 16:00 Guaifenesin (Robitussin Liquid Cup) 200 mg Q4H PRN PO COUGH Last administered on 12/22/16 16:59; Admin Dose 200 MG; Start 12/21/16 at 16:00 Phenol (Cepastat Lozenge) 1 lozenge Q1H PRN MT COUGH; Start 12/21/16 at 16:30 Midodrine 10 mg 10 mg TID@, PO Last administered on 12/24/16 08:04; Admin Dose 10 MG; Start 12/24/16 at 09:00 Dextrose/Sodium Chloride (D5-NS) 1,000 ml @ 30 mls/hr Q24H IV Last administered on 12/24/16 08:50; Admin Dose 30 MLS/HR; Start 12/24/16 at 08:30 Pantoprazole (Protonix Iv) 40 mg BID@06,18 IV Last administered on 12/24/16 10: 15; Admin Dose 40 MG; Start 12/24/16 at 09:00 Diagnostic Test (Pha) (Accu-Chek) 1 ea Q4 XX ; Start 12/24/16 at 09:00 Hydromorphone HCl (Dilaudid) 1 mg Q6H PRN IV PAIN; Start 12/24/16 at 11:00 BELINDA SORIANO Dec 24, 2016 11:24
[2016-12-24] MEDS ORDERED: BARIUM SULF 2% 450 ML BTL (BERRY SMOOTHIE) PO ONE ×2 (11:30)
[2016-12-24 11:45] LABS: HEMATOCRIT 22.8 % (37.0-47.0)
[2016-12-24 11:54] LABS: HEMOGLOBIN 6.9 g/dl (12.0-16.0)
[2016-12-24 12:08] LABS: INR 2.59; PROTIME 28.1 Sec (12.2-14.2); PT RATIO 2.2
[2016-12-24 12:10] LABS: PARTIAL THROMBOPLASTIN TIME 56.6 Sec (25.0-35.0)
[2016-12-24] MEDS: HYDROmorphONE 1 MG/ML SYG IV PRN ×2 (12:32→19:49)
--- NOTE | 2016-12-24 13:36 | CONS ---
ASIM LANGSTON 12/24/16 1336: Date/Time of Note Date/Time of Note DATE: 12/24/16 TIME: 13:34 Assessment/Plan Assessment/Plan Chief Complaint/Hosp Course 1. ESRD. 2. Colitis 3. Persistent diarrhea 4. S/p small bowel resection. 5. Persistent abdominal pain 6. Abdomen wound dehiscence 7. Abdominal pain 8. 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 9. Severe anemia 10. Cholelithiasis and mild gallbladder wall thickening. 7. Status post left nephrectomy. Problems: Additional Assessment/Plan 1. continue HD 2. Per GI, keep NG tube Consultation Date/Type/Reason Admit Date/Time Dec 10, 2016 at 03:16 Initial Consult Date 12/10/16 Type of Consultation: nephrology Reason for Consultation Dr Nuñez Exam/Review of Systems Vital Signs Vitals Vital Signs Date Time Temp Pulse Resp B/P Pulse Ox O2 Delivery O2 Flow Rate FiO2 12/24/16 13:23 67 18 100 Nasal Cannula 2.0 12/24/16 10:37 81/34 12/24/16 08:04 97.9 12/22/16 20:25 21 Intake and Output 12/23/16 12/23/16 12/24/16 14:59 22:59 06:59 Intake Total 700 ml 460 ml 1520 ml Output Total 2700 ml Balance -2000 ml 460 ml 1520 ml Exam Constitutional: alert, oriented Neck: supple Respiratory: diminished breath sounds Cardiovascular: regular rate and rhythm Gastrointestinal: rebound or guarding Results Result Diagram: 12/24/16 1119 12/24/16 0557 Results 24 hrs Laboratory Tests Test 12/23/16 17:31 12/23/16 23:50 12/24/16 05:57 12/24/16 07:45 Bedside Glucose 105 115 36 *L White Blood Count 12.8 #H Red Blood Count 2.56 L Hemoglobin 7.8 L Hematocrit 25.8 L Mean Corpuscular Volume 100.8 Mean Corpuscular Hemoglobin 30.5 Mean Corpuscular Hemoglobin Concent 30.2 L Red Cell Distribution Width 18.8 H Platelet Count 124 L Mean Platelet Volume 11.5 H Neutrophils % 81.1 H Lymphocytes % 7.1 L Monocytes % 10.7 Eosinophils % 0.0 Basophils % 0.3 Nucleated Red Blood Cells % 0.0 Neutrophils # (Manual) 10.4 H Lymphocytes # 0.9 Monocytes # 1.4 H Eosinophils # 0.0 Basophils # 0.0 Nucleated Red Blood Cells # 0.0 Sodium Level 138 Potassium Level 4.3 Chloride Level 104 Carbon Dioxide Level 28 Anion Gap 10 # Blood Urea Nitrogen 21 H Creatinine 4.62 H Glucose Level 31 #*L Calcium Level 7.1 L Test 12/24/16 07:56 12/24/16 08:07 12/24/16 08:52 12/24/16 09:56 Bedside Glucose 197 168 136 124 Test 12/24/16 11:19 Hemoglobin 6.9 *L Hematocrit 22.8 L Prothrombin Time 28.1 #H Prothrombin Time Ratio 2.2 INR International Normalized Ratio 2.59 Activated Partial Thromboplast Time 56.6 H Medications Medications Current Medications Ondansetron HCl (Zofran Inj) 4 mg Q6H PRN IV NAUSEA AND/OR VOMITING Last administered on 12/24/16 04:54; Admin Dose 4 MG; Start 12/10/16 at 06:00 Acetaminophen (Tylenol Supp) 650 mg Q6H PRN [place] PAIN LEVEL 1-3 OR FEVER; Start 12/10/16 at 06:00 Morphine Sulfate (morphine) 1 mg Q4H PRN IV SEVERE PAIN LEVEL 7-10 Last administered on 12/23/16 13:58; Admin Dose 1 MG; Start 12/12/16 at 14:00 Lactobacillus Acidophilus/ Rhamnosus (Culturelle) 1 cap BID PO Last administered on 12/23/16 20:59; Admin Dose 1 CAP; Start 12/13/16 at 21:00 Aspirin (Halfprin) 81 mg DAILY PO Last administered on 12/22/16 08:39; Admin Dose 81 MG; Start 12/16/16 at 09:00 Atorvastatin Calcium (Lipitor) 10 mg QHS PO Last administered on 12/23/16 20: 59; Admin Dose 10 MG; Start 12/15/16 at 21:00 Carvedilol (Coreg) 6.25 mg BID PO Last administered on 12/23/16 21:00; Admin Dose 6.25 MG; Start 12/15/16 at 21:00 Cyanocobalamin (Vitamin B12) 1,000 mcg DAILY PO Last administered on 12/22/16 08:40; Admin Dose 1,000 MCG; Start 12/16/16 at 09:00 Docusate Sodium (Colace) 100 mg BID PO Last administered on 12/23/16 21:03; Admin Dose 100 MG; Start 12/15/16 at 21:00 Folic Acid (Folic Acid) 1 mg DAILY PO Last administered on 12/22/16 08:40; Admin Dose 1 MG; Start 12/16/16 at 09:00 Gabapentin (Neurontin) 100 mg QHS PO Last administered on 12/23/16 21:00; Admin Dose 100 MG; Start 12/15/16 at 21:00 Levothyroxine Sodium (Synthroid) 137 mcg DAILY@06 PO Last administered on 05:57; Admin Dose 137 MCG; Start 12/16/16 at 06:00 Losartan Potassium (Cozaar) 50 mg BID PO Last administered on 12/23/16 21:00; Admin Dose 50 MG; Start 12/15/16 at 21:00; Status Future Hold Pentoxifylline (Trental) 400 mg TID PO Last administered on 12/23/16 21:00; Admin Dose 400 MG; Start 12/17/16 at 21:00 Mesalamine (Delzicol Dr) 800 mg TID PO Last administered on 12/23/16 20:59; Admin Dose 800 MG; Start 12/17/16 at 21:00; Status Future Hold Loperamide HCl (Imodium Cap) 2 mg DAILY PO Last administered on 12/22/16 08:39 ; Admin Dose 2 MG; Start 12/17/16 at 18:00 Oxymetazoline HCl (Afrin [place]) 1 spray DAILY NASAL Last administered on 11:58; Admin Dose 1 SPRAY; Start 12/18/16 at 17:00 Guaifenesin (Mucinex) 600 mg BID PO Last administered on 12/23/16 20:59; Admin Dose 600 MG; Start 12/19/16 at 14:00 Fluticasone Propionate (Flonase 0.05% Nasal) 1 spray BID NASAL Last administered on 12/23/16 21:07; Admin Dose 1 SPRAY; Start 12/19/16 at 14:00 Multivitamins Therapeutic (Theragran) 1 tab BID PO Last administered on 21:00; Admin Dose 1 TAB; Start 12/20/16 at 21:00 Hydralazine HCl (Apresoline) 10 mg Q6H PRN IV ELEVATED BLOOD PRESSURE; Start at 16:00 Guaifenesin (Robitussin Liquid Cup) 200 mg Q4H PRN PO COUGH Last administered on 12/22/16 16:59; Admin Dose 200 MG; Start 12/21/16 at 16:00 Phenol (Cepastat Lozenge) 1 lozenge Q1H PRN MT COUGH; Start 12/21/16 at 16:30 Midodrine 10 mg 10 mg TID@,,17 PO Last administered on 12/24/16 08:04; Admin Dose 10 MG; Start 12/24/16 at 09:00 Dextrose/Sodium Chloride (D5-NS) 1,000 ml @ 30 mls/hr Q24H IV Last administered on 12/24/16 08:50; Admin Dose 30 MLS/HR; Start 12/24/16 at 08:30 Pantoprazole (Protonix Iv) 40 mg BID@06,18 IV Last administered on 12/24/16 10: 15; Admin Dose 40 MG; Start 12/24/16 at 09:00 Diagnostic Test (Pha) (Accu-Chek) 1 ea Q4 XX ; Start 12/24/16 at 09:00 Hydromorphone HCl (Dilaudid) 1 mg Q6H PRN IV PAIN Last administered on 12:32; Admin Dose 1 MG; Start 12/24/16 at 11:00 YI FRIEDMAN MD 12/24/16 1415: Assessment/Plan Assessment/Plan Chief Complaint/Hosp Course - Pt condition critical, hypotension> shock secondary to bleeding? , Levophed/ albumin/ blood/surgery and GI consult - Will reassess for HD tmw Problems: Exam/Review of Systems Results Result Diagram: 12/24/16 1119 12/24/16 0557 ASIM LANGSTON Dec 24, 2016 13:36 YI FRIEDMAN MD Dec 24, 2016 14:15
[2016-12-24] MEDS ORDERED: SOD CHLORIDE 0.9% 100 ML ONE (13:55)
[2016-12-24] MEDS ORDERED: IODIXANOL LOCM 100 ML BTL ONE (13:55)
--- NOTE | 2016-12-24 15:19 | RADRPT ---
PROCEDURE: CT Abdomen and Pelvis with contrast. CLINICAL INDICATION: Abdominal pain, evaluate for ischemic bowel TECHNIQUE: CT of the abdomen and pelvis was performed on a multi-detector scanner following the un complicated IV administration of 100 cc of Omnipaque 300. Coronal and sagittal images were reformat jeovany from the axial data set. One or more of the following dose reduction techniques were used: auto mated exposure control, adjustment of the mA and/or kV according to patient size, use of iterative r econstruction technique. CTDI = 6.69 mGy. DLP = 3/77.52 mGy-cm. COMPARISON: None. FINDINGS: Right lung base consolidation is noted, possibly atelectasis or pneumonia. Small amount of right pl eural fluid is present. There is mild cardiomegaly, without significant pericardial fluid. Coronar y arterial and aortic atherosclerotic calcifications are noted. Poorly defined, hypoenhancing, gas containing area is identified in the hepatic dome, measuring approximately 3.7 x 3.2 x 5.4 cm (601-4 0), concerning for hepatic abscess. The portal and hepatic veins remain patent. Cholelithiasis is s een without gross evidence to indicate cholecystitis. Biliary tree, pancreas, spleen and adrenal gl ands are unremarkable. There is moderate chronic right renal atrophy. Benign right renal cyst is n oted. The patient is status post left nephrectomy. Nasogastric tube tip is within the stomach. There is no abdominal aortic aneurysm or dissection. Aortic vascular calcifications are present. T here is no retroperitoneal lymphadenopathy. The ousmane hepatis region is clear. The patient is status post partial small bowel resection. Areas of small bowel wall thickening and mesenteric edema are identified, consistent with enteritis. There is suspicion of small bowel pneum atosis in this area as well, raising concern for ischemic enteritis. No bowel obstruction or free i ntraperitoneal air is identified. Small amount of peritoneal free fluid is present. Urinary bladde r, uterus and adnexa are grossly unremarkable. No pelvic mass or lymphadenopathy is seen. The surrounding osseous structures are remarkable for degenerative enthesopathy of the spine. No os teolytic or osteoblastic lesion is detected. IMPRESSION: 1. Poorly defined, gas containing, hypoenhancing area is seen in the hepatic dome, new when compare d to the prior CT, concerning for developing hepatic abscess. 2. Areas of small bowel wall thickening and mesenteric edema are identified, increased from the adrián or exam, with probable bowel wall pneumatosis in this location - findings are concerning for ischemi c enteritis. No evidence of bowel obstruction or perforation is identified. 3. Right lower lobe pulmonary consolidation is noted, possibly atelectasis or pneumonia. Small kael unt of right pleural fluid is present. 4. There is stable mild cardiomegaly. Coronary arterial and aortoiliac atherosclerotic calcificati ons are present. 5. Nasogastric tube tip is in the stomach. 6. The patient is status post left nephrectomy. Right kidney is moderately atrophic. 7. Cholelithiasis is seen without evidence for cholecystitis. The above findings were discussed with BRENTON Pickens on 12/24/2016 3:17:41 PM. RPTAT: HDWR .Everardo Murry MD, Date Time Electronically viewed and signed by .Everardo Murry MD, on 12/24/2016 15:18 .R/
--- NOTE | 2016-12-24 18:18 | CONS ---
Date/Time of Note Date/Time of Note DATE: 12/24/16 TIME: 18:05 Assessment/Plan Assessment/Plan Additional Assessment/Plan I have spoken to daughter in detail with a certified sign language interpreter. Discussed patient's critical condition and options which are few. Tell her that her mother was her risk for surgical procedure secondary to underlying current serious medical problems as well as comorbid major medical problems. We discussed options however I did not push her to change her mother's CODE STATUS until we arrange a conference call tomorrow morning with her to sisters also. Patient father lives in [place] my impressions are that he is not in a position to make any decisions on his 's behalf. Daughter assures me that she is a decision maker on going level of care. Formal palliative care consultation addressing goals of care, pain and symptom management, patient's understanding of underlying serious medical condition primarily her 2 daughters who are not available at this time. I have asked daughter to speak to mother to decide whether or not she in fact would want to have artificial life support including artificial ventilation, cardiopulmonary resuscitation. Patient adamantly refuses to have any further surgical intervention that is not an option per patient herself Consultation Date/Type/Reason Admit Date/Time Dec 10, 2016 at 03:16 Type of Consultation: Palliative care Hx of Present Illness This is an extremely ill 56-year-old female who looks much older than her stated age who is critically ill in the intensive care unit [facility]. 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 Patient has an extensive history of bowel resection secondary to severe atherosclerotic circulatory vascular disease. Please refer to extensive notes from surgical consultations. Patient became hypotensive and was transferred to the intensive care unit currently in shock. Repeat CT scan shows pneumo intestinalis and evidence of possible abscess of the dome of the liver. Patient is extremely high risk of surgical procedure. I am asked to speak to family members. Patient has history of renal failure on hemodialysis. Other comorbid major medical problems include hypertension type 2 diabetes hyperlipidemia patient is frail presented also with dehydration. HISTORY OF PRESENT ILLNESS: Dear Doctors, the patient is a 56- year-old female known to our vascular surgery service group, who presented with abdominal pain, diarrhea, and generalized weakness. It seems the patient had noticed her having abdominal pain that had been getting worse over the past few days and was admitted to [place] for septic shock, at which time she was discharged with antibiotics without definitive improvement. As of recent, the patient has a previous history of small bowel ischemia, in which she underwent exploratory laparotomy with bowel resection and this course was complicated with wound dehiscence that is being currently managed with some local wound care for a small area that is still open. Otherwise, the patient right now denies shortness of breath, chest pain, nausea, vomiting, fever, or chills. Patient is able to tolerate some diet and her stools have not shown any hematochezia or melena. 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 She denies any history of postprandial pain or any issues of recent weight loss, other than her recent surgeries. Constitutional: other Eyes: no complaints ENT: no complaints Respiratory: no complaints Cardiovascular: no complaints Gastrointestinal: constipation Genitourinary: no complaints Musculoskeletal: no complaints Skin: no complaints Neurologic: no complaints Endocrine: no complaints Lymphatic: no complaints Psychological: nl mood/affect, no complaints Immunologic: no complaints Past Medical History Medical History: diabetes, high cholesterol, hypertension, renal disease, other (Mesenteric ischemia) Past Surgical History Past Surgical Hx: other (small bowel resection) Social History Alcohol Use: none Smoking Status: Never smoker Drug Use: none Exam/Review of Systems Vital Signs Vitals Vital Signs Date Time Temp Pulse Resp B/P Pulse Ox O2 Delivery O2 Flow Rate FiO2 12/24/16 17:00 68 32 83/44 96 Nasal Cannula 12/24/16 16:00 97.5 12/24/16 13:23 2.0 12/22/16 20:25 21 Intake and Output 12/23/16 12/23/16 12/24/16 15:00 23:00 07:00 Intake Total 700 ml 460 ml 1520 ml Output Total 2700 ml Balance -2000 ml 460 ml 1520 ml Exam Constitutional: distress, frail Eyes: EOMI, PERRL, nl conjunctiva, nl lids, nl sclera Neck: non-tender, supple Respiratory: congested cough, crackles/rales, diminished breath sounds Cardiovascular: nl pulses, regular rate and rhythm, No S3, No S4, No bruits, No diastolic murmur, No edema, No gallop, No irregular rhythm, No jugular venous distention (JVD), No murmurs/extra sounds, No other, No rub, No systolic murmur Gastrointestinal: distended, tender Extremities: normal pulses, No calf tenderness, No clubbing, No cyanosis, No edema, No other, No palpable cord, No pitting pedal edema, No tenderness Results Result Diagram: 12/24/16 1119 12/24/16 0557 Results 24 hrs Laboratory Tests Test 12/23/16 23:50 12/24/16 05:57 12/24/16 07:45 12/24/16 07:56 Bedside Glucose 115 36 *L 197 White Blood Count 12.8 #H Red Blood Count 2.56 L Hemoglobin 7.8 L Hematocrit 25.8 L Mean Corpuscular Volume 100.8 Mean Corpuscular Hemoglobin 30.5 Mean Corpuscular Hemoglobin Concent 30.2 L Red Cell Distribution Width 18.8 H Platelet Count 124 L Mean Platelet Volume 11.5 H Neutrophils % 81.1 H Lymphocytes % 7.1 L Monocytes % 10.7 Eosinophils % 0.0 Basophils % 0.3 Nucleated Red Blood Cells % 0.0 Neutrophils # (Manual) 10.4 H Lymphocytes # 0.9 Monocytes # 1.4 H Eosinophils # 0.0 Basophils # 0.0 Nucleated Red Blood Cells # 0.0 Sodium Level 138 Potassium Level 4.3 Chloride Level 104 Carbon Dioxide Level 28 Anion Gap 10 # Blood Urea Nitrogen 21 H Creatinine 4.62 H Glucose Level 31 #*L Calcium Level 7.1 L Test 12/24/16 08:07 12/24/16 08:52 12/24/16 09:56 12/24/16 11:19 Bedside Glucose 168 136 124 Hemoglobin 6.9 *L Hematocrit 22.8 L Prothrombin Time 28.1 #H Prothrombin Time Ratio 2.2 INR International Normalized Ratio 2.59 Activated Partial Thromboplast Time 56.6 H Test 12/24/16 14:18 12/24/16 17:19 Bedside Glucose 126 121 Medications Medications Current Medications Ondansetron HCl (Zofran Inj) 4 mg Q6H PRN IV NAUSEA AND/OR VOMITING Last administered on 12/24/16t 04:54; Admin Dose 4 MG; Start 12/10/16 at 06:00 Acetaminophen (Tylenol Supp) 650 mg Q6H PRN [place] PAIN LEVEL 1-3 OR FEVER; Start 12/10/16 at 06:00 Morphine Sulfate (morphine) 1 mg Q4H PRN IV SEVERE PAIN LEVEL 7-10 Last administered on 12/23/16 13:58; Admin Dose 1 MG; Start 12/12/16 at 14:00 Lactobacillus Acidophilus/ Rhamnosus (Culturelle) 1 cap BID PO Last administered on 12/23/16 20:59; Admin Dose 1 CAP; Start 12/13/16 at 21:00 Aspirin (Halfprin) 81 mg DAILY PO Last administered on 12/22/16 08:39; Admin Dose 81 MG; Start 12/16/16 at 09:00 Atorvastatin Calcium (Lipitor) 10 mg QHS PO Last administered on 12/23/16 20: 59; Admin Dose 10 MG; Start 12/15/16 at 21:00 Carvedilol (Coreg) 6.25 mg BID PO Last administered on 12/23/16 21:00; Admin Dose 6.25 MG; Start 12/15/16 at 21:00 Cyanocobalamin (Vitamin B12) 1,000 mcg DAILY PO Last administered on 12/22/16 08:40; Admin Dose 1,000 MCG; Start 12/16/16 at 09:00 Docusate Sodium (Colace) 100 mg BID PO Last administered on 12/23/16 21:03; Admin Dose 100 MG; Start 12/15/16 at 21:00 Folic Acid (Folic Acid) 1 mg DAILY PO Last administered on 12/22/16 08:40; Admin Dose 1 MG; Start 12/16/16 at 09:00 Gabapentin (Neurontin) 100 mg QHS PO Last administered on 12/23/16 21:00; Admin Dose 100 MG; Start 12/15/16 at 21:00 Levothyroxine Sodium (Synthroid) 137 mcg DAILY@06 PO Last administered on 05:57; Admin Dose 137 MCG; Start 12/16/16 at 06:00 Losartan Potassium (Cozaar) 50 mg BID PO Last administered on 12/23/16 21:00; Admin Dose 50 MG; Start 12/15/16 at 21:00; Status Future Hold Pentoxifylline (Trental) 400 mg TID PO Last administered on 12/23/16 21:00; Admin Dose 400 MG; Start 12/17/16 at 21:00 Mesalamine (Delzicol Dr) 800 mg TID PO Last administered on 12/23/16 20:59; Admin Dose 800 MG; Start 12/17/16 at 21:00; Status Future Hold Loperamide HCl (Imodium Cap) 2 mg DAILY PO Last administered on 12/22/16 08:39 ; Admin Dose 2 MG; Start 12/17/16 at 18:00 Oxymetazoline HCl (Afrin [place]) 1 spray DAILY NASAL Last administered on 11:58; Admin Dose 1 SPRAY; Start 12/18/16 at 17:00 Guaifenesin (Mucinex) 600 mg BID PO Last administered on 12/23/16 20:59; Admin Dose 600 MG; Start 12/19/16 at 14:00 Fluticasone Propionate (Flonase 0.05% Nasal) 1 spray BID NASAL Last administered on 12/23/16 21:07; Admin Dose 1 SPRAY; Start 12/19/16 at 14:00 Multivitamins Therapeutic (Theragran) 1 tab BID PO Last administered on 21:00; Admin Dose 1 TAB; Start 12/20/16 at 21:00 Hydralazine HCl (Apresoline) 10 mg Q6H PRN IV ELEVATED BLOOD PRESSURE; Start at 16:00 Guaifenesin (Robitussin Liquid Cup) 200 mg Q4H PRN PO COUGH Last administered on 12/22/16 16:59; Admin Dose 200 MG; Start 12/21/16 at 16:00 Phenol (Cepastat Lozenge) 1 lozenge Q1H PRN [place] COUGH; Start 12/21/16 at 16:30 Midodrine 10 mg 10 mg TID@,,17 PO Last administered on 12/24/16 08:04; Admin Dose 10 MG; Start 12/24/16 at 09:00 Dextrose/Sodium Chloride (D5-NS) 1,000 ml @ 30 mls/hr Q24H IV Last administered on 12/24/16 08:50; Admin Dose 30 MLS/HR; Start 12/24/16 at 08:30 Pantoprazole (Protonix Iv) 40 mg BID@06,18 IV Last administered on 12/24/16 17: 17; Admin Dose 40 MG; Start 12/24/16 at 09:00 Diagnostic Test (Pha) (Accu-Chek) 1 ea Q4 XX Last administered on 12/24/16 17: 26; Admin Dose 1 EA; Start 12/24/16 at 09:00 Hydromorphone HCl 1 mg 1 mg Q6H PRN IV PAIN Last administered on 12/24/16 12:32 ; Admin Dose 1 MG; Start 12/24/16 at 11:00 Phenylephrine HCl/ Dextrose (Levon-Syneph/D5W) 500 ml @ 75 mls/hr TITRATE IV ; Start 12/24/16 at 15:30 LULU VELAZQUEZ Dec 24, 2016 18:17
[2016-12-24] MEDS: PHENYLephrine 40 MG in DEXTROSE 5% 496 ML IV SCH (18:40)
--- NOTE | 2016-12-24 20:48 | CONS ---
Date/Time of Note Date/Time of Note DATE: 12/24/16 TIME: 20:48 Consultation Date/Type/Reason Admit Date/Time Dec 10, 2016 at 03:16 Constitutional: other Eyes: no complaints ENT: no complaints Respiratory: no complaints Cardiovascular: no complaints Gastrointestinal: constipation Genitourinary: no complaints Musculoskeletal: no complaints Skin: no complaints Neurologic: no complaints Endocrine: no complaints Lymphatic: no complaints Psychological: nl mood/affect, no complaints Immunologic: no complaints Past Medical History Medical History: diabetes, high cholesterol, hypertension, renal disease, other (Mesenteric ischemia) Past Surgical History Past Surgical Hx: other (small bowel resection) Social History Alcohol Use: none Smoking Status: Never smoker Drug Use: none Exam/Review of Systems Vital Signs Vitals Vital Signs Date Time Temp Pulse Resp B/P Pulse Ox O2 Delivery O2 Flow Rate FiO2 12/24/16 19:58 65 18 95 Nasal Cannula 2.0 12/24/16 19:15 96/51 12/24/16 16:00 97.5 12/22/16 20:25 21 Intake and Output 12/23/16 12/23/16 12/24/16 15:00 23:00 07:00 Intake Total 700 ml 460 ml 1520 ml Output Total 2700 ml Balance -2000 ml 460 ml 1520 ml Results Result Diagram: 12/24/16 1119 12/24/16 0557 Results 24 hrs Laboratory Tests Test 12/23/16 23:50 12/24/16 05:57 12/24/16 07:45 12/24/16 07:56 Bedside Glucose 115 36 *L 197 White Blood Count 12.8 #H Red Blood Count 2.56 L Hemoglobin 7.8 L Hematocrit 25.8 L Mean Corpuscular Volume 100.8 Mean Corpuscular Hemoglobin 30.5 Mean Corpuscular Hemoglobin Concent 30.2 L Red Cell Distribution Width 18.8 H Platelet Count 124 L Mean Platelet Volume 11.5 H Neutrophils % 81.1 H Lymphocytes % 7.1 L Monocytes % 10.7 Eosinophils % 0.0 Basophils % 0.3 Nucleated Red Blood Cells % 0.0 Neutrophils # (Manual) 10.4 H Lymphocytes # 0.9 Monocytes # 1.4 H Eosinophils # 0.0 Basophils # 0.0 Nucleated Red Blood Cells # 0.0 Sodium Level 138 Potassium Level 4.3 Chloride Level 104 Carbon Dioxide Level 28 Anion Gap 10 # Blood Urea Nitrogen 21 H Creatinine 4.62 H Glucose Level 31 #*L Calcium Level 7.1 L Test 12/24/16 08:07 12/24/16 08:52 12/24/16 09:56 12/24/16 11:19 Bedside Glucose 168 136 124 Hemoglobin 6.9 *L Hematocrit 22.8 L Prothrombin Time 28.1 #H Prothrombin Time Ratio 2.2 INR International Normalized Ratio 2.59 Activated Partial Thromboplast Time 56.6 H Test 12/24/16 14:18 12/24/16 17:19 12/24/16 18:30 Bedside Glucose 126 121 Lactic Acid Level 2.6 *H Medications Medications Current Medications Ondansetron HCl (Zofran Inj) 4 mg Q6H PRN IV NAUSEA AND/OR VOMITING Last administered on 12/24/16 04:54; Admin Dose 4 MG; Start 12/10/16 at 06:00 Acetaminophen (Tylenol Supp) 650 mg Q6H PRN [place] PAIN LEVEL 1-3 OR FEVER; Start 12/10/16 at 06:00 Morphine Sulfate (morphine) 1 mg Q4H PRN IV SEVERE PAIN LEVEL 7-10 Last administered on 12/23/16 13:58; Admin Dose 1 MG; Start 12/12/16 at 14:00 Lactobacillus Acidophilus/ Rhamnosus (Culturelle) 1 cap BID PO Last administered on 12/23/16 20:59; Admin Dose 1 CAP; Start 12/13/16 at 21:00 Aspirin (Halfprin) 81 mg DAILY PO Last administered on 12/22/16 08:39; Admin Dose 81 MG; Start 12/16/16 at 09:00 Atorvastatin Calcium (Lipitor) 10 mg QHS PO Last administered on 12/23/16 20: 59; Admin Dose 10 MG; Start 12/15/16 at 21:00 Carvedilol (Coreg) 6.25 mg BID PO Last administered on 12/23/16 21:00; Admin Dose 6.25 MG; Start 12/15/16 at 21:00 Cyanocobalamin (Vitamin B12) 1,000 mcg DAILY PO Last administered on 12/22/16 08:40; Admin Dose 1,000 MCG; Start 12/16/16 at 09:00 Docusate Sodium (Colace) 100 mg BID PO Last administered on 12/23/16 21:03; Admin Dose 100 MG; Start 12/15/16 at 21:00 Folic Acid (Folic Acid) 1 mg DAILY PO Last administered on 12/22/16 08:40; Admin Dose 1 MG; Start 12/16/16 at 09:00 Gabapentin (Neurontin) 100 mg QHS PO Last administered on 12/23/16 21:00; Admin Dose 100 MG; Start 12/15/16 at 21:00 Levothyroxine Sodium (Synthroid) 137 mcg DAILY@06 PO Last administered on 05:57; Admin Dose 137 MCG; Start 12/16/16 at 06:00 Losartan Potassium (Cozaar) 50 mg BID PO Last administered on 12/23/16 21:00; Admin Dose 50 MG; Start 12/15/16 at 21:00; Status Future Hold Pentoxifylline (Trental) 400 mg TID PO Last administered on 12/23/16 21:00; Admin Dose 400 MG; Start 12/17/16 at 21:00 Mesalamine (Delzicol Dr) 800 mg TID PO Last administered on 12/23/16 20:59; Admin Dose 800 MG; Start 12/17/16 at 21:00; Status Future Hold Loperamide HCl (Imodium Cap) 2 mg DAILY PO Last administered on 12/22/16 08:39 ; Admin Dose 2 MG; Start 12/17/16 at 18:00 Oxymetazoline HCl (Afrin [place]) 1 spray DAILY NASAL Last administered on 11:58; Admin Dose 1 SPRAY; Start 12/18/16 at 17:00 Guaifenesin (Mucinex) 600 mg BID PO Last administered on 12/23/16 20:59; Admin Dose 600 MG; Start 12/19/16 at 14:00 Fluticasone Propionate (Flonase 0.05% Nasal) 1 spray BID NASAL Last administered on 12/23/16 21:07; Admin Dose 1 SPRAY; Start 12/19/16 at 14:00 Multivitamins Therapeutic (Theragran) 1 tab BID PO Last administered on 21:00; Admin Dose 1 TAB; Start 12/20/16 at 21:00 Hydralazine HCl (Apresoline) 10 mg Q6H PRN IV ELEVATED BLOOD PRESSURE; Start at 16:00 Guaifenesin (Robitussin Liquid Cup) 200 mg Q4H PRN PO COUGH Last administered on 12/22/16 16:59; Admin Dose 200 MG; Start 12/21/16 at 16:00 Phenol (Cepastat Lozenge) 1 lozenge Q1H PRN MT COUGH; Start 12/21/16 at 16:30 Midodrine 10 mg 10 mg TID@,,17 PO Last administered on 12/24/16 08:04; Admin Dose 10 MG; Start 12/24/16 at 09:00 Dextrose/Sodium Chloride (D5-NS) 1,000 ml @ 30 mls/hr Q24H IV Last administered on 12/24/16 08:50; Admin Dose 30 MLS/HR; Start 12/24/16 at 08:30 Pantoprazole (Protonix Iv) 40 mg BID@06,18 IV Last administered on 12/24/16 17: 17; Admin Dose 40 MG; Start 12/24/16 at 09:00 Diagnostic Test (Pha) (Accu-Chek) 1 ea Q4 XX Last administered on 12/24/16 17: 26; Admin Dose 1 EA; Start 12/24/16 at 09:00 Hydromorphone HCl 1 mg 1 mg Q6H PRN IV PAIN Last administered on 12/24/16 19:49 ; Admin Dose 1 MG; Start 12/24/16 at 11:00 Phenylephrine HCl/ Dextrose (Levon-Syneph/D5W) 500 ml @ 75 mls/hr TITRATE IV Last administered on 12/24/16 18:40; Admin Dose 15 MLS/HR; Start 12/24/16 at 15: 30 KLEVER GOODRICH DPM Dec 24, 2016 20:48
[2016-12-24] MEDS: ATORVASTATIN 10 MG TAB PO SCH (21:00)
[2016-12-24] MEDS: GABAPENTIN 100 MG CAP PO SCH (21:00)
[2016-12-25] VITALS (97 sets, daily range): BP systolic 66–123; BP diastolic 35–74; PULSE 54–92; RESP 0–30
[2016-12-25] MEDS: PHENYLephrine 40 MG in DEXTROSE 5% 496 ML IV SCH ×5 (00:32→18:43)
[2016-12-25] MEDS: ACCU-CHEK XX SCH ×6 (01:21→21:00)
--- NOTE | 2016-12-25 01:28 | PN ---
Date/Time of Note Date/Time of Note DATE: 12/24/16 TIME: 20:27 Assessment/Plan Lines/Catheters IV Catheter Type (from [facility]): Peripheral IV Loza in Place (from [facility]): No Assessment/Plan Chief Complaint/Hosp Course - Bowel ischemia: The patient has findings of bowel ischemia upon her CT angiography. 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 However, she did not seem to express findings of acute/chronic mesenteric ischemia. Denied any weight loss as a result of postprandial pain or food fear prior to admission. The patient has always tolerated her diet without any restrictions of solids and liquids. Denied involuntary weight loss. All three mesenteric vessels have flow on CTA -My concern is that the patient may have had findings of possible infectious process that may have led her to become severely dehydrated versus hypovolemia/ low flow state. Another possibility is hypotension during dialysis. Even from her previous admission -At the moment, do not recommend for any further vascular intervention as the patient is high risk for an open mesenteric surgery if that is even a consideration (mortality >60%). Recommend adequate hydration and avoid hypotension during her dialysis sessions. Will need to rule out infectious process. -Optimize vascular status (nutrition, exercise, sugar control, antiplatelets). -Discussed findings and plan of management with a certified trim setter and daughter understands prognosis poor -Thank you for allowing us to partake in the care of your patient. Please call with any questions. Problems: Subjective 24 Hr Interval Summary pt started to have increased abdominal pain Exam/Review of Systems Vital Signs Vitals Vital Signs Date Time Temp Pulse Resp B/P Pulse Ox O2 Delivery O2 Flow Rate FiO2 12/25/16 17:30 60 26 95/54 98 Mechanical Ventilator 12/25/16 17:15 100 12/25/16 16:00 98.3 12/25/16 02:30 4.0 Intake and Output 12/24/16 12/24/16 12/25/16 15:00 23:00 07:00 Intake Total 340 ml 830 ml 2637 ml Output Total 600 ml Balance 340 ml 230 ml 2637 ml Exam Free Text/Dictation GENERAL: Awake LUNGS: Clear to auscultation bilaterally HEART: S1, S2 present ABDOMEN: Soft, diffuse tenderness Bowel sounds positive. Surgical scar well healed. The umbilical area with a superficial wound with iodoform packing. EXTREMITIES: -Lower extremities, palpable femoral pulse, nonpalpable pedal pulse. Motor and sensory intact. Capillary refill 3 to 4 seconds. -Left upper extremity, palpable brachial pulse. Motor and sensory intact. Capillary refill 2 to 3 seconds. Surgical scar is well healed. Results Result Diagram: 12/25/16 0423 12/25/16 0423 TALISHA TITUS MD Dec 25, 2016 01:28 Result Diagram: 12/24/16 1119 12/24/16 0557 TALISHA TITUS MD Dec 25, 2016 01:28
[2016-12-25] MEDS: HYDROmorphONE 1 MG/ML SYG IV PRN ×2 (01:41→11:17)
[2016-12-25] MEDS: ALBUTEROL/IPRATROPIUM (NEB) 3 ML AMP HHN SCH (02:16)
[2016-12-25] MEDS ORDERED: PHENYLephrine 20MG IN 250 ML 250 ML ONE ×3 (03:54→22:03)
[2016-12-25 05:24] LABS: ABNORMAL IP MESSAGE 1; BASOPHIL # 0.1 10^3/ul (0.0-0.1); BASOPHILS % 0.7 % (0.0-2.0); EOSINOPHILS % 0.1 % (0.0-7.0); HEMATOCRIT 31.6 % (37.0-47.0); LYMPHOCYTES # 0.7 10^3/ul (0.8-2.9); MEAN CORPUSCULAR HEMOGLOBIN 30.7 pg (29.0-33.0); MEAN CORPUSCULAR HGB CONC 31.6 g/dl (32.0-37.0); MEAN CORPUSCULAR VOLUME 96.9 fl (82.0-101.0); MEAN PLATELET VOLUME 12.7 fl (7.4-10.4); MONOCYTE # 1.1 10^3/ul (0.3-0.9); MONOCYTES % 7.2 % (0.0-11.0); PLATELET COUNT 124 10^3/UL (140-415); RED BLOOD COUNT 3.26 10^6/ul (4.20-5.40); WHITE BLOOD COUNT 14.9 10^3/ul (4.8-10.8)
[2016-12-25 05:43] LABS: POSITIVE DIFF @See below
[2016-12-25 05:46] LABS: INR 2.36; PROTIME 26.1 Sec (12.2-14.2)
[2016-12-25 05:47] LABS: PARTIAL THROMBOPLASTIN TIME 52.3 Sec (25.0-35.0)
[2016-12-25 05:57] LABS: ALBUMIN 2.5 g/dl (3.3-4.9); ALBUMIN/GLOBULIN RATIO 0.8; BILIRUBIN,DIRECT 0.9 mg/dl (0.00-0.20); BILIRUBIN,INDIRECT 0.1 mg/dl (0-1.1); CALCIUM 7.5 mg/dl (8.4-10.2); MAGNESIUM 1.5 mg/dl (1.7-2.5); PHOSPHORUS 6.7 mg/dl (2.5-4.9); TOTAL PROTEIN 5.6 g/dl (6.1-8.1)
[2016-12-25] MEDS: LEVOTHYROXINE 137 MCG TAB PO SCH (06:00)
[2016-12-25] MEDS ORDERED: SOD CHLORIDE 0.9% 500 ML IV ONE ×2 (06:00→21:30)
[2016-12-25] MEDS: PANTOPRAZOLE 40 MG INJ IV SCH ×2 (06:11→17:15)
--- NOTE | 2016-12-25 06:44 | RADRPT ---
PROCEDURE: XR Chest. CLINICAL INDICATION: Post intubation TECHNIQUE: AP supine Portable chest. COMPARISON: 12/21/2016 FINDINGS: The left dialysis catheter is unchanged. Nasogastric tube is in the stomach. The endotracheal tube is in satisfactory position. Tubing artifact over the right apex. Cardiomediastinal silhouette is enlarged. Sternotomy wires mediastinal clips are visualized. The a ortic arch is calcified. Bilateral reticular densities, small pleural effusions and right basilar at electasis are similar in appearance. No pneumothorax is seen. The osseous structures are intact. IMPRESSION: ET and NG tubes in satisfactory position. Unchanged mild edema and small pleural effusions. Prior CABG. Physician Felicia Date Time Electronically viewed and signed by Physician Felicia on 12/25/2016 06:44 CS/
[2016-12-25 07:02] LABS: BILIRUBIN,TOTAL 0.1 mg/dl (0.2-1.3); CREATININE 4.98 mg/dl (0.44-1.00)
[2016-12-25] MEDS: IPRATROPIUM (HFA) 12.9 GM INHALER INH SCH ×3 (08:00→19:38)
[2016-12-25] MEDS: ALBUTEROL 18 GM INHALER INH SCH ×3 (08:00→19:38)
[2016-12-25] MEDS: DEXTROSE 5%-0.9% NACL 1,000 ML IV SCH (08:30)
[2016-12-25 08:37] LABS: AADO2 Arterial 624.8 mmHg (7.0-24.0); Arterial Base Excess -7.3 mmol/L (-3.0-3); Arterial COHb 0.3 % (0.0-3.0); Arterial Fraction of Oxyhgb 89.3 % (93.0-99.0); Arterial HCO3 16.9 mmol/L (22.0-26.0); Arterial MetHb 0.6 % (0.0-1.5); Arterial Total Hemglobin 9.3 g/dl (12.0-18.0); Blood Gas Low PEEP Setting 0 cmH2O; MODE VENT - AC
[2016-12-25 08:37] LABS: AADO2 Arterial 74.7 mmHg (7.0-24.0); Arterial COHb 0.2 % (0.0-3.0); Arterial Fraction of Oxyhgb 87.5 % (93.0-99.0); Arterial HCO3 22.8 mmol/L (22.0-26.0); Arterial MetHb 0.4 % (0.0-1.5); Arterial Total Hemglobin 11.3 g/dl (12.0-18.0); MODE NASAL CANNULA
[2016-12-25] MEDS: DOCUSATE SODIUM 100 MG CAP PO SCH ×2 (08:38→21:00)
[2016-12-25] MEDS: ASPIRIN (EC) 81 MG TAB PO SCH (08:41)
[2016-12-25] MEDS: LACTOBACILLUS RHAMNOSUS CAP PO SCH ×2 (08:41→21:00)
[2016-12-25] MEDS: FOLIC ACID 1 MG TAB PO SCH (08:41)
[2016-12-25] MEDS: LOPERAMIDE 2 MG CAP PO SCH (08:41)
[2016-12-25] MEDS: GUAIFENESIN LA 600 MG TABSR PO SCH ×2 (08:41→21:00)
[2016-12-25] MEDS: MIDODRINE 5 MG TAB PO SCH ×3 (08:41→16:19)
[2016-12-25] MEDS: MULTIVITAMINS THERAPEUTIC TAB PO SCH ×2 (08:42→21:00)
[2016-12-25] MEDS: PENTOXIFYLLINE (SR) 400 MG TAB PO SCH ×3 (08:44→21:00)
[2016-12-25] MEDS: CYANOCOBALAMIN 500 MCG TAB PO SCH (08:44)
[2016-12-25] MEDS: CEFEPIME 1GM/50 ML (PMX) 50 ML IVPB SCH ×2 (08:52→21:18)
[2016-12-25] MEDS: FLUTICASONE 0.05% 16 GM NAS SPRAY NASAL SCH ×2 (08:53→21:18)
[2016-12-25] MEDS: OXYMETAZOLINE 0.05% 15 ML NAS SPRAY NASAL SCH (08:53)
--- NOTE | 2016-12-25 10:41 | CONS ---
Date/Time of Note Date/Time of Note DATE: 12/25/16 TIME: 10:40 Assessment/Plan Assessment/Plan Chief Complaint/Hosp Course Assessment: 1. Persistent diarrhea post significant small bowel resection. 2. Persistent abdominal pain/thickened ascending and transverse colon 3. Colonoscopy 12-17-16: ischemic colitis right colon. 4. Persistent nausea and vomiting 5. EGD 12-17-16: Distal esophagitis, moderate, 2 linear ulcerations in the antrum of the stomach. Biopsies obtained. Rule out H. pylori infection. 6. Wound dehiscence 7. End-stage renal disease on chronic hemodialysis 8. Diabetes mellitus type 2 Plan 1. surgical eval 2. NG suctioning and NPO 3. continue protonix 40 iv bid 4. agree with palliative care Problems: Consultation Date/Type/Reason Admit Date/Time Dec 10, 2016 at 03:16 Initial Consult Date 12/15/16 Type of Consultation: GI 24 HR Interval Summary Subjective hx not possible: pt non-verbal Constitutional: disoriented, requiring IVF, requiring O2 Exam/Review of Systems Vital Signs Vitals Vital Signs Date Time Temp Pulse Resp B/P Pulse Ox O2 Delivery O2 Flow Rate FiO2 12/25/16 09:00 100 12/25/16 08:30 73 26 85/42 100 Mechanical Ventilator 12/25/16 08:00 97.6 12/25/16 02:30 4.0 Intake and Output 12/24/16 12/24/16 12/25/16 15:00 23:00 07:00 Intake Total 340 ml 830 ml 2637 ml Output Total 600 ml Balance 340 ml 230 ml 2637 ml Exam Constitutional: non-verbal Psych: confusion Head: atraumatic, normocephalic Eyes: EOMI, nl conjunctiva, nl lids, nl sclera ENMT: mucosa pink and moist, nl external ears & nose, nl lips & teeth, nl nasal mucosa & septum Neck: non-tender, supple Respiratory: clear to auscultation, normal air movement Cardiovascular: nl pulses, regular rate and rhythm Gastrointestinal: bowel sounds, soft, tender (diffusely tender) Results Result Diagram: 12/25/16 0423 12/25/16 0423 Results 24 hrs Laboratory Tests Test 12/24/16 11:19 12/24/16 14:18 12/24/16 17:19 12/24/16 18:30 Hemoglobin 6.9 *L Hematocrit 22.8 L Prothrombin Time 28.1 #H Prothrombin Time Ratio 2.2 INR International Normalized Ratio 2.59 Activated Partial Thromboplast Time 56.6 H Bedside Glucose 126 121 Lactic Acid Level 2.6 *H Test 12/24/16 22:57 12/25/16 02:13 12/25/16 02:39 12/25/16 04:23 Bedside Glucose 153 169 Blood Gas Specimen Source Blood arterial Arterial Blood Date Drawn 12/25/2016 2:50:00 AM Arterial Blood pH (Temp corrected) 7.085 *L Arterial Blood pCO2 (Temp correct) 77.7 H Arterial Blood pO2 (Temp corrected) 69.9 L Arterial Blood HCO3 22.8 Arterial Blood Base Excess -8.0 L Arterial Blood Oxygen Saturation 88.0 L Damian Test N/A Arterial Blood Gas Puncture Site LB Arterial Blood Carboxyhemoglobin 0.2 Arterial Blood Methemoglobin 0.4 Blood Gas A-a O2 Differential 74.7 H Oxyhemoglobin Percent 87.5 L Total Hemoglobin 11.3 L Blood Gas Temperature 37.0 Blood Gas Modality NASAL CANNULA FiO2 33.0 Blood Gas Critical Value Read Back Al DENG RN Blood Gas Notified Whom UP Blood Gas Notified Time 12/25/2016 3:14:00 AM White Blood Count 14.9 H Red Blood Count 3.26 #L Hemoglobin 10.0 #L Hematocrit 31.6 #L Mean Corpuscular Volume 96.9 Mean Corpuscular Hemoglobin 30.7 Mean Corpuscular Hemoglobin Concent 31.6 L Red Cell Distribution Width 19.0 H Platelet Count 124 L Mean Platelet Volume 12.7 H Neutrophils % 83.0 H Lymphocytes % 5.0 L Monocytes % 7.2 Eosinophils % 0.1 Basophils % 0.7 Nucleated Red Blood Cells % 0.0 Neutrophils # (Manual) 12.3 H Lymphocytes # 0.7 L Monocytes # 1.1 H Eosinophils # 0.0 Basophils # 0.1 Nucleated Red Blood Cells # 0.0 Prothrombin Time 26.1 H Prothrombin Time Ratio 2.0 INR International Normalized Ratio 2.36 Activated Partial Thromboplast Time 52.3 H Sodium Level 135 Potassium Level 4.0 Chloride Level 99 Carbon Dioxide Level 20 L Anion Gap 20 #H Blood Urea Nitrogen 23 H Creatinine 4.98 H Glucose Level 180 # Lactic Acid Level 5.3 *H Calcium Level 7.5 L Phosphorus Level 6.7 H Magnesium Level 1.5 L Total Bilirubin 0.1 L Direct Bilirubin 0.90 H Indirect Bilirubin 0.1 Aspartate Amino Transf (AST/SGOT) 682 H Alanine Aminotransferase (ALT/SGPT) 273 H Alkaline Phosphatase 152 H Total Protein 5.6 L Albumin 2.5 L Globulin 3.10 Albumin/Globulin Ratio 0.80 Test 12/25/16 04:30 12/25/16 05:16 12/25/16 08:50 Blood Gas Specimen Source Blood arterial Arterial Blood Date Drawn 12/25/2016 4:50:00 AM Arterial Blood pH (Temp corrected) 7.376 Arterial Blood pCO2 (Temp correct) 29.5 L Arterial Blood pO2 (Temp corrected) 58.7 L Arterial Blood HCO3 16.9 L Arterial Blood Base Excess -7.3 L Arterial Blood Oxygen Saturation 90.1 L Damian Test N/A Arterial Blood Gas Puncture Site LB Arterial Blood Carboxyhemoglobin 0.3 Arterial Blood Methemoglobin 0.6 Blood Gas A-a O2 Differential 624.8 H Oxyhemoglobin Percent 89.3 L Total Hemoglobin 9.3 L Blood Gas Temperature 37.0 Blood Gas Respiration Rate 26.0 Blood Gas Actual Respiration Rate 26 Blood Gas Modality VENT - AC FiO2 100.0 Blood Gas Tidal Volume 500.0 Blood Gas Low PEEP Setting 0 Blood Gas Notified Whom UP Blood Gas Notified Time 12/25/2016 5:12:00 AM Lab Scanned Report BLOOD TRANSFUSION Bedside Glucose 125 Medications Medications Current Medications Ondansetron HCl (Zofran Inj) 4 mg Q6H PRN IV NAUSEA AND/OR VOMITING Last administered on 12/24/16 04:54; Admin Dose 4 MG; Start 12/10/16 at 06:00 Acetaminophen (Tylenol Supp) 650 mg Q6H PRN [place] PAIN LEVEL 1-3 OR FEVER; Start 12/10/16 at 06:00 Morphine Sulfate (morphine) 1 mg Q4H PRN IV SEVERE PAIN LEVEL 7-10 Last administered on 12/23/16 13:58; Admin Dose 1 MG; Start 12/12/16 at 14:00 Lactobacillus Acidophilus/ Rhamnosus (Culturelle) 1 cap BID PO Last administered on 12/23/16 20:59; Admin Dose 1 CAP; Start 12/13/16 at 21:00 Aspirin (Halfprin) 81 mg DAILY PO Last administered on 12/22/16 08:39; Admin Dose 81 MG; Start 12/16/16 at 09:00 Atorvastatin Calcium (Lipitor) 10 mg QHS PO Last administered on 12/23/16 20: 59; Admin Dose 10 MG; Start 12/15/16 at 21:00 Carvedilol (Coreg) 6.25 mg BID PO Last administered on 12/23/16 21:00; Admin Dose 6.25 MG; Start 12/15/16 at 21:00 Cyanocobalamin (Vitamin B12) 1,000 mcg DAILY PO Last administered on 12/22/16 08:40; Admin Dose 1,000 MCG; Start 12/16/16 at 09:00 Docusate Sodium (Colace) 100 mg BID PO Last administered on 12/23/16 21:03; Admin Dose 100 MG; Start 12/15/16 at 21:00 Folic Acid (Folic Acid) 1 mg DAILY PO Last administered on 12/22/16 08:40; Admin Dose 1 MG; Start 12/16/16 at 09:00 Gabapentin (Neurontin) 100 mg QHS PO Last administered on 12/23/16 21:00; Admin Dose 100 MG; Start 12/15/16 at 21:00 Levothyroxine Sodium (Synthroid) 137 mcg DAILY@06 PO Last administered on 05:57; Admin Dose 137 MCG; Start 12/16/16 at 06:00 Losartan Potassium (Cozaar) 50 mg BID PO Last administered on 12/23/16 21:00; Admin Dose 50 MG; Start 12/15/16 at 21:00; Status Future Hold Pentoxifylline (Trental) 400 mg TID PO Last administered on 12/23/16 21:00; Admin Dose 400 MG; Start 12/17/16 at 21:00 Mesalamine (Delzicol Dr) 800 mg TID PO Last administered on 12/23/16 20:59; Admin Dose 800 MG; Start 12/17/16 at 21:00; Status Future Hold Loperamide HCl (Imodium Cap) 2 mg DAILY PO Last administered on 12/22/16 08:39 ; Admin Dose 2 MG; Start 12/17/16 at 18:00 Oxymetazoline HCl (Afrin [place]) 1 spray DAILY NASAL Last administered on 11:58; Admin Dose 1 SPRAY; Start 12/18/16 at 17:00 Guaifenesin (Mucinex) 600 mg BID PO Last administered on 12/23/16 20:59; Admin Dose 600 MG; Start 12/19/16 at 14:00 Fluticasone Propionate (Flonase 0.05% Nasal) 1 spray BID NASAL Last administered on 12/24/16 21:00; Admin Dose 1 SPRAY; Start 12/19/16 at 14:00 Multivitamins Therapeutic (Theragran) 1 tab BID PO Last administered on 21:00; Admin Dose 1 TAB; Start 12/20/16 at 21:00 Hydralazine HCl (Apresoline) 10 mg Q6H PRN IV ELEVATED BLOOD PRESSURE; Start at 16:00 Guaifenesin (Robitussin Liquid Cup) 200 mg Q4H PRN PO COUGH Last administered on 12/22/16 16:59; Admin Dose 200 MG; Start 12/21/16 at 16:00 Phenol (Cepastat Lozenge) 1 lozenge Q1H PRN [place] COUGH; Start 12/21/16 at 16:30 Midodrine 10 mg 10 mg TID@,, PO Last administered on 12/24/16 08:04; Admin Dose 10 MG; Start 12/24/16 at 09:00 Dextrose/Sodium Chloride (D5-NS) 1,000 ml @ 30 mls/hr Q24H IV Last administered on 12/24/16 08:50; Admin Dose 30 MLS/HR; Start 12/24/16 at 08:30 Pantoprazole (Protonix Iv) 40 mg BID@06,18 IV Last administered on 12/25/16 06: 11; Admin Dose 40 MG; Start 12/24/16 at 09:00 Diagnostic Test (Pha) (Accu-Chek) 1 ea Q4 XX Last administered on 12/25/16 08: 53; Admin Dose 1 EA; Start 12/24/16 at 09:00 Hydromorphone HCl 1 mg 1 mg Q6H PRN IV PAIN Last administered on 12/25/16 01:41 ; Admin Dose 1 MG; Start 12/24/16 at 11:00 Phenylephrine HCl 40 mg/Dextrose 500 ml @ 75 mls/hr TITRATE IV Last administered on 12/25/16 06:40; Admin Dose 60 MLS/HR; Start 12/24/16 at 15:30 Cefepime HCl (Maxipime 1gm/50 ml (Pmx)) 50 ml @ 100 mls/hr Q12 IVPB Last administered on 12/25/16 08:52; Admin Dose 100 MLS/HR; Start 12/25/16 at 09:00 BETZAIDA CHANG MD Dec 25, 2016 10:41
--- NOTE | 2016-12-25 11:28 | PN ---
Date/Time of Note Date/Time of Note DATE: 12/25/16 TIME: 11:20 Assessment/Plan VTE Prophylaxis VTE Prophylaxis Intervention: SCD's Lines/Catheters [facility] [place] [facility] Urinary Cath still in place: No Assessment/Plan Chief Complaint/Hosp Course Assessment/Plan: 56-year-old female prior history of bowel resection and possible mesenteric ischemia, coming in with abdominal pain, worsening over hospital stay with the findings on CT scan yesterday of ischemic enteritis/ pneumatosis. 1. Abdominal pain: was slowly improving earlier this hospital stay, but now worsening with more tender to palpation, with findings of ischemic colitis/ pneumatosis on yesterday's CT scan. 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 Appreciate vascular surgery consult, GI, and palliative care recommendations. Now on pressor support with lactic acidosis. -Per discussion with surgery team yesterday, high risk of mortality if surgery attempted for this present condition. Appreciate palliative care consult, they spoke with family member yesterday, and will speak again to them today after they have discussion with family members who live outside of the state regarding present severity of patient's illness and possible change in CODE STATUS. Continue pain control medications, IV fluids, broad-spectrum antibiotics -Continue pressor support if systolic less than 80, low-dose IV fluids for now. -Overall poor prognosis given the findings on CT scan of significant ischemic colitis and lactic acidosis now and hypotension. 2. Diarrhea-still off and on, C. difficile test was negative on December 24. Monitor for now, on Imodium 3. End-stage renal disease on dialysis: Patient with a history of nephrectomy -For dialysis Tuesday, , Tuesday as tolerated, monitor blood pressure very carefully, and renal recommendation 4. Diabetes-last A1c was 4.8 back in August 2016. A1c this admission equals 5.1 Monitor sugars for now 5. Anemia, likely secondary to chronic disease -Monitor H&H and transfuse as needed 6. Hypertension-stable presently -Continue antihypertensives with adjustment as needed 7. Cough: Lightly improved patient on p.o. guaifenesin -continue guaifenesin, Cepastat as needed -continue duo nebs every 4 hours as needed Critical care time spent on patient care today equals 55 minutes. Problems: Subjective 24 Hr Interval Summary Free Text/Dictation Still with abdominal pain, on pressor support now, CT scan showed pneumatosis/ ischemic enteritis. Awaiting surgical input. Seen by vascular surgery team and palliative team yesterday. Received blood transfusion and FFP yesterday as well. Has more elevated lactic acid today 5.3. Exam/Review of Systems Vital Signs Vitals Vital Signs Date Time Temp Pulse Resp B/P Pulse Ox O2 Delivery O2 Flow Rate FiO2 12/25/16 11:10 70 26 100 100 12/25/16 10:00 82/48 Mechanical Ventilator 12/25/16 08:00 97.6 12/25/16 02:30 4.0 Intake and Output 12/24/16 12/24/16 12/25/16 15:00 23:00 07:00 Intake Total 340 ml 830 ml 2637 ml Output Total 600 ml Balance 340 ml 230 ml 2637 ml Exam nad, lying in bed, mild to moderate distress no mrg lungs clear abd tender to minimal palpation, decreased bowel sounds no rashes Results Result Diagram: 12/25/16 0423 12/25/16 0423 Results 24 hrs Laboratory Tests Test 12/24/16 14:18 12/24/16 17:19 12/24/16 18:30 12/24/16 22:57 Bedside Glucose 126 121 153 Lactic Acid Level 2.6 *H Test 12/25/16 02:13 12/25/16 02:39 12/25/16 04:23 12/25/16 04:30 Bedside Glucose 169 Blood Gas Specimen Source Blood arterial Blood arterial Arterial Blood Date Drawn 12/25/2016 2:50:00 AM 12/25/2016 4:50:00 AM Arterial Blood pH (Temp corrected) 7.085 *L 7.376 Arterial Blood pCO2 (Temp correct) 77.7 H 29.5 L Arterial Blood pO2 (Temp corrected) 69.9 L 58.7 L Arterial Blood HCO3 22.8 16.9 L Arterial Blood Base Excess -8.0 L -7.3 L Arterial Blood Oxygen Saturation 88.0 L 90.1 L Damian Test N/A N/A Arterial Blood Gas Puncture Site LB LB Arterial Blood Carboxyhemoglobin 0.2 0.3 Arterial Blood Methemoglobin 0.4 0.6 Blood Gas A-a O2 Differential 74.7 H 624.8 H Oxyhemoglobin Percent 87.5 L 89.3 L Total Hemoglobin 11.3 L 9.3 L Blood Gas Temperature 37.0 37.0 Blood Gas Modality NASAL CANNULA VENT - AC FiO2 33.0 100.0 Blood Gas Critical Value Read Back Al DENG RN Blood Gas Notified Whom UP UP Blood Gas Notified Time 12/25/2016 3:14:00 AM 12/25/2016 5:12:00 AM White Blood Count 14.9 H Red Blood Count 3.26 #L Hemoglobin 10.0 #L Hematocrit 31.6 #L Mean Corpuscular Volume 96.9 Mean Corpuscular Hemoglobin 30.7 Mean Corpuscular Hemoglobin Concent 31.6 L Red Cell Distribution Width 19.0 H Platelet Count 124 L Mean Platelet Volume 12.7 H Neutrophils % 83.0 H Lymphocytes % 5.0 L Monocytes % 7.2 Eosinophils % 0.1 Basophils % 0.7 Nucleated Red Blood Cells % 0.0 Neutrophils # (Manual) 12.3 H Lymphocytes # 0.7 L Monocytes # 1.1 H Eosinophils # 0.0 Basophils # 0.1 Nucleated Red Blood Cells # 0.0 Prothrombin Time 26.1 H Prothrombin Time Ratio 2.0 INR International Normalized Ratio 2.36 Activated Partial Thromboplast Time 52.3 H Sodium Level 135 Potassium Level 4.0 Chloride Level 99 Carbon Dioxide Level 20 L Anion Gap 20 #H Blood Urea Nitrogen 23 H Creatinine 4.98 H Glucose Level 180 # Lactic Acid Level 5.3 *H Calcium Level 7.5 L Phosphorus Level 6.7 H Magnesium Level 1.5 L Total Bilirubin 0.1 L Direct Bilirubin 0.90 H Indirect Bilirubin 0.1 Aspartate Amino Transf (AST/SGOT) 682 H Alanine Aminotransferase (ALT/SGPT) 273 H Alkaline Phosphatase 152 H Total Protein 5.6 L Albumin 2.5 L Globulin 3.10 Albumin/Globulin Ratio 0.80 Blood Gas Respiration Rate 26.0 Blood Gas Actual Respiration Rate 26 Blood Gas Tidal Volume 500.0 Blood Gas Low PEEP Setting 0 Test 12/25/16 05:16 12/25/16 08:50 Lab Scanned Report BLOOD TRANSFUSION Bedside Glucose 125 Medications Medications Current Medications Acetaminophen (Tylenol Supp) 650 mg Q6H PRN [place] PAIN LEVEL 1-3 OR FEVER; Start 12/10/16 at 06:00 Morphine Sulfate (morphine) 1 mg Q4H PRN IV SEVERE PAIN LEVEL 7-10 Last administered on 12/23/16 13:58; Admin Dose 1 MG; Start 12/12/16 at 14:00 Lactobacillus Acidophilus/ Rhamnosus (Culturelle) 1 cap BID PO Last administered on 12/23/16 20:59; Admin Dose 1 CAP; Start 12/13/16 at 21:00 Aspirin (Halfprin) 81 mg DAILY PO Last administered on 12/22/16 08:39; Admin Dose 81 MG; Start 12/16/16 at 09:00 Atorvastatin Calcium (Lipitor) 10 mg QHS PO Last administered on 12/23/16 20: 59; Admin Dose 10 MG; Start 12/15/16 at 21:00 Carvedilol (Coreg) 6.25 mg BID PO Last administered on 12/23/16 21:00; Admin Dose 6.25 MG; Start 12/15/16 at 21:00 Cyanocobalamin (Vitamin B12) 1,000 mcg DAILY PO Last administered on 12/22/16 08:40; Admin Dose 1,000 MCG; Start 12/16/16 at 09:00 Docusate Sodium (Colace) 100 mg BID PO Last administered on 12/23/16 21:03; Admin Dose 100 MG; Start 12/15/16 at 21:00 Folic Acid (Folic Acid) 1 mg DAILY PO Last administered on 12/22/16 08:40; Admin Dose 1 MG; Start 12/16/16 at 09:00 Gabapentin (Neurontin) 100 mg QHS PO Last administered on 12/23/16 21:00; Admin Dose 100 MG; Start 12/15/16 at 21:00 Levothyroxine Sodium (Synthroid) 137 mcg DAILY@06 PO Last administered on 05:57; Admin Dose 137 MCG; Start 12/16/16 at 06:00 Losartan Potassium (Cozaar) 50 mg BID PO Last administered on 12/23/16 21:00; Admin Dose 50 MG; Start 12/15/16 at 21:00; Status Future Hold Pentoxifylline (Trental) 400 mg TID PO Last administered on 12/23/16 21:00; Admin Dose 400 MG; Start 12/17/16 at 21:00 Mesalamine (Delzicol Dr) 800 mg TID PO Last administered on 12/23/16 20:59; Admin Dose 800 MG; Start 12/17/16 at 21:00; Status Future Hold Loperamide HCl (Imodium Cap) 2 mg DAILY PO Last administered on 12/22/16 08:39 ; Admin Dose 2 MG; Start 12/17/16 at 18:00 Oxymetazoline HCl (Afrin [place]) 1 spray DAILY NASAL Last administered on 11:58; Admin Dose 1 SPRAY; Start 12/18/16 at 17:00 Guaifenesin (Mucinex) 600 mg BID PO Last administered on 12/23/16 20:59; Admin Dose 600 MG; Start 12/19/16 at 14:00 Fluticasone Propionate (Flonase 0.05% Nasal) 1 spray BID NASAL Last administered on 12/24/16 21:00; Admin Dose 1 SPRAY; Start 12/19/16 at 14:00 Multivitamins Therapeutic (Theragran) 1 tab BID PO Last administered on 21:00; Admin Dose 1 TAB; Start 12/20/16 at 21:00 Hydralazine HCl (Apresoline) 10 mg Q6H PRN IV ELEVATED BLOOD PRESSURE; Start at 16:00 Guaifenesin (Robitussin Liquid Cup) 200 mg Q4H PRN PO COUGH Last administered on 12/22/16 16:59; Admin Dose 200 MG; Start 12/21/16 at 16:00 Phenol (Cepastat Lozenge) 1 lozenge Q1H PRN [place] COUGH; Start 12/21/16 at 16:30 Midodrine 10 mg 10 mg TID@, PO Last administered on 12/24/16 08:04; Admin Dose 10 MG; Start 12/24/16 at 09:00 Dextrose/Sodium Chloride (D5-NS) 1,000 ml @ 30 mls/hr Q24H IV Last administered on 12/24/16 08:50; Admin Dose 30 MLS/HR; Start 12/24/16 at 08:30 Pantoprazole (Protonix Iv) 40 mg BID@06,18 IV Last administered on 12/25/16 06: 11; Admin Dose 40 MG; Start 12/24/16 at 09:00 Diagnostic Test (Pha) (Accu-Chek) 1 ea Q4 XX Last administered on 12/25/16 08: 53; Admin Dose 1 EA; Start 12/24/16 at 09:00 Hydromorphone HCl 1 mg 1 mg Q6H PRN IV PAIN Last administered on 12/25/16 11:17 ; Admin Dose 1 MG; Start 12/24/16 at 11:00 Phenylephrine HCl 40 mg/Dextrose 500 ml @ 75 mls/hr TITRATE IV Last administered on 12/25/16 06:40; Admin Dose 60 MLS/HR; Start 12/24/16 at 15:30 Cefepime HCl (Maxipime 1gm/50 ml (Pmx)) 50 ml @ 100 mls/hr Q12 IVPB Last administered on 12/25/16 08:52; Admin Dose 100 MLS/HR; Start 12/25/16 at 09:00 Ondansetron HCl (Zofran Inj) 8 mg Q6H PRN IV NAUSEA AND/OR VOMITING; Start 12/25 at 12:00; Status BELINDA PACHECO Dec 25, 2016 11:28
[2016-12-25] MEDS ORDERED: ONDANSETRON INJ 8 MG in SOD CHLORIDE 0.9% 50 ML IV PRN (11:30)
[2016-12-25] MEDS ORDERED: TRIMETHOBENZAMIDE 100 MG/ML VIAL IM PRN (11:30)
--- NOTE | 2016-12-25 11:58 | CONS ---
DATE OF ADMISSION: 12/10/2016 DATE OF CONSULTATION: 12/25/2016 REASON FOR CONSULTATION: Ventilator management. HISTORY OF PRESENT ILLNESS: This is an unfortunate 56-year-old lady with multiple medical problems who was admitted on 12/10/2016 with abdominal pain, diarrhea, concerning for possible ischemic colitis with recent admission to [facility] for septic shock. 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 The patient was found to be in respiratory distress this morning, with motor hypoxemia requiring emergent intubation for hypercapnic respiratory failure. Now she is on mechanical ventilation by Dr. Quintana And on vasopressor support. PAST MEDICAL HISTORY: Essential hypertension, end-stage renal failure on hemodialysis. Ongoing colitis. MEDICATIONS: Medications per chart. ALLERGIES: VANCOMYCIN. SOCIAL HISTORY: She is a nonsmoker. No alcohol. No history of drug use. FAMILY HISTORY: Noncontributory. REVIEW OF SYSTEMS: 12-point review of systems negative other than that mentioned above. PHYSICAL EXAMINATION: On examination, chronically ill-appearing lady, grimaces to painful stimuli. Currently afebrile. Pulse is 68, blood pressure 82/48, on vasopressor. NECK: Supple. No JVD. CARDIAC: S1, S2. No added sounds. Murmurs. CHEST: Diminished air entry bilaterally. ABDOMEN: Soft, nontender. Diminished bowel sounds. EXTREMITIES: No clubbing, cyanosis or edema. Generalized weakness. LABORATORY: White count 14.9, hemoglobin 10.6, platelets of 124, BUN 23, creatinine 4.98, lactic acid 5.3, AST 682, ALT 273. IMAGING: Chest x-ray which was reviewed shows ongoing pulmonary edema. CT abdomen and pelvis performed yesterday shows concern for developing hepatic abscess and possible ischemic enteritis. Right lower lobe pneumonia. IMPRESSION: 1. Septic shock. Likely polymicrobial, but with multiple sources including ischemic bowel versus pneumonia. 2. Hypoxemic respiratory failure. 3. End stage renal failure on hemodialysis. 4. Significant deconditioning. 5. Shock liver. PLAN: The patient will require: 1. Continued mechanical ventilation. 2. Continue vasopressor support. 3. Volume resuscitation for hemodialysis as tolerated. 4. DVT and GI prophylaxis. 5. Palliative care consult to discuss with family regarding goals of care. Dictated By: Janes Rich MD /alin/romulo /Document#: [id number]
[2016-12-25] MEDS ORDERED: ONDANSETRON 4 MG INJ IV PRN (12:00)
[2016-12-25] MEDS ORDERED: MAGNESIUM SULFATE 2 GM/50 ML 50 ML IVPB ONE (12:00)
--- NOTE | 2016-12-25 12:17 | CONS ---
Date/Time of Note Date/Time of Note DATE: 12/25/16 TIME: 12:15 Assessment/Plan Assessment/Plan Chief Complaint/Hosp Course 1. ESRD. 2. Ischemic enteritis/Colitis 3. respiratory failure 4. S/p small bowel resection. 5. Persistent abdominal pain 6. Abdomen wound dehiscence 7. Hypotension, on pressors 8. 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 9. Severe anemia 10. Cholelithiasis and mild gallbladder wall thickening. 7. Status post left nephrectomy. Problems: Additional Assessment/Plan 1.Pt is not suitable for HD today 2. Critical condition 3. Poor prognosis Consultation Date/Type/Reason Admit Date/Time Dec 10, 2016 at 03:16 Initial Consult Date 12/10/16 Type of Consultation: nephrology Reason for Consultation Dr Nuñez Exam/Review of Systems Vital Signs Vitals Vital Signs Date Time Temp Pulse Resp B/P Pulse Ox O2 Delivery O2 Flow Rate FiO2 12/25/16 11:15 69 26 80/58 12/25/16 11:10 100 100 12/25/16 11:00 Mechanical Ventilator 12/25/16 08:00 97.6 12/25/16 02:30 4.0 Intake and Output 12/24/16 12/24/16 12/25/16 15:00 23:00 07:00 Intake Total 340 ml 830 ml 2637 ml Output Total 600 ml Balance 340 ml 230 ml 2637 ml Exam Constitutional: alert Head: atraumatic, normocephalic Neck: supple Respiratory: diminished breath sounds Cardiovascular: regular rate and rhythm Gastrointestinal: soft, surgical scars Results Result Diagram: 12/25/16 0423 12/25/16 0423 Results 24 hrs Laboratory Tests Test 12/24/16 14:18 12/24/16 17:19 12/24/16 18:30 12/24/16 22:57 Bedside Glucose 126 121 153 Lactic Acid Level 2.6 *H Test 12/25/16 02:13 12/25/16 02:39 12/25/16 04:23 12/25/16 04:30 Bedside Glucose 169 Blood Gas Specimen Source Blood arterial Blood arterial Arterial Blood Date Drawn 12/25/2016 2:50:00 AM 12/25/2016 4:50:00 AM Arterial Blood pH (Temp corrected) 7.085 *L 7.376 Arterial Blood pCO2 (Temp correct) 77.7 H 29.5 L Arterial Blood pO2 (Temp corrected) 69.9 L 58.7 L Arterial Blood HCO3 22.8 16.9 L Arterial Blood Base Excess -8.0 L -7.3 L Arterial Blood Oxygen Saturation 88.0 L 90.1 L Damian Test N/A N/A Arterial Blood Gas Puncture Site LB LB Arterial Blood Carboxyhemoglobin 0.2 0.3 Arterial Blood Methemoglobin 0.4 0.6 Blood Gas A-a O2 Differential 74.7 H 624.8 H Oxyhemoglobin Percent 87.5 L 89.3 L Total Hemoglobin 11.3 L 9.3 L Blood Gas Temperature 37.0 37.0 Blood Gas Modality NASAL CANNULA VENT - AC FiO2 33.0 100.0 Blood Gas Critical Value Read Back Al DENG RN Blood Gas Notified Whom UP UP Blood Gas Notified Time 12/25/2016 3:14:00 AM 12/25/2016 5:12:00 AM White Blood Count 14.9 H Red Blood Count 3.26 #L Hemoglobin 10.0 #L Hematocrit 31.6 #L Mean Corpuscular Volume 96.9 Mean Corpuscular Hemoglobin 30.7 Mean Corpuscular Hemoglobin Concent 31.6 L Red Cell Distribution Width 19.0 H Platelet Count 124 L Mean Platelet Volume 12.7 H Neutrophils % 83.0 H Lymphocytes % 5.0 L Monocytes % 7.2 Eosinophils % 0.1 Basophils % 0.7 Nucleated Red Blood Cells % 0.0 Neutrophils # (Manual) 12.3 H Lymphocytes # 0.7 L Monocytes # 1.1 H Eosinophils # 0.0 Basophils # 0.1 Nucleated Red Blood Cells # 0.0 Prothrombin Time 26.1 H Prothrombin Time Ratio 2.0 INR International Normalized Ratio 2.36 Activated Partial Thromboplast Time 52.3 H Sodium Level 135 Potassium Level 4.0 Chloride Level 99 Carbon Dioxide Level 20 L Anion Gap 20 #H Blood Urea Nitrogen 23 H Creatinine 4.98 H Glucose Level 180 # Lactic Acid Level 5.3 *H Calcium Level 7.5 L Phosphorus Level 6.7 H Magnesium Level 1.5 L Total Bilirubin 0.1 L Direct Bilirubin 0.90 H Indirect Bilirubin 0.1 Aspartate Amino Transf (AST/SGOT) 682 H Alanine Aminotransferase (ALT/SGPT) 273 H Alkaline Phosphatase 152 H Total Protein 5.6 L Albumin 2.5 L Globulin 3.10 Albumin/Globulin Ratio 0.80 Blood Gas Respiration Rate 26.0 Blood Gas Actual Respiration Rate 26 Blood Gas Tidal Volume 500.0 Blood Gas Low PEEP Setting 0 Test 12/25/16 05:16 12/25/16 08:50 Lab Scanned Report BLOOD TRANSFUSION Bedside Glucose 125 Medications Medications Current Medications Acetaminophen (Tylenol Supp) 650 mg Q6H PRN [place] PAIN LEVEL 1-3 OR FEVER; Start 12/10/16 at 06:00 Morphine Sulfate (morphine) 1 mg Q4H PRN IV SEVERE PAIN LEVEL 7-10 Last administered on 12/23/16 13:58; Admin Dose 1 MG; Start 12/12/16 at 14:00 Lactobacillus Acidophilus/ Rhamnosus (Culturelle) 1 cap BID PO Last administered on 12/23/16 20:59; Admin Dose 1 CAP; Start 12/13/16 at 21:00 Aspirin (Halfprin) 81 mg DAILY PO Last administered on 12/22/16 08:39; Admin Dose 81 MG; Start 12/16/16 at 09:00 Atorvastatin Calcium (Lipitor) 10 mg QHS PO Last administered on 12/23/16 20: 59; Admin Dose 10 MG; Start 12/15/16 at 21:00 Carvedilol (Coreg) 6.25 mg BID PO Last administered on 12/23/16 21:00; Admin Dose 6.25 MG; Start 12/15/16 at 21:00 Cyanocobalamin (Vitamin B12) 1,000 mcg DAILY PO Last administered on 12/22/16 08:40; Admin Dose 1,000 MCG; Start 12/16/16 at 09:00 Docusate Sodium (Colace) 100 mg BID PO Last administered on 12/23/16 21:03; Admin Dose 100 MG; Start 12/15/16 at 21:00 Folic Acid (Folic Acid) 1 mg DAILY PO Last administered on 12/22/16 08:40; Admin Dose 1 MG; Start 12/16/16 at 09:00 Gabapentin (Neurontin) 100 mg QHS PO Last administered on 12/23/16 21:00; Admin Dose 100 MG; Start 12/15/16 at 21:00 Levothyroxine Sodium (Synthroid) 137 mcg DAILY@06 PO Last administered on 05:57; Admin Dose 137 MCG; Start 12/16/16 at 06:00 Losartan Potassium (Cozaar) 50 mg BID PO Last administered on 12/23/16 21:00; Admin Dose 50 MG; Start 12/15/16 at 21:00; Status Future Hold Pentoxifylline (Trental) 400 mg TID PO Last administered on 12/23/16 21:00; Admin Dose 400 MG; Start 12/17/16 at 21:00 Mesalamine (Delzicol Dr) 800 mg TID PO Last administered on 12/23/16 20:59; Admin Dose 800 MG; Start 12/17/16 at 21:00; Status Future Hold Loperamide HCl (Imodium Cap) 2 mg DAILY PO Last administered on 12/22/16 08:39 ; Admin Dose 2 MG; Start 12/17/16 at 18:00 Oxymetazoline HCl (Afrin [place]) 1 spray DAILY NASAL Last administered on 11:58; Admin Dose 1 SPRAY; Start 12/18/16 at 17:00 Guaifenesin (Mucinex) 600 mg BID PO Last administered on 12/23/16 20:59; Admin Dose 600 MG; Start 12/19/16 at 14:00 Fluticasone Propionate (Flonase 0.05% Nasal) 1 spray BID NASAL Last administered on 12/24/16 21:00; Admin Dose 1 SPRAY; Start 12/19/16 at 14:00 Multivitamins Therapeutic (Theragran) 1 tab BID PO Last administered on 21:00; Admin Dose 1 TAB; Start 12/20/16 at 21:00 Hydralazine HCl (Apresoline) 10 mg Q6H PRN IV ELEVATED BLOOD PRESSURE; Start at 16:00 Guaifenesin (Robitussin Liquid Cup) 200 mg Q4H PRN PO COUGH Last administered on 12/22/16 16:59; Admin Dose 200 MG; Start 12/21/16 at 16:00 Phenol (Cepastat Lozenge) 1 lozenge Q1H PRN MT COUGH; Start 12/21/16 at 16:30 Midodrine 10 mg 10 mg TID@,13,17 PO Last administered on 12/24/16 08:04; Admin Dose 10 MG; Start 12/24/16 at 09:00 Dextrose/Sodium Chloride (D5-NS) 1,000 ml @ 30 mls/hr Q24H IV Last administered on 12/24/16 08:50; Admin Dose 30 MLS/HR; Start 12/24/16 at 08:30 Pantoprazole (Protonix Iv) 40 mg BID@06,18 IV Last administered on 12/25/16 06: 11; Admin Dose 40 MG; Start 12/24/16 at 09:00 Diagnostic Test (Pha) (Accu-Chek) 1 ea Q4 XX Last administered on 12/25/16 08: 53; Admin Dose 1 EA; Start 12/24/16 at 09:00 Hydromorphone HCl 1 mg 1 mg Q6H PRN IV PAIN Last administered on 12/25/16 11:17 ; Admin Dose 1 MG; Start 12/24/16 at 11:00 Phenylephrine HCl 40 mg/Dextrose 500 ml @ 75 mls/hr TITRATE IV Last administered on 12/25/16 12:12; Admin Dose 150 MLS/HR; Start 12/24/16 at 15:30 Cefepime HCl 50 ml @ 100 mls/hr Q12 IVPB Last administered on 12/25/16 08:52; Admin Dose 100 MLS/HR; Start 12/25/16 at 09:00 Ondansetron HCl/ Sodium Chloride (Zofran Inj/NS) 54 ml @ 216 mls/hr Q6H PRN IV NAUSEA AND/OR VOMITING; Start 12/25/16 at 11:30 Trimethobenzamide HCl 200 mg 200 mg Q6H PRN IM NAUSEA AND/OR VOMITING; Start at 11:30 Magnesium Sulfate (Magnesium Sulfate 2 Gm/50 ml) 50 ml @ 25 mls/hr ONCE ONCE IVPB ; Start 12/25/16 at 12:00; Stop 12/25/16 at 13:59 ASIM LANGSTON Dec 25, 2016 12:17
--- NOTE | 2016-12-25 13:10 | EN ---
Date/Time of Note Date/Time of Note DATE: 12/25/16 TIME: 13:07 ER Progress Note I have been consulted to see the patient for central line placement On exam: General: No significant distress, intubated, minimally responsive Head: Normocephalic, atraumatic. Eyes: Minimally reactive ENT: Dry mucous membranes neck: Supple, no lymphadenopathy Respiratory: Mechanical breath sounds Cardiovascular: RRR, no murmurs, rubs, or gallops Abdominal: Soft, non-tender, non-distended, no peritoneal signs : Deferred MSK: Limited movement of all 4 extremities, no bony abnormalities Neurologic: Limited exam, and encephalopathic, limited movement of all 4 extremities Skin: No rash, no significant breakdown Psych: Unable to assess Procedure(s): Central Line Note: Consent: Consent from family obtained over the phone prior to placement of line indication: Critically ill patient requiring specialized vascular access for fluid or pressor management Location: Right femoral vein secondary to difficult neck access secondary to intubation, tunneled Vas-Cath Procedure: Sterile procedure was observed throughout insertion of the central line. The insertion site was prepped with sterile solution. Ultrasound-guided identification of the vein was performed. Insertion of a needle into the vein was obtained with return of dark, nonpulsatile blood. The wire was then threaded through the needle without complication. The wire was then identified within the vein using ultrasound. A small skin incision was made, the needle was removed intact, dilation of the vein was performed and insertion of a triple lumen catheter was completed. The catheter was then sutured to the skin. All 3 ports aranza back and flushed without difficulty. A sterile dressing was applied. The patient tolerated the procedure well there were no complications. Emergency Bedside Ultrasound: The patient was verbally consented prior to procedure and understands the risks , benefits, and alternatives. The patient is agreeable to procedure and has given verbal consent. Indication: Central line Probe Type: Linear Findings: Dynamic ultrasound utilizing compressive technique with both linear and horizontal views, additional images showing wire within the venous system were obtained. Assessment and plan: Central line placed as documented above. Further assessment and management by admitting team. Pressors through central line appropriate Diagnostic impression: Septic shock Respiratory failure PUMA HUERTA MD Dec 25, 2016 13:09
--- NOTE | 2016-12-25 17:16 | CONS ---
Date/Time of Note Date/Time of Note DATE: 12/25/16 TIME: 16:59 Assessment/Plan Assessment/Plan Chief Complaint/Hosp Course ID PROGRESS NOTE CURRENT ABX: => Cefepime ==> Start Tygacil #1 24H INTERVAL SUMMARY * Orally intubated, noncommunicative on the Vent * 12/24/16 BCx in process * 12/24/16 CT ABD/PELVIS MPRESSION: * 1. Poorly defined, gas containing, hypoenhancing area is seen in the hepatic dome, new when compared to the prior CT, concerning for developing hepatic abscess. * 2. Areas of small bowel wall thickening and mesenteric edema are identified , increased from the prior exam, with probable bowel wall pneumatosis in this location - findings are concerning for ischemic enteritis. No evidence of bowel obstruction or perforation is identified. * 3. Right lower lobe pulmonary consolidation is noted, possibly atelectasis or pneumonia. Small amount of right pleural fluid is present. * 4. There is stable mild cardiomegaly. Coronary arterial and aortoiliac atherosclerotic calcifications are present. * 5. Nasogastric tube tip is in the stomach. * 6. The patient is status post left nephrectomy. Right kidney is moderately atrophic. * 7. Cholelithiasis is seen without evidence for cholecystitis. EXAM GEN: 56 yo F noncommunicative in ICU HEENT: Unremarkable ETT-> secure to Vent NECK: supple CVS: RRR, S1 and S2 CHEST: Coarse BS b/l ABD: Soft, NT, + BS EXT: warm ID ASSESSMENT 56 yo F admit with ABD pain + diarrhea: 1. Sepsis w/ fevers 99.7, severe lactic acidosis 7.8, + leukocytosis => #2 2. Hepatic abscess developing per CT 12/24 3. Ischemic colitis w/bowel wall pneumatosis per CT 12/24 4. Acute hypoxic respiratory failure 5. RLL HCAP w/consolidation seen on CT 6. End-stage renal disease on dialysis: * Patient with a history of nephrectomy 7. Diabetes 8. Anemia, likely secondary to chronic disease 9. Hypertension ( ? ) MRSA Nares-> Pending INVASIVES: PermCath, ETT, OGT, FC ABX ALLERGY: VANCOMYCIN CURRENT ABX: => Cefepime ==> Start Tygacil #1 ID RECOMMENDATIONS 1. ==> Cefepime continue for PSAR coverage * ==> Start Tygacil, she has allergy to Vanco, not able to use Zyvox due to drug drug interactions 2. BCx 12/24/ pending 3. Send sputum for C&S . Problems: Consultation Date/Type/Reason Admit Date/Time Dec 10, 2016 at 03:16 Initial Consult Date 12/15/16 Type of Consultation: ID Exam/Review of Systems Vital Signs Vitals Vital Signs Date Time Temp Pulse Resp B/P Pulse Ox O2 Delivery O2 Flow Rate FiO2 12/25/16 16:45 63 18 99/51 99 Mechanical Ventilator 12/25/16 16:00 98.3 12/25/16 11:10 100 12/25/16 02:30 4.0 Intake and Output 12/24/16 12/24/16 12/25/16 15:00 23:00 07:00 Intake Total 340 ml 830 ml 2637 ml Output Total 600 ml Balance 340 ml 230 ml 2637 ml Results Result Diagram: 12/25/16 0423 12/25/16 0423 Results 24 hrs Laboratory Tests Test 12/24/16 17:19 12/24/16 18:30 12/24/16 22:57 12/25/16 02:13 Bedside Glucose 121 153 169 Lactic Acid Level 2.6 *H Test 12/25/16 02:39 12/25/16 04:23 12/25/16 04:30 12/25/16 05:16 Blood Gas Specimen Source Blood arterial Blood arterial Arterial Blood Date Drawn 12/25/2016 2:50:00 AM 12/25/2016 4:50:00 AM Arterial Blood pH (Temp corrected) 7.085 *L 7.376 Arterial Blood pCO2 (Temp correct) 77.7 H 29.5 L Arterial Blood pO2 (Temp corrected) 69.9 L 58.7 L Arterial Blood HCO3 22.8 16.9 L Arterial Blood Base Excess -8.0 L -7.3 L Arterial Blood Oxygen Saturation 88.0 L 90.1 L Damian Test N/A N/A Arterial Blood Gas Puncture Site LB LB Arterial Blood Carboxyhemoglobin 0.2 0.3 Arterial Blood Methemoglobin 0.4 0.6 Blood Gas A-a O2 Differential 74.7 H 624.8 H Oxyhemoglobin Percent 87.5 L 89.3 L Total Hemoglobin 11.3 L 9.3 L Blood Gas Temperature 37.0 37.0 Blood Gas Modality NASAL CANNULA VENT - AC FiO2 33.0 100.0 Blood Gas Critical Value Read Back Al DENG RN Blood Gas Notified Whom UP UP Blood Gas Notified Time 12/25/2016 3:14:00 AM 12/25/2016 5:12:00 AM White Blood Count 14.9 H Red Blood Count 3.26 #L Hemoglobin 10.0 #L Hematocrit 31.6 #L Mean Corpuscular Volume 96.9 Mean Corpuscular Hemoglobin 30.7 Mean Corpuscular Hemoglobin Concent 31.6 L Red Cell Distribution Width 19.0 H Platelet Count 124 L Mean Platelet Volume 12.7 H Neutrophils % 83.0 H Lymphocytes % 5.0 L Monocytes % 7.2 Eosinophils % 0.1 Basophils % 0.7 Nucleated Red Blood Cells % 0.0 Neutrophils # (Manual) 12.3 H Lymphocytes # 0.7 L Monocytes # 1.1 H Eosinophils # 0.0 Basophils # 0.1 Nucleated Red Blood Cells # 0.0 Prothrombin Time 26.1 H Prothrombin Time Ratio 2.0 INR International Normalized Ratio 2.36 Activated Partial Thromboplast Time 52.3 H Sodium Level 135 Potassium Level 4.0 Chloride Level 99 Carbon Dioxide Level 20 L Anion Gap 20 #H Blood Urea Nitrogen 23 H Creatinine 4.98 H Glucose Level 180 # Lactic Acid Level 5.3 *H Calcium Level 7.5 L Phosphorus Level 6.7 H Magnesium Level 1.5 L Total Bilirubin 0.1 L Direct Bilirubin 0.90 H Indirect Bilirubin 0.1 Aspartate Amino Transf (AST/SGOT) 682 H Alanine Aminotransferase (ALT/SGPT) 273 H Alkaline Phosphatase 152 H Total Protein 5.6 L Albumin 2.5 L Globulin 3.10 Albumin/Globulin Ratio 0.80 Blood Gas Respiration Rate 26.0 Blood Gas Actual Respiration Rate 26 Blood Gas Tidal Volume 500.0 Blood Gas Low PEEP Setting 0 Lab Scanned Report BLOOD TRANSFUSION Test 12/25/16 08:50 12/25/16 12:00 12/25/16 12:27 12/25/16 16:47 Bedside Glucose 125 116 120 Lactic Acid Level 7.8 *H Medications Medications Current Medications Acetaminophen (Tylenol Supp) 650 mg Q6H PRN [place] PAIN LEVEL 1-3 OR FEVER; Start 12/10/16 at 06:00 Morphine Sulfate (morphine) 1 mg Q4H PRN IV SEVERE PAIN LEVEL 7-10 Last administered on 12/23/16 13:58; Admin Dose 1 MG; Start 12/12/16 at 14:00 Lactobacillus Acidophilus/ Rhamnosus (Culturelle) 1 cap BID PO Last administered on 12/23/16 20:59; Admin Dose 1 CAP; Start 12/13/16 at 21:00 Aspirin (Halfprin) 81 mg DAILY PO Last administered on 12/22/16 08:39; Admin Dose 81 MG; Start 12/16/16 at 09:00 Atorvastatin Calcium (Lipitor) 10 mg QHS PO Last administered on 12/23/16 20: 59; Admin Dose 10 MG; Start 12/15/16 at 21:00 Carvedilol (Coreg) 6.25 mg BID PO Last administered on 12/23/16 21:00; Admin Dose 6.25 MG; Start 12/15/16 at 21:00 Cyanocobalamin (Vitamin B12) 1,000 mcg DAILY PO Last administered on 12/22/16 08:40; Admin Dose 1,000 MCG; Start 12/16/16 at 09:00 Docusate Sodium (Colace) 100 mg BID PO Last administered on 12/23/16 21:03; Admin Dose 100 MG; Start 12/15/16 at 21:00 Folic Acid (Folic Acid) 1 mg DAILY PO Last administered on 12/22/16 08:40; Admin Dose 1 MG; Start 12/16/16 at 09:00 Gabapentin (Neurontin) 100 mg QHS PO Last administered on 12/23/16 21:00; Admin Dose 100 MG; Start 12/15/16 at 21:00 Levothyroxine Sodium (Synthroid) 137 mcg DAILY@06 PO Last administered on 05:57; Admin Dose 137 MCG; Start 12/16/16 at 06:00 Losartan Potassium (Cozaar) 50 mg BID PO Last administered on 12/23/16 21:00; Admin Dose 50 MG; Start 12/15/16 at 21:00; Status Future Hold Pentoxifylline (Trental) 400 mg TID PO Last administered on 12/23/16 21:00; Admin Dose 400 MG; Start 12/17/16 at 21:00 Mesalamine (Delzicol Dr) 800 mg TID PO Last administered on 12/23/16 20:59; Admin Dose 800 MG; Start 12/17/16 at 21:00; Status Future Hold Loperamide HCl (Imodium Cap) 2 mg DAILY PO Last administered on 12/22/16 08:39 ; Admin Dose 2 MG; Start 12/17/16 at 18:00 Oxymetazoline HCl (Afrin [place]) 1 spray DAILY NASAL Last administered on 11:58; Admin Dose 1 SPRAY; Start 12/18/16 at 17:00 Guaifenesin (Mucinex) 600 mg BID PO Last administered on 12/23/16 20:59; Admin Dose 600 MG; Start 12/19/16 at 14:00 Fluticasone Propionate (Flonase 0.05% Nasal) 1 spray BID NASAL Last administered on 12/24/16 21:00; Admin Dose 1 SPRAY; Start 12/19/16 at 14:00 Multivitamins Therapeutic (Theragran) 1 tab BID PO Last administered on 21:00; Admin Dose 1 TAB; Start 12/20/16 at 21:00 Hydralazine HCl (Apresoline) 10 mg Q6H PRN IV ELEVATED BLOOD PRESSURE; Start at 16:00 Guaifenesin (Robitussin Liquid Cup) 200 mg Q4H PRN PO COUGH Last administered on 12/22/16 16:59; Admin Dose 200 MG; Start 12/21/16 at 16:00 Phenol (Cepastat Lozenge) 1 lozenge Q1H PRN MT COUGH; Start 12/21/16 at 16:30 Midodrine 10 mg 10 mg TID@,,17 PO Last administered on 12/24/16 08:04; Admin Dose 10 MG; Start 12/24/16 at 09:00 Dextrose/Sodium Chloride (D5-NS) 1,000 ml @ 30 mls/hr Q24H IV Last administered on 12/24/16 08:50; Admin Dose 30 MLS/HR; Start 12/24/16 at 08:30 Pantoprazole (Protonix Iv) 40 mg BID@06,18 IV Last administered on 12/25/16 06: 11; Admin Dose 40 MG; Start 12/24/16 at 09:00 Diagnostic Test (Pha) (Accu-Chek) 1 ea Q4 XX Last administered on 12/25/16 16: 49; Admin Dose 1 EA; Start 12/24/16 at 09:00 Hydromorphone HCl 1 mg 1 mg Q6H PRN IV PAIN Last administered on 12/25/16 11:17 ; Admin Dose 1 MG; Start 12/24/16 at 11:00 Phenylephrine HCl 40 mg/Dextrose 500 ml @ 75 mls/hr TITRATE IV Last administered on 12/25/16 15:28; Admin Dose 172.5 MLS/HR; Start 12/24/16 at 15:30 Cefepime HCl 50 ml @ 100 mls/hr Q12 IVPB Last administered on 12/25/16 08:52; Admin Dose 100 MLS/HR; Start 12/25/16 at 09:00 Ondansetron HCl/ Sodium Chloride (Zofran Inj/NS) 54 ml @ 216 mls/hr Q6H PRN IV NAUSEA AND/OR VOMITING; Start 12/25/16 at 11:30 Trimethobenzamide HCl (Tigan) 200 mg Q6H PRN IM NAUSEA AND/OR VOMITING; Start 12/25/16 at 11:30 YONG TRIPP NP Dec 25, 2016 17:10
[2016-12-25] MEDS ORDERED: TIGECYCLINE 100 MG in SOD CHLORIDE 0.9% 100 ML IVPB ONE (18:30)
--- NOTE | 2016-12-25 18:42 | PN ---
Date/Time of Note Date/Time of Note DATE: 12/25/16 TIME: 18:39 Assessment/Plan Lines/Catheters IV Catheter Type (from [facility]): Central Line Loza in Place (from [facility]): No Assessment/Plan Chief Complaint/Hosp Course - Bowel ischemia: The patient has findings of bowel ischemia upon her CT angiography. 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 However, she did not seem to express findings of acute/chronic mesenteric ischemia. Denied any weight loss as a result of postprandial pain or food fear prior to admission. The patient has always tolerated her diet without any restrictions of solids and liquids. Denied involuntary weight loss. All three mesenteric vessels have flow on CTA -My concern is that the patient may have had findings of possible infectious process that may have led her to become severely dehydrated versus hypovolemia/ low flow state. Another possibility is hypotension during dialysis. Even from her previous admission -At the moment, do not recommend for any further vascular intervention as the patient is high risk for an open mesenteric surgery if that is even a consideration (mortality >60%). Recommend adequate hydration and avoid hypotension during her dialysis sessions. Will need to rule out infectious process. -Optimize vascular status (nutrition, exercise, sugar control, antiplatelets). -Discussed findings and plan of management with a certified solid center winder and daughter understands prognosis poor -Thank you for allowing us to partake in the care of your patient. Please call with any questions. Problems: Subjective 24 Hr Interval Summary patient unfortunately has been intubated and decompensating Exam/Review of Systems Vital Signs Vitals Vital Signs Date Time Temp Pulse Resp B/P Pulse Ox O2 Delivery O2 Flow Rate FiO2 12/25/16 17:30 60 26 95/54 98 Mechanical Ventilator 12/25/16 17:15 100 12/25/16 16:00 98.3 12/25/16 02:30 4.0 Intake and Output 12/24/16 12/24/16 12/25/16 15:00 23:00 07:00 Intake Total 340 ml 830 ml 2637 ml Output Total 600 ml Balance 340 ml 230 ml 2637 ml Exam Free Text/Dictation GENERAL: Intubated LUNGS: Clear to auscultation bilaterally HEART: S1, S2 present ABDOMEN: diffuse tenderness The umbilical area with a superficial wound with iodoform packing. EXTREMITIES: -Lower extremities, palpable femoral pulse, nonpalpable pedal pulse. Motor and sensory intact. Capillary refill 3 to 4 seconds. -Left upper extremity, palpable brachial pulse. Motor and sensory intact. Capillary refill 2 to 3 seconds. Surgical scar is well healed. Results Result Diagram: 12/25/16 0423 12/25/16 0423 TALISHA TITUS MD Dec 25, 2016 18:42
[2016-12-25] MEDS ORDERED: NA BICARBONATE 8.4% 50 ML SYG ONE (19:11)
[2016-12-25] MEDS ORDERED: SODIUM BICARBONATE (IV ADD) 100 MEQ in DEXTROSE 5%-0.9% NACL 900 ML IV SCH (19:30)
[2016-12-25] MEDS ORDERED: NA BICARBONATE 8.4% 50 ML SYG IV ONE (19:30)
[2016-12-25] MEDS: metroNIDAZOLE 500 MG/NS (PMX) 100 ML IVPB SCH (20:25)
[2016-12-25] MEDS: ATORVASTATIN 10 MG TAB PO SCH (21:00)
[2016-12-25] MEDS: GABAPENTIN 100 MG CAP PO SCH (21:00)
[2016-12-25] MEDS ORDERED: NORepinephrine 8MG/250 ML (PMX 250 ML ONE (21:08)
[2016-12-25] MEDS ORDERED: NORepinephrine 8MG/250 ML (PMX 250 ML IV SCH (21:30)
[2016-12-25] MEDS: PHENYLephrine 160 MG in DEXTROSE 5% 484 ML IV SCH (22:15)
[2016-12-26] VITALS (54 sets, daily range): BP systolic 63–131; BP diastolic 27–63; PULSE 0–98; RESP 20–27
[2016-12-26] MEDS: ACCU-CHEK XX SCH ×4 (01:00→13:13)
[2016-12-26] MEDS: IPRATROPIUM (HFA) 12.9 GM INHALER INH SCH ×3 (02:07→14:34)
[2016-12-26] MEDS: ALBUTEROL 18 GM INHALER INH SCH ×3 (02:07→14:34)
[2016-12-26] MEDS ORDERED: NORepinephrine 32 MG in DEXTROSE 5% 218 ML IV SCH (04:00)
[2016-12-26] MEDS: LEVOTHYROXINE 137 MCG TAB PO SCH (05:06)
[2016-12-26] MEDS: metroNIDAZOLE 500 MG/NS (PMX) 100 ML IVPB SCH (05:08)
[2016-12-26] MEDS: PANTOPRAZOLE 40 MG INJ IV SCH (05:08)
[2016-12-26 05:11] LABS: CALCIUM 7.3 mg/dl (8.4-10.2); MAGNESIUM 2.2 mg/dl (1.7-2.5); PHOSPHORUS 7.3 mg/dl (2.5-4.9); POTASSIUM 4.3 mmol/L (3.5-5.1)
[2016-12-26 05:18] LABS: ABNORMAL IP MESSAGE 1; HEMATOCRIT 37.8 % (37.0-47.0); HEMOGLOBIN 11.1 g/dl (12.0-16.0); MEAN CORPUSCULAR HEMOGLOBIN 30.4 pg (29.0-33.0); MEAN CORPUSCULAR HGB CONC 29.4 g/dl (32.0-37.0); MEAN CORPUSCULAR VOLUME 103.6 fl (82.0-101.0); MEAN PLATELET VOLUME 12.6 fl (7.4-10.4); NUCLEATED RED BLOOD CELLS% 1.9 /100WBC (0.0-0.0); RED BLOOD COUNT 3.65 10^6/ul (4.20-5.40); RED CELL DISTRIBUTION WIDTH 19.5 % (11.5-14.5); WHITE BLOOD COUNT 5.7 10^3/ul (4.8-10.8)
[2016-12-26] MEDS: PHENYLephrine 160 MG in DEXTROSE 5% 484 ML IV SCH (05:19)
[2016-12-26 05:28] LABS: POSITIVE DIFF @See below
[2016-12-26 06:09] LABS: CREATININE 4.92 mg/dl (0.44-1.00)
[2016-12-26 06:43] LABS: BASOPHILS % 0.5 % (0.0-2.0); NUCLEATED RED BLOOD CELLS # 0.2 10^3/ul (0.0-0.0)
[2016-12-26] MEDS ORDERED: NA BICARBONATE 8.4% 50 ML SYG ONE (06:52)
[2016-12-26] MEDS ORDERED: NA BICARBONATE 8.4% 50 ML SYG IV ONE (07:00)
[2016-12-26 08:11] LABS: AADO2 Arterial 598.4 mmHg (7.0-24.0); Allen Test ACCEPTAB; Arterial Base Excess -15.7 mmol/L (-3.0-3); Arterial COHb 0.3 % (0.0-3.0); Arterial Fraction of Oxyhgb 92.7 % (93.0-99.0); Arterial HCO3 11.9 mmol/L (22.0-26.0); Arterial MetHb 0.3 % (0.0-1.5); Arterial Total Hemglobin 11.7 g/dl (12.0-18.0); MODE VENT - AC
[2016-12-26] MEDS ORDERED: TIGECYCLINE 50 MG in SOD CHLORIDE 0.9% 100 ML IVPB SCH (09:00)
[2016-12-26] MEDS: FOLIC ACID 1 MG TAB PO SCH (09:00)
[2016-12-26] MEDS: MULTIVITAMINS THERAPEUTIC TAB PO SCH (09:00)
[2016-12-26] MEDS: ASPIRIN (EC) 81 MG TAB PO SCH (09:00)
[2016-12-26] MEDS: PENTOXIFYLLINE (SR) 400 MG TAB PO SCH ×2 (09:00→13:00)
[2016-12-26] MEDS: DOCUSATE SODIUM 100 MG CAP PO SCH (09:00)
[2016-12-26] MEDS: MIDODRINE 5 MG TAB PO SCH ×2 (09:00→13:00)
[2016-12-26] MEDS: CYANOCOBALAMIN 500 MCG TAB PO SCH (09:00)
[2016-12-26] MEDS: OXYMETAZOLINE 0.05% 15 ML NAS SPRAY NASAL SCH (09:00)
[2016-12-26] MEDS: GUAIFENESIN LA 600 MG TABSR PO SCH (09:00)
[2016-12-26] MEDS: FLUTICASONE 0.05% 16 GM NAS SPRAY NASAL SCH (09:00)
[2016-12-26] MEDS: LOPERAMIDE 2 MG CAP PO SCH (09:00)
[2016-12-26] MEDS: LACTOBACILLUS RHAMNOSUS CAP PO SCH (09:00)
[2016-12-26] MEDS: CEFEPIME 1GM/50 ML (PMX) 50 ML IVPB SCH (09:32)
[2016-12-26] MEDS ORDERED: DEXTROSE 50% 50 ML SYRINGE ONE (09:49)
--- NOTE | 2016-12-26 09:54 | CONS ---
Date/Time of Note Date/Time of Note DATE: 12/26/16 TIME: 09:52 Assessment/Plan Assessment/Plan Chief Complaint/Hosp Course This is an extremely ill 56-year-old female who looks much older than her stated age who is critically ill in the intensive care unit [facility]. 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 Patient has an extensive history of bowel resection secondary to severe atherosclerotic circulatory vascular disease. Please refer to extensive notes from surgical consultations. Patient became hypotensive and was transferred to the intensive care unit currently in shock. Repeat CT scan shows pneumo intestinalis and evidence of possible abscess of the dome of the liver. Patient is extremely high risk of surgical procedure. I am asked to speak to family members. Patient has history of renal failure on hemodialysis. Other comorbid major medical problems include hypertension type 2 diabetes hyperlipidemia patient is frail presented also with dehydration. HISTORY OF PRESENT ILLNESS: Dear Doctors, the patient is a 56- year-old female known to our vascular surgery service group, who presented with abdominal pain, diarrhea, and generalized weakness. It seems the patient had noticed her having abdominal pain that had been getting worse over the past few days and was admitted to [place] for septic shock, at which time she was discharged with antibiotics without definitive improvement. As of recent, the patient has a previous history of small bowel ischemia, in which she underwent exploratory laparotomy with bowel resection and this course was complicated with wound dehiscence that is being currently managed with some local wound care for a small area that is still open. Otherwise, the patient right now denies shortness of breath, chest pain, nausea, vomiting, fever, or chills. Patient is able to tolerate some diet and her stools have not shown any hematochezia or melena. 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 She denies any history of postprandial pain or any issues of recent weight loss, other than her recent surgeries. Problems: Additional Assessment/Plan Postdated progress note for visit 12/25/2016 Conversation with patient's daughter through an import dispatcher concerning her mother's deteriorating condition. We discussed goals of care pain management, suffering, her fears concern spiritual issues ethical issue overall prognosis. Since her mother has continued to deteriorate we discussed CODE STATUS, once again mother made it very clear she did not want to have any surgical procedures again. Daughter feels that her mother would not want to have cardiopulmonary resuscitation therefore we have change her CODE STATUS to DO NOT RESUSCITATE today. Consultation Date/Type/Reason Admit Date/Time Dec 10, 2016 at 03:16 Initial Consult Date 12/15/16 Type of Consultation: ID Exam/Review of Systems Vital Signs Vitals Vital Signs Date Time Temp Pulse Resp B/P Pulse Ox O2 Delivery O2 Flow Rate FiO2 12/26/16 07:45 89 27 82/49 12/26/16 07:15 85 12/26/16 05:44 100 12/25/16 20:00 96.5 12/25/16 19:15 Mechanical Ventilator 12/25/16 02:30 4.0 Intake and Output 12/25/16 12/25/16 12/26/16 15:00 23:00 07:00 Intake Total 1327.5 ml 1475 ml 1194.06 ml Balance 1327.5 ml 1475 ml 1194.06 ml Results Result Diagram: 12/26/16 0435 12/26/16 0435 Results 24 hrs Laboratory Tests Test 12/25/16 12:00 12/25/16 12:27 12/25/16 16:47 12/25/16 18:17 Lactic Acid Level 7.8 *H 13.6 *H Bedside Glucose 116 120 Test 12/25/16 22:21 12/26/16 04:35 12/26/16 05:16 12/26/16 05:24 Bedside Glucose 107 107 White Blood Count 5.7 # Red Blood Count 3.65 L Hemoglobin 11.1 L Hematocrit 37.8 Mean Corpuscular Volume 103.6 H Mean Corpuscular Hemoglobin 30.4 Mean Corpuscular Hemoglobin Concent 29.4 L Red Cell Distribution Width 19.5 H Platelet Count 47 #L Mean Platelet Volume 12.6 H Neutrophils % Lymphocytes % Monocytes % Eosinophils % Basophils % 0.5 Nucleated Red Blood Cells % 1.9 H Neutrophils # (Manual) 4.4 Lymphocytes # Monocytes # Eosinophils # Basophils # 0.0 Nucleated Red Blood Cells # 0.2 H Sodium Level 128 L Potassium Level 4.3 Chloride Level 98 Carbon Dioxide Level 8 #*L Anion Gap 26 H Blood Urea Nitrogen 19 Creatinine 4.92 H Glucose Level 110 # Calcium Level 7.3 L Phosphorus Level 7.3 H Magnesium Level 2.2 Lab Scanned Report BLOOD TRANSFUSION Test 12/26/16 07:00 Blood Gas Specimen Source Blood arterial Arterial Blood Date Drawn 12/26/2016 7:50:00 AM Arterial Blood pH (Temp corrected) 7.158 *L Arterial Blood pCO2 (Temp correct) 34.4 L Arterial Blood pO2 (Temp corrected) 80.2 Arterial Blood HCO3 11.9 L Arterial Blood Base Excess -15.7 L Arterial Blood Oxygen Saturation 93.3 L Damian Test ACCEPTAB Arterial Blood Gas Puncture Site Right Radial Arterial Blood Carboxyhemoglobin 0.3 Arterial Blood Methemoglobin 0.3 Blood Gas A-a O2 Differential 598.4 H Oxyhemoglobin Percent 92.7 L Total Hemoglobin 11.7 L Blood Gas Temperature 37.0 Blood Gas Respiration Rate 26.0 Blood Gas Actual Respiration Rate 26 Blood Gas Modality VENT - AC FiO2 100.0 Blood Gas Tidal Volume 500.0 Blood Gas Critical Value Read Back K FARLESS RN Blood Gas Notified Whom TM Blood Gas Notified Time 12/26/2016 8:01:00 AM Medications Medications Current Medications Acetaminophen (Tylenol Supp) 650 mg Q6H PRN [place] PAIN LEVEL 1-3 OR FEVER; Start 12/10/16 at 06:00 Morphine Sulfate (morphine) 1 mg Q4H PRN IV SEVERE PAIN LEVEL 7-10 Last administered on 12/23/16 13:58; Admin Dose 1 MG; Start 12/12/16 at 14:00 Lactobacillus Acidophilus/ Rhamnosus (Culturelle) 1 cap BID PO Last administered on 12/23/16 20:59; Admin Dose 1 CAP; Start 12/13/16 at 21:00 Aspirin (Halfprin) 81 mg DAILY PO Last administered on 12/22/16 08:39; Admin Dose 81 MG; Start 12/16/16 at 09:00 Atorvastatin Calcium (Lipitor) 10 mg QHS PO Last administered on 12/23/16 20: 59; Admin Dose 10 MG; Start 12/15/16 at 21:00 Carvedilol (Coreg) 6.25 mg BID PO Last administered on 12/23/16 21:00; Admin Dose 6.25 MG; Start 12/15/16 at 21:00 Cyanocobalamin (Vitamin B12) 1,000 mcg DAILY PO Last administered on 12/22/16 08:40; Admin Dose 1,000 MCG; Start 12/16/16 at 09:00 Docusate Sodium (Colace) 100 mg BID PO Last administered on 12/23/16 21:03; Admin Dose 100 MG; Start 12/15/16 at 21:00 Folic Acid (Folic Acid) 1 mg DAILY PO Last administered on 12/22/16 08:40; Admin Dose 1 MG; Start 12/16/16 at 09:00 Gabapentin (Neurontin) 100 mg QHS PO Last administered on 12/23/16 21:00; Admin Dose 100 MG; Start 12/15/16 at 21:00 Levothyroxine Sodium (Synthroid) 137 mcg DAILY@06 PO Last administered on 05:57; Admin Dose 137 MCG; Start 12/16/16 at 06:00 Losartan Potassium (Cozaar) 50 mg BID PO Last administered on 12/23/16 21:00; Admin Dose 50 MG; Start 12/15/16 at 21:00; Status Future Hold Pentoxifylline (Trental) 400 mg TID PO Last administered on 12/23/16 21:00; Admin Dose 400 MG; Start 12/17/16 at 21:00 Mesalamine (Delzicol Dr) 800 mg TID PO Last administered on 12/23/16 20:59; Admin Dose 800 MG; Start 12/17/16 at 21:00; Status Future Hold Loperamide HCl (Imodium Cap) 2 mg DAILY PO Last administered on 12/22/16 08:39 ; Admin Dose 2 MG; Start 12/17/16 at 18:00 Oxymetazoline HCl (Afrin [place]) 1 spray DAILY NASAL Last administered on 11:58; Admin Dose 1 SPRAY; Start 12/18/16 at 17:00 Guaifenesin (Mucinex) 600 mg BID PO Last administered on 12/23/16 20:59; Admin Dose 600 MG; Start 12/19/16 at 14:00 Fluticasone Propionate (Flonase 0.05% Nasal) 1 spray BID NASAL Last administered on 12/25/16 21:18; Admin Dose 1 SPRAY; Start 12/19/16 at 14:00 Multivitamins Therapeutic (Theragran) 1 tab BID PO Last administered on 21:00; Admin Dose 1 TAB; Start 12/20/16 at 21:00 Hydralazine HCl (Apresoline) 10 mg Q6H PRN IV ELEVATED BLOOD PRESSURE; Start at 16:00 Guaifenesin (Robitussin Liquid Cup) 200 mg Q4H PRN PO COUGH Last administered on 12/22/16 16:59; Admin Dose 200 MG; Start 12/21/16 at 16:00 Phenol (Cepastat Lozenge) 1 lozenge Q1H PRN MT COUGH; Start 12/21/16 at 16:30 Midodrine (Proamatine) 10 mg TID@,,17 PO Last administered on 12/24/16 08: 04; Admin Dose 10 MG; Start 12/24/16 at 09:00 Pantoprazole (Protonix Iv) 40 mg BID@06,18 IV Last administered on 12/26/16 05: 08; Admin Dose 40 MG; Start 12/24/16 at 09:00 Diagnostic Test (Pha) (Accu-Chek) 1 ea Q4 XX Last administered on 12/26/16 05: 05; Admin Dose 1 EA; Start 12/24/16 at 09:00 Hydromorphone HCl 1 mg 1 mg Q6H PRN IV PAIN Last administered on 12/25/16 11:17 ; Admin Dose 1 MG; Start 12/24/16 at 11:00 Phenylephrine HCl 40 mg/Dextrose 500 ml @ 75 mls/hr TITRATE IV Last administered on 12/25/16 18:43; Admin Dose 172.5 MLS/HR; Start 12/24/16 at 15:30 Cefepime HCl 50 ml @ 100 mls/hr Q12 IVPB Last administered on 12/26/16 09:32; Admin Dose 100 MLS/HR; Start 12/25/16 at 09:00 Ondansetron HCl/ Sodium Chloride (Zofran Inj/NS) 54 ml @ 216 mls/hr Q6H PRN IV NAUSEA AND/OR VOMITING; Start 12/25/16 at 11:30 Trimethobenzamide HCl 200 mg 200 mg Q6H PRN IM NAUSEA AND/OR VOMITING; Start at 11:30 Tigecycline 50 mg/ Sodium Chloride 100 ml @ 200 mls/hr Q12 IVPB Last administered on 12/26/16 09:33; Admin Dose 200 MLS/HR; Start 12/26/16 at 09:00 Sodium Bicarbonate 100 meq/Dextrose/ Sodium Chloride 1,000 ml @ 30 mls/hr Q24H IV Last administered on 12/25/16 20:22; Admin Dose 30 MLS/HR; Start 12/25/16 at 19:30 Phenylephrine HCl 160 mg/Dextrose 500 ml @ 18.75 mls/ hr TITRATE IV Last administered on 12/26/16 05:19; Admin Dose 56.25 MLS/HR; Start 12/25/16 at 20:00 Metronidazole 100 ml @ 100 mls/hr Q8 IVPB Last administered on 12/26/16 05:08 ; Admin Dose 100 MLS/HR; Start 12/25/16 at 20:02; Stop 01/01/17 at 14:59 Norepinephrine/ Dextrose (Levophed/D5W) 250 ml @ 0.46 mls/hr TITRATE IV Last administered on 12/26/16 05:21; Admin Dose 14.06 MLS/HR; Start 12/26/16 at 04:00 LULU VELAZQUEZ Dec 26, 2016 09:54
--- NOTE | 2016-12-26 09:57 | CONS ---
Date/Time of Note Date/Time of Note DATE: 12/26/16 TIME: 09:54 Assessment/Plan Assessment/Plan Chief Complaint/Hosp Course This is an extremely ill 56-year-old female who looks much older than her stated age who is critically ill in the intensive care unit [facility]. 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 Patient has an extensive history of bowel resection secondary to severe atherosclerotic circulatory vascular disease. Please refer to extensive notes from surgical consultations. Patient became hypotensive and was transferred to the intensive care unit currently in shock. Repeat CT scan shows pneumo intestinalis and evidence of possible abscess of the dome of the liver. Patient is extremely high risk of surgical procedure. I am asked to speak to family members. Patient has history of renal failure on hemodialysis. Other comorbid major medical problems include hypertension type 2 diabetes hyperlipidemia patient is frail presented also with dehydration. HISTORY OF PRESENT ILLNESS: Dear Doctors, the patient is a 56- year-old female known to our vascular surgery service group, who presented with abdominal pain, diarrhea, and generalized weakness. It seems the patient had noticed her having abdominal pain that had been getting worse over the past few days and was admitted to [place] for septic shock, at which time she was discharged with antibiotics without definitive improvement. As of recent, the patient has a previous history of small bowel ischemia, in which she underwent exploratory laparotomy with bowel resection and this course was complicated with wound dehiscence that is being currently managed with some local wound care for a small area that is still open. Otherwise, the patient right now denies shortness of breath, chest pain, nausea, vomiting, fever, or chills. Patient is able to tolerate some diet and her stools have not shown any hematochezia or melena. 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 She denies any history of postprandial pain or any issues of recent weight loss, other than her recent surgeries. Problems: Additional Assessment/Plan Conference with patient's daughter once again today.. 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 EEG has been ordered. I have discussed physical findings and patient's current condition with her daughter through an rubber compounder. Her major concern is that her mother does not suffer. Patient's 2 other daughters are driving in from [place] and will not arrive until late this evening at the earliest. We will continue to support patient hopefully her daughter's can arrived spent some time with her prior to her . He is demented patient continues to deteriorate requires more pressor support we have assured her that we will keep her comfortable, at that time I will switch to comfort measures. Once again will not do so with the hope that patient's 2 daughters can arrive and spent some time with their mother. Consultation Date/Type/Reason Admit Date/Time Dec 10, 2016 at 03:16 Initial Consult Date 12/15/16 Type of Consultation: Palliative care Exam/Review of Systems Vital Signs Vitals Vital Signs Date Time Temp Pulse Resp B/P Pulse Ox O2 Delivery O2 Flow Rate FiO2 12/26/16 07:45 89 27 82/49 12/26/16 07:15 85 12/26/16 05:44 100 12/25/16 20:00 96.5 12/25/16 19:15 Mechanical Ventilator 12/25/16 02:30 4.0 Intake and Output 12/25/16 12/25/16 12/26/16 15:00 23:00 07:00 Intake Total 1327.5 ml 1475 ml 1194.06 ml Balance 1327.5 ml 1475 ml 1194.06 ml Results Result Diagram: 12/26/16 0435 12/26/16 0435 Results 24 hrs Laboratory Tests Test 12/25/16 12:00 12/25/16 12:27 12/25/16 16:47 12/25/16 18:17 Lactic Acid Level 7.8 *H 13.6 *H Bedside Glucose 116 120 Test 12/25/16 22:21 12/26/16 04:35 12/26/16 05:16 12/26/16 05:24 Bedside Glucose 107 107 White Blood Count 5.7 # Red Blood Count 3.65 L Hemoglobin 11.1 L Hematocrit 37.8 Mean Corpuscular Volume 103.6 H Mean Corpuscular Hemoglobin 30.4 Mean Corpuscular Hemoglobin Concent 29.4 L Red Cell Distribution Width 19.5 H Platelet Count 47 #L Mean Platelet Volume 12.6 H Neutrophils % Lymphocytes % Monocytes % Eosinophils % Basophils % 0.5 Nucleated Red Blood Cells % 1.9 H Neutrophils # (Manual) 4.4 Lymphocytes # Monocytes # Eosinophils # Basophils # 0.0 Nucleated Red Blood Cells # 0.2 H Sodium Level 128 L Potassium Level 4.3 Chloride Level 98 Carbon Dioxide Level 8 #*L Anion Gap 26 H Blood Urea Nitrogen 19 Creatinine 4.92 H Glucose Level 110 # Calcium Level 7.3 L Phosphorus Level 7.3 H Magnesium Level 2.2 Lab Scanned Report BLOOD TRANSFUSION Test 12/26/16 07:00 Blood Gas Specimen Source Blood arterial Arterial Blood Date Drawn 12/26/2016 7:50:00 AM Arterial Blood pH (Temp corrected) 7.158 *L Arterial Blood pCO2 (Temp correct) 34.4 L Arterial Blood pO2 (Temp corrected) 80.2 Arterial Blood HCO3 11.9 L Arterial Blood Base Excess -15.7 L Arterial Blood Oxygen Saturation 93.3 L Damian Test ACCEPTAB Arterial Blood Gas Puncture Site Right Radial Arterial Blood Carboxyhemoglobin 0.3 Arterial Blood Methemoglobin 0.3 Blood Gas A-a O2 Differential 598.4 H Oxyhemoglobin Percent 92.7 L Total Hemoglobin 11.7 L Blood Gas Temperature 37.0 Blood Gas Respiration Rate 26.0 Blood Gas Actual Respiration Rate 26 Blood Gas Modality VENT - AC FiO2 100.0 Blood Gas Tidal Volume 500.0 Blood Gas Critical Value Read Back K JUDE RN Blood Gas Notified Whom TM Blood Gas Notified Time 12/26/2016 8:01:00 AM Medications Medications Current Medications Acetaminophen (Tylenol Supp) 650 mg Q6H PRN [place] PAIN LEVEL 1-3 OR FEVER; Start 12/10/16 at 06:00 Morphine Sulfate (morphine) 1 mg Q4H PRN IV SEVERE PAIN LEVEL 7-10 Last administered on 12/23/16 13:58; Admin Dose 1 MG; Start 12/12/16 at 14:00 Lactobacillus Acidophilus/ Rhamnosus (Culturelle) 1 cap BID PO Last administered on 12/23/16 20:59; Admin Dose 1 CAP; Start 12/13/16 at 21:00 Aspirin (Halfprin) 81 mg DAILY PO Last administered on 12/22/16 08:39; Admin Dose 81 MG; Start 12/16/16 at 09:00 Atorvastatin Calcium (Lipitor) 10 mg QHS PO Last administered on 12/23/16 20: 59; Admin Dose 10 MG; Start 12/15/16 at 21:00 Carvedilol (Coreg) 6.25 mg BID PO Last administered on 12/23/16 21:00; Admin Dose 6.25 MG; Start 12/15/16 at 21:00 Cyanocobalamin (Vitamin B12) 1,000 mcg DAILY PO Last administered on 12/22/16 08:40; Admin Dose 1,000 MCG; Start 12/16/16 at 09:00 Docusate Sodium (Colace) 100 mg BID PO Last administered on 12/23/16 21:03; Admin Dose 100 MG; Start 12/15/16 at 21:00 Folic Acid (Folic Acid) 1 mg DAILY PO Last administered on 12/22/16 08:40; Admin Dose 1 MG; Start 12/16/16 at 09:00 Gabapentin (Neurontin) 100 mg QHS PO Last administered on 12/23/16 21:00; Admin Dose 100 MG; Start 12/15/16 at 21:00 Levothyroxine Sodium (Synthroid) 137 mcg DAILY@06 PO Last administered on 05:57; Admin Dose 137 MCG; Start 12/16/16 at 06:00 Losartan Potassium (Cozaar) 50 mg BID PO Last administered on 12/23/16 21:00; Admin Dose 50 MG; Start 12/15/16 at 21:00; Status Future Hold Pentoxifylline (Trental) 400 mg TID PO Last administered on 12/23/16 21:00; Admin Dose 400 MG; Start 12/17/16 at 21:00 Mesalamine (Delzicol Dr) 800 mg TID PO Last administered on 12/23/16 20:59; Admin Dose 800 MG; Start 12/17/16 at 21:00; Status Future Hold Loperamide HCl (Imodium Cap) 2 mg DAILY PO Last administered on 12/22/16 08:39 ; Admin Dose 2 MG; Start 12/17/16 at 18:00 Oxymetazoline HCl (Afrin [place]) 1 spray DAILY NASAL Last administered on 11:58; Admin Dose 1 SPRAY; Start 12/18/16 at 17:00 Guaifenesin (Mucinex) 600 mg BID PO Last administered on 12/23/16 20:59; Admin Dose 600 MG; Start 12/19/16 at 14:00 Fluticasone Propionate (Flonase 0.05% Nasal) 1 spray BID NASAL Last administered on 12/25/16 21:18; Admin Dose 1 SPRAY; Start 12/19/16 at 14:00 Multivitamins Therapeutic (Theragran) 1 tab BID PO Last administered on 21:00; Admin Dose 1 TAB; Start 12/20/16 at 21:00 Hydralazine HCl (Apresoline) 10 mg Q6H PRN IV ELEVATED BLOOD PRESSURE; Start at 16:00 Guaifenesin (Robitussin Liquid Cup) 200 mg Q4H PRN PO COUGH Last administered on 12/22/16 16:59; Admin Dose 200 MG; Start 12/21/16 at 16:00 Phenol (Cepastat Lozenge) 1 lozenge Q1H PRN MT COUGH; Start 12/21/16 at 16:30 Midodrine (Proamatine) 10 mg TID@,,17 PO Last administered on 12/24/16 08: 04; Admin Dose 10 MG; Start 12/24/16 at 09:00 Pantoprazole (Protonix Iv) 40 mg BID@06,18 IV Last administered on 12/26/16 05: 08; Admin Dose 40 MG; Start 12/24/16 at 09:00 Diagnostic Test (Pha) (Accu-Chek) 1 ea Q4 XX Last administered on 12/26/16 05: 05; Admin Dose 1 EA; Start 12/24/16 at 09:00 Hydromorphone HCl 1 mg 1 mg Q6H PRN IV PAIN Last administered on 12/25/16 11:17 ; Admin Dose 1 MG; Start 12/24/16 at 11:00 Phenylephrine HCl 40 mg/Dextrose 500 ml @ 75 mls/hr TITRATE IV Last administered on 12/25/16 18:43; Admin Dose 172.5 MLS/HR; Start 12/24/16 at 15:30 Cefepime HCl 50 ml @ 100 mls/hr Q12 IVPB Last administered on 12/26/16 09:32; Admin Dose 100 MLS/HR; Start 12/25/16 at 09:00 Ondansetron HCl/ Sodium Chloride (Zofran Inj/NS) 54 ml @ 216 mls/hr Q6H PRN IV NAUSEA AND/OR VOMITING; Start 12/25/16 at 11:30 Trimethobenzamide HCl 200 mg 200 mg Q6H PRN IM NAUSEA AND/OR VOMITING; Start at 11:30 Tigecycline 50 mg/ Sodium Chloride 100 ml @ 200 mls/hr Q12 IVPB Last administered on 12/26/16 09:33; Admin Dose 200 MLS/HR; Start 12/26/16 at 09:00 Sodium Bicarbonate 100 meq/Dextrose/ Sodium Chloride 1,000 ml @ 30 mls/hr Q24H IV Last administered on 12/25/16 20:22; Admin Dose 30 MLS/HR; Start 12/25/16 at 19:30 Phenylephrine HCl 160 mg/Dextrose 500 ml @ 18.75 mls/ hr TITRATE IV Last administered on 12/26/16 05:19; Admin Dose 56.25 MLS/HR; Start 12/25/16 at 20:00 Metronidazole 100 ml @ 100 mls/hr Q8 IVPB Last administered on 12/26/16 05:08 ; Admin Dose 100 MLS/HR; Start 12/25/16 at 20:02; Stop 01/01/17 at 14:59 Norepinephrine/ Dextrose (Levophed/D5W) 250 ml @ 0.46 mls/hr TITRATE IV Last administered on 12/26/16 05:21; Admin Dose 14.06 MLS/HR; Start 12/26/16 at 04:00 LULU VELAZQUEZ Dec 26, 2016 09:57
--- NOTE | 2016-12-26 09:58 | RADRPT ---
PROCEDURE: XR Chest. CLINICAL INDICATION: Shortness of breath TECHNIQUE: Single view of the chest COMPARISON: Chest radiograph December 25, 2016 FINDINGS: The tip of the endotracheal tube is 3 cm above the gunnar. There is a left IJ line, unchanged, with the tip possibly in the azygos vein . Enteric tube courses below the diaphragm. There are sternal wires and mediastinal clips. Cardiac silhouette is moderately enlarged and there is progressive moderate pulmonary vascular conge stion and small bilateral effusions. Superimposed right lower lung pneumonia is suspected with air bronchograms. There is no pneumothorax. There is no acute osseous abnormality. IMPRESSION: 1. Progressive worsening pulmonary vascular congestion with small bilateral pleural effusions. Margaret picion for superimposed right lower lobe pneumonia. 2. Enlarged cardiac silhouette with sternal wires/mediastinal clips and atherosclerotic calcificati ons of the aorta. 3. Lines and tubes as above noting the left tunnel dialysis catheter with unchanged tip that may be in the azygos vein or mid SVC. RPTAT: UU .Barrington Fang MD, MD Date Time Electronically viewed and signed by .Barrington Fang MD, MD on 12/26/2016 09:58 .K/
[2016-12-26] MEDS ORDERED: DEXTROSE 50% 50 ML SYRINGE IV ONE (10:00)
--- NOTE | 2016-12-26 10:24 | PN ---
Date/Time of Note Date/Time of Note DATE: 12/26/16 TIME: 10:18 Assessment/Plan VTE Prophylaxis VTE Prophylaxis Intervention: SCD's Lines/Catheters IV Catheter Type (from Nrs): Central Line Central line still needed: Yes Urinary Cath still in place: No Assessment/Plan Chief Complaint/Hosp Course Assessment/Plan: 56-year-old female prior history of bowel resection and possible mesenteric ischemia, coming in with abdominal pain, worsening over hospital stay with the findings on CT scan yesterday of ischemic enteritis/ pneumatosis. 1. Abdominal pain: was slowly improving earlier this hospital stay, but in the last 48 hours with more tenderness to palpation, with findings of ischemic colitis/pneumatosis on CT scan 2 days ago. In addition, she also has findings of possible hepatic abscess, seen by infectious disease team yesterday as well. 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 Appreciate vascular surgery consult, GI, and palliative care recommendations. Now on pressor support with lactic acidosis. -Per discussion with surgery team, high risk of mortality if surgery attempted for this present condition. Appreciate palliative care consult, they spoke with family member 2 days ago and family members from out of state are planning to arrive later today given the severity of patient's illness. Patient is now DNR. Continue pain control medications, IV fluids, broad-spectrum antibiotics tigecycline, Flagyl -Continue pressor support if systolic less than 80, low-dose IV fluids for now. -Overall poor prognosis given the findings on CT scan of significant ischemic colitis and lactic acidosis now and hypotension/shock and liver abscess 2. Diarrhea-still off and on, C. difficile test was negative on December 24. Monitor for now, on Imodium 3. End-stage renal disease on dialysis: Patient with a history of nephrectomy -For dialysis Tuesday, , Tuesday as tolerated, monitor blood pressure very carefully, and renal recommendation 4. Diabetes-last A1c was 4.8 back in August 2016. A1c this admission equals 5.1 Monitor sugars for now 5. Anemia, likely secondary to chronic disease -Monitor H&H and transfuse as needed 6. Hypertension-stable presently -Continue antihypertensives with adjustment as needed 7. Cough: -continue guaifenesin, Cepastat as needed -continue duo nebs every 4 hours as needed Dispo: Palliative care team is also ordered EEG given patient's poor pupillary exam and unresponsiveness at this point. Overall very poor prognosis. As of now still performing medical care, although would strongly recommend comfort care measures at this point. Critical care time spent on patient care today equals 45 minutes. Problems: Subjective 24 Hr Interval Summary Free Text/Dictation Patient received 3 A of bicarb last night, in addition to the IV fluids that have 2 A of bicarb running in it. Still on pressor support. Seen by palliative care team this morning. Awaiting arrival of family members from out of state. Patient is DNR now. No hemodialysis since . Seen by ID team as well yesterday for the likely hepatic abscess. Exam/Review of Systems Vital Signs Vitals Vital Signs Date Time Temp Pulse Resp B/P Pulse Ox O2 Delivery O2 Flow Rate FiO2 12/26/16 07:45 89 27 82/49 12/26/16 07:15 85 12/26/16 05:44 100 12/25/16 20:00 96.5 12/25/16 19:15 Mechanical Ventilator 12/25/16 02:30 4.0 Intake and Output 12/25/16 12/25/16 12/26/16 15:00 23:00 07:00 Intake Total 1327.5 ml 1475 ml 1194.06 ml Balance 1327.5 ml 1475 ml 1194.06 ml Exam nad, lying in bed, intubated no mrg lungs distant breath sounds decreased bowel sounds no rashes Results Result Diagram: 12/26/16 0435 12/26/16 0435 Results 24 hrs Laboratory Tests Test 12/25/16 12:00 12/25/16 12:27 12/25/16 16:47 12/25/16 18:17 Lactic Acid Level 7.8 *H 13.6 *H Bedside Glucose 116 120 Test 12/25/16 22:21 12/26/16 04:35 12/26/16 05:16 12/26/16 05:24 Bedside Glucose 107 107 White Blood Count 5.7 # Red Blood Count 3.65 L Hemoglobin 11.1 L Hematocrit 37.8 Mean Corpuscular Volume 103.6 H Mean Corpuscular Hemoglobin 30.4 Mean Corpuscular Hemoglobin Concent 29.4 L Red Cell Distribution Width 19.5 H Platelet Count 47 #L Mean Platelet Volume 12.6 H Neutrophils % Lymphocytes % Monocytes % Eosinophils % Basophils % 0.5 Nucleated Red Blood Cells % 1.9 H Neutrophils # (Manual) 4.4 Lymphocytes # Monocytes # Eosinophils # Basophils # 0.0 Nucleated Red Blood Cells # 0.2 H Sodium Level 128 L Potassium Level 4.3 Chloride Level 98 Carbon Dioxide Level 8 #*L Anion Gap 26 H Blood Urea Nitrogen 19 Creatinine 4.92 H Glucose Level 110 # Calcium Level 7.3 L Phosphorus Level 7.3 H Magnesium Level 2.2 Lab Scanned Report BLOOD TRANSFUSION Test 12/26/16 07:00 12/26/16 09:47 12/26/16 10:05 Blood Gas Specimen Source Blood arterial Arterial Blood Date Drawn 12/26/2016 7:50:00 AM Arterial Blood pH (Temp corrected) 7.158 *L Arterial Blood pCO2 (Temp correct) 34.4 L Arterial Blood pO2 (Temp corrected) 80.2 Arterial Blood HCO3 11.9 L Arterial Blood Base Excess -15.7 L Arterial Blood Oxygen Saturation 93.3 L Damian Test ACCEPTAB Arterial Blood Gas Puncture Site Right Radial Arterial Blood Carboxyhemoglobin 0.3 Arterial Blood Methemoglobin 0.3 Blood Gas A-a O2 Differential 598.4 H Oxyhemoglobin Percent 92.7 L Total Hemoglobin 11.7 L Blood Gas Temperature 37.0 Blood Gas Respiration Rate 26.0 Blood Gas Actual Respiration Rate 26 Blood Gas Modality VENT - AC FiO2 100.0 Blood Gas Tidal Volume 500.0 Blood Gas Critical Value Read Back K JUDE RN Blood Gas Notified Whom TM Blood Gas Notified Time 12/26/2016 8:01:00 AM Bedside Glucose 25 *L 204 Medications Medications Current Medications Acetaminophen (Tylenol Supp) 650 mg Q6H PRN [place] PAIN LEVEL 1-3 OR FEVER; Start 12/10/16 at 06:00 Morphine Sulfate (morphine) 1 mg Q4H PRN IV SEVERE PAIN LEVEL 7-10 Last administered on 12/23/16 13:58; Admin Dose 1 MG; Start 12/12/16 at 14:00 Lactobacillus Acidophilus/ Rhamnosus (Culturelle) 1 cap BID PO Last administered on 12/23/16 20:59; Admin Dose 1 CAP; Start 12/13/16 at 21:00 Aspirin (Halfprin) 81 mg DAILY PO Last administered on 12/22/16 08:39; Admin Dose 81 MG; Start 12/16/16 at 09:00 Atorvastatin Calcium (Lipitor) 10 mg QHS PO Last administered on 12/23/16 20: 59; Admin Dose 10 MG; Start 12/15/16 at 21:00 Carvedilol (Coreg) 6.25 mg BID PO Last administered on 12/23/16 21:00; Admin Dose 6.25 MG; Start 12/15/16 at 21:00 Cyanocobalamin (Vitamin B12) 1,000 mcg DAILY PO Last administered on 12/22/16 08:40; Admin Dose 1,000 MCG; Start 12/16/16 at 09:00 Docusate Sodium (Colace) 100 mg BID PO Last administered on 12/23/16 21:03; Admin Dose 100 MG; Start 12/15/16 at 21:00 Folic Acid (Folic Acid) 1 mg DAILY PO Last administered on 12/22/16 08:40; Admin Dose 1 MG; Start 12/16/16 at 09:00 Gabapentin (Neurontin) 100 mg QHS PO Last administered on 12/23/16 21:00; Admin Dose 100 MG; Start 12/15/16 at 21:00 Levothyroxine Sodium (Synthroid) 137 mcg DAILY@06 PO Last administered on 05:57; Admin Dose 137 MCG; Start 12/16/16 at 06:00 Losartan Potassium (Cozaar) 50 mg BID PO Last administered on 12/23/16 21:00; Admin Dose 50 MG; Start 12/15/16 at 21:00; Status Future Hold Pentoxifylline (Trental) 400 mg TID PO Last administered on 12/23/16 21:00; Admin Dose 400 MG; Start 12/17/16 at 21:00 Mesalamine (Delzicol Dr) 800 mg TID PO Last administered on 12/23/16 20:59; Admin Dose 800 MG; Start 12/17/16 at 21:00; Status Future Hold Loperamide HCl (Imodium Cap) 2 mg DAILY PO Last administered on 12/22/16 08:39 ; Admin Dose 2 MG; Start 12/17/16 at 18:00 Oxymetazoline HCl (Afrin [place]) 1 spray DAILY NASAL Last administered on 11:58; Admin Dose 1 SPRAY; Start 12/18/16 at 17:00 Guaifenesin (Mucinex) 600 mg BID PO Last administered on 12/23/16 20:59; Admin Dose 600 MG; Start 12/19/16 at 14:00 Fluticasone Propionate (Flonase 0.05% Nasal) 1 spray BID NASAL Last administered on 12/25/16 21:18; Admin Dose 1 SPRAY; Start 12/19/16 at 14:00 Multivitamins Therapeutic (Theragran) 1 tab BID PO Last administered on 21:00; Admin Dose 1 TAB; Start 12/20/16 at 21:00 Hydralazine HCl (Apresoline) 10 mg Q6H PRN IV ELEVATED BLOOD PRESSURE; Start at 16:00 Guaifenesin (Robitussin Liquid Cup) 200 mg Q4H PRN PO COUGH Last administered on 12/22/16 16:59; Admin Dose 200 MG; Start 12/21/16 at 16:00 Phenol (Cepastat Lozenge) 1 lozenge Q1H PRN MT COUGH; Start 12/21/16 at 16:30 Midodrine (Proamatine) 10 mg TID@,13,17 PO Last administered on 12/24/16 08: 04; Admin Dose 10 MG; Start 12/24/16 at 09:00 Pantoprazole (Protonix Iv) 40 mg BID@06,18 IV Last administered on 12/26/16 05: 08; Admin Dose 40 MG; Start 12/24/16 at 09:00 Diagnostic Test (Pha) (Accu-Chek) 1 ea Q4 XX Last administered on 12/26/16 05: 05; Admin Dose 1 EA; Start 12/24/16 at 09:00 Hydromorphone HCl 1 mg 1 mg Q6H PRN IV PAIN Last administered on 12/25/16 11:17 ; Admin Dose 1 MG; Start 12/24/16 at 11:00 Phenylephrine HCl 40 mg/Dextrose 500 ml @ 75 mls/hr TITRATE IV Last administered on 12/25/16 18:43; Admin Dose 172.5 MLS/HR; Start 12/24/16 at 15:30 Cefepime HCl 50 ml @ 100 mls/hr Q12 IVPB Last administered on 12/26/16 09:32; Admin Dose 100 MLS/HR; Start 12/25/16 at 09:00 Ondansetron HCl/ Sodium Chloride (Zofran Inj/NS) 54 ml @ 216 mls/hr Q6H PRN IV NAUSEA AND/OR VOMITING; Start 12/25/16 at 11:30 Trimethobenzamide HCl 200 mg 200 mg Q6H PRN IM NAUSEA AND/OR VOMITING; Start at 11:30 Tigecycline 50 mg/ Sodium Chloride 100 ml @ 200 mls/hr Q12 IVPB Last administered on 12/26/16 09:33; Admin Dose 200 MLS/HR; Start 12/26/16 at 09:00 Sodium Bicarbonate 100 meq/Dextrose/ Sodium Chloride 1,000 ml @ 75 mls/hr [id number] IV Last administered on 12/25/16 20:22; Admin Dose 30 MLS/HR; Start 12/25/16 at 19:30 Phenylephrine HCl 160 mg/Dextrose 500 ml @ 18.75 mls/ hr TITRATE IV Last administered on 12/26/16 05:19; Admin Dose 56.25 MLS/HR; Start 12/25/16 at 20:00 Metronidazole 100 ml @ 100 mls/hr Q8 IVPB Last administered on 12/26/16 05:08 ; Admin Dose 100 MLS/HR; Start 12/25/16 at 20:02; Stop 01/01/17 at 14:59 Norepinephrine/ Dextrose (Levophed/D5W) 250 ml @ 0.46 mls/hr TITRATE IV Last administered on 12/26/16 05:21; Admin Dose 14.06 MLS/HR; Start 12/26/16 at 04:00 BELINDA SORIANO Dec 26, 2016 10:24
[2016-12-26 12:27] LABS: ABNORMAL IP MESSAGE 1; HEMATOCRIT 34.2 % (37.0-47.0); HEMOGLOBIN 10.3 g/dl (12.0-16.0); MEAN CORPUSCULAR HEMOGLOBIN 31.3 pg (29.0-33.0); MEAN CORPUSCULAR HGB CONC 30.1 g/dl (32.0-37.0); MEAN PLATELET VOLUME 13.7 fl (7.4-10.4); NUCLEATED RED BLOOD CELLS% 5.1 /100WBC (0.0-0.0); RED BLOOD COUNT 3.29 10^6/ul (4.20-5.40); RED CELL DISTRIBUTION WIDTH 19.1 % (11.5-14.5); WHITE BLOOD COUNT 4.1 10^3/ul (4.8-10.8)
--- NOTE | 2016-12-26 12:33 | CONS ---
Date/Time of Note Date/Time of Note DATE: 12/26/16 TIME: 12:33 Assessment/Plan Assessment/Plan Chief Complaint/Hosp Course Assessment: 1. Persistent diarrhea post significant small bowel resection. 2. Persistent abdominal pain/thickened ascending and transverse colon 3. Colonoscopy 12-17-16: ischemic colitis right colon. 4. Persistent nausea and vomiting 5. EGD 12-17-16: Distal esophagitis, moderate, 2 linear ulcerations in the antrum of the stomach. Biopsies obtained. Rule out H. pylori infection. 6. Wound dehiscence 7. End-stage renal disease on chronic hemodialysis 8. Diabetes mellitus type 2 Plan 1. surgical eval 2. NG suctioning and NPO 3. continue protonix 40 iv bid 4. agree with palliative care Problems: Consultation Date/Type/Reason Admit Date/Time Dec 10, 2016 at 03:16 Initial Consult Date 12/15/16 Type of Consultation: GI 24 HR Interval Summary Subjective hx not possible: pt non-verbal, pt critical status Constitutional: disoriented Exam/Review of Systems Vital Signs Vitals Vital Signs Date Time Temp Pulse Resp B/P Pulse Ox O2 Delivery O2 Flow Rate FiO2 12/26/16 10:30 93 26 100/55 12/26/16 10:00 51 12/26/16 09:00 100 12/25/16 20:00 96.5 12/25/16 19:15 Mechanical Ventilator 12/25/16 02:30 4.0 Intake and Output 12/25/16 12/25/16 12/26/16 15:00 23:00 07:00 Intake Total 1327.5 ml 1475 ml 1194.06 ml Balance 1327.5 ml 1475 ml 1194.06 ml Exam Constitutional: non-verbal Psych: confusion Head: atraumatic, normocephalic Eyes: EOMI, nl conjunctiva, nl lids ENMT: nl external ears & nose, nl lips & teeth, nl nasal mucosa & septum Neck: non-tender, supple Respiratory: clear to auscultation, normal air movement Cardiovascular: nl pulses, regular rate and rhythm Gastrointestinal: bowel sounds, non-tender, soft Results Result Diagram: 12/26/16 0435 12/26/16 0435 Results 24 hrs Laboratory Tests Test 12/25/16 16:47 12/25/16 18:17 12/25/16 22:21 12/26/16 04:35 Bedside Glucose 120 107 Lactic Acid Level 13.6 *H White Blood Count 5.7 # Red Blood Count 3.65 L Hemoglobin 11.1 L Hematocrit 37.8 Mean Corpuscular Volume 103.6 H Mean Corpuscular Hemoglobin 30.4 Mean Corpuscular Hemoglobin Concent 29.4 L Red Cell Distribution Width 19.5 H Platelet Count 47 #L Mean Platelet Volume 12.6 H Neutrophils % Lymphocytes % Monocytes % Eosinophils % Basophils % 0.5 Nucleated Red Blood Cells % 1.9 H Neutrophils # (Manual) 4.4 Lymphocytes # Monocytes # Eosinophils # Basophils # 0.0 Nucleated Red Blood Cells # 0.2 H Sodium Level 128 L Potassium Level 4.3 Chloride Level 98 Carbon Dioxide Level 8 #*L Anion Gap 26 H Blood Urea Nitrogen 19 Creatinine 4.92 H Glucose Level 110 # Calcium Level 7.3 L Phosphorus Level 7.3 H Magnesium Level 2.2 Test 12/26/16 05:16 12/26/16 05:24 12/26/16 07:00 12/26/16 09:47 Bedside Glucose 107 25 *L Lab Scanned Report BLOOD TRANSFUSION Blood Gas Specimen Source Blood arterial Arterial Blood Date Drawn 12/26/2016 7:50:00 AM Arterial Blood pH (Temp corrected) 7.158 *L Arterial Blood pCO2 (Temp correct) 34.4 L Arterial Blood pO2 (Temp corrected) 80.2 Arterial Blood HCO3 11.9 L Arterial Blood Base Excess -15.7 L Arterial Blood Oxygen Saturation 93.3 L Damian Test ACCEPTAB Arterial Blood Gas Puncture Site Right Radial Arterial Blood Carboxyhemoglobin 0.3 Arterial Blood Methemoglobin 0.3 Blood Gas A-a O2 Differential 598.4 H Oxyhemoglobin Percent 92.7 L Total Hemoglobin 11.7 L Blood Gas Temperature 37.0 Blood Gas Respiration Rate 26.0 Blood Gas Actual Respiration Rate 26 Blood Gas Modality VENT - AC FiO2 100.0 Blood Gas Tidal Volume 500.0 Blood Gas Critical Value Read Back Tao ROQUE RN Blood Gas Notified Whom TM Blood Gas Notified Time 12/26/2016 8:01:00 AM Test 12/26/16 10:05 12/26/16 11:46 Bedside Glucose 204 White Blood Count Pending Red Blood Count Pending Hemoglobin Pending Hematocrit Pending Mean Corpuscular Volume Pending Mean Corpuscular Hemoglobin Pending Mean Corpuscular Hemoglobin Concent Pending Red Cell Distribution Width Pending Platelet Count Pending Mean Platelet Volume Pending Medications Medications Current Medications Acetaminophen (Tylenol Supp) 650 mg Q6H PRN [place] PAIN LEVEL 1-3 OR FEVER; Start 12/10/16 at 06:00 Morphine Sulfate (morphine) 1 mg Q4H PRN IV SEVERE PAIN LEVEL 7-10 Last administered on 12/23/16 13:58; Admin Dose 1 MG; Start 12/12/16 at 14:00 Lactobacillus Acidophilus/ Rhamnosus (Culturelle) 1 cap BID PO Last administered on 12/23/16 20:59; Admin Dose 1 CAP; Start 12/13/16 at 21:00 Aspirin (Halfprin) 81 mg DAILY PO Last administered on 12/22/16 08:39; Admin Dose 81 MG; Start 12/16/16 at 09:00 Atorvastatin Calcium (Lipitor) 10 mg QHS PO Last administered on 12/23/16 20: 59; Admin Dose 10 MG; Start 12/15/16 at 21:00 Carvedilol (Coreg) 6.25 mg BID PO Last administered on 12/23/16 21:00; Admin Dose 6.25 MG; Start 12/15/16 at 21:00 Cyanocobalamin (Vitamin B12) 1,000 mcg DAILY PO Last administered on 12/22/16 08:40; Admin Dose 1,000 MCG; Start 12/16/16 at 09:00 Docusate Sodium (Colace) 100 mg BID PO Last administered on 12/23/16 21:03; Admin Dose 100 MG; Start 12/15/16 at 21:00 Folic Acid (Folic Acid) 1 mg DAILY PO Last administered on 12/22/16 08:40; Admin Dose 1 MG; Start 12/16/16 at 09:00 Gabapentin (Neurontin) 100 mg QHS PO Last administered on 12/23/16 21:00; Admin Dose 100 MG; Start 12/15/16 at 21:00 Levothyroxine Sodium (Synthroid) 137 mcg DAILY@06 PO Last administered on 05:57; Admin Dose 137 MCG; Start 12/16/16 at 06:00 Losartan Potassium (Cozaar) 50 mg BID PO Last administered on 12/23/16 21:00; Admin Dose 50 MG; Start 12/15/16 at 21:00; Status Future Hold Pentoxifylline (Trental) 400 mg TID PO Last administered on 12/23/16 21:00; Admin Dose 400 MG; Start 12/17/16 at 21:00 Mesalamine (Delzicol Dr) 800 mg TID PO Last administered on 12/23/16 20:59; Admin Dose 800 MG; Start 12/17/16 at 21:00; Status Future Hold Loperamide HCl (Imodium Cap) 2 mg DAILY PO Last administered on 12/22/16 08:39 ; Admin Dose 2 MG; Start 12/17/16 at 18:00 Oxymetazoline HCl (Afrin [place]) 1 spray DAILY NASAL Last administered on 11:58; Admin Dose 1 SPRAY; Start 12/18/16 at 17:00 Guaifenesin (Mucinex) 600 mg BID PO Last administered on 12/23/16 20:59; Admin Dose 600 MG; Start 12/19/16 at 14:00 Fluticasone Propionate (Flonase 0.05% Nasal) 1 spray BID NASAL Last administered on 12/25/16 21:18; Admin Dose 1 SPRAY; Start 12/19/16 at 14:00 Multivitamins Therapeutic (Theragran) 1 tab BID PO Last administered on 21:00; Admin Dose 1 TAB; Start 12/20/16 at 21:00 Hydralazine HCl (Apresoline) 10 mg Q6H PRN IV ELEVATED BLOOD PRESSURE; Start at 16:00 Guaifenesin (Robitussin Liquid Cup) 200 mg Q4H PRN PO COUGH Last administered on 12/22/16 16:59; Admin Dose 200 MG; Start 12/21/16 at 16:00 Phenol (Cepastat Lozenge) 1 lozenge Q1H PRN [place] COUGH; Start 12/21/16 at 16:30 Midodrine (Proamatine) 10 mg TID@,,17 PO Last administered on 12/24/16 08: 04; Admin Dose 10 MG; Start 12/24/16 at 09:00 Pantoprazole (Protonix Iv) 40 mg BID@06,18 IV Last administered on 12/26/16 05: 08; Admin Dose 40 MG; Start 12/24/16 at 09:00 Diagnostic Test (Pha) (Accu-Chek) 1 ea Q4 XX Last administered on 12/26/16 09: 00; Admin Dose 1 EA; Start 12/24/16 at 09:00 Hydromorphone HCl 1 mg 1 mg Q6H PRN IV PAIN Last administered on 12/25/16 11:17 ; Admin Dose 1 MG; Start 12/24/16 at 11:00 Phenylephrine HCl 40 mg/Dextrose 500 ml @ 75 mls/hr TITRATE IV Last administered on 12/25/16 18:43; Admin Dose 172.5 MLS/HR; Start 12/24/16 at 15:30 Cefepime HCl 50 ml @ 100 mls/hr Q12 IVPB Last administered on 12/26/16 09:32; Admin Dose 100 MLS/HR; Start 12/25/16 at 09:00 Ondansetron HCl/ Sodium Chloride (Zofran Inj/NS) 54 ml @ 216 mls/hr Q6H PRN IV NAUSEA AND/OR VOMITING; Start 12/25/16 at 11:30 Trimethobenzamide HCl 200 mg 200 mg Q6H PRN IM NAUSEA AND/OR VOMITING; Start at 11:30 Tigecycline 50 mg/ Sodium Chloride 100 ml @ 200 mls/hr Q12 IVPB Last administered on 12/26/16 09:33; Admin Dose 200 MLS/HR; Start 12/26/16 at 09:00 Sodium Bicarbonate 100 meq/Dextrose/ Sodium Chloride 1,000 ml @ 75 mls/hr [id number] IV Last administered on 12/25/16 20:22; Admin Dose 30 MLS/HR; Start 12/25/16 at 19:30 Phenylephrine HCl 160 mg/Dextrose 500 ml @ 18.75 mls/ hr TITRATE IV Last administered on 12/26/16 05:19; Admin Dose 56.25 MLS/HR; Start 12/25/16 at 20:00 Metronidazole 100 ml @ 100 mls/hr Q8 IVPB Last administered on 12/26/16 05:08 ; Admin Dose 100 MLS/HR; Start 12/25/16 at 20:02; Stop 01/01/17 at 14:59 Norepinephrine/ Dextrose (Levophed/D5W) 250 ml @ 0.46 mls/hr TITRATE IV Last administered on 12/26/16t 05:21; Admin Dose 14.06 MLS/HR; Start 12/26/16 at 04:00 BETZAIDA CHANG MD Dec 26, 2016 12:33
[2016-12-26 12:50] LABS: POSITIVE DIFF @See below
--- NOTE | 2016-12-26 12:56 | CONS ---
Date/Time of Note Date/Time of Note DATE: 12/26/16 TIME: 12:55 Consult Date/Type/Reason Admit Date/Time Dec 10, 2016 at 03:16 Initial Consult Date 12/15/16 Type of Consultation: Pulmonary Subjective Remains unresponsive on multiple vasopressors. Elevated peak inspiratory pressures. FiO2 at 100%. Pending arrival with family from out of town prior to comfort measures. Objective Vital Signs Date Time Temp Pulse Resp B/P Pulse Ox O2 Delivery O2 Flow Rate FiO2 12/26/16 10:30 93 26 100/55 12/26/16 10:00 51 12/26/16 09:00 100 12/25/16 20:00 96.5 12/25/16 19:15 Mechanical Ventilator 12/25/16 02:30 4.0 Intake and Output 12/25/16 12/25/16 12/26/16 15:00 23:00 07:00 Intake Total 1327.5 ml 1475 ml 1194.06 ml Balance 1327.5 ml 1475 ml 1194.06 ml Exam PHYSICAL EXAMINATION: On examination, chronically ill-appearing lady, grimaces to painful stimuli. NECK: Supple. No JVD. CARDIAC: S1, S2. No added sounds. Murmurs. CHEST: Diminished air entry bilaterally. ABDOMEN: Soft, nontender. Diminished bowel sounds. EXTREMITIES: No clubbing, cyanosis or edema. Generalized weakness. Results/Medications Result Diagram: 12/26/16 1146 12/26/16 0435 Results 24 hrs Laboratory Tests Test 12/25/16 16:47 12/25/16 18:17 12/25/16 22:21 12/26/16 04:35 Bedside Glucose 120 107 Lactic Acid Level 13.6 *H White Blood Count 5.7 # Red Blood Count 3.65 L Hemoglobin 11.1 L Hematocrit 37.8 Mean Corpuscular Volume 103.6 H Mean Corpuscular Hemoglobin 30.4 Mean Corpuscular Hemoglobin Concent 29.4 L Red Cell Distribution Width 19.5 H Platelet Count 47 #L Mean Platelet Volume 12.6 H Neutrophils % Lymphocytes % Monocytes % Eosinophils % Basophils % 0.5 Nucleated Red Blood Cells % 1.9 H Neutrophils # (Manual) 4.4 Lymphocytes # Monocytes # Eosinophils # Basophils # 0.0 Nucleated Red Blood Cells # 0.2 H Sodium Level 128 L Potassium Level 4.3 Chloride Level 98 Carbon Dioxide Level 8 #*L Anion Gap 26 H Blood Urea Nitrogen 19 Creatinine 4.92 H Glucose Level 110 # Calcium Level 7.3 L Phosphorus Level 7.3 H Magnesium Level 2.2 Test 12/26/16 05:16 12/26/16 05:24 12/26/16 07:00 12/26/16 09:47 Bedside Glucose 107 25 *L Lab Scanned Report BLOOD TRANSFUSION Blood Gas Specimen Source Blood arterial Arterial Blood Date Drawn 12/26/2016 7:50:00 AM Arterial Blood pH (Temp corrected) 7.158 *L Arterial Blood pCO2 (Temp correct) 34.4 L Arterial Blood pO2 (Temp corrected) 80.2 Arterial Blood HCO3 11.9 L Arterial Blood Base Excess -15.7 L Arterial Blood Oxygen Saturation 93.3 L Damian Test ACCEPTAB Arterial Blood Gas Puncture Site Right Radial Arterial Blood Carboxyhemoglobin 0.3 Arterial Blood Methemoglobin 0.3 Blood Gas A-a O2 Differential 598.4 H Oxyhemoglobin Percent 92.7 L Total Hemoglobin 11.7 L Blood Gas Temperature 37.0 Blood Gas Respiration Rate 26.0 Blood Gas Actual Respiration Rate 26 Blood Gas Modality VENT - AC FiO2 100.0 Blood Gas Tidal Volume 500.0 Blood Gas Critical Value Read Back K JUDE RN Blood Gas Notified Whom TM Blood Gas Notified Time 12/26/2016 8:01:00 AM Test 12/26/16 10:05 12/26/16 11:46 Bedside Glucose 204 White Blood Count 4.1 #L Red Blood Count 3.29 L Hemoglobin 10.3 L Hematocrit 34.2 L Mean Corpuscular Volume 104.0 H Mean Corpuscular Hemoglobin 31.3 Mean Corpuscular Hemoglobin Concent 30.1 L Red Cell Distribution Width 19.1 H Platelet Count 26 #*L Mean Platelet Volume 13.7 H Neutrophils % Lymphocytes % Monocytes % Eosinophils % Basophils % Nucleated Red Blood Cells % 5.1 H Neutrophils # (Manual) 3.1 Lymphocytes # Monocytes # Eosinophils # Basophils # Nucleated Red Blood Cells # Medications Current Medications Acetaminophen (Tylenol Supp) 650 mg Q6H PRN [place] PAIN LEVEL 1-3 OR FEVER; Start 12/10/16 at 06:00 Morphine Sulfate (morphine) 1 mg Q4H PRN IV SEVERE PAIN LEVEL 7-10 Last administered on 12/23/16t 13:58; Admin Dose 1 MG; Start 12/12/16 at 14:00 Lactobacillus Acidophilus/ Rhamnosus (Culturelle) 1 cap BID PO Last administered on 12/23/16 20:59; Admin Dose 1 CAP; Start 12/13/16 at 21:00 Aspirin (Halfprin) 81 mg DAILY PO Last administered on 12/22/16 08:39; Admin Dose 81 MG; Start 12/16/16 at 09:00 Atorvastatin Calcium (Lipitor) 10 mg QHS PO Last administered on 12/23/16 20: 59; Admin Dose 10 MG; Start 12/15/16 at 21:00 Carvedilol (Coreg) 6.25 mg BID PO Last administered on 12/23/16 21:00; Admin Dose 6.25 MG; Start 12/15/16 at 21:00 Cyanocobalamin (Vitamin B12) 1,000 mcg DAILY PO Last administered on 12/22/16 08:40; Admin Dose 1,000 MCG; Start 12/16/16 at 09:00 Docusate Sodium (Colace) 100 mg BID PO Last administered on 12/23/16 21:03; Admin Dose 100 MG; Start 12/15/16 at 21:00 Folic Acid (Folic Acid) 1 mg DAILY PO Last administered on 12/22/16 08:40; Admin Dose 1 MG; Start 12/16/16 at 09:00 Gabapentin (Neurontin) 100 mg QHS PO Last administered on 12/23/16 21:00; Admin Dose 100 MG; Start 12/15/16 at 21:00 Levothyroxine Sodium (Synthroid) 137 mcg DAILY@06 PO Last administered on 05:57; Admin Dose 137 MCG; Start 12/16/16 at 06:00 Losartan Potassium (Cozaar) 50 mg BID PO Last administered on 12/23/16 21:00; Admin Dose 50 MG; Start 12/15/16 at 21:00; Status Future Hold Pentoxifylline (Trental) 400 mg TID PO Last administered on 12/23/16 21:00; Admin Dose 400 MG; Start 12/17/16 at 21:00 Mesalamine (Delzicol Dr) 800 mg TID PO Last administered on 12/23/16 20:59; Admin Dose 800 MG; Start 12/17/16 at 21:00; Status Future Hold Loperamide HCl (Imodium Cap) 2 mg DAILY PO Last administered on 12/22/16 08:39 ; Admin Dose 2 MG; Start 12/17/16 at 18:00 Oxymetazoline HCl (Afrin [place]) 1 spray DAILY NASAL Last administered on 11:58; Admin Dose 1 SPRAY; Start 12/18/16 at 17:00 Guaifenesin (Mucinex) 600 mg BID PO Last administered on 12/23/16 20:59; Admin Dose 600 MG; Start 12/19/16 at 14:00 Fluticasone Propionate (Flonase 0.05% Nasal) 1 spray BID NASAL Last administered on 12/25/16 21:18; Admin Dose 1 SPRAY; Start 12/19/16 at 14:00 Multivitamins Therapeutic (Theragran) 1 tab BID PO Last administered on 21:00; Admin Dose 1 TAB; Start 12/20/16 at 21:00 Hydralazine HCl (Apresoline) 10 mg Q6H PRN IV ELEVATED BLOOD PRESSURE; Start at 16:00 Guaifenesin (Robitussin Liquid Cup) 200 mg Q4H PRN PO COUGH Last administered on 12/22/16 16:59; Admin Dose 200 MG; Start 12/21/16 at 16:00 Phenol (Cepastat Lozenge) 1 lozenge Q1H PRN MT COUGH; Start 12/21/16 at 16:30 Midodrine (Proamatine) 10 mg TID@,, PO Last administered on 12/24/16 08: 04; Admin Dose 10 MG; Start 12/24/16 at 09:00 Pantoprazole (Protonix Iv) 40 mg BID@06,18 IV Last administered on 12/26/16 05: 08; Admin Dose 40 MG; Start 12/24/16 at 09:00 Diagnostic Test (Pha) (Accu-Chek) 1 ea Q4 XX Last administered on 12/26/16 09: 00; Admin Dose 1 EA; Start 12/24/16 at 09:00 Hydromorphone HCl 1 mg 1 mg Q6H PRN IV PAIN Last administered on 12/25/16 11:17 ; Admin Dose 1 MG; Start 12/24/16 at 11:00 Cefepime HCl 50 ml @ 100 mls/hr Q12 IVPB Last administered on 12/26/16 09:32; Admin Dose 100 MLS/HR; Start 12/25/16 at 09:00 Ondansetron HCl/ Sodium Chloride (Zofran Inj/NS) 54 ml @ 216 mls/hr Q6H PRN IV NAUSEA AND/OR VOMITING; Start 12/25/16 at 11:30 Trimethobenzamide HCl 200 mg 200 mg Q6H PRN IM NAUSEA AND/OR VOMITING; Start at 11:30 Tigecycline 50 mg/ Sodium Chloride 100 ml @ 200 mls/hr Q12 IVPB Last administered on 12/26/16 09:33; Admin Dose 200 MLS/HR; Start 12/26/16 at 09:00 Sodium Bicarbonate 100 meq/Dextrose/ Sodium Chloride 1,000 ml @ 75 mls/hr [id number] IV Last administered on 12/25/16 20:22; Admin Dose 30 MLS/HR; Start 12/25/16 at 19:30 Phenylephrine HCl 160 mg/Dextrose 500 ml @ 18.75 mls/ hr TITRATE IV Last administered on 12/26/16 05:19; Admin Dose 56.25 MLS/HR; Start 12/25/16 at 20:00 Metronidazole 100 ml @ 100 mls/hr Q8 IVPB Last administered on 12/26/16 05:08 ; Admin Dose 100 MLS/HR; Start 12/25/16 at 20:02; Stop 01/01/17 at 14:59 Norepinephrine/ Dextrose (Levophed/D5W) 250 ml @ 0.46 mls/hr TITRATE IV Last administered on 12/26/16 05:21; Admin Dose 14.06 MLS/HR; Start 12/26/16 at 04:00 Assessment/Plan Chief Complaint/Hosp Course IMAGING: Chest x-ray which was reviewed shows ongoing pulmonary edema. CT abdomen and pelvis performed yesterday shows concern for developing hepatic abscess and possible ischemic enteritis. Right lower lobe pneumonia. IMPRESSION: 1. Refractory septic shock. Likely polymicrobial, but with multiple sources including ischemic bowel versus pneumonia. 2. Hypoxemic respiratory failure. 3. End stage renal failure on hemodialysis. Severe metabolic acidosis based on bicarbonate 4. Significant deconditioning. 5. Shock liver. PLAN: The patient will require: 1. Continued mechanical ventilation. 2. Continue vasopressor support. 3. Volume resuscitation for hemodialysis as tolerated. 4. DVT and GI prophylaxis. 5. Palliative care consult to discuss with family regarding goals of care. Overall prognosis extremely poor. Pending arrival of family from out of town. Problems: URIEL MCLAUGHLIN MD, [facility] Dec 26, 2016 12:56
[2016-12-26 13:13] LABS: EOSINOPHILS # 0.1 10^3/ul (0.0-0.5)
[2016-12-26 13:15] LABS: PLATELET COUNT 47 10^3/UL (140-415)
[2016-12-26 14:09] LABS: EOSINOPHILS % (M) 2 % (0.0-7.0); ERYTHROBLAST% (NRBC) (M) 6 % (0-0); LYMPHOCYTES # 0.8 10^3/ul (0.8-2.9); METAMYELOCYTES %M 5 % (0-0); MONOCYTE # 0.6 10^3/ul (0.3-0.9); MONOCYTES % (M) 10 % (0-11); MYELOCYTES % (M) 6 % (0-0); REACTIVE LYMPHOCYTES% (M) 2 % (0-0)
[2016-12-26 14:21] LABS: ERYTHROBLAST% (NRBC) (M) 10 % (0-0); LYMPHOCYTES # 0.9 10^3/ul (0.8-2.9); METAMYELOCYTES %M 9 % (0-0); MONOCYTE # 0.3 10^3/ul (0.3-0.9); MONOCYTES % (M) 8 % (0-11); MYELOCYTES % (M) 6 % (0-0); PROMYELOCYTES #M 0 10^3/ul (0-0); PROMYELOCYTES % (M) 2 % (0-0); REACTIVE LYMPHOCYTES% (M) 1 % (0-0)
[2016-12-26 14:23] LABS: PLATELET COUNT 26 10^3/UL (140-415)
--- NOTE | 2016-12-26 14:28 | CONS ---
Date/Time of Note Date/Time of Note DATE: 12/26/16 TIME: 14:27 Assessment/Plan Assessment/Plan Chief Complaint/Hosp Course 1. ESRD. 2. Ischemic enteritis/Colitis 3. respiratory failure 4. S/p small bowel resection. 5. Persistent abdominal pain 6. Abdomen wound dehiscence 7. Hypotension, on pressors 8. 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 9. Severe anemia 10. Cholelithiasis and mild gallbladder wall thickening. 7. Status post left nephrectomy. Problems: Additional Assessment/Plan 1. No HD 2. Poor prognosis 3. Consult dr Siddiqui obtained, family is coming Consultation Date/Type/Reason Admit Date/Time Dec 10, 2016 at 03:16 Initial Consult Date 12/10/16 Type of Consultation: nephrology Reason for Consultation Dr Nuñez 24 HR Interval Summary Free Text/Dictation nonresponsive Subjective hx not possible: pt critical Exam/Review of Systems Vital Signs Vitals Vital Signs Date Time Temp Pulse Resp B/P Pulse Ox O2 Delivery O2 Flow Rate FiO2 12/26/16 14:00 92 26 80/48 12/26/16 12:00 98.2 12/26/16 10:00 51 12/26/16 09:00 100 12/25/16 19:15 Mechanical Ventilator 12/25/16 02:30 4.0 Intake and Output 12/25/16 12/25/16 12/26/16 14:59 22:59 06:59 Intake Total 1242.5 ml 1680 ml 1124 ml Balance 1242.5 ml 1680 ml 1124 ml Exam Constitutional: non-verbal, other (nonresponsive) ENMT: nl external ears & nose Respiratory: diminished breath sounds Cardiovascular: regular rate and rhythm Results Result Diagram: 12/26/16 1146 12/26/16 0435 Results 24 hrs Laboratory Tests Test 12/25/16 16:47 12/25/16 18:17 12/25/16 22:21 12/26/16 04:10 Bedside Glucose 120 107 Lactic Acid Level 13.6 *H Glucose Level 97 # Test 12/26/16 04:35 12/26/16 05:16 12/26/16 05:24 12/26/16 07:00 White Blood Count 5.7 # Red Blood Count 3.65 L Hemoglobin 11.1 L Hematocrit 37.8 Mean Corpuscular Volume 103.6 H Mean Corpuscular Hemoglobin 30.4 Mean Corpuscular Hemoglobin Concent 29.4 L Red Cell Distribution Width 19.5 H Platelet Count 47 #L Mean Platelet Volume 12.6 H Neutrophils % Segmented Neutrophils % (Manual) 24 L Band Neutrophils % (Manual) 37 H Lymphocytes % Lymphocytes % (Manual) 14 L Reactive Lymphocytes % (Manual) 2 H Monocytes % Monocytes % (Manual) 10 Eosinophils % Eosinophils % (Manual) 2 Basophils % 0.5 Metamyelocytes % (manual) 5 H Myelocytes % (Manual) 6 H Nucleated Red Blood Cells % 6 H Neutrophils # (Manual) 1.5 L Band Neutrophils # 2.1 H Absolute Lymphocytes (Manual) 0.7 L Lymphocytes # 0.8 Reactive Lymphocytes # 0.1 H Monocytes # 0.6 Absolute Monocytes (Manual) 0.5 Eosinophils # 0.1 Basophils # 0.0 Metamyelocytes # 0.2 H Myelocytes # 0.3 H Nucleated Red Blood Cells # 0.2 H Sodium Level 128 L Potassium Level 4.3 Chloride Level 98 Carbon Dioxide Level 8 #*L Anion Gap 26 H Blood Urea Nitrogen 19 Creatinine 4.92 H Glucose Level 110 Calcium Level 7.3 L Phosphorus Level 7.3 H Magnesium Level 2.2 Bedside Glucose 107 Lab Scanned Report BLOOD TRANSFUSION Blood Gas Specimen Source Blood arterial Arterial Blood Date Drawn 12/26/2016 7:50:00 AM Arterial Blood pH (Temp corrected) 7.158 *L Arterial Blood pCO2 (Temp correct) 34.4 L Arterial Blood pO2 (Temp corrected) 80.2 Arterial Blood HCO3 11.9 L Arterial Blood Base Excess -15.7 L Arterial Blood Oxygen Saturation 93.3 L Damian Test ACCEPTAB Arterial Blood Gas Puncture Site Right Radial Arterial Blood Carboxyhemoglobin 0.3 Arterial Blood Methemoglobin 0.3 Blood Gas A-a O2 Differential 598.4 H Oxyhemoglobin Percent 92.7 L Total Hemoglobin 11.7 L Blood Gas Temperature 37.0 Blood Gas Respiration Rate 26.0 Blood Gas Actual Respiration Rate 26 Blood Gas Modality VENT - AC FiO2 100.0 Blood Gas Tidal Volume 500.0 Blood Gas Critical Value Read Back Tao ROQUE RN Blood Gas Notified Whom TM Blood Gas Notified Time 12/26/2016 8:01:00 AM Test 12/26/16 09:47 12/26/16 10:05 12/26/16 11:46 Bedside Glucose 25 *L 204 White Blood Count 4.1 #L Red Blood Count 3.29 L Hemoglobin 10.3 L Hematocrit 34.2 L Mean Corpuscular Volume 104.0 H Mean Corpuscular Hemoglobin 31.3 Mean Corpuscular Hemoglobin Concent 30.1 L Red Cell Distribution Width 19.1 H Platelet Count 26 #*L Mean Platelet Volume 13.7 H Neutrophils % Segmented Neutrophils % (Manual) 5 L Band Neutrophils % (Manual) 46 H Lymphocytes % Lymphocytes % (Manual) 23 Reactive Lymphocytes % (Manual) 1 H Monocytes % Monocytes % (Manual) 8 Eosinophils % Basophils % Metamyelocytes % (manual) 9 H Myelocytes % (Manual) 6 H Promyelocytes % (Manual) 2 H Nucleated Red Blood Cells % 10 H Neutrophils # (Manual) 0.3 L Band Neutrophils # 1.8 H Absolute Lymphocytes (Manual) 0.9 Lymphocytes # 0.9 Reactive Lymphocytes # 0.0 Monocytes # 0.3 Absolute Monocytes (Manual) 0.3 Eosinophils # Basophils # Metamyelocytes # 0.3 H Myelocytes # 0.2 H Promyelocytes # 0 Nucleated Red Blood Cells # Lactic Acid Level 19.7 *H Medications Medications Current Medications Acetaminophen (Tylenol Supp) 650 mg Q6H PRN [place] PAIN LEVEL 1-3 OR FEVER; Start 12/10/16 at 06:00 Morphine Sulfate (morphine) 1 mg Q4H PRN IV SEVERE PAIN LEVEL 7-10 Last administered on 12/23/16 13:58; Admin Dose 1 MG; Start 12/12/16 at 14:00 Lactobacillus Acidophilus/ Rhamnosus (Culturelle) 1 cap BID PO Last administered on 12/23/16 20:59; Admin Dose 1 CAP; Start 12/13/16 at 21:00 Aspirin (Halfprin) 81 mg DAILY PO Last administered on 12/22/16 08:39; Admin Dose 81 MG; Start 12/16/16 at 09:00 Atorvastatin Calcium (Lipitor) 10 mg QHS PO Last administered on 12/23/16 20: 59; Admin Dose 10 MG; Start 12/15/16 at 21:00 Carvedilol (Coreg) 6.25 mg BID PO Last administered on 12/23/16 21:00; Admin Dose 6.25 MG; Start 12/15/16 at 21:00 Cyanocobalamin (Vitamin B12) 1,000 mcg DAILY PO Last administered on 12/22/16 08:40; Admin Dose 1,000 MCG; Start 12/16/16 at 09:00 Docusate Sodium (Colace) 100 mg BID PO Last administered on 12/23/16 21:03; Admin Dose 100 MG; Start 12/15/16 at 21:00 Folic Acid (Folic Acid) 1 mg DAILY PO Last administered on 12/22/16 08:40; Admin Dose 1 MG; Start 12/16/16 at 09:00 Gabapentin (Neurontin) 100 mg QHS PO Last administered on 12/23/16 21:00; Admin Dose 100 MG; Start 12/15/16 at 21:00 Levothyroxine Sodium (Synthroid) 137 mcg DAILY@06 PO Last administered on 05:57; Admin Dose 137 MCG; Start 12/16/16 at 06:00 Losartan Potassium (Cozaar) 50 mg BID PO Last administered on 12/23/16 21:00; Admin Dose 50 MG; Start 12/15/16 at 21:00; Status Future Hold Pentoxifylline (Trental) 400 mg TID PO Last administered on 12/23/16 21:00; Admin Dose 400 MG; Start 12/17/16 at 21:00 Mesalamine (Delzicol Dr) 800 mg TID PO Last administered on 12/23/16 20:59; Admin Dose 800 MG; Start 12/17/16 at 21:00; Status Future Hold Loperamide HCl (Imodium Cap) 2 mg DAILY PO Last administered on 12/22/16 08:39 ; Admin Dose 2 MG; Start 12/17/16 at 18:00 Oxymetazoline HCl (Afrin [place]) 1 spray DAILY NASAL Last administered on 11:58; Admin Dose 1 SPRAY; Start 12/18/16 at 17:00 Guaifenesin (Mucinex) 600 mg BID PO Last administered on 12/23/16 20:59; Admin Dose 600 MG; Start 12/19/16 at 14:00 Fluticasone Propionate (Flonase 0.05% Nasal) 1 spray BID NASAL Last administered on 12/25/16 21:18; Admin Dose 1 SPRAY; Start 12/19/16 at 14:00 Multivitamins Therapeutic (Theragran) 1 tab BID PO Last administered on 21:00; Admin Dose 1 TAB; Start 12/20/16 at 21:00 Hydralazine HCl (Apresoline) 10 mg Q6H PRN IV ELEVATED BLOOD PRESSURE; Start at 16:00 Guaifenesin (Robitussin Liquid Cup) 200 mg Q4H PRN PO COUGH Last administered on 12/22/16 16:59; Admin Dose 200 MG; Start 12/21/16 at 16:00 Phenol (Cepastat Lozenge) 1 lozenge Q1H PRN MT COUGH; Start 12/21/16 at 16:30 Midodrine (Proamatine) 10 mg TID@,,17 PO Last administered on 12/24/16 08: 04; Admin Dose 10 MG; Start 12/24/16 at 09:00 Pantoprazole (Protonix Iv) 40 mg BID@06,18 IV Last administered on 12/26/16 05: 08; Admin Dose 40 MG; Start 12/24/16 at 09:00 Diagnostic Test (Pha) (Accu-Chek) 1 ea Q4 XX Last administered on 12/26/16 13: 13; Admin Dose 1 EA; Start 12/24/16 at 09:00 Hydromorphone HCl 1 mg 1 mg Q6H PRN IV PAIN Last administered on 12/25/16 11:17 ; Admin Dose 1 MG; Start 12/24/16 at 11:00 Cefepime HCl 50 ml @ 100 mls/hr Q12 IVPB Last administered on 12/26/16 09:32; Admin Dose 100 MLS/HR; Start 12/25/16 at 09:00 Ondansetron HCl/ Sodium Chloride (Zofran Inj/NS) 54 ml @ 216 mls/hr Q6H PRN IV NAUSEA AND/OR VOMITING; Start 12/25/16 at 11:30 Trimethobenzamide HCl 200 mg 200 mg Q6H PRN IM NAUSEA AND/OR VOMITING; Start at 11:30 Tigecycline 50 mg/ Sodium Chloride 100 ml @ 200 mls/hr Q12 IVPB Last administered on 12/26/16 09:33; Admin Dose 200 MLS/HR; Start 12/26/16 at 09:00 Sodium Bicarbonate 100 meq/Dextrose/ Sodium Chloride 1,000 ml @ 75 mls/hr [id number] IV Last administered on 12/25/16 20:22; Admin Dose 30 MLS/HR; Start 12/25/16 at 19:30 Phenylephrine HCl 160 mg/Dextrose 500 ml @ 18.75 mls/ hr TITRATE IV Last administered on 12/26/16 05:19; Admin Dose 56.25 MLS/HR; Start 12/25/16 at 20:00 Metronidazole 100 ml @ 100 mls/hr Q8 IVPB Last administered on 12/26/16 05:08 ; Admin Dose 100 MLS/HR; Start 12/25/16 at 20:02; Stop 01/01/17 at 14:59 Norepinephrine/ Dextrose (Levophed/D5W) 250 ml @ 0.46 mls/hr TITRATE IV Last administered on 12/26/16 05:21; Admin Dose 14.06 MLS/HR; Start 12/26/16 at 04:00 ASIM LANGSTON Dec 26, 2016 14:28
--- NOTE | 2016-12-26 16:33 | DES ---
Date/Time of Note Date/Time of Note DATE: 12/26/16 TIME: 16:25 Discharge/ Summary Admission/Discharge Info Admit Date/Time Dec 10, 2016 at 03:16 Discharge Date/Time Final Diagnosis 1. Abdominal pain: Secondary to ischemic colitis and possible hepatic abscess- with a prior history of hemicolectomy a few months ago 2. Septic shock: Secondary to #1 3. Diarrhea 4. End-stage renal disease on dialysis: Patient with a history of nephrectomy 5. Diabetes-last A1c was 4.8 back in August 2016. A1c this admission equals 5.1 5. Anemia, likely secondary to chronic disease 6. Hypertension 7. History of hemicolectomy Preliminary Cause of 1. Cardiac arrest: Minutes 2. Respiratory distress: Hours 3. Septic shock: Days Hospital Course 56-year-old female prior history of bowel resection and possible mesenteric ischemia, coming in with abdominal pain, worsening over hospital stay with the findings on CT scan of ischemic enteritis/pneumatosis. Patient was initially admitted to medical surgical unit, seen by multiple specialists during this hospital stay including renal team, vascular surgery, general surgery, palliative, pulmonary, infectious disease teams. Patient received hemodialysis as regularly scheduled. Her abdominal pain was slowly improving earlier this hospital stay, but in the last 72 hours of hospital stay patient presented with more tenderness to palpation, with findings of ischemic colitis/pneumatosis on CT scan 3 days ago. In addition, she also has findings of possible hepatic abscess, seen by infectious disease team yesterday as well. 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 Unfortunately patient went into shock and had to be placed on pressor support with lactic acidosis. An EEG was performed as well, patient was also placed on her doses of broad-spectrum antibiotics. Palliative care team met with the family and patient was made DNR, but full medical treatment was still initiated. Unfortunately on the day of December 26, 2016 the patients condition worsened and she went to asystole and unfortunately at 14: 44 on same day. Pending Labs/Cultures Laboratory Tests Test 12/25/16 16:47 12/25/16 18:17 12/25/16 22:21 12/26/16 04:10 Bedside Glucose 120mg/dL (70-220) 107mg/dL (70-220) Lactic Acid Level 13.6mmol/L (0.5-2.0) Glucose Level 97mg/dl (70-220) Test 12/26/16 04:35 12/26/16 05:16 12/26/16 05:24 12/26/16 07:00 White Blood Count 5.710^3/ul (4.8-10.8) Red Blood Count 3.6510^6/ul (4.20-5.40) Hemoglobin 11.1g/dl (12.0-16.0) Hematocrit 37.8% (37.0-47.0) Mean Corpuscular Volume 103.6fl (82.0-101.0) Mean Corpuscular Hemoglobin 30.4pg (29.0-33.0) Mean Corpuscular Hemoglobin Concent 29.4g/dl (32.0-37.0) Red Cell Distribution Width 19.5% (11.5-14.5) Platelet Count 4710^3/UL (140-415) Mean Platelet Volume 12.6fl (7.4-10.4) Neutrophils % % (39.0-77.0) Segmented Neutrophils % (Manual) 24% (39-77) Band Neutrophils % (Manual) 37% (0-4) Lymphocytes % % (15.0-51.0) Lymphocytes % (Manual) 14% (15-51) Reactive Lymphocytes % (Manual) 2% (0-0) Monocytes % % (0.0-11.0) Monocytes % (Manual) 10% (0-11) Eosinophils % % (0.0-7.0) Eosinophils % (Manual) 2% (0.0-7.0) Basophils % 0.5% (0.0-2.0) Metamyelocytes % (manual) 5% (0-0) Myelocytes % (Manual) 6% (0-0) Nucleated Red Blood Cells % 6% (0-0) Neutrophils # (Manual) 1.510^3/ul (1.7-7.5) Band Neutrophils # 2.110^3/ul (0.0-0.6) Absolute Lymphocytes (Manual) 0.710^3/ul (0.8-2.9) Lymphocytes # 0.810^3/ul (0.8-2.9) Reactive Lymphocytes # 0.110^3/ul (0.0-0.0) Monocytes # 0.610^3/ul (0.3-0.9) Absolute Monocytes (Manual) 0.510^3/ul (0.3-0.9) Eosinophils # 0.110^3/ul (0.0-0.5) Basophils # 0.010^3/ul (0.0-0.1) Metamyelocytes # 0.210^3/ul (0.0-0.0) Myelocytes # 0.310^3/ul (0.0-0.0) Nucleated Red Blood Cells # 0.210^3/ul (0.0-0.0) Sodium Level 128mmol/L (135-144) Potassium Level 4.3mmol/L (3.5-5.1) Chloride Level 98mmol/L (97-110) Carbon Dioxide Level 8mmol/L (21-31) Anion Gap 26 (8-16) Blood Urea Nitrogen 19mg/dl (7-20) Creatinine 4.92mg/dl (0.44-1.00) Glucose Level 110mg/dl (70-220) Calcium Level 7.3mg/dl (8.4-10.2) Phosphorus Level 7.3mg/dl (2.5-4.9) Magnesium Level 2.2mg/dl (1.7-2.5) Bedside Glucose 107mg/dL (70-220) Lab Scanned Report BLOOD [id number] Blood Gas Specimen Source Blood arterial Arterial Blood Date Drawn 12/26/2016 7:50:00 AM Arterial Blood pH (Temp corrected) 7.158 (7.350-7.450) Arterial Blood pCO2 (Temp correct) 34.4mmhg (35-45) Arterial Blood pO2 (Temp corrected) 80.2mmHG (80-100.0) Arterial Blood HCO3 11.9mmol/L (22.0-26.0) Arterial Blood Base Excess -15.7mmol/L (-3.0-3) Arterial Blood Oxygen Saturation 93.3mmHG (95.0-98.0) Damian Test ACCEPTAB Arterial Blood Gas Puncture Site Right Radial Arterial Blood Carboxyhemoglobin 0.3% (0.0-3.0) Arterial Blood Methemoglobin 0.3% (0.0-1.5) Blood Gas A-a O2 Differential 598.4mmHg (7.0-24.0) Oxyhemoglobin Percent 92.7% (93.0-99.0) Total Hemoglobin 11.7g/dl (12.0-18.0) Blood Gas Temperature 37.0C Blood Gas Respiration Rate 26.0 Blood Gas Actual Respiration Rate 26 Blood Gas Modality VENT - AC FiO2 100.0% Blood Gas Tidal Volume 500.0mL Blood Gas Critical Value Read Back K JUDE RN Blood Gas Notified Whom TM Blood Gas Notified Time 12/26/2016 8:01:00 AM Test 12/26/16 09:47 12/26/16 10:05 12/26/16 11:46 Bedside Glucose 25mg/dL (70-220) 204mg/dL (70-220) White Blood Count 4.110^3/ul (4.8-10.8) Red Blood Count 3.2910^6/ul (4.20-5.40) Hemoglobin 10.3g/dl (12.0-16.0) Hematocrit 34.2% (37.0-47.0) Mean Corpuscular Volume 104.0fl (82.0-101.0) Mean Corpuscular Hemoglobin 31.3pg (29.0-33.0) Mean Corpuscular Hemoglobin Concent 30.1g/dl (32.0-37.0) Red Cell Distribution Width 19.1% (11.5-14.5) Platelet Count 2610^3/UL (140-415) Mean Platelet Volume 13.7fl (7.4-10.4) Neutrophils % % (39.0-77.0) Segmented Neutrophils % (Manual) 5% (39-77) Band Neutrophils % (Manual) 46% (0-4) Lymphocytes % % (15.0-51.0) Lymphocytes % (Manual) 23% (15-51) Reactive Lymphocytes % (Manual) 1% (0-0) Monocytes % % (0.0-11.0) Monocytes % (Manual) 8% (0-11) Eosinophils % % (0.0-7.0) Basophils % % (0.0-2.0) Metamyelocytes % (manual) 9% (0-0) Myelocytes % (Manual) 6% (0-0) Promyelocytes % (Manual) 2% (0-0) Nucleated Red Blood Cells % 10% (0-0) Neutrophils # (Manual) 0.310^3/ul (1.7-7.5) Band Neutrophils # 1.810^3/ul (0.0-0.6) Absolute Lymphocytes (Manual) 0.910^3/ul (0.8-2.9) Lymphocytes # 0.910^3/ul (0.8-2.9) Reactive Lymphocytes # 0.010^3/ul (0.0-0.0) Monocytes # 0.310^3/ul (0.3-0.9) Absolute Monocytes (Manual) 0.310^3/ul (0.3-0.9) Eosinophils # 10^3/ul (0.0-0.5) Basophils # 10^3/ul (0.0-0.1) Metamyelocytes # 0.310^3/ul (0.0-0.0) Myelocytes # 0.210^3/ul (0.0-0.0) Promyelocytes # 010^3/ul (0-0) Nucleated Red Blood Cells # 10^3/ul (0.0-0.0) Lactic Acid Level 19.7mmol/L (0.5-2.0) BELINDA SORIANO Dec 26, 2016 16:33
[2016-12-29 17:54] LABS: PATH REVIEW CH
== END 2016-12-26 14:44 | disposition expired | DRG 393 ==
LOC: E/R 22:07 → PP2 12-10 03:16 → ICU 12-24 04:16
PROVIDERS: ADMIT Internal Medicine; ATTEND Internal Medicine
PROC: 5A1D60Z (ICD-10-PCS; 2016-12-11)
PROC: 0DBE8ZX Excision of Large Intestine, Via Natural or Artificial Opening Endoscopic, Diagnostic (ICD-10-PCS; 2016-12-17)
PROC: 0DB68ZX Excision of Stomach, Via Natural or Artificial Opening Endoscopic, Diagnostic (ICD-10-PCS; principal; 2016-12-17 17:30)
PROC: 5A1935Z Respiratory Ventilation, Less than 24 Consecutive Hours (ICD-10-PCS; 2016-12-25)
PROC: 06HM33Z Insertion of Infusion Device into Right Femoral Vein, Percutaneous Approach (ICD-10-PCS; 2016-12-25)
PROC: B54BZZA Ultrasonography of Right Lower Extremity Veins, Guidance (ICD-10-PCS; 2016-12-25)
DX: K55.8 Other vascular disorders of intestine (principal); A41.9 Sepsis, unspecified organism; J96.01 Acute respiratory failure with hypoxia; K72.00 Acute and subacute hepatic failure without coma; R65.21 Severe sepsis with septic shock; N18.6 End stage renal disease; I12.0 Hypertensive chronic kidney disease with stage 5 chronic kidney disease or end stage renal disease; K75.0 Abscess of liver; T81.30XA Disruption of wound, unspecified, initial encounter; K80.50 Calculus of bile duct without cholangitis or cholecystitis without obstruction; I25.10 Atherosclerotic heart disease of native coronary artery without angina pectoris; E11.22 Type 2 diabetes mellitus with diabetic chronic kidney disease; B96.89 Other specified bacterial agents as the cause of diseases classified elsewhere; Y83.8 Other surgical procedures as the cause of abnormal reaction of the patient, or of later complication, without mention of misadventure at the time of the procedure; I46.9 Cardiac arrest, cause unspecified; Y92.89 Other specified places as the place of occurrence of the external cause; K25.9 Gastric ulcer, unspecified as acute or chronic, without hemorrhage or perforation; K20.9 Esophagitis, unspecified; K64.8 Other hemorrhoids; R19.7 Diarrhea, unspecified; R06.00 Dyspnea, unspecified; D63.8 Anemia in other chronic diseases classified elsewhere; M62.81 Muscle weakness (generalized); Z99.2 Dependence on renal dialysis; Z66 Do not resuscitate; Z79.84 Long term (current) use of oral hypoglycemic drugs; Z95.1 Presence of aortocoronary bypass graft; Z90.49 Acquired absence of other specified parts of digestive tract; Z79.4 Long term (current) use of insulin; Z86.19 Personal history of other infectious and parasitic diseases
CPT/HCPCS: 31500; 36430; 36600; 71010; 74176; 74177; 75635; 80048; 80053; 82270; 82728; 82803; 82947; 82962; 83036; 83540; 83605; 83690; 83735; 84100; 84132; 84484; 85014; 85018; 85025; 85610; 85730; 86850; 86900; 86901; 86920; 87040; 87045; 87075; 87081; 88305; 88312; 90935; 93005; 94003; 94640; 94664; 94770; 96374; 97110; 97116; 97162; 97530; C9113; J0360; J0692; J1170; J1644; J2185; J2270; J2370; J2405; J2543; J3243; J3475; J7040; J7042; J7060; J7070; P9016; P9047; P9059; Q9967